=== PATIENT | female | born 1965 | race Caucasian/White ===

== ENCOUNTER → 2016-09-03 | Outpatient (CLI) | payer OTHER ==
[~2016-09-03] MED LIST: ALBU18002 INH; ASPI81TA28 PO; ATV5 PO; CALCTAB7 PO; CETI10TA84 PO; DILT-115 PO; EPP3/2 IM; FURO-85 PO; HYDR-389 PO; IPRASOL34 INH; NYSS/ PO; NYSTCRE11 EXT; PANT1TAB3 PO; PLMIN90 INH; POTA10CA28 PO; PRED-301 PO; RANI300T PO; SNG10 PO; SPRIN INH; TRMCR515 TOP; ZOLM1TAB3 PO
[2016-09-03 13:59] LABS: BLOOD UREA NITROGEN 10 mg/dl (7-18); BUN/CREATININE RATIO 15.2 (10-20); CREATININE 0.67 mg/dl (0.60-1.20)
== END | disposition home or self-care (01) ==
LOC: C.LAB 11:46
PROVIDERS: ATTEND Internal Medicine Pulmonary Disease
DX: R06.02 Shortness of breath (principal); R05 Cough; G47.30 Sleep apnea, unspecified

== ENCOUNTER → 2016-09-17 | Outpatient (CLI) | payer OTHER ==
[~2016-09-17] MED LIST changes: -PANT1TAB3 PO; +PANT1TAB48 PO
[2016-09-17 17:29] LABS: BLOOD UREA NITROGEN 13 mg/dl (7-18); BUN/CREATININE RATIO 17.7 (10-20); CALCIUM 8.6 mg/dl (8.5-10.1); CARBON DIOXIDE 30 mmol/L (21-32); CHLORIDE 104 mmol/L (98-107); CREATININE 0.74 mg/dl (0.60-1.20); GLUCOSE 98 mg/dl (70-99); POTASSIUM 3.5 mmol/L (3.5-5.1); SODIUM 143 mmol/L (136-145)
[2016-09-17 17:31] LABS: TOTAL IRON BINDING CAPACITY 357 mcg/dl (250-450)
== END | disposition home or self-care (01) ==
LOC: C.LABBC 12:15
PROVIDERS: ATTEND Internal Medicine Pulmonary Disease
DX: R35.8 Other polyuria (principal); R53.83 Other fatigue

== ENCOUNTER → 2016-10-23 | Outpatient (CLI) | payer OTHER ==
--- NOTE | 2016-10-23 09:59 | DIAGNOSTIC IMAGING REPORT ---
CHEST 2 VIEWS ROUTINE CLINICAL HISTORY: J45.901 Asthmatic bronchitis with [id number] COMPARISON STUDY: 08/19/2016 FINDINGS: The bones soft tissues and hemidiaphragms are normal. The cardiomediastinal silhouette is normal. The lungs are clear. The pulmonary vasculature is normal. IMPRESSION: Negative chest. Electronically signed by: Fernando Allison M.D. 10/23/2016 9:58 AM Dictated Date/Time: 10/23/2016 9:58 AM
[2016-10-23 13:14] LABS: BASO % 0.1 %; BASO ABS # 0.01 K/uL (0-0.2); COMPLETE YES; EOS % 0.2 %; HEMATOCRIT 43.2 % (37-47); IG% 0.5 %; LYMPH % 11.4 %; LYMPH ABS # 2.18 K/uL (1.2-3.4); MEAN CELL VOLUME 91.7 fL (80-100); MEAN CORPUSCULAR HEMOGLOBIN 32.1 pg (25-34); MEAN PLATELET VOLUME 10.3 fL (7.4-10.4); MONO % 3.7 %; NEUT % 84.1 %; PLATELET COUNT 281 K/uL (130-400); RED BLOOD COUNT 4.71 M/uL (4.2-5.4); WHITE BLOOD COUNT 19.06 K/uL (4.8-10.8)
[2016-10-23 14:31] LABS: ALT/SGPT 26 U/L (12-78); AST/SGOT 7 U/L (15-37); BLOOD UREA NITROGEN 14 mg/dl (7-18); BUN/CREATININE RATIO 15.1 (10-20); CALCIUM 8.9 mg/dl (8.5-10.1); CARBON DIOXIDE 29 mmol/L (21-32); CHLORIDE 101 mmol/L (98-107); CREATININE 0.93 mg/dl (0.60-1.20); GLUCOSE 146 mg/dl (70-99); POTASSIUM 3.7 mmol/L (3.5-5.1); SODIUM 139 mmol/L (136-145)
[2016-10-23 14:34] LABS: ALKALINE PHOSPHATASE 73 U/L (45-117)
== END | disposition home or self-care (01) ==
LOC: C.RADBC 09:43
PROVIDERS: ATTEND Internal Medicine Pulmonary Disease
DX: J45.901 Unspecified asthma with (acute) exacerbation (principal)

== ENCOUNTER → 2016-12-05 | Outpatient (CLI) | payer OTHER | END | disposition home or self-care (01) | LOC: C.PAPS 08:50 | PROVIDERS: ATTEND Obstetrics & Gynecology | DX: N83.299 Other ovarian cyst, unspecified side (principal); Z01.419 Encounter for gynecological examination (general) (routine) without abnormal findings ==

== ENCOUNTER → 2017-03-11 | Outpatient (CLI) | payer OTHER ==
[~2017-03-11] MED LIST changes: -PRED-301 PO
--- NOTE | 2017-03-11 09:04 | DIAGNOSTIC IMAGING REPORT ---
GI SERIES W/AIR ROUTINE CLINICAL HISTORY: K21.9 GERD without [id number] Abdominal pain TECHNIQUE: A standard air contrast upper GI series was performed following administration of barium and effervescent crystals. Multiple spot fluoroscopic images were obtained and provided for review. COMPARISON STUDY: CT 10/04/2015 FLUOROSCOPY TIME: 2.2 minutes. FINDINGS: The patient swallowed barium without difficulty. No aspiration was definitively visualized. The esophagus distended normally with barium and effervescent crystals. No strictures, mucosal ulcerations, or intraluminal mass lesions were identified involving the esophagus. There was no appreciable gastroesophageal reflux. Barium was seen to flow freely through the gastroesophageal junction. Evaluation of the stomach demonstrates no gastric mucosal irregularity or filling defect. The duodenal bulb and sweep appear unremarkable with the exception of a small diverticulum involving the second portion. IMPRESSION: Small duodenal diverticulum with otherwise unremarkable upper GI series. Electronically signed by: Yefri Van 03/11/2017 9:03 AM Dictated Date/Time: 03/11/2017 9:01 AM
== END | disposition home or self-care (01) ==
LOC: C.RAD 08:23
PROVIDERS: ATTEND Physician Assistant
DX: K21.9 Gastro-esophageal reflux disease without esophagitis (principal); R10.11 Right upper quadrant pain; N91.5 Oligomenorrhea, unspecified; K57.10 Diverticulosis of small intestine without perforation or abscess without bleeding

== ENCOUNTER → 2017-03-26 | Outpatient (CLI) | payer OTHER ==
[2017-03-26 11:18] LABS: BASO % 0.1 %; BASO ABS # 0.01 K/uL (0-0.2); COMPLETE YES; EOS % 1.7 %; HEMATOCRIT 39.7 % (37-47); IG% 0.2 %; LYMPH % 27.8 %; LYMPH ABS # 2.79 K/uL (1.2-3.4); MEAN CELL VOLUME 88.2 fL (80-100); MEAN CORPUSCULAR HEMOGLOBIN 29.3 pg (25-34); MEAN CORPUSCULAR HGB CONC 33.2 g/dl (32-36); MEAN PLATELET VOLUME 10.2 fL (7.4-10.4); MONO % 6.7 %; NEUT % 63.5 %; PLATELET COUNT 341 K/uL (130-400); WHITE BLOOD COUNT 10.03 K/uL (4.8-10.8)
[2017-03-26 11:42] LABS: BLOOD UREA NITROGEN 12 mg/dl (7-18); BUN/CREATININE RATIO 15.8 (10-20); CALCIUM 8.9 mg/dl (8.5-10.1); CARBON DIOXIDE 26 mmol/L (21-32); CHLORIDE 108 mmol/L (98-107); CREATININE 0.76 mg/dl (0.60-1.20); GLUCOSE 108 mg/dl (70-99); POTASSIUM 3.7 mmol/L (3.5-5.1); SODIUM 141 mmol/L (136-145)
[2017-03-26 11:53] LABS: ALKALINE PHOSPHATASE 69 U/L (45-117); ALT/SGPT 28 U/L (12-78); AST/SGOT 14 U/L (15-37); RHEUMATOID FACTOR < 10.0 U/mL (0-15)
[2017-04-02 06:48] LABS: ANTI-CENTROMERE AB <1.0 NEG AI (<1.0 NEG); ANTI-SS-A <1.0 NEG AI (<1.0 NEG); ANTI-SS-B <1.0 NEG AI (<1.0 NEG); DNA ds CRITHIDIA NEGATIVE (NEGATIVE); MICROSOMAL AB 1 IU/ML (<9); Sm Antibody <1.0 NEG AI (<1.0 NEG)
== END | disposition home or self-care (01) ==
LOC: C.LABBC 08:46
PROVIDERS: ATTEND Physician Assistant
DX: R50.9 Fever, unspecified (principal)

== ENCOUNTER → 2017-04-10 | Outpatient (CLI) | payer OTHER ==
[2017-04-10 19:04] LABS: LYME DISEASE AB IGG NEG (NEG); LYME DISEASE AB IGM NEG (NEG)
[2017-04-13 19:29] LABS: PARVOVIRUS IgG INDEX 0.3 (<0.9); PARVOVIRUS IgM INDEX 0.2 (<0.9)
== END | disposition home or self-care (01) ==
LOC: C.LAB1850 16:49
PROVIDERS: ATTEND Internal Medicine Pulmonary Disease
DX: R53.83 Other fatigue (principal)

== ENCOUNTER → 2017-06-12 | Outpatient (CLI) | payer OTHER ==
--- NOTE | 2017-06-13 14:11 | MAMMOGRAPHY REPORT ---
BILATERAL DIGITAL SCREENING MAMMOGRAM TOMOSYNTHESIS WITH CAD: 06/12/2017 CLINICAL HISTORY: Routine screening. Patient has no complaints. TECHNIQUE: Breast tomosynthesis in addition to standard 2D mammography was performed. Current study was also evaluated with a Computer Aided Detection (CAD) system. COMPARISON: Comparison is made to exams dated: 05/30/2016 mammogram, 01/05/2015 mammogram, 01/04/2014 herminia mogram, 11/18/2012 mammogram, 11/18/2011 mammogram - [facility], and 06/06/2016 mammog vikram. BREAST COMPOSITION: There are scattered areas of fibroglandular density in both breasts. FINDINGS: There is a new round 5 mm mass within the left upper inner quadrant posteriorly, for which spot compression tomosynthesis views and possible breast ultrasound are recommended for further eval uation. Additionally, there is an oval circumscribed 6 mm mass within the left lateral breast middle depth, possibly projecting superiorly on the MLO view, for which spot compression tomosynthesis view s and possible breast ultrasound are also recommended. There are grouped calcifications in the right lower inner quadrant, for which spot magnification views are recommended. The remainder of both breasts demonstrate no suspicious masses, calcifications, or areas of webmethods architect ural distortion. Other scattered bilateral benign-appearing calcifications are not significantly apwel nged. IMPRESSION: ACR BI-RADS CATEGORY 0: INCOMPLETE EVALUATION: NEED ADDITIONAL IMAGING EVALUATION Left breast masses and right breast calcifications, for which additional imaging evaluation is recomm ended. The patient will be called to schedule an appointment. Approximately 10% of breast cancers are not detected with mammography. A negative mammographic report should not delay biopsy if a clinically suggestive mass is present. Damari Shepherd M.D. ah/:06/12/2017 16:36:41 Journal Box Inspector: Anat SOSA(R)(M), [facility] letter sent: Addl Imaging 0 BI-RADS Code: ACR BI-RADS Category 0: Incomplete Evaluation: Need Additional Imaging Evaluation
== END | disposition home or self-care (01) ==
LOC: C.MAMM 07:41
PROVIDERS: ATTEND Obstetrics & Gynecology
DX: Z12.31 Encounter for screening mammogram for malignant neoplasm of breast (principal); R92.1 Mammographic calcification found on diagnostic imaging of breast; N63.20 Unspecified lump in the left breast, unspecified quadrant

== ENCOUNTER → 2017-06-25 | Outpatient (CLI) | payer OTHER ==
--- NOTE | 2017-06-25 14:26 | MAMMOGRAPHY REPORT ---
BILATERAL DIGITAL DIAGNOSTIC MAMMOGRAM TOMOSYNTHESIS WITH CAD AND TARGETED LEFT ULTRASOUND: 7 CLINICAL HISTORY: 52-year-old woman called back from screening mammography for right breast microcalc ifications, and 2 nodular asymmetries versus masses in the medial and lateral left breast. TECHNIQUE: Spot magnification right CC, ML, spot compression 2-D and tomosynthesis left CC and MLO, and full-field tomosynthesis left CC and MLO views were obtained after placement of skin markers. Cu rrent study was also evaluated with a Computer Aided Detection (CAD) system. COMPARISON: Comparison is made to exams dated: 06/12/2017 mammogram - [facility], 06/06/2016 mammogram, 05/30/2016 mammogram, 01/05/2015 mammogram, 01/04/2014 mammogram, and 11/18/2012 mammo gram - [facility]. BREAST COMPOSITION: There are scattered areas of fibroglandular density in both breasts. FINDINGS: Spot magnification views of the right breast demonstrate 2 adjacent clusters of coarse hete rogeneous calcifications extending over 12 mm in a linear distribution in the lower inner posterior r ight breast. There is no tram tracking to suggest vascular origin. This calcifications have been sl owly increasing comparing to prior mammograms dating back to 2009 and are indeterminate. Although th ey could represent degenerating fibroadenomas, definitive characterization with a stereotactic guided biopsy is recommended. Spot compression tomosynthesis views of the left breast demonstrate a partially circumscribed 3.9 mm mass in the upper inner posterior left breast, and a partially circumscribed 5.8 mm mass in the later al posterior left breast. Further evaluation with ultrasound was performed bilaterally. Targeted ultrasound performed in the upper inner quadrant of the left breast demonstrates an intrader mal anechoic lesion with hypoechoic punctum extending to the skin surface in the 10:00 breast, 18 cm from the nipple. It measures 3.6 x 4.1 x 3.5 mm and is compatible with an epidermal inclusion cyst. A circular mole marker was placed over this lesion. Then ultrasound was performed in the lateral le ft breast which demonstrates an anechoic benign simple cyst in the 3:00 axis, 8 cm from the nipple, t here is a parallel lobulated anechoic benign stable cyst measuring 5.3 x 6.3 x 2.8 mm. This may esperanza elate with the lateral nodular asymmetry and a BB marker was placed overlying the cyst in the 3:00 le ft breast. Full-field right CC and MLO tomosynthesis images were obtained after placement of the skin markers. The circular marker marker encircles the epidermal inclusion cyst and correlates with the medial asym metry, confirming benignity. The BB marker aligns with the lateral nodular asymmetry, confirming a b enign simple cyst and mammographicsonographic correlation. These findings are benign and no further workup is needed in the left breast at this time. IMPRESSION: ACR BI-RADS CATEGORY 4: SUSPICIOUS, TARGETED ULTRASOUND ACR BI-RADS CATEGORY 4: SUSPICIO US 1. Right breast stereotactic guided biopsy is recommended for coarse heterogeneous calcifications in a linear distribution in the lower inner posterior right breast. 2. The nodular asymmetries in the left breast are benign, correlating with an epidermal inclusion cy st in the upper inner quadrant of the breast, and a benign simple cyst in the 3:00 axis of the left b reast. No further workup is needed in the left breast at this time. These results and recommendations were discussed with the patient at the time of the exam. She tenta tively scheduled the right breast stereotactic biopsy prior to leaving our department. Approximately 10% of breast cancers are not detected with mammography. A negative mammographic report should not delay biopsy if a clinically suggestive mass is present. Barbi Alfred M.D. ay/:06/25/2017 12:35:40 Metal Cutter: Catarina LUNA)(Awilda), [facility] letter sent: Abnormal 4/5 BI-RADS Code: ACR BI-RADS Category 4: Suspicious Ultrasound BI-RADS: ACR BI-RADS Category 4: Suspici ous
== END | disposition home or self-care (01) ==
LOC: C.MAMM 10:40
PROVIDERS: ATTEND Obstetrics & Gynecology
DX: N63.20 Unspecified lump in the left breast, unspecified quadrant (principal); R92.1 Mammographic calcification found on diagnostic imaging of breast; N64.89 Other specified disorders of breast

== ENCOUNTER → 2017-07-01 | Outpatient (CLI) | payer OTHER ==
--- NOTE | 2017-07-01 13:19 | Discharge Instructions ---
Discharge Instructions Procedure Procedure Date: Jul 01, 2017. Reason for visit: Right Calcs. Discharge Discharge Date: Jul 01, 2017. Discharge Diagnosis: post right breast stereotactic guided biopsy Medications Restart Stopped Medication(s): May restart Aspirin tomorrow Instructions Activity Recommendations: Additional Limitations (see below) Return to School/Work: no limitations Recommended Home Diet: No Limitations Provider Instructions: ACTIVITY RECOMMENDATIONS: * No lifting, pushing, pulling or exercising the affected side for three days. RETURN TO SCHOOL/WORK: * You may return to work/school after the procedure, but do not perform any strenuous activities for 24 to 48 hours. MEDICATIONS: * Tylenol (two 325 mg) every four to six hours if needed for mild pain (if not allergic to Tylenol). DIET: * Resume previous diet. SPECIAL CARE INSTRUCTIONS: * Keep biopsy site dry for 24 hours. May shower after 24 hours, but do not soak (bathe) incision. * May remove Tegaderm (plastic patch) tomorrow AFTER showering. * Leave the steri-strips on for one week. Allow the steri-strips to fall off by themselves. If not off after one week, you may remove them. You may place a Bandaid crosswise over the strips, if desired. * Apply ice 10 minutes on and 10 minutes off as needed. * Wear a bra at bedtime to sleep more comfortably for 2-3 days. * Your referring physician should have the results after approximately 5 to 7 business days. * Call for unusual bleeding, fever, drainage, etc or if you have any questions call [phone] during normal business hours or after hours call Dr Alfred, . FOLLOW UP VISIT: Follow-up with Referring Physician as scheduled. Allergies Coded Allergies: Influenza Vaccine Live (Verified Allergy, Intermediate, ANAPHYLAXIS, ) ON ADM ORDERS 12/28/10 BY ALLERGY Eggs or Egg-derived Products (Verified Allergy, Mild, hive, 10/04/15) Monika Owens Recommendations: Call your doctor if: * Temperature above 101 degrees * Pain not relieved by pain medicine ordered * There is increased drainage or redness from any incision * You have any unanswered questions or concerns. Your Doctors Instructions noted above were prepared by provider Barbi Alfred. Patient Signature Section: Patient Instructions Signature Page Demetrice Duran Patient (or Guardian) Signature/Date: I have read and understand the instructions given to me by my caregivers. Caregiver/RN/Doctor Signature/Date: The above-named patient and/or guardian has received patient instructions on this date. + Original Patient Signature Page (only) stays with chart. Please make copy for patient.
--- NOTE | 2017-07-02 07:37 | MAMMOGRAPHY REPORT ---
STEREOTACTIC GUIDED BIOPSY RIGHT BREAST: 07/01/2017 CLINICAL HISTORY: Indeterminate cluster of coarse heterogeneous microcalcifications in the lower inne r posterior right breast. Patient presents for stereotactic guided biopsy. COMPARISON: Comparison is made to exams dated: 06/25/2017 ultrasound, 06/25/2017 mammogram, 06/12/20 17 mammogram - [facility], 06/06/2016 mammogram, 05/30/2016 mammogram, and 01/05/2015 m ammogram - [facility]. PATIENT CONSENT: After explaining the risks, benefits and alternatives of the procedure to the patien t, informed consent was obtained both verbally and in writing. Specific risks include: Bleeding, inf ection, puncture of adjacent structure, pain, nontarget biopsy, sampling error, metal allergy and med ication reaction. PROCEDURE DESCRIPTION: A time-out was performed and the right breast was confirmed as the site of bio psy. The patient was placed prone on the stereotactic biopsy table and the breast was placed in media llateral compression. A press assistant image was obtained that demonstrated the clustered microcalcifications in question. They are amenable to sterotactic biopsy. Then +15 and -15 stereo pair images were ob tained. The calcifications were targeted utilizing the coordinates obtained by the computer. The ski n was prepped with Betadine. 1% Lidocaine with and without epinipherine was administered as local ane sthesia. A small skin incision was made. Through the incision, the needle was inserted to the depth determined by the computer. 7 samples were obtained using a [employer] 9-gauge vacuum-assisted biops y device. The specimen radiograph demonstrated several passenger relations representative microcalcifications, therefore, a metallic marker was placed at the biopsy site. There was no immediate complication. Hemostasis was achieved after several minutes of manual compression. The samples were sent to pathology in two shemar ropriately labeled containers, "with calcifications" and "without calcifications". All of the samples were obtained from the same single biopsy site. Postprocedure CC and ML views of the right breast were obtained. A new dumbbell-shaped metallic bio psy marker is seen in the lower inner quadrant and no significant postbiopsy hematoma is identified. Based on the CC projection, there is medial migration of the biopsy marker clip by 2.3 cm, likely du e to accordion effect. However a few residual microcalcifications are still identified at the biopsy site for possible localization purposes in the future. IMPRESSION: STEREOTACTIC GUIDED BIOPSY Status post right breast stereotactic guided biopsy of clustered coarse heterogeneous microcalcificat ions in the lower inner quadrant of the right breast posteriorly, with a dumbbell shaped biopsy marke r placed at the site. The patient will receive notification of the biopsy results from her referring physician. Barbi Alfred M.D. ay/:07/01/2017 13:39:00 Payroll Manager: Arielle LUNA)(Awilda), [facility]
--- NOTE | 2017-07-02 07:40 | MAMMOGRAPHY REPORT ---
UNILATERAL RIGHT DIGITAL DIAGNOSTIC MAMMOGRAM: 07/01/2017 CLINICAL HISTORY: Status post right breast stereotactic biopsy of grouped coarse heterogeneous microc alcifications in the lower inner posterior breast. Please refer to the report from right breast stereotactic guided biopsy performed at the same time fo r further detail. IMPRESSION: POST PROCEDURE IMAGING FOR MARKER PLACEMENT Please refer to the report from right breast stereotactic guided biopsy performed at the same time fo r further detail. Approximately 10% of breast cancers are not detected with mammography. A negative mammographic report should not delay biopsy if a clinically suggestive mass is present. Barbi Alfred M.D. ay/:07/01/2017 13:20:57 Nail Specialist: Arielle oHrn RT(R)(M), [facility] BI-RADS Code: Post Procedure Imaging For Marker Placement
== END | disposition home or self-care (01) ==
LOC: C.MAMM 12:37
PROVIDERS: ATTEND Obstetrics & Gynecology
DX: R92.0 Mammographic microcalcification found on diagnostic imaging of breast (principal); D24.1 Benign neoplasm of right breast

== ENCOUNTER → 2017-09-12 | Outpatient (CLI) | payer OTHER ==
[~2017-09-12] MED LIST changes: +PANT1TAB3 PO; -PANT1TAB48 PO
--- NOTE | 2017-09-12 11:59 | DIAGNOSTIC IMAGING REPORT ---
ULTRASOUND RIGHT UPPER EXTREMITY NONVASCULAR CLINICAL HISTORY: Mass. COMPARISON STUDY: No priors. FINDINGS: Real-time, grayscale, and color flow sonography of the soft tissues of the right upper extremity is performed at the indicated site of interest. No mass lesion or fluid collection is identified by ultrasound. Normal soft tissues and musculature identified at this site. IMPRESSION: Unremarkable sonographic assessment of the right upper extremity at the indicated site of interest. No mass lesion is seen. Electronically signed by: Richard Dyer M.D. 09/12/2017 11:58 AM Dictated Date/Time: 09/12/2017 11:56 AM
== END | disposition home or self-care (01) ==
LOC: C.ULTR 11:36
PROVIDERS: ATTEND Physician Assistant
DX: R22.31 Localized swelling, mass and lump, right upper limb (principal)

== ENCOUNTER → 2017-12-31 | Outpatient (CLI) | payer OTHER ==
--- NOTE | 2017-12-31 15:46 | MAMMOGRAPHY REPORT ---
UNILATERAL RIGHT DIGITAL DIAGNOSTIC MAMMOGRAM TOMOSYNTHESIS WITH CAD: 12/31/2017 CLINICAL HISTORY: Status post stereotactic biopsy of right breast calcifications June 2017 which y ielded benign pathology. The patient presents for follow-up after the biopsy. She reports no palpab le lumps or other complaints. TECHNIQUE: Breast tomosynthesis in addition to standard 2D mammography was performed. Current study was also evaluated with a Computer Aided Detection (CAD) system. Right CC and MLO 2D and tomosynthes is images were obtained. COMPARISON: Comparison is made to exams dated: 07/01/2017 mammogram, 07/01/2017 stereotactic biopsy, 06/25/2017 ultrasound, 06/12/2017 mammogram, 05/30/2016 mammogram - [facility], and 06/06/2016 mammogram. BREAST COMPOSITION: There are scattered areas of fibroglandular density in the right breast. FINDINGS: A biopsy clip is seen within the right lower inner quadrant from prior benign stereotactic biopsy. A few residual calcifications are seen slightly lateral and superior to the biopsy clip. Th ere are no suspicious masses, calcifications, or areas of architectural distortion noted within the r ight breast. An asymmetry in the right inferior breast on the MLO view appears similar to multiple p rior exams including the 2009 exam. IMPRESSION: ACR BI-RADS CATEGORY 2: BENIGN There is no mammographic evidence of malignancy in the right breast. Return to annual mammogram scree sharita schedule is recommended, due June 2018. The patient has been verbally notified of the result s. Approximately 10% of breast cancers are not detected with mammography. A negative mammographic report should not delay biopsy if a clinically suggestive mass is present. Damari Shepherd M.D. ah/:12/31/2017 08:18:19 Grievance Coordinator: Mili LUNA)(Awilda), [facility] letter sent: Normal 1/2 BI-RADS Code: ACR BI-RADS Category 2: Benign
== END | disposition home or self-care (01) ==
LOC: C.MAMM 08:00
PROVIDERS: ATTEND Obstetrics & Gynecology
DX: R92.2 Inconclusive mammogram (principal)

== ENCOUNTER → 2018-01-15 | Outpatient (CLI) | payer OTHER ==
--- NOTE | 2018-01-15 18:35 | DIAGNOSTIC IMAGING REPORT ---
CHEST 2 VIEWS ROUTINE HISTORY: Shortness of breath. COMPARISON: Chest 10/23/2016. FINDINGS: The lungs are clear. Cardiac silhouette is normal in size. No pleural effusions. No pneumothorax. IMPRESSION: No acute process. Electronically signed by: Casey Manuel M.D. 01/15/2018 6:33 PM Dictated Date/Time: 01/15/2018 6:31 PM
== END | disposition home or self-care (01) ==
LOC: C.RAD1850 16:29
PROVIDERS: ATTEND Physician Assistant
DX: R06.02 Shortness of breath (principal)

== ENCOUNTER → 2018-04-17 | Outpatient (CLI) | payer OTHER ==
--- NOTE | 2018-04-17 11:34 | DIAGNOSTIC IMAGING REPORT ---
L PELVIS/UNILATERAL HIP 2-3VIEWS CLINICAL HISTORY: HIP PAIN pain COMPARISON: None. DISCUSSION: The bones and joint spaces appear intact. There is no evidence of fracture, dislocation or bony disease. There is no evidence for soft tissue swelling. IMPRESSION: Negative study. The above report was generated using voice recognition software. It may contain grammatical, syntax or spelling errors. Electronically signed by: Fernando Allison M.D. 04/17/2018 11:33 AM Dictated Date/Time: 04/17/2018 11:32 AM
== END | disposition home or self-care (01) ==
LOC: C.RAD1850 11:23
PROVIDERS: ATTEND Physician Assistant
DX: M25.552 Pain in left hip (principal)

== ENCOUNTER 2019-06-19 21:02 | Inpatient (IN) ==
[2019-06-19 21:51] LABS: Basophils # (auto) 0.01 K/uL (0-0.2); Eosinophils # (auto) 0.06 K/uL (0-0.5); Eosinophils % (auto) 0.3 %; Hematocrit (blood only) 42.6 % (37-47); Hemoglobin 14.3 g/dL (12.0-16.0); Immature Granulocytes # (auto) 0.12 K/uL (0.00-0.02); Immature Granulocytes % (auto) 0.6 %; Lymphocytes # (auto) 3.64 K/uL (1.2-3.4); Lymphocytes % (auto) 17.9 %; Mean Corpuscular Hemoglobin 28.9 pg (25-34); Mean Corpuscular Hgb Conc 33.6 g/dL (32-36); Mean Corpuscular Volume 86.2 fL (80-100); Mean Platelet Volume 10.2 fL (7.4-10.4); Monocytes # (auto) 0.96 K/uL (0.11-0.59); Monocytes % (auto) 4.7 %; Neutrophils # (auto) 15.49 K/uL (1.4-6.5); Neutrophils % (auto) 76.5 %; Platelet Count 333 K/uL (130-400); RDW Coefficient of Variation 13.7 % (11.5-14.5); RDW Standard Deviation 42.6 fL (36.4-46.3); Red Blood Count 4.94 M/uL (4.2-5.4); White Blood Count 20.28 K/uL (4.8-10.8)
[2019-06-19] MEDS ORDERED: fentaNYL citrate 100 MCG/2 ML VIAL IV STA (21:55)
[2019-06-19] MEDS ORDERED: ALBUT/IPRATROP 3MG/0.5MG NEB 3 ML VIAL NEB STA (21:55)
[2019-06-19] MEDS ORDERED: SODIUM CHLORIDE 0.9% 1000ML 1,000 ML IV ONE (21:55)
[2019-06-19 21:56] LABS: Partial Thromboplastin Ratio 0.9; Partial Thromboplastin Time 25.1 Seconds (21.0-31.0); Prothrombin Time 9.8 Seconds (9.0-12.0)
--- NOTE | 2019-06-19 21:59 | XRay Report ---
XR chest 1V portable CLINICAL HISTORY: SOB dyspnea COMPARISON STUDY: 01/13/2015 FINDINGS: Poor inspiratory volumes. Crowding of the basilar lung markings. Findings suggesting a comp onent of mild congestive failure. IMPRESSION: Mild congestive heart failure. The above report was generated using voice recognition software. It may contain grammatical, syntax or spelling errors. Electronically signed by: Fernando Allison M.D. 06/19/2019 9:56 PM
[2019-06-19 22:02] LABS: Alanine Aminotransferase 24 U/L (12-78); Albumin Level 3.6 gm/dl (3.4-5.0); Aspartate Aminotransferase 9 U/L (15-37); BUN Creatinine Ratio 17.9 (10-20); Blood Urea Nitrogen 16 mg/dl (7-18); Calcium 8.8 mg/dl (8.5-10.1); Carbon Dioxide 29 mmol/L (21-32); Chloride 104 mmol/L (98-107); Est GFR (African American) 82.9; Est GFR (Non-African American) 71.5; Glucose 106 mg/dl (70-99); Potassium 3.1 mmol/L (3.5-5.1); Sodium 139 mmol/L (136-145)
--- NOTE | 2019-06-19 22:02 | Emergency Department Note ---
ED Provider Note Name: RAMON GONSALES Age: 54 Arrives Via: Walk-In Informant: Patient, CC: SHOB HPI: [id number] arrives for evaluation of shortness of breath. Patient with 1 week of shortness of breath and cough. Notes on Augmentin and prednisone by PCP for the last 5 days. Worsening cough, shortbess of breath, chest tightness, weakness, fatigue. This afternoon was traveling and around 5:30 pm developed right lower posterior chest pain, worsening shortness of breath. Notes she can't catch nidia th. Exertion makes worse. Rest makes marginally better. No tyl/motring nor other pain medications. Denies trauma. History of father with PE. Pt with no PE/DVT history but admits left leg in a brace for the last few months due to meniscus injury. She does not use blood thinners. ROS: See above HPI for pertinent positives & negatives. A total of 10 systems reviewed and were otherwise negative. Past Medical History:Asthma, GERD, HTN, Diverticulitis, Migraines, DOUGLAS, Gestational Diabetes Past Surgical History:Endometrial ablation, EGD, Tubal Ligation Family History:Father with DE Social History:Lives with , non-smoker, kuwaiti speaker Home Medications:See Below Allergies:See Below Vitals:BP 142/87, P111, R 26, T 38.0, O2 87% (RA on my evaluation) Physical Exam: GENERAL: Patient is ill appearing and in moderate distress. EYES: No scleral icterus, unremarkable pupils. ENT: Mucous membranes dry, no nasal congestion. NECK: No masses appreciated, nomeningismus, trachea is midline. RESPIRATORY: Dyspneic. Mild diffuse wheezing, tachypnea. CARDIOVASCULAR: Tachy.No murmurs, rubs, gallops appreciated. GASTROINTESTINAL: Abdomen soft, non-tender, no peritonitis.Bowel sounds pos itive.No masses appreciated. BACK: No midline tenderness, no CVA tenderness EXTREMITIES: Left leg in knee brace. Normal motion all extremities, no cyanosis, no edema. NEUROLOGIC: Alert and oriented, no acute motor or sensory deficits, no focal weakness, cranial nerves grossly intact. SKIN: No rash, no jaundice, no diaphoresis. ED Course: Prior Medical Record, Triage/Nursing Notes, Medications, Allergies reviewed by Me Vital Signs: reviewed and remarkable for Hypoxia, Tachycardia, Fever Labs:Reviewed and remarkable for elevated WBC Interventions: Saline Lock, Duoneb, NSS bolus 2 L IV, Tylenol PO, Levaquin 750mg IV, Vanco 2.2g IV, Fentanyl 50mcg IV Imaging:Radiologist interpretation reviewed by me: CXR with congestive findings. CT PE without PE though bilateral pneumonia vs CHF Consults:Dr Kenji Garcia Hospitalist for further evaluation and treatment Reassessments/Times: Multiple times throughout ED stay and improvement in HR, hypoxia Blood pressure:Normal.No Referral necessary Disposition:Hospitalization Prescriptions:None. Differentials:PE, Dissection, ACS, PNA, COPD, Sepsis amongst other pathologies. Medical Decision Makin yr old female with history of asthma who has been on steroids and abx for the last week for shob issues. She arrives febrile, tachy, hypoxic in significant distress. With vital signs, recent travel, right chest pain, and left leg in brace felt rule out PE indicated. Sepsis work-up begun and overall 30ml/kg IV Fluids based on IDBW. She was taken to CT which revealed bilateral pna vs chf. By exam she is not in chf and appears clinically dehydrated thus fluid resus continued. She was gradually feeling improved though still on hypoxic side on RA. Given broad spectrum abx. Lactic acid OK and no hypotension. Multiple repeat evaluations and patient improving. She was discussed with hospitalist who will bring her in for further management. Impression: Sepsis Bilateral Pneumonia Failure of outpatient treatment Critical Care Time: I have personally spent greater than 40 minutes of critical care time in the direct management of this patient. Sepsis due to bilateral pneumonia with hypoxia and leukocytosis. This was a life/limb threatening event. This includes time spent evaluating patient, direct bedside care, chart review, placing orders, interpretation of diagnostic studies, discussion with consultants, patient, and family members, as well as other required patient management activities. This 40 minutes is in excess of all separately billable procedures. 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 Land Surveyor Required: No Beliefs That Will Affect Care: None Current Living Situation: Spouse Feels Safe at Home: Yes Safety Concerns: Feels Safe At This Time Smoking Status: Former smoker Hx Alcohol Use: Yes Alcohol type: other Hx Substance Use: No Results & Data Vital Signs Vital Signs - 24 hr 06/19/19 21:04 06/19/19 21:18 06/19/19 21:42 Temperature 38.0 C H Temperature Source Oral Sepsis Recent Fever Within 48 Hours No Sepsis Action Taken by Nursing No Action Required Pulse Rate 111 H Pulse Rate [Right Finger] Pulse Rate from SpO2 Sensor Pulse Rhythm Regular Pulse Strength Normal Respiratory Rate 26 H Respiratory Effort / Characteristics Non-Labored Non-Labored Spontaneous Short of Breath Respiratory Depth Normal Shallow Respiratory Pattern Regular Regular Blood Pressure 142/87 H Blood Pressure Mean 105 Blood Pressure Position Sitting Pulse Oximetry 96 93 Oxygen Delivery Method Room Air Room Air 06/19/19 22:01 06/19/19 22:27 06/19/19 22:44 Temperature 39.2 C H Temperature Source Oral Sepsis Recent Fever Within 48 Hours Sepsis Action Taken by Nursing Pulse Rate 103 H Pulse Rate [Right Finger] 110 H Pulse Rate from SpO2 Sensor 104 H Pulse Rhythm Pulse Strength Respiratory Rate 27 H 28 H Respiratory Effort / Characteristics Spontaneous Respiratory Depth Respiratory Pattern Blood Pressure 171/114 H Blood Pressure Mean 133 Blood Pressure Position Pulse Oximetry 93 90 Oxygen Delivery Method Room Air 06/19/19 23:00 Temperature Temperature Source Sepsis Recent Fever Within 48 Hours Sepsis Action Taken by Nursing Pulse Rate 115 H Pulse Rate [Right Finger] Pulse Rate from SpO2 Sensor 115 H Pulse Rhythm Pulse Strength Respiratory Rate 25 H Respiratory Effort / Characteristics Respiratory Depth Respiratory Pattern Blood Pressure 174/90 H Blood Pressure Mean 118 Blood Pressure Position Pulse Oximetry 92 Oxygen Delivery Method Laboratory Data Result diagrams: 06/19/19 21:34 06/19/19 21:34 Lab Results 06/19/19 06/19/19 06/19/19 Range/Units 21:34 21:34 21:34 WBC 20.28 H (4.8-10.8) K/uL RBC 4.94 (4.2-5.4) M/uL Hgb 14.3 (12.0-16.0) g/dL Hct 42.6 (37-47) % MCV 86.2 (80-100) fL MCH 28.9 (25-34) pg MCHC 33.6 (32-36) g/dL RDW Std Deviation 42.6 (36.4-46.3) fL RDW Coeff of [place] 13.7 (11.5-14.5) % Plt Count 333 (130-400) K/uL MPV 10.2 (7.4-10.4) fL Immature Gran % (Auto) 0.6 % Neut % (Auto) 76.5 % Lymph % (Auto) 17.9 % [place] % (Auto) 4.7 % Eos % (Auto) 0.3 % Baso % (Auto) 0.0 % Immature Gran # (Auto) 0.12 H (0.00-0.02) K/uL Neut # (Auto) 15.49 H (1.4-6.5) K/uL Lymph # (Auto) 3.64 H (1.2-3.4) K/uL [place] # (Auto) 0.96 H (0.11-0.59) K/uL Eos # (Auto) 0.06 (0-0.5) K/uL Baso # (Auto) 0.01 (0-0.2) K/uL PT 9.8 (9.0-12.0) Seconds INR 1.0 (0.9-1.1) APTT 25.1 (21.0-31.0) Seconds PTT Ratio 0.9 Sodium 139 (136-145) mmol/L Potassium 3.1 L (3.5-5.1) mmol/L Chloride 104 (98-107) mmol/L Carbon Dioxide 29 (21-32) mmol/L Anion Gap 6.0 (3-11) BUN 16 (7-18) mg/dl Creatinine 0.91 (0.6-1.2) mg/dl Est Cr Clr Drug Dosing Not Reportable Est GFR ( Amer) 82.9 Est GFR (Non-Af Amer) 71.5 BUN/Creatinine Ratio 17.9 (10-20) Glucose 106 H (70-99) mg/dl Lactate (0.4-2.0) mmol/L Calcium 8.8 (8.5-10.1) mg/dl Total Bilirubin 0.4 (0.2-1) mg/dl AST 9 L (15-37) U/L ALT 24 (12-78) U/L Alkaline Phosphatase 89 (45-117) U/L Troponin I < 0.015 (0-0.045) ng/ml Total Protein 7.4 (6.4-8.2) gm/dl Albumin 3.6 (3.4-5.0) gm/dl Globulin 3.8 (2.5-4.0) gm/dl Albumin/Globulin Ratio 0.9 (0.9-2) Influenza Type A Ag (Neg) Influenza Type A (PCR) (Neg) Influenza Type B Ag (Neg) Influenza Type B (PCR) (Neg) 06/19/19 06/19/19 06/19/19 Range/Units 22:00 22:00 22:39 WBC (4.8-10.8) K/uL RBC (4.2-5.4) M/uL Hgb (12.0-16.0) g/dL Hct (37-47) % MCV (80-100) fL MCH (25-34) pg MCHC (32-36) g/dL RDW Std Deviation (36.4-46.3) fL RDW Coeff of Cody (11.5-14.5) % Plt Count (130-400) K/uL MPV (7.4-10.4) fL Immature Gran % (Auto) % Neut % (Auto) % Lymph % (Auto) % [place] % (Auto) % Eos % (Auto) % Baso % (Auto) % Immature Gran # (Auto) (0.00-0.02) K/uL Neut # (Auto) (1.4-6.5) K/uL Lymph # (Auto) (1.2-3.4) K/uL [place] # (Auto) (0.11-0.59) K/uL Eos # (Auto) (0-0.5) K/uL Baso # (Auto) (0-0.2) K/uL PT (9.0-12.0) Seconds INR (0.9-1.1) APTT (21.0-31.0) Seconds PTT Ratio Sodium (136-145) mmol/L Potassium (3.5-5.1) mmol/L Chloride (98-107) mmol/L Carbon Dioxide (21-32) mmol/L Anion Gap (3-11) BUN (7-18) mg/dl Creatinine (0.6-1.2) mg/dl Est Cr Clr Drug Dosing Est GFR ( Amer) Est GFR (Non-Af Amer) BUN/Creatinine Ratio (10-20) Glucose (70-99) mg/dl Lactate 1.7 (0.4-2.0) mmol/L Calcium (8.5-10.1) mg/dl Total Bilirubin (0.2-1) mg/dl AST (15-37) U/L ALT (12-78) U/L Alkaline Phosphatase (45-117) U/L Troponin I (0-0.045) ng/ml Total Protein (6.4-8.2) gm/dl Albumin (3.4-5.0) gm/dl Globulin (2.5-4.0) gm/dl Albumin/Globulin Ratio (0.9-2) Influenza Type A Ag Neg for Influ A (Neg) Influenza Type A (PCR) Neg for Influ A (Neg) Influenza Type B Ag Neg for Influ B (Neg) Influenza Type B (PCR) Neg for Influ B (Neg) Administered Medications Sodium Chloride (Nss 1000ml) 1,000 mls @ 75 mls/hr IV .[id number] SHAKEEL Stop: 07/20/19 01:05 Last Admin: 06/20/19 01:25 Dose: 75 mls/hr Documented by: [id number] Methylprednisolone 40 mg/ (Syringe) 0.64 mls @ 1.5 mls/min IV TID SHAKEEL Stop: 07/20/19 01:05 Last Admin: 06/20/19 02:39 Dose: 1.5 mls/min Documented by: [id number] Tramadol HCl (Ultram) 50 mg PO Q6H PRN PRN Reason: pain Stop: 07/20/19 01:05 Last Admin: 06/20/19 01:30 Dose: 50 mg Documented by: [id number] Discontinued Medications Acetaminophen (Tylenol) 1,000 mg PO NOW STA Stop: 06/19/19 22:46 Last Admin: 06/19/19 22:54 Dose: 1,000 mg Documented by: [id number] Albuterol (Duoneb) 3 ml NEB NOW STA Stop: 06/19/19 21:56 Last Admin: 06/19/19 22:26 Dose: 3 ml Documented by: [id number] Fentanyl Citrate (Fentanyl Citrate) 50 mcg IV NOW STA Stop: 06/19/19 21:56 Last Admin: 06/19/19 22:25 Dose: 50 mcg Documented by: [id number] Sodium Chloride (Nss 1000ml) 1,000 mls @ 999 mls/hr IV .[id number] ONE Stop: 06/19/19 22:55 Last Infusion: 06/20/19 00:33 Dose: 0 mls/hr Documented by: [id number] Admin: 06/19/19 22:25 Dose: 999 mls/hr Documented by: [id number] Vancomycin HCl 2,250 mg/ (Sodium Chloride) 545 mls @ 200 mls/hr IV NOW ONE Stop: 06/20/19 01:06 Last Admin: 06/20/19 00:39 Dose: 200 mls/hr Documented by: [id number] Levofloxacin/Dextrose (Levaquin/D5w) 750 mg in 150 mls @ 100 mls/hr IV NOW STA Stop: 06/19/19 23:52 Last Infusion: 06/20/19 00:32 Dose: 0 mls/hr Documented by: [id number] Admin: 06/19/19 22:56 Dose: 100 mls/hr Documented by: [id number] Ioversol (Optiray 320 125ml) 91 ml IV ONCE PRN PRN Reason: Interaction Checking Stop: 06/23/19 22:18 Last Admin: 06/19/19 22:19 Dose: 91 ml Documented by: [id number] Discharge Plan Visit Data *Final* Discharge Date/Time: 06/20/19 00:50 Chief Complaint: Shortness of Breath/Dyspnea Stated Complaint: SHORTNESS OF BREATH, CHEST PAIN ED Provider: Laith Sanders Discharge Problem: Sepsis, Bilateral pneumonia, Failure of outpatient treatment Patient Disposition: Admitted As Inpatient Discharge Instructions Interventions: ED Discharge Assessment Last Done: 06/20/19 00:50 Discharge Problem: Sepsis Qualifiers: Sepsis type: sepsis due to unspecified organism Sepsis acute organ dysfunction status: unspecified Qualified Code(s): A41.9 - Sepsis, unspecified organism Bilateral pneumonia Qualifiers: Pneumonia type: due to unspecified organism Lung location: lower lobe of lung Qualified Code(s): J18.1 - Lobar pneumonia, unspecified organism
[2019-06-19 22:07] LABS: Albumin Globulin Ratio 0.9 (0.9-2); Alkaline Phosphatase 89 U/L (45-117); Bilirubin,Total 0.4 mg/dl (0.2-1); Globulin 3.8 gm/dl (2.5-4.0); Total Protein 7.4 gm/dl (6.4-8.2); Troponin I < 0.015 ng/ml (0-0.045)
[2019-06-19] MEDS ORDERED: OPTIRAY 320 125ml IV PRN (22:19)
[2019-06-19] MEDS ORDERED: VANCOMYCIN CONSULT ACTIVE PRN (22:23)
[2019-06-19] MEDS ORDERED: LEVOFLOXACIN/D5W 750 MG/150 ML BAG IV STA (22:23)
--- NOTE | 2019-06-19 22:24 | CT Scan Report ---
CT angio chest PE protocol CT DOSE: 730.28 mGy.cm HISTORY: Chest pain PE, hypoxia, right lower lobe pain, shob TECHNIQUE: Multiaxial CT images of the chest were performed following the intravenous administration of contrast to evaluate the pulmonary arteries. Maximal intensity projection images were also obtaine d. A dose lowering technique was utilized adhering to the principles of ALARA. COMPARISON STUDY: 07/05/2014 FINDINGS: There is a normal caliber thoracic aorta with no evidence for dissection. There is no evide nce for pulmonary embolus. No pleural effusions. No pneumothorax. The liver and spleen are unremarkab le. No mediastinal or hilar lymphadenopathy. The central airways are patent. The lungs demonstrate bi basilar parenchymal infiltrates. Pulmonary vasculature is prominent. The appearance of the lung bases above the pulmonary vasculature suggesting component of congestive failure.. IMPRESSION: 1. No evidence for pulmonary embolus. 2. Mild congestive heart failure The above report was generated using voice recognition software. It may contain grammatical, syntax or spelling errors. Electronically signed by: Fernando Allison M.D. 06/19/2019 10:23 PM
[2019-06-19] MEDS ORDERED: ACETAMINOPHEN 500 MG TAB PO STA (22:45)
[2019-06-19] MEDS: VANCOMYCIN HCL 2,250 MG in SODIUM CHLORIDE 0.9% 500 ML IV ONE (23:42)
[2019-06-20] MEDS: VANCOMYCIN HCL 2,250 MG in SODIUM CHLORIDE 0.9% 500 ML IV ONE (00:39)
[2019-06-20] MEDS ORDERED: VANCOMYCIN CONSULT ACTIVE PRN (01:06)
[2019-06-20] MEDS ORDERED: ONDANSETRON INJ 2 MG/ML 2 ML VIAL IV PRN (01:06)
[2019-06-20] MEDS ORDERED: XOPENEX/ATROVENT 1.25mg/0.5MG NEB COMBO NEB SCH (01:06)
[2019-06-20] MEDS ORDERED: SODIUM CHLORIDE 0.9% 1000ML 1,000 ML IV SCH (01:06)
[2019-06-20] MEDS ORDERED: LEVALBUTEROL 1.25MG/0.5ML NEB INH PRN (01:06)
[2019-06-20] MEDS ORDERED: XOPENEX/ATROVENT 1.25mg/0.5MG NEB COMBO NEB PRN (01:06)
[2019-06-20] MEDS ORDERED: EPINEPHRINE ADULT AUTO-INJECT 0.3 MG SYR IM PRN (01:06)
[2019-06-20] MEDS ORDERED: hydrOXYzine HCl 10 MG TAB PO PRN (01:06)
[2019-06-20] MEDS ORDERED: VANCOMYCIN HCL 1,000 MG in SODIUM CHLORIDE 0.9% 250 ML IV SCH (01:06)
[2019-06-20] MEDS ORDERED: NITROGLYCERIN SL 0.4 MG/TAB TAB SL PRN (01:06)
[2019-06-20] MEDS ORDERED: LORazepam 0.5 MG TAB PO PRN (01:06)
[2019-06-20] MEDS ORDERED: ALBUTEROL HFA 8 GM INHALER INH PRN (01:06)
[2019-06-20] MEDS ORDERED: IPRATROPIUM BROMIDE NEB SOLN 0.02% 2.5 ML VIAL INH PRN (01:06)
--- NOTE | 2019-06-20 01:17 | History and Physical Report ---
DATE OF ADMISSION: 06/19/2019 CHIEF COMPLAINT: Shortness of breath. HISTORY OF PRESENT ILLNESS: This is a 54-year-old female with past medical history significant for asthma, moderate persistent allergic rhinitis, obstructive sleep apnea, on continuous positive airway pressure, gastroesophageal reflux disease, diverticulosis of colon, morbid obesity, generalized osteoarthritis, migraines, diabetes during who presents with shortness of breath and cough. The patient is on prednisone and Augmentin for 5 days for cough and shortness of breath, but today the shortness of breath got worse so she came to the hospital. In the Emergency Room, she was spiking temperatures, tachycardic, white count was 20,000 and CTA of the chest was done, there was no pulmonary embolism but showed possible bibasilar infiltrates also possible mild congestion. The patient is on Lasix as needed fr lower extremity edema.. Currently, she is feeling better. Emergency Room has given I.V. vancomycin and I.V. Levaquin. Denies any headache. No dizziness. No blurred vision. No earache. Has some runny nose. The patient states her son has strep throat, but she denies any sore throat. No difficulty swallowing. Appetite is okay, not sleeping well since she was started on prednisone. She has some right lower rib pain, is more on taking deep breaths. She has dry cough, but no phlegm. No nausea. No vomiting. No abdominal pain. Normal bowel and bladder movements. No hematuria or burning micturition. No black stools or hematochezia. No swelling in the legs. No rash. ALLERGIES: EGG DERIVED PRODUCTS AND FLU VACCINE. PAST MEDICAL HISTORY: As mentioned above. PAST SURGICAL HISTORY: Upper gastrointestinal endoscopy, biopsy of the uterus lining, colonoscopy, esophagogastroduodenoscopy with endoscopic ultrasound, laparoscopic cholecystectomy, ligation of oviducts, Pap screen laparoscopy. MEDICATIONS: The patient is on albuterol 2 puffs inhalation q. 4 hours p.r.n., Augmentin 875 one tablet b.i.d., aspirin 81 mg p.o. daily, Pulmicort Flexhaler 1 puff daily, calcium plus calcium carbonate with vitamin D 2 tablets daily, Zyrtec 10 mg p.o. at bedtime, diltiazem CD 240 mg p.o. daily, epinephrine p.r.n., Lasix 40 mg p.o. daily p.r.n., Lasix 20 mg p.o. a.m. p.r.n., hydroxyzine 10 mg p.o. q.i.d. p.r.n., DuoNebs q. 4 hours p.r.n., Ativan 0.5 mg p.o. t.i.d. p.r.n., Singulair 10 mg p.o. q.p.m., nystatin suspension 1 mL p.o. q.i.d. p.r.n., triamcinolone application b.i.d. p.r.n., Protonix 40 mg p.o. a.m., potassium chloride 10 mEq p.o. daily p.r.n. with Lasix, prednisone as directed, Zantac 300 mg p.o. at bedtime, Spiriva inhaler 1 puff daily, tramadol 50 mg p.o. q. 6 hours p.r.n. and zolmitriptan 5 mg as needed for migraines. FAMILY HISTORY: Significant for daughter has asthma. Son has asthma. Sister has a clotting disorder. Mother has lung cancer, hypertension and osteopenia. Father has heart disorder and hypertension. SOCIAL HISTORY: . No smoking. Alcohol, 3-4 beers a week. No drug use. REVIEW OF SYMPTOMS: As per HPI. Rest of review of systems negative. PHYSICAL EXAMINATION: GENERAL: The patient is obese, not in acute distress. VITAL SIGNS: Temperature 39.2, pulse 110, respiratory rate in 20s, blood pressure 132/81and oxygen 98% on room air. HEENT: No pallor. No icterus. Pupils are equal, round and reactive to light. NECK: No JVD. No neck masses. No carotid bruits. CARDIOVASCULAR: S1, S2 heard. Tachycardia. No murmurs. RESPIRATORY SYSTEM: Normal AP diameter. No accessory muscle use. No wheezing. Bibasilar crackles heard. ABDOMEN: Soft. Bowel sounds present. Nontender. No distention. CENTRAL NERVOUS SYSTEM: Cranial nerves II through XII grossly nonfocal. EXTREMITIES: No edema. No erythema. Left knee has a brace. LABORATORY DATA: WBC 20, hemoglobin 14.3, hematocrit 42.6 and platelets 333. PT 9.8, INR 1 and APTT of 25.1. Sodium 139, potassium 3.1, chloride 104, bicarbonate 29, BUN 16, creatinine 0.9, serum glucose 106, lactate 1.7, calcium 8.8, total bilirubin 0.4, AST 9, ALT 24 and alkaline phosphatase 89. Troponin I less than 0.015. Influenza A and B negative. Chest x-ray, mild congestive heart failure, poor inspiratory effort. CTA of the chest, no pulmonary embolism, mild congestive heart failure kind of picture, but also bibasilar parenchymal infiltrates. Electrocardiogram, sinus tachycardia at a rate of 104. No significant change from previous electrocardiogram. ASSESSMENT AND PLAN: This is a 54-year-old female presents with sob meets criteria for sepsis with tachycardia, fever, white count and possible bibasilar pneumonia, was getting treatment with Augmentin and p.o. prednisone on outpatient for the last five days, Emergency Room has started on I.V. vancomycin and I.V. Levaquin, which we will continue. Follow the cultures. Gentle fluids and normal saline at 75 mL per hour. Monitor on tele floor. 2. History of asthma, possible asthma exacerbation secondary to above. We will place on DuoNebs around the clock and p.r.n., I.V. Solu-Medrol 40 t.i.d. and antibiotics as above. 3. Obstructive sleep apnea, on continuous positive airway pressure at bedtime. 4. Mild congestion on chest x-ray and CTA of the chest with no history of congestive heart failure, on Lasix p.r.n. for lower extremity edema, getting gentle fluids, we will monitor for any volume overload. Follow echocardiogram. Troponin is negative. 5. History of diabetes during , currently getting steroids. We will place the patient on diabetic diet and follow HbA1c levels in a.m. 6. Gastroesophageal reflux disease. Continue proton pump inhibitor. 7. Allergic rhinitis, on Zyrtec and Singulair. 8. Deep venous thrombosis prophylaxis. Heparin subcutaneously. 9. Disposition: Admit to tele floor. Expect to discharge home and follow up with family doctor. Level 1 full code. MTDD
[2019-06-20] MEDS ORDERED: LEVOFLOXACIN CONSULT ACTIVE PRN (01:23)
[2019-06-20] MEDS: TRAMADOL HCL 50 MG TABLET PO PRN (01:30)
[2019-06-20 01:46] LABS: Influenza A virus by PCR Neg for Influ A (Neg); Influenza B virus by PCR Neg for Influ B (Neg)
[2019-06-20] MEDS: methylPREDNISolone 40 MG in SYRINGE 0 ML IV SCH ×4 (02:39→19:53)
[2019-06-20 03:23] LABS: Appearance Urine Clear (Clear); Bilirubin Urine Negative (Negative); Blood Urine Negative (Negative); Color Urine Yellow; Glucose Urine UA Negative (Negative); Ketones Urine Negative (Negative); Leukocyte Esterase Urine Negative (Negative); Nitrite Urine Negative (Negative); Protein Urine Negative (Negative); Urobilinogen Urine Negative (Negative); pH Urine 5.5 (4.5-7.5)
[2019-06-20] MEDS ORDERED: POTASSIUM CHLORIDE 20 MEQ TABCR PO STA (04:09)
[2019-06-20] MEDS ORDERED: MoRPHine SULFATE 4 MG/ML 1 ML CARP\\VIAL IV STA (04:22)
[2019-06-20 05:47] LABS: Basophils # (auto) 0.01 K/uL (0-0.2); Basophils % (auto) 0.1 %; Eosinophils # (auto) 0.02 K/uL (0-0.5); Eosinophils % (auto) 0.2 %; Hematocrit (blood only) 39.9 % (37-47); Hemoglobin 13.1 g/dL (12.0-16.0); Immature Granulocytes # (auto) 0.07 K/uL (0.00-0.02); Immature Granulocytes % (auto) 0.6 %; Lymphocytes # (auto) 1.24 K/uL (1.2-3.4); Lymphocytes % (auto) 10.1 %; Mean Corpuscular Hemoglobin 28.2 pg (25-34); Mean Corpuscular Hgb Conc 32.8 g/dL (32-36); Mean Platelet Volume 10.3 fL (7.4-10.4); Monocytes # (auto) 0.59 K/uL (0.11-0.59); Monocytes % (auto) 4.8 %; Neutrophils # (auto) 10.36 K/uL (1.4-6.5); Neutrophils % (auto) 84.2 %; Platelet Count 259 K/uL (130-400); RDW Coefficient of Variation 13.9 % (11.5-14.5); Red Blood Count 4.64 M/uL (4.2-5.4); White Blood Count 12.29 K/uL (4.8-10.8)
[2019-06-20] MEDS: HEPARIN SOD 5,000 UNIT/0.5 ML VIAL SQ SCH ×3 (06:02→22:03)
[2019-06-20 06:06] LABS: Calcium 7.8 mg/dl (8.5-10.1); Creatinine Clr Calc Pharmacy 119.9 ml/min; Est GFR (African American) 114.4; Est GFR (Non-African American) 98.7; Magnesium 1.8 mg/dl (1.8-2.4); Potassium 3.3 mmol/L (3.5-5.1)
[2019-06-20] MEDS: IPRATROPIUM BROMIDE NEB SOLN 0.02% 2.5 ML VIAL INH SCH ×3 (07:23→19:35)
[2019-06-20] MEDS: LEVALBUTEROL 1.25MG/0.5ML NEB INH SCH ×3 (07:23→19:34)
[2019-06-20] MEDS: BUDESONIDE 90 MCG INH INH SCH (08:41)
[2019-06-20] MEDS: PANTOprazole 40 MG TAB PO SCH (08:43)
[2019-06-20] MEDS: dilTIAZem HCL 240 MG CAPCR PO SCH (08:43)
[2019-06-20] MEDS: ASPIRIN 81 MG ECTAB PO SCH (08:43)
[2019-06-20] MEDS ORDERED: methylPREDNISolone 40 MG in SYRINGE 0 ML IV SCH (09:00)
[2019-06-20] MEDS ORDERED: PERFLUTREN LIPID MICROSPHERE (DEFINITY) IV ONE (09:34)
[2019-06-20] MEDS ORDERED: VANCOMYCIN HCL 1,500 MG in SODIUM CHLORIDE 0.9% 500 ML IV SCH (10:00)
--- NOTE | 2019-06-20 12:58 | Hospitalist Progress Note ---
Date of Service June 20, 2019 Assessment & Plan (1) Sepsis: Presented with fever, tachycardia, tachypnea with increased white cell count Did not have any hypotension Sepsis is likely secondary to bibasilar infiltration with outpatient failure of treatment Has been started with intravenous Levaquin and vancomycin Will get MRSA screen if negative will discontinue Vanco Clinically little better (2) Bilateral pneumonia: Has bibasilar infiltrate/atelectasis on CT scan of the chest Has been on intravenous antibiotic as above Present on Admission?: Yes (3) Asthma exacerbation: History of asthma with sleep apnea Received a course of antibiotic with Augmentin and prednisone as an outpatient Has been getting methylprednisone intravenously Continue nebulized bronchodilators (4) Hypertension: Blood pressure remains on the higher side Continue current medications (5) DOUGLAS (obstructive sleep apnea): Will continue using her CPAP and/or BiPAP (6) GERD (gastroesophageal reflux disease): Continue PPI DVT prophylaxis Subcu heparin CODE STATUS Full Subjective 06/20 The patient was seen and examined in telemetry unit She was admitted with outpatient treatment failure for asthma exacerbation Noted to have bibasilar infiltrate on CAT scan Has been feeling a little better since admission Still complains to have some pain with deep inspiration the right lower chest Review of Systems Review of Systems: All systems reviewed and are unremarkable except as noted below Respiratory: + cough, + dyspnea on exertion and + problem reported (Minimal pain with deep inspiration right lower posterior chest) Cardiovascular: no chest pain Physical Exam Physical Exam: Lying in bed without any significant discomfort Constitutional: well developed, well nourished, + ill appearing and + morbidly obese; no acute distress Eyes: PERRL, conjunctivae normal, anicteric sclerae ENMT: external ear and nose normal, oropharynx normal Neck: trachea midline, no thyromegaly Respiratory: normal respiratory effort; no respiratory distress Auscultation: lungs clear to auscultation bilaterally, + diminished lung sounds and + crackles (Minimal crackles at the bases) Cardiovascular: Rate/Rhythm: regular rate and regular rhythm Heart Sounds: no murmur Gastrointestinal (Abdomen): Inspection/Auscultation: abdomen normal to inspection and normal bowel sounds Percussion/Palpation: abdomen soft Musculoskeletal: No acute arthritis involving any joints Neurologic: moves all extremities; no focal motor deficits Lymphatic: no cervical or axillary lymphadenopathy Results & Data Vital Signs (Past 12 Hours) Vital Signs Temp Pulse Pulse Resp BP BP Pulse Ox 06/20/19 12:00 159/93 H 06/20/19 11:54 36.7 C 77 19 169/99 H 91 06/20/19 07:58 36.7 C 85 18 134/81 90 06/20/19 07:23 83 20 93 06/20/19 04:15 37.3 C 100 H 19 113/68 94 06/20/19 01:40 116 H 06/20/19 01:12 37.6 C H 120 H 20 131/73 91 Laboratory Results Short CBC 06/19/19 06/20/19 Range/Units 21:34 05:15 WBC 20.28 H 12.29 H (4.8-10.8) K/uL Hgb 14.3 13.1 (12.0-16.0) g/dL Hct 42.6 39.9 (37-47) % Plt Count 333 259 (130-400) K/uL BMP 06/19/19 06/20/19 21:34 05:15 Sodium 139 139 Potassium 3.1 L 3.3 L Chloride 104 107 Carbon Dioxide 29 25 BUN 16 13 Creatinine 0.91 0.69 Glucose 106 H 154 H Calcium 8.8 7.8 L Cardiac Enzymes 06/19/19 Range/Units 21:34 Troponin I < 0.015 (0-0.045) ng/ml Liver Function 06/19/19 Range/Units 21:34 Total Bilirubin 0.4 (0.2-1) mg/dl AST 9 L (15-37) U/L ALT 24 (12-78) U/L Alkaline Phosphatase 89 (45-117) U/L Albumin 3.6 (3.4-5.0) gm/dl Urine 06/20/19 Range/Units 02:30 Urine Color Yellow Urine Appearance Clear (Clear) Urine pH 5.5 (4.5-7.5) Ur Specific [place] 1.010 (1.000-1.030) Urine Protein Negative (Negative) Urine Glucose (UA) Negative (Negative) Medications Administered Current Inpatient Medications Acetaminophen (Tylenol) 650 mg PO Q4H PRN PRN Reason: Pain or Fever Stop: 07/20/19 01:05 Albuterol (Ventolin Hfa) 2 puffs INH Q4 PRN PRN Reason: Wheezing Aspirin (Ecotrin Ectab) 81 mg PO DAILY [facility] Stop: 07/20/19 08:59 Last Admin: 06/20/19 08:43 Dose: 81 mg Documented by: Budesonide (Pulmicort Flexhaler) 1 puffs INH DAILY [facility] Stop: 07/20/19 08:59 Last Admin: 06/20/19 08:41 Dose: 1 puffs Documented by: Cetirizine HCl (Zyrtec) 10 mg PO HS [facility] Stop: 07/20/19 20:59 Diltiazem HCl (Cardizem Cd) 240 mg PO DAILY [facility] Stop: 07/20/19 08:59 Last Admin: 06/20/19 08:43 Dose: 240 mg Documented by: Epinephrine HCl (Epipen) 0.3 mg IM UD PRN PRN Reason: Allergic Reaction Heparin Sodium (Porcine) (Heparin Sodium (Porcine)) 5,000 units SQ Q8 [facility] Stop: 07/20/19 05:59 Last Admin: 06/20/19 06:02 Dose: 5,000 units Documented by: Hydroxyzine HCl (Vistaril) 10 mg PO QID PRN PRN Reason: Itching Levofloxacin/Dextrose (Levaquin/D5w) 750 mg in 150 mls @ 100 mls/hr IV Q24H [facility] Stop: 06/25/19 23:29 Methylprednisolone 40 mg/ (Syringe) 0.64 mls @ 1.5 mls/min IV TID [facility] Stop: 07/20/19 01:05 Last Admin: 06/20/19 08:41 Dose: 1.5 mls/min Documented by: Vancomycin HCl 1,500 mg/ (Sodium Chloride) 530 mls @ 200 mls/hr IV Q10H [facility] Stop: 06/27/19 09:59 Ipratropium [place] (Atrovent 0.02% 0.5mg/2.5ml) 0.5 mg INH Q6R [facility] Stop: 07/20/19 06:59 Last Admin: 06/20/19 07:23 Dose: 0.5 mg Documented by: Ipratropium [place] (Atrovent 0.02% 0.5mg/2.5ml) 0.5 mg INH Q2H PRN PRN Reason: Shortness Of Breath Or Wheezing Stop: 07/20/19 01:05 Levalbuterol HCl (Xopenex 1.25mg/0.5ml Neb) 1.25 mg INH Q6R [facility] Stop: 07/20/19 06:59 Last Admin: 06/20/19 07:23 Dose: 1.25 mg Documented by: Levalbuterol HCl (Xopenex 1.25mg/0.5ml Neb) 1.25 mg INH Q2H PRN PRN Reason: Shortness Of Breath Or Wheezing Stop: 07/20/19 01:05 Lorazepam (Ativan) 0.5 mg PO TID PRN PRN Reason: Anxiety Stop: 07/20/19 01:05 Miscellaneous (Order Awaiting Action) 1 ea N/A QS [facility] Stop: 07/20/19 07:59 Last Admin: 06/20/19 08:33 Dose: Not Given Documented by: Miscellaneous Information (Consult) 1 ea N/A UD PRN PRN Reason: Consult Stop: 07/20/19 01:22 Miscellaneous Information (Consult) 1 ea N/A UD PRN PRN Reason: Consult Stop: 07/20/19 01:05 Montelukast Sodium (Singulair) 10 mg PO QPM [facility] Stop: 07/20/19 20:59 Nitroglycerin (Nitrostat) 0.4 mg SL UD PRN PRN Reason: Chest Pain Stop: 07/20/19 01:05 Ondansetron HCl (Zofran) 4 mg IV Q6H PRN PRN Reason: Nausea Stop: 07/20/19 01:05 Pantoprazole Sodium (Protonix) 40 mg PO QAM [facility] Stop: 07/20/19 08:59 Last Admin: 06/20/19 08:43 Dose: 40 mg Documented by: Ranitidine HCl (Zantac) 300 mg PO HS [facility] Stop: 07/20/19 20:59 Tiotropium [place] (Spiriva) 1 puffs INH QPM [facility] Stop: 07/20/19 20:59 Tramadol HCl (Ultram) 50 mg PO Q6H PRN PRN Reason: pain Stop: 07/20/19 01:05 Last Admin: 06/20/19 01:30 Dose: 50 mg Documented by: (1) Sepsis Sepsis acute organ dysfunction status: unspecified Sepsis type: sepsis due to unspecified organism Qualified Code(s): A41.9 - Sepsis, unspecified organism (2) Bilateral pneumonia Lung location: lower lobe of lung Pneumonia type: due to unspecified organism Qualified Code(s): J18.1 - Lobar pneumonia, unspecified organism
[2019-06-20] MEDS: ACETAMINOPHEN 325 MG TAB PO PRN (13:29)
[2019-06-20] MEDS: MONTELUKAST SODIUM 10 MG TABLET PO SCH (19:54)
[2019-06-20] MEDS: CETIRIZINE HCL 10 MG TABLET PO SCH (19:54)
[2019-06-20] MEDS: TIOTROPIUM BROMIDE 5 PUFF/90 MCG INH INH SCH (19:55)
[2019-06-20] MEDS: LEVOFLOXACIN/D5W 750 MG/150 ML BAG IV SCH (21:57)
[2019-06-21] MEDS: LEVALBUTEROL 1.25MG/0.5ML NEB INH SCH ×4 (01:13→19:51)
[2019-06-21] MEDS: IPRATROPIUM BROMIDE NEB SOLN 0.02% 2.5 ML VIAL INH SCH ×4 (01:13→19:51)
[2019-06-21] MEDS: HEPARIN SOD 5,000 UNIT/0.5 ML VIAL SQ SCH ×3 (05:31→21:38)
[2019-06-21 07:39] LABS: Creatinine Clr Calc Pharmacy 138.8 ml/min; Est GFR (African American) 120.4; Est GFR (Non-African American) 103.9
[2019-06-21 07:57] LABS: Estimated Average Glucose 126 mg/dl
[2019-06-21] MEDS: methylPREDNISolone 40 MG in SYRINGE 0 ML IV SCH ×3 (08:37→21:36)
[2019-06-21] MEDS: PANTOprazole 40 MG TAB PO SCH (08:38)
[2019-06-21] MEDS: dilTIAZem HCL 240 MG CAPCR PO SCH (08:38)
[2019-06-21] MEDS: ASPIRIN 81 MG ECTAB PO SCH (08:38)
[2019-06-21] MEDS: BUDESONIDE 90 MCG INH INH SCH (08:39)
[2019-06-21] MEDS: ACETAMINOPHEN 325 MG TAB PO PRN (09:39)
[2019-06-21] MEDS ORDERED: SUMAtriptan succinate 25 MG TAB PO PRN (11:08)
[2019-06-21] MEDS: TRAMADOL HCL 50 MG TABLET PO PRN ×2 (11:55→21:36)
--- NOTE | 2019-06-21 12:14 | Hospitalist Progress Note ---
Date of Service June 21, 2019 Assessment & Plan (1) Sepsis: Presented with fever, tachycardia, tachypnea with increased white cell count Did not have any hypotension Sepsis is likely secondary to bibasilar infiltration with outpatient failure of treatment Has been started with intravenous Levaquin and vancomycin Will get MRSA screen if negative will discontinue Vanco MRSA screen is negative and will discontinue IV vancomycin Clinically a lot better today She will be transferred to medical floor Echo of the heart Unremarkable PFTs minimally high at 70% without any wall motion abnormality and grade 1 diastolic dysfunction (2) Bilateral pneumonia: Has bibasilar infiltrate/atelectasis on CT scan of the chest Has been on intravenous antibiotic as above We will continue oral antibiotic for 10 days in total Complaints to have some pleuritic chest pain Will get chest x-ray in the morning to rule out any effusion (3) Asthma exacerbation: History of asthma with sleep apnea Received a course of antibiotic with Augmentin and prednisone as an outpatient Has been getting methylprednisone intravenously Continue nebulized bronchodilators Solu-Medrol will be changed to prednisone from tomorrow (4) Hypertension: Blood pressure remains on the higher side Continue current medications (5) DOUGLAS (obstructive sleep apnea): Will continue using her CPAP and/or BiPAP (6) GERD (gastroesophageal reflux disease): Continue PPI DVT prophylaxis Subcu heparin CODE STATUS Full Likely discharge tomorrow Subjective 06/20 The patient was seen and examined in telemetry unit She was admitted with outpatient treatment failure for asthma exacerbation Noted to have bibasilar infiltrate on CAT scan Has been feeling a little better since admission Still complains to have some pain with deep inspiration the right lower chest 06/21 The patient was seen and examined in the telemetry unit She has been complaining of some pain with deep breathing involving the lower posterior chest wall No cough and/or hemoptysis Her shortness of breath is much better Review of Systems Review of Systems: All systems reviewed and are unremarkable except as noted below Respiratory: + cough, + dyspnea on exertion and + problem reported (Minimal pain with deep inspiration right lower posterior chest) Physical Exam Physical Exam: Sitting on a chair without any discomfort Constitutional: well developed, well nourished and + morbidly obese; no acute distress and not ill appearing Eyes: PERRL, conjunctivae normal, anicteric sclerae ENMT: external ear and nose normal, oropharynx normal Neck: trachea midline, no thyromegaly Respiratory: normal respiratory effort; no respiratory distress Auscultation: lungs clear to auscultation bilaterally, + diminished lung sounds and + crackles (Minimal crackles at the bases) Pleuritic chest pain with deep inspiration Cardiovascular: Rate/Rhythm: regular rate and regular rhythm Heart Sounds: no murmur Gastrointestinal (Abdomen): Inspection/Auscultation: abdomen normal to inspection and normal bowel sounds Percussion/Palpation: abdomen soft Musculoskeletal: No acute arthritis in any joint Neurologic: moves all extremities; no focal motor deficits Lymphatic: no cervical or axillary lymphadenopathy Results & Data Vital Signs (Past 12 Hours) Vital Signs Temp Pulse Pulse Resp BP BP Pulse Ox 06/21/19 12:05 126/72 06/21/19 11:16 36.7 C 77 18 157/85 H 91 06/21/19 10:30 93 06/21/19 09:29 66 06/21/19 07:40 36.8 C 81 18 142/82 H 95 06/21/19 07:08 78 16 96 06/21/19 02:46 36.5 C 76 18 153/68 H 95 06/21/19 01:15 68 16 93 Laboratory Results [facility] 06/21/19 06:51 Creatinine 0.59 L Medications Administered Current Inpatient Medications Acetaminophen (Tylenol) 650 mg PO Q4H PRN PRN Reason: Pain or Fever Stop: 07/20/19 01:05 Last Admin: 06/21/19 09:39 Dose: 650 mg Documented by: Albuterol (Ventolin Hfa) 2 puffs INH Q4 PRN PRN Reason: Wheezing Aspirin (Ecotrin Ectab) 81 mg PO DAILY [facility] Stop: 07/20/19 08:59 Last Admin: 06/21/19 08:38 Dose: 81 mg Documented by: Budesonide (Pulmicort Flexhaler) 1 puffs INH DAILY [facility] Stop: 07/20/19 08:59 Last Admin: 06/21/19 08:39 Dose: 1 puffs Documented by: Cetirizine HCl (Zyrtec) 10 mg PO HS [facility] Stop: 07/20/19 20:59 Last Admin: 06/20/19 19:54 Dose: 10 mg Documented by: Diltiazem HCl (Cardizem Cd) 240 mg PO DAILY [facility] Stop: 07/20/19 08:59 Last Admin: 06/21/19 08:38 Dose: 240 mg Documented by: Epinephrine HCl (Epipen) 0.3 mg IM UD PRN PRN Reason: Allergic Reaction Heparin Sodium (Porcine) (Heparin Sodium (Porcine)) 5,000 units SQ Q8 [facility] Stop: 07/20/19 05:59 Last Admin: 06/21/19 05:31 Dose: 5,000 units Documented by: Hydroxyzine HCl (Vistaril) 10 mg PO QID PRN PRN Reason: Itching Levofloxacin/Dextrose (Levaquin/D5w) 750 mg in 150 mls @ 100 mls/hr IV Q24H [facility] Stop: 06/25/19 23:29 Last Infusion: 06/20/19 23:59 Dose: Infused Documented by: Methylprednisolone 40 mg/ (Syringe) 0.64 mls @ 1.5 mls/min IV TID [facility] Stop: 07/20/19 01:05 Last Admin: 06/21/19 08:37 Dose: 1.5 mls/min Documented by: Ipratropium [place] (Atrovent 0.02% 0.5mg/2.5ml) 0.5 mg INH Q6R [facility] Stop: 07/20/19 06:59 Last Admin: 06/21/19 07:08 Dose: 0.5 mg Documented by: Ipratropium [place] (Atrovent 0.02% 0.5mg/2.5ml) 0.5 mg INH Q2H PRN PRN Reason: Shortness Of Breath Or Wheezing Stop: 07/20/19 01:05 Levalbuterol HCl (Xopenex 1.25mg/0.5ml Neb) 1.25 mg INH Q6R [facility] Stop: 07/20/19 06:59 Last Admin: 06/21/19 07:08 Dose: 1.25 mg Documented by: Levalbuterol HCl (Xopenex 1.25mg/0.5ml Neb) 1.25 mg INH Q2H PRN PRN Reason: Shortness Of Breath Or Wheezing Stop: 07/20/19 01:05 Lorazepam (Ativan) 0.5 mg PO TID PRN PRN Reason: Anxiety Stop: 07/20/19 01:05 Miscellaneous Information (Consult) 1 ea N/A UD PRN PRN Reason: Consult Stop: 07/20/19 01:22 Montelukast Sodium (Singulair) 10 mg PO QPM [facility] Stop: 07/20/19 20:59 Last Admin: 06/20/19 19:54 Dose: 10 mg Documented by: Nitroglycerin (Nitrostat) 0.4 mg SL UD PRN PRN Reason: Chest Pain Stop: 07/20/19 01:05 Ondansetron HCl (Zofran) 4 mg IV Q6H PRN PRN Reason: Nausea Stop: 07/20/19 01:05 Pantoprazole Sodium (Protonix) 40 mg PO QAM [facility] Stop: 07/20/19 08:59 Last Admin: 06/21/19 08:38 Dose: 40 mg Documented by: Ranitidine HCl (Zantac) 300 mg PO HS [facility] Stop: 07/20/19 20:59 Last Admin: 06/20/19 19:54 Dose: 300 mg Documented by: Sumatriptan Succinate (Imitrex) 25 mg PO UD PRN PRN Reason: Migraine Headache Stop: 07/21/19 11:07 Tiotropium [place] (Spiriva) 1 puffs INH QPM [facility] Stop: 07/20/19 20:59 Last Admin: 06/20/19 19:55 Dose: 1 puffs Documented by: Tramadol HCl (Ultram) 50 mg PO Q6H PRN PRN Reason: pain Stop: 07/20/19 01:05 Last Admin: 06/21/19 11:55 Dose: 50 mg Documented by: (1) Sepsis Sepsis acute organ dysfunction status: unspecified Sepsis type: sepsis due to unspecified organism Qualified Code(s): A41.9 - Sepsis, unspecified organism (2) Bilateral pneumonia Lung location: lower lobe of lung Pneumonia type: due to unspecified organism Qualified Code(s): J18.1 - Lobar pneumonia, unspecified organism
[2019-06-21] MEDS: MONTELUKAST SODIUM 10 MG TABLET PO SCH (21:36)
[2019-06-21] MEDS: CETIRIZINE HCL 10 MG TABLET PO SCH (21:36)
[2019-06-21] MEDS: TIOTROPIUM BROMIDE 5 PUFF/90 MCG INH INH SCH (21:36)
[2019-06-21] MEDS: LEVOFLOXACIN/D5W 750 MG/150 ML BAG IV SCH (21:37)
[2019-06-22] MEDS: LEVALBUTEROL 1.25MG/0.5ML NEB INH SCH ×3 (01:06→13:18)
[2019-06-22] MEDS: IPRATROPIUM BROMIDE NEB SOLN 0.02% 2.5 ML VIAL INH SCH ×3 (01:06→13:18)
[2019-06-22] MEDS: HEPARIN SOD 5,000 UNIT/0.5 ML VIAL SQ SCH ×2 (05:40→14:27)
[2019-06-22] MEDS: ACETAMINOPHEN 325 MG TAB PO PRN ×2 (06:31→14:41)
[2019-06-22 07:32] LABS: Est GFR (African American) 113.8; Est GFR (Non-African American) 98.2
[2019-06-22] MEDS: dilTIAZem HCL 240 MG CAPCR PO SCH (08:11)
[2019-06-22] MEDS: PANTOprazole 40 MG TAB PO SCH (08:12)
[2019-06-22] MEDS: ASPIRIN 81 MG ECTAB PO SCH (08:12)
[2019-06-22] MEDS: BUDESONIDE 90 MCG INH INH SCH (08:19)
[2019-06-22] MEDS: methylPREDNISolone 40 MG in SYRINGE 0 ML IV SCH ×2 (08:31→14:28)
--- NOTE | 2019-06-22 11:29 | Hospitalist Progress Note ---
Date of Service June 22, 2019 Assessment & Plan (1) Sepsis: Presented with fever, tachycardia, tachypnea with increased white cell count Did not have any hypotension Sepsis is likely secondary to bibasilar infiltration with outpatient failure of treatment Has been started with intravenous Levaquin and vancomycin Will get MRSA screen if negative will discontinue Vanco MRSA screen is negative and will discontinue IV vancomycin Clinically a lot better today She will be transferred to medical floor Echo of the heart Unremarkable PFTs minimally high at 70% without any wall motion abnormality and grade 1 diastolic dysfunction (2) Bilateral pneumonia: Has bibasilar infiltrate/atelectasis on CT scan of the chest Has been on intravenous antibiotic as above We will continue oral antibiotic for 10 days in total Complaints to have some pleuritic chest pain Will get chest x-ray in the morning to rule out any effusion (3) Asthma exacerbation: History of asthma with sleep apnea Received a course of antibiotic with Augmentin and prednisone as an outpatient Has been getting methylprednisone intravenously Continue nebulized bronchodilators Solu-Medrol will be changed to prednisone from tomorrow (4) Hypertension: Blood pressure remains on the higher side Continue current medications (5) DOUGLAS (obstructive sleep apnea): Will continue using her CPAP and/or BiPAP (6) GERD (gastroesophageal reflux disease): Continue PPI DVT prophylaxis Subcu heparin CODE STATUS Full Likely discharge tomorrow Review of Systems Review of Systems: All systems reviewed and are unremarkable except as noted below Respiratory: + cough, + dyspnea on exertion and + problem reported (Minimal pain with deep inspiration right lower posterior chest) Physical Exam Constitutional: well developed, well nourished and + morbidly obese; no acute distress and not ill appearing Eyes: PERRL, conjunctivae normal, anicteric sclerae ENMT: external ear and nose normal, oropharynx normal Neck: trachea midline, no thyromegaly Respiratory: normal respiratory effort; no respiratory distress Auscultation: lungs clear to auscultation bilaterally, + diminished lung sounds and + crackles (Minimal crackles at the bases) Cardiovascular: Rate/Rhythm: regular rate and regular rhythm Heart Sounds: no murmur Gastrointestinal (Abdomen): Inspection/Auscultation: abdomen normal to inspection and normal bowel sounds Percussion/Palpation: abdomen soft Neurologic: moves all extremities; no focal motor deficits Lymphatic: no cervical or axillary lymphadenopathy Results & Data Vital Signs (Past 12 Hours) Vital Signs Temp Pulse Resp BP BP Pulse Ox 06/22/19 07:17 70 20 94 06/22/19 07:16 36.9 C 69 18 134/80 91 06/22/19 06:27 36.9 C 75 18 150/84 H 92 06/22/19 01:07 73 18 93 (1) Sepsis Sepsis acute organ dysfunction status: unspecified Sepsis type: sepsis due to unspecified organism Qualified Code(s): A41.9 - Sepsis, unspecified organism (2) Bilateral pneumonia Lung location: lower lobe of lung Pneumonia type: due to unspecified organism Qualified Code(s): J18.1 - Lobar pneumonia, unspecified organism
--- NOTE | 2019-06-22 12:41 | XRay Report ---
XR chest 2V PA/lateral CLINICAL HISTORY: r/o pl. effusion COMPARISON STUDY: 06/19/2019 FINDINGS: Improved inspiratory volumes compared to the prior study. Mild stable cardiac megaly. Bibas ilar atelectasis. Mid upper lungs are clear. IMPRESSION: Bibasilar atelectasis. Lungs otherwise appear clear. The above report was generated using voice recognition software. It may contain grammatical, syntax or spelling errors. Electronically signed by: Fernando Allison M.D. 06/22/2019 12:40 PM
[2019-06-22 13:45] LABS: BUN Creatinine Ratio 18.3 (10-20); Calcium 8.8 mg/dl (8.5-10.1); Creatinine Clr Calc Pharmacy 82.7 ml/min; Est GFR (African American) 74.9; Est GFR (Non-African American) 64.6
--- NOTE | 2019-06-22 17:08 | Pulmonary Consultation ---
Date of Consultation June 22, 2019 Assessment & Plan (1) Asthma exacerbation: At this time the patient appears to be in stable condition and she is saturating well on room air. I recommend that she ambulate around the hallway and then have her pulse oximetry checked to make certain there is no desaturation. Recommend a steroid taper over the next 5 days with prednisone. I do not think that she is acutely infected and I do not see the role for levofloxacin at this current time. I think that she is safe to be discharged today. I discussed the case with her hospitalist as well who is in agreement. I think she would benefit from saline rinses and Flonase for her postnasal drip and allergies. She needs to avoid having her animals in her bedroom. She needs to change her mattress covers lacking her floors often especially in light of the fact that she has cats and dogs. She describes known allergies to cats and dogs and ideally should avoid having pets in the home. She is morbidly obese I feel that this is likely playing a significant role in her overall symptomology and she would benefit from weight loss. We did discuss this. I am not certain that she has asthma given her prior PFTs which actually suggest mild restrictive physiology and lack of bronchodilator response. She also seems to have presented with asthma late in her life. I do think there may be some benefit of her having follow-up with the ENT as an outpatient to evaluate for the possibility of vocal cord dysfunction. If she does indeed have asthma, it does not appear to be an eosinophilic phenotype given her lack of elevated IgE or peripheral eosinophilia in the past. A methacholine challenge or exhaled nitric oxide test may be beneficial in the future as an outpatient. Follow-up in the pulmonary clinic in 1 to 2 weeks with Dutch Morales or Dr. Saenz. Asthma severity: moderate Asthma persistence: persistent Qualified Code(s): J45.41 - Moderate persistent asthma with (acute) exacerbation (2) Fever: Fever type: unspecified Qualified Code(s): R50.9 - Fever, unspecified (3) Non-productive cough: (4) Acute on chronic diastolic heart failure: History of Present Illness Reason for Consultation: Shortness of breath Requesting Physician: Dr. Lindquist Attending Physician: Samantha Lindquist MD History of Present Illness This is a very pleasant 54-year-old white female with a past medical history of asthma, migraines, obstructive sleep apnea and morbid obesity who presented to the hospital on 06/19/2019 with fevers and chills. She notes that since Friday she has been having a mild cough that was initially mildly productive, but now has improved. She had an episode of fever this past Friday. She had a documented temperature of 102.6 on 06/19/2019.She She notes that 1 of her children recently had strep throat and subsequent to that she became ill. She was on Augmentin for a period of time and prednisone prior to the hospitalization. She denies any current fevers. She did have an episode of chills and flushing earlier today. She does endorse some mild postnasal drip with this most recent illness. She does also have seasonal allergies. She does not use any nasal rinses or sprays. She does have allergies to cats and dogs. Notably she does have 2 cats and 1 dog at home. She says the animals do occasionally going to her bedroom, but they do not sleep there. 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 She has been seen by Dr. Saenz, Dutch Morales PA-C, Dr. Giles and Dr. Wills previously. She had pulmonary function test years ago that demonstrated actually mild restrictive physiology with no significant bronchodilator response. She notes that there is mention of Xolair at one- point, but it does not appear that her IgE levels were sufficiently high enough for her to be on Xolair. She does not appear to ever have had a significant eosinophilia peripherally. She notes that her diagnosis of asthma was given to her in her 30s. She did not have any significant trouble with asthma or respiratory issues as a child. She has never been intubated in the past or required rescue BiPAP or CPAP therapy. She had a chest x-ray done on admission which demonstrated low lung volumes and possible increased interstitial markings. The chest x-ray was very poor quality given her body habitus. She had a CTA done on admission as well which did not demonstrate any evidence of pulmonary embolism and there was mention of mild congestive heart failure. She also had some bibasilar atelectasis. Chest x-ray today shows improved respiratory volumes and some mild bibasilar atelectasis noted again. I personally reviewed all these images. Echo from 06/20/2019 demonstrated mild concentric left ventricular hypertrophy and grade 1 diastolic dysfunction. An EF of greater than 70% was noted. She did have a leukocytosis of 20,000 on admission. The following day this improved to 12,000. She is currently on 40 mg 3 times daily of IV Solu-Medrol. She is also on 750 mg of levofloxacin. Allergies Allergy/AdvReac Type Severity Reaction Status Date / Time Influenza Virus Vaccines Allergy Intermediate ANAPHYLAXIS Verified 06/19/19 23:41 Egg Derived Allergy Mild hive Verified 06/19/19 23:41 Home Medications Home Medications Medication Instructions Recorded Confirmed Type albuterol sulfate 2 puff INHALATION Q6H PRN 06/19/19 06/19/19 History aspirin 81 mg PO DAILY 06/19/19 06/19/19 History cetirizine 10 mg PO HS 06/19/19 06/19/19 History diltiazem HCl 240 mg PO DAILY 06/19/19 06/19/19 History famotidine [Pepcid] 40 mg PO HS 06/19/19 06/19/19 History furosemide 20 mg PO DAILY PRN 06/19/19 06/19/19 History ipratropium-albuterol 3 ml INHALATION Q8H PRN 06/19/19 06/19/19 History montelukast 10 mg PO QPM 06/19/19 06/19/19 History pantoprazole 40 mg PO DAILY 06/19/19 06/19/19 History budesonide [Pulmicort Flexhaler] 1 puffs INHALATION DAILY #1 ea 06/22/19 Rx prednisone 10 mg PO UD #30 tab 06/22/19 Rx Patient History Medical History Hypertension (Chronic) Diverticulitis (Chronic) Vomiting (Acute) Asthma exacerbation Asthma, moderate persistent (Chronic) GERD (gastroesophageal reflux disease) (Chronic) Migraine (Chronic) DOUGLAS (obstructive sleep apnea) (Chronic) Gestational diabetes (Chronic) Surgical History S/P endometrial ablation (Chronic) History of esophagogastroduodenoscopy (EGD) (Chronic) S/P tubal ligation (Chronic) H/O laparoscopy (Chronic) Social History Preferred Language: Greek Communication Ability: Effective Taxation Consultant Required: No Beliefs That Will Affect Care: None Current Living Situation: Spouse Feels Safe at Home: Yes Safety Concerns: Feels Safe At This Time Smoking Status: Former smoker Hx Alcohol Use: Yes Alcohol type: other Hx Substance Use: No Review of Systems Review of Systems: All systems reviewed & are unremarkable except as noted in HPI & below Physical Exam Constitutional: Appears morbidly obese. She does have some redness to her face. She appears comfortable. She is sitting up in her bed. She is able to speak full sentences and does not appear tachypneic. Eyes: PERRL, conjunctivae normal, anicteric sclerae ENMT: external ear and nose normal, oropharynx normal Neck: normal visual inspection Respiratory: normal respiratory effort, lungs clear to auscultation Cardiovascular: RRR, no murmur, no edema Gastrointestinal (Abdomen): normal bowel sounds, soft, nontender, no hepatosplenomegaly Musculoskeletal: no cyanosis or clubbing, extremities motor strength 5/5 Skin: no rashes, warm and dry Neurologic: PERRL, EOMI, accommodation nl, no face palsy, no dysarthria Psychiatric: A+Ox3, euthymic affect Lymphatic: no cervical or axillary lymphadenopathy Results & Data Vital Signs (Past 12 Hours) Vital Signs Temp Pulse Resp BP BP Pulse Ox 06/22/19 15:39 99.1 F 79 17 147/67 H 94 06/22/19 13:19 18 94 06/22/19 12:13 98.4 F 70 20 134/80 150/84 H 94 06/22/19 07:17 70 20 94 06/22/19 07:16 98.4 F 69 18 134/80 91 06/22/19 06:27 98.4 F 75 18 150/84 H 92 Patient's pertinent labs and imaging were personally reviewed. PG Care Time/CCT Total # of Minutes Spent Total Time Spent with Patient: Total time spent is greater than 50% in coordination of care (as documented) at patient's floor/unit and/or counseling patient:
[2019-06-22] MEDS ORDERED: levoFLOXacin 750 MG TAB PO SCH (21:00)
--- NOTE | 2019-06-23 09:11 | Discharge Summary ---
Date of Service June 23, 2019 Admission HPI Per Admitting Provider DICTATED BY: Christo Phillip MD DATE OF ADMISSION: 06/19/2019 CHIEF COMPLAINT: Shortness of breath. HISTORY OF PRESENT ILLNESS: This is a 54-year-old female with past medical history significant for asthma, moderate persistent allergic rhinitis, obstructive sleep apnea, on continuous positive airway pressure, gastroesophageal reflux disease, diverticulosis of colon, morbid obesity, generalized osteoarthritis, migraines, diabetes during who presents with shortness of breath and cough. The patient is on prednisone and Augmentin for 5 days for cough and shortness of breath, but today the shortness of breath got worse so she came to the hospital. In the Emergency Room, she was spiking temperatures, tachycardic, white count was 20,000 and CTA of the chest was done, there was no pulmonary embolism but showed possible bibasilar infiltrates also possible mild congestion. The patient is on Lasix as needed fr lower extremity edema.. Currently, she is feeling better. Emergency Room has given I.V. vancomycin and I.V. Levaquin. Denies any headache. No dizziness. No blurred vision. No earache. Has some runny nose. The patient states her son has strep throat, but she denies any sore throat. No difficulty swallowing. Appetite is okay, not sleeping well since she was started on prednisone. She has some right lower rib pain, is more on taking deep breaths. She has dry cough, but no phlegm. No nausea. No vomiting. No abdominal pain. Normal bowel and bladder movements. No hematuria or burning micturition. No black stools or hematochezia. No swelling in the legs. No rash. Admission Exam Per Admitting Provider GENERAL: The patient is obese, not in acute distress. VITAL SIGNS: Temperature 39.2, pulse 110, respiratory rate in 20s, blood pressure 132/81and oxygen 98% on room air. HEENT: No pallor. No icterus. Pupils are equal, round and reactive to light. NECK: No JVD. No neck masses. No carotid bruits. CARDIOVASCULAR: S1, S2 heard. Tachycardia. No murmurs. RESPIRATORY SYSTEM: Normal AP diameter. No accessory muscle use. No wheezing. Bibasilar crackles heard. ABDOMEN: Soft. Bowel sounds present. Nontender. No distention. CENTRAL NERVOUS SYSTEM: Cranial nerves II through XII grossly nonfocal. EXTREMITIES: No edema. No erythema. Left knee has a brace. Principal Diagnosis sepsis secondary to bibasilar pneumonia, asthma exacerbation Discharge Exam Constitutional well developed, well nourished and + morbidly obese; no acute distress and not ill appearing Eyes PERRL, conjunctivae normal, anicteric sclerae ENMT external ear and nose normal, oropharynx normal Neck trachea midline, no thyromegaly Respiratory normal respiratory effort; no respiratory distress Auscultation: lungs clear to auscultation bilaterally, + diminished lung sounds and + crackles (Minimal crackles at the bases) Cardiovascular Rate/Rhythm: regular rate and regular rhythm Heart Sounds: no murmur Gastrointestinal (Abdomen) Inspection/Auscultation: abdomen normal to inspection and normal bowel sounds Percussion/Palpation: abdomen soft Neurologic moves all extremities; no focal motor deficits Lymphatic no cervical or axillary lymphadenopathy Discharge Data Allergies Allergy/AdvReac Type Severity Reaction Status Date / Time Influenza Virus Vaccines Allergy Intermediate ANAPHYLAXIS Verified 06/19/19 23:41 Egg Derived Allergy Mild hive Verified 06/19/19 23:41 Consultations 06/19/19 22:45 ED Decision to Admit Stat 06/22/19 16:05 Consult Pulmonology Routine Ordered Studies 06/19/19 21:55 CT angio chest PE protocol Stat Hospital Course (1) Sepsis: Presented with fever, tachycardia, tachypnea with increased white cell count Did not have any hypotension Sepsis is likely secondary to bibasilar infiltration with outpatient failure of treatment Has been started with intravenous Levaquin and vancomycin Will get MRSA screen if negative will discontinue Vanco MRSA screen is negative and will discontinue IV vancomycin Clinically a lot better today She will be transferred to medical floor Echo of the heart Unremarkable PFTs minimally high at 70% without any wall motion abnormality and grade 1 diastolic dysfunction (2) Bilateral pneumonia: Has bibasilar infiltrate/atelectasis on CT scan of the chest Has been on intravenous antibiotic as above We will continue oral antibiotic for 10 days in total Complaints to have some pleuritic chest pain Will get chest x-ray in the morning to rule out any effusion (3) Asthma exacerbation: History of asthma with sleep apnea Received a course of antibiotic with Augmentin and prednisone as an outpatient Has been getting methylprednisone intravenously Continue nebulized bronchodilators Solu-Medrol will be changed to prednisone from tomorrow (4) Hypertension: Blood pressure remains on the higher side Continue current medications (5) DOUGLAS (obstructive sleep apnea): Will continue using her CPAP and/or BiPAP (6) GERD (gastroesophageal reflux disease): Continue PPI DVT prophylaxis Subcu heparin CODE STATUS Full Likely discharge tomorrow Total Time Total Time Spent Total Time Spent (In Minutes): 35 minutes Total Time Includes: Examination of the Patient, Discharge Planning, Medication Reconciliation and Communication With Other Providers Discharge Plan Discharge Items Patient Disposition: Home - Self-Care Reason For Visit: SOB Discharge Diagnosis: sepsis secondary to bibasilar pneumonia, asthma exacerbation Condition on Discharge: Good Activity: Resume your previous activity Non-emergency contact: Primary Care Provider Call non-emergency contact if: you have any medication questions and your symptoms worsen Follow-up/Referrals: Shani Rider PA-C [Primary Care Provider] - 06/25/19 12:45 pm (Follow up appointment with Dr. Araujo) Diet: Carb Consistent or DM2 and Heart Healthy Addtl Attending Provider Instructions: Continue Levofloxacin (antibiotic) for 7 more days Continue tapering dose of prednisone Pending Studies at Discharge: No Stand-Alone Forms: My [facility] Medications and DC Order Prescriptions: New prednisone 10 mg tablet 10 mg PO UD Qty: 30 RF: 0 Pulmicort Flexhaler 90 mcg/actuation Aerosol Powdr Breath Activated 1 puffs inhalation DAILY Qty: 1 RF: 0 Continued diltiazem HCl 240 mg capsule,extended release 24hr 240 mg PO DAILY RF: 0 aspirin 81 mg Tablet,Delayed Release (Dr/Ec) 81 mg PO DAILY RF: 0 montelukast 10 mg tablet 10 mg PO QPM RF: 0 albuterol sulfate 90 mcg/actuation Hfa Aerosol Inhaler 2 puff INHALATION Q6H PRN (Reason: Shortness Of Breath Or Wheezing) RF: 0 cetirizine 10 mg Tablet 10 mg PO HS RF: 0 pantoprazole 40 mg tablet,delayed release (DR/EC) 40 mg PO DAILY RF: 0 ipratropium-albuterol 0.5 mg-3 mg(2.5 mg base)/3 mL Solution For Nebulization 3 ml INHALATION Q8H PRN (Reason: Shortness Of Breath Or Wheezing) RF: 0 famotidine [Pepcid] 40 mg Tablet 40 mg PO HS RF: 0 furosemide 20 mg tablet 20 mg PO DAILY PRN (Reason: swelling while on prednisone) RF: 0 Discontinued amoxicillin-pot clavulanate [Augmentin] 875-125 mg tablet 1 tab PO Q12H Qty: 20 RF: 0 prednisone 10 mg tablet 40 mg PO DAILY RF: 0 Discharge Orders: Discharge Order (Routine); Ordered 06/22/19 Ordered By: Samantha Mcmahon/Other Patient Handouts: Prediabetes, Diabetes Meal Planning Admission Data Admit Date/Time: 06/19/19 23:18 Attending Provider: Samantha Lindquist Admit Provider: Christo Phillip Primary Care Provider: Shani Rider Other Providers: Christo Phillip ; Shaan Momin Other Interventions: Discharge Summary Assessment (RN) Last Done: 06/22/19 17:15 DC Date/Time DO NOT enter until pt leaves facility: 06/22/19 18:05
== END 2019-06-22 18:05 | disposition home or self-care (01) | DRG 871 ==
LOC: ED 21:02 → 2S 23:18 → 4W 06-21 14:18

== ENCOUNTER 2020-09-16 13:40 | Inpatient (IN) ==
[2020-09-16] MEDS ORDERED: KETOROLAC 30 MG/ML VIAL IV ONE (13:55)
[2020-09-16] MEDS ORDERED: DEXAMETHASONE SOD INJ 10 MG/ML VIAL IV ONE (13:55)
[2020-09-16] MEDS ORDERED: MAGNESIUM SULFATE / D5W 1 GM/100 ML BAG IV STA ×2 (13:56→14:37)
[2020-09-16] MEDS ORDERED: ALBUTEROL HFA 8 GM INHALER INH ONE (14:00)
--- NOTE | 2020-09-16 14:00 | Emergency Department Note ---
History of Present Illness General Chief complaint: Illness Stated complaint: DIAGNOSED WITH COVID ON 09/06 Time Seen by Provider: 09/16/20 13:46 Source: patient, RN notes reviewed and old records reviewed Mode of arrival: ambulatory Limitations: no limitations History of Present Illness Provider complaint: Shortness of breath, + covid Onset (ago): day(s) 10 Location: chest Radiation: non-radiation Severity: mild Pain Consistency: + intermittent Maximum Pain Intensity: 4 Current Pain Intensity: 4 Quality: + aching Relieved By: + immobilization and + rest Exacerbated By: + movement Associated symptoms: + cough, + fever/chills, + headaches, + loss of appetite and + shortness of breath Treatments prior to arrival: other (Acetaminophen, Azithromycin, Medrol dosepack, albuterol nebulizer) This is a 55-year-old female who presents emergency department complaining of shortness of breath. Patient reports she was tested positive for Covid approximately 10 days ago. Since that time she has become increasingly short of breath. She was placed on a Medrol Dosepak as well as azithromycin by her tree girdler. She reports she is on her last day of a Medrol Dosepak. Home Medications Medication Instructions Recorded Confirmed Type albuterol sulfate 2 puff INHALATION Q6H PRN 06/19/19 09/16/20 History aspirin 81 mg PO HS 06/19/19 09/16/20 History cetirizine 10 mg PO HS PRN 06/19/19 09/16/20 History furosemide 20 mg PO DAILY PRN 06/19/19 09/16/20 History lorazepam 0.5 mg PO HS PRN 08/13/19 09/16/20 History potassium chloride 10 meq PO QAM PRN 08/13/19 09/16/20 History hydroxyzine HCl 25 mg tablet 25 mg PO Q8H PRN #90 tab 11/26/19 09/16/20 Rx diltiazem HCl 240 mg capsule,24 240 mg PO QAM #90 cap 06/08/20 09/16/20 Rx hr,extended release pantoprazole 40 mg tablet,delayed 40 mg PO QAM #30 tab 07/07/20 09/16/20 Rx release levalbuterol HCl 1.25 mg/3 mL 1.25 mg INHALATION Q4H #90 ml 08/24/20 09/16/20 Rx solution for nebulization azithromycin 250 mg tablet See Rx Instructions PO .COMPLEX #6 09/11/20 09/16/20 Rx tab methylprednisolone 4 mg tablets in See Rx Instructions .ROUTE 09/11/20 09/16/20 Rx a dose pack .COMPLEX #21 ea acetaminophen [Tylenol Extra 500 mg PO Q6H PRN 09/16/20 09/16/20 History Strength] montelukast 10 mg PO HS 09/16/20 09/16/20 History [id number]-herb 124 1 ea PO UD 09/16/20 09/16/20 History [Airborne (ascorbic acid)] olopatadine [Pataday] 1 drops OPB DAILY PRN 09/16/20 09/16/20 History Allergies Allergy/AdvReac Type Severity Reaction Status Date / Time Influenza Virus Vaccines Allergy Intermediate anaphylaxis Verified 02/14/20 09:21 Egg Derived Allergy Mild hives Verified 02/14/20 09:21 Past Med/Surg History Medical History (Updated 09/16/20 @ 19:22 by Santy Francois MD) Asthma inhaler/nebulizer prn Degenerative disc disease Diverticulitis several years ago DJD (degenerative joint disease), lumbar GERD (gastroesophageal reflux disease) controlled History of gastric ulcer Hypertension Hypertension Migraine Migraine Morbid obesity with BMI of 40.0-44.9, adult DOUGLAS (obstructive sleep apnea) CPAP Osteoarthritis Right sided abdominal pain Surgical History H/O laparoscopy History of arthroscopy of left knee History of cardiac cath 2009 @ [facility], no stents History of dilatation and curettage x2 History of esophagogastroduodenoscopy (EGD) History of left breast biopsy benign History of tonsillectomy History of tooth extraction History of wisdom tooth extraction Hx of cholecystectomy Hx of colonoscopy S/P endometrial ablation S/P tubal ligation Status post biopsy of thyroid gland x2 on benign thyroid nodule Family History Daughter No problems noted. Brother Family history of diabetes mellitus Sister Family history of diabetes mellitus Family history of reaction to anesthesia heart rate dropped during procedure Uncle FHx: colon cancer Mother FHx: lung cancer Grandmother (Paternal) FHx: colon cancer Social History Smoking Status: Never smoker Second Hand Exposure: Yes (parents smoked); Hx Alcohol Use: Yes Alcohol type: beer Hx Substance Use: No Preferred Language: Citizen Of [place] Communication Ability: Effective Passenger Attendant Required: No Beliefs That Will Affect Care: None Current Living Situation: Spouse and Family Current Living Situation Comment: Lives with and 2 kids Feels Safe at Home: Yes Assistive Devices: Contacts, CPAP, Glasses and Nebulizer Review of Systems A total of 10 systems reviewed and were otherwise negative Physical Exam Vital Signs Vital Signs - 24 hr 09/16/20 13:44 09/16/20 14:35 09/16/20 14:41 Temperature 37.4 C Temperature Source Temporal Artery Scan Pulse Rate 100 H 175 H 168 H Pulse Rate from SpO2 Sensor 147 H Respiratory Rate 20 21 26 H Respiratory Effort / Characteristics Non-Labored Respiratory Depth Normal Blood Pressure 158/86 H 151/110 H Blood Pressure Mean 110 125 Pulse Oximetry 91 89 L Oxygen Delivery Method Room Air Oxygen Flow Rate Sepsis Recent Fever Within 48 Hours No Sepsis New/Unexplained Change in Mental Status No Sepsis Action Taken by Nursing No Action Required 09/16/20 14:56 09/16/20 15:39 09/16/20 15:50 Temperature Temperature Source Pulse Rate 110 H Pulse Rate from SpO2 Sensor 96 H 100 H Respiratory Rate 27 H 16 16 Respiratory Effort / Characteristics Respiratory Depth Blood Pressure 180/119 H 149/92 H 115/76 Blood Pressure Mean 139 107 89 Pulse Oximetry 93 94 94 Oxygen Delivery Method Nasal Cannula Nasal Cannula Nasal Cannula Oxygen Flow Rate 2 2 2 Sepsis Recent Fever Within 48 Hours Sepsis New/Unexplained Change in Mental Status Sepsis Action Taken by Nursing 09/16/20 16:25 09/16/20 16:50 09/16/20 17:20 Temperature Temperature Source Pulse Rate 91 H 92 H 89 Pulse Rate from SpO2 Sensor Respiratory Rate 16 18 16 Respiratory Effort / Characteristics Respiratory Depth Blood Pressure 124/76 122/76 115/78 Blood Pressure Mean 92 91 90 Pulse Oximetry 95 96 Oxygen Delivery Method Nasal Cannula Nasal Cannula Oxygen Flow Rate 2 2 Sepsis Recent Fever Within 48 Hours Sepsis New/Unexplained Change in Mental Status Sepsis Action Taken by Nursing 09/16/20 17:41 09/16/20 17:50 09/16/20 18:10 Temperature Temperature Source Pulse Rate 98 H 87 83 Pulse Rate from SpO2 Sensor 87 83 Respiratory Rate 15 21 20 Respiratory Effort / Characteristics Respiratory Depth Blood Pressure 125/76 140/76 142/80 H Blood Pressure Mean 92 97 100 Pulse Oximetry 94 95 Oxygen Delivery Method Nasal Cannula Nasal Cannula Nasal Cannula Oxygen Flow Rate 2 2 2 Sepsis Recent Fever Within 48 Hours Sepsis New/Unexplained Change in Mental Status Sepsis Action Taken by Nursing VITAL SIGNS - Vital signs and nursing notes were reviewed. GENERAL - 55-year-old female appearing stated age who is in no acute distress. Communicates well with provider and answers questions appropriately. SKIN - Without rashes. HEAD - NC/AT. EYES - PERRL with EOMI bilaterally. Sclera anicteric. Palpebral conjunctiva pink and moist with no injection noted. EARS - No deformities of external structures noted on gross examination bilaterally. No pain elicited with palpation of the tragus bilaterally. External auditory canals without discharge or otorrhea. Tympanic membranes pearly [place] without retraction or bulging. No fluid or purulent material visualized behind the TM. Handle of malleus, umbo, cone of light, pars tensa/flaccid all easily visualized. NOSE - Midline and without cyanosis. No epistaxis or purulent drainage noted. Septum midline without deviation or septal hematoma noted. MOUTH/OROPHARYNX - Without perioral cyanosis. Buccal mucosa pink and moist and without leukoplakia. Tongue midline with equal elevation of palate bilaterally. No tonsillar hypertrophy, erythema, or exudates noted. dentition noted. NECK - Neck with FROM. Supple to palpation. lymphadenopathy noted. No nuchal rigidity. LUNGS - Chest wall symmetric without accessory muscle use, intercostals retractions, or central cyanosis. Normal vesicular breath sounds CTA B/L. No wheezes, rales, or rhonchi appreciated. CARDIAC - RRR with S1/S2. No murmur, rubs, or gallops appreciated. ABDOMEN - Abdominal contour without pulsations or visible masses. BS normoactive all four quadrants. No tenderness, palpable masses, hepatosplenomegaly, or ascites noted. EXTREMITIES - No clubbing or peripheral cyanosis. No pretibial edema present. +3/5 radial, posterior tibial, and dorsalis pedis pulses palpated throughout. +5/5 strength noted in UE/LE bilaterally. NEUROLOGIC - Cranial nerves II through XII grossly intact. Sensory intact to light touch throughout. Patellar reflexes +2/4. PSYCH - A&Ox3 and cooperates fully with examiner. Pt is very pleasant and interacts well with examiner. Course Administered Medications Discontinued Medications Albuterol (Albuterol Hfa 8 Gm Inhaler) 2 puffs INH NOW ONE Stop: 09/16/20 14:01 Last Admin: 09/16/20 14:39 Dose: 2 puffs Documented by: [id number] Dexamethasone (Dexamethasone Sod Inj 10 Mg/Ml Vial) 6 mg IV NOW ONE Stop: 09/16/20 13:56 Last Admin: 09/16/20 14:38 Dose: 6 mg Documented by: [id number] Diltiazem HCl (Diltiazem Hcl 5 Mg/Ml 5 Ml Vial) 30 mg IV NOW STA Stop: 09/16/20 14:50 Last Admin: 09/16/20 15:31 Dose: 30 mg Documented by: [id number] Cosigned by: [id number] Magnesium Sulfate/Dextrose (Magnesium Sulfate / D5w) 1 gm in 100 mls @ 100 mls/hr IV NOW STA Stop: 09/16/20 14:55 Last Infusion: 09/16/20 15:38 Dose: 0 mls/hr Documented by: [id number] Admin: 09/16/20 14:38 Dose: 100 mls/hr Documented by: [id number] Magnesium Sulfate/Dextrose (Magnesium Sulfate / D5w) 1 gm in 100 mls @ 200 mls/hr IV Q30M SHAKEEL Stop: 09/16/20 15:36 Last Infusion: 09/16/20 17:46 Dose: 0 mls/hr Documented by: [id number] Admin: 09/16/20 15:57 Dose: 200 mls/hr Documented by: [id number] Infusion: 09/16/20 15:38 Dose: 0 mls/hr Documented by: [id number] Admin: 09/16/20 14:54 Dose: 200 mls/hr Documented by: [id number] Magnesium Sulfate/Dextrose (Magnesium Sulfate / D5w) 1 gm in 100 mls @ 100 mls/hr IV NOW STA Stop: 09/16/20 15:36 Last Infusion: 09/16/20 15:57 Dose: 0 mls/hr Documented by: [id number] Admin: 09/16/20 14:54 Dose: 100 mls/hr Documented by: [id number] Ketorolac Tromethamine (Ketorolac 30 Mg/Ml Vial) 30 mg IV NOW ONE Stop: 09/16/20 13:56 Last Admin: 01/16/21 14:38 Dose: 30 mg Documented by: [id number] Critical Care Time I have personally spent greater than 30 minutes of critical care time in the direct management of this patient. This includes bedside care, interpretation of diagnostic studies, and testing, discussion with consultants, patient, and family members, and other required patient management activities. This 30 minutes is in excess of all separately billable procedures. Medical Decision Making Differential Diagnosis Reactive airway disease, pneumonia, pneumothorax, COPD, CHF, infections, cardiac ischemia, pulmonary embolism, musculoskeletal, gastrointestinal, as well as other pathologies. Medical Records Attestation: I reviewed the patient's medical records. Home Medications Current Medication List: was personally reviewed by me Laboratory Data Attestation: I reviewed the patient's lab results. Result diagrams: 09/16/20 14:36 09/16/20 14:36 Lab Results 09/16/20 09/16/20 09/16/20 Range/Units 14:25 14:25 14:36 WBC 7.74 (4.8-10.8) K/uL RBC 5.16 (4.2-5.4) M/uL Hgb 14.8 (12.0-16.0) g/dL Hct 44.7 (37-47) % MCV 86.6 (80-100) fL MCH 28.7 (25-34) pg MCHC 33.1 (32-36) g/dL RDW Std Deviation 45.2 (36.4-46.3) fL RDW Coeff of Cody 14.2 (11.5-14.5) % Plt Count 167 (130-400) K/uL MPV 9.9 (7.4-10.4) fL Immature Gran % (Auto) 0.3 % Neut % (Auto) 83.2 % Lymph % (Auto) 12.1 % Clinch % (Auto) 4.3 % Eos % (Auto) 0.0 % Baso % (Auto) 0.1 % Neut # (Auto) 6.44 (1.4-6.5) K/uL Lymph # (Auto) 0.94 L (1.2-3.4) K/uL Clinch # (Auto) 0.33 (0.11-0.59) K/uL Eos # (Auto) 0.00 (0-0.5) K/uL Baso # (Auto) 0.01 (0-0.2) K/uL Immature Gran # (Auto) 0.02 (0.00-0.02) K/uL ESR (0-21) mm/hr PT (9.0-12.0) Seconds INR (0.9-1.1) APTT (21.0-31.0) Seconds PTT Ratio D-Dimer (0-500) ug/L FEU Sodium (136-145) mmol/L Potassium (3.5-5.1) mmol/L Chloride (98-107) mmol/L Carbon Dioxide (21-32) mmol/L Anion Gap (3-11) BUN (7-18) mg/dl Creatinine (0.6-1.2) mg/dl Est Cr Clr Drug Dosing ml/min Est GFR ( Amer) Est GFR (Non-Af Amer) BUN/Creatinine Ratio (10-20) Glucose (70-99) mg/dl Lactate 1.6 (0.4-2.0) mmol/L Calcium (8.5-10.1) mg/dl Magnesium (1.8-2.4) mg/dl Ferritin (8-388) ng/ml Total Bilirubin (0.2-1) mg/dl AST (15-37) U/L ALT (12-78) U/L Alkaline Phosphatase (45-117) U/L Lactate Dehydrogenase (84-246) U/L Troponin I (0-0.045) ng/ml C-Reactive Protein (0-0.29) mg/dl NT-Pro-B Natriuret Pep (0-900) pg/ml Total Protein (6.4-8.2) gm/dl Albumin (3.4-5.0) gm/dl Globulin (2.5-4.0) gm/dl Albumin/Globulin Ratio (0.9-2) Procalcitonin (0-0.5) ng/ml TSH (0.300-4.500) uIu/ml Free T4 (0.8-1.6) ng/dl Urine Color Urine Appearance (Clear) Urine pH (4.5-7.5) Ur Specific [place] (1.000-1.030) Urine Protein (Negative) Urine Glucose (UA) (Negative) Urine Ketones (Negative) Urine Blood (Negative) Urine Nitrite (Negative) Urine Bilirubin (Negative) Urine Urobilinogen (Negative) Ur Leukocyte Esterase (Negative) COVID-19 Eval Order SARS-CoV-2, RNA, NAAT (NEGATIVE) Blood Type O Positive Antibody Screen NEGATIVE 09/16/20 09/16/20 09/16/20 Range/Units 14:36 14:36 14:36 WBC (4.8-10.8) K/uL RBC (4.2-5.4) M/uL Hgb (12.0-16.0) g/dL Hct (37-47) % MCV (80-100) fL MCH (25-34) pg MCHC (32-36) g/dL RDW Std Deviation (36.4-46.3) fL RDW Coeff of Cody (11.5-14.5) % Plt Count (130-400) K/uL MPV (7.4-10.4) fL Immature Gran % (Auto) % Neut % (Auto) % Lymph % (Auto) % Clinch % (Auto) % Eos % (Auto) % Baso % (Auto) % Neut # (Auto) (1.4-6.5) K/uL Lymph # (Auto) (1.2-3.4) K/uL Clinch # (Auto) (0.11-0.59) K/uL Eos # (Auto) (0-0.5) K/uL Baso # (Auto) (0-0.2) K/uL Immature Gran # (Auto) (0.00-0.02) K/uL ESR 50 H (0-21) mm/hr PT 10.4 (9.0-12.0) Seconds INR 1.0 (0.9-1.1) APTT 31.7 H (21.0-31.0) Seconds PTT Ratio 1.1 D-Dimer 420 (0-500) ug/L FEU Sodium 134 L (136-145) mmol/L Potassium 3.6 (3.5-5.1) mmol/L Chloride 101 (98-107) mmol/L Carbon Dioxide 30 (21-32) mmol/L Anion Gap 3.0 (3-11) BUN 12 (7-18) mg/dl Creatinine 0.68 (0.6-1.2) mg/dl Est Cr Clr Drug Dosing 121.3 ml/min Est GFR ( Amer) 114.1 Est GFR (Non-Af Amer) 98.5 BUN/Creatinine Ratio 18.0 (10-20) Glucose 115 H (70-99) mg/dl Lactate (0.4-2.0) mmol/L Calcium 8.3 L (8.5-10.1) mg/dl Magnesium 2.1 (1.8-2.4) mg/dl Ferritin 239.1 (8-388) ng/ml Total Bilirubin 0.5 (0.2-1) mg/dl AST 33 (15-37) U/L ALT 43 (12-78) U/L Alkaline Phosphatase 77 (45-117) U/L Lactate Dehydrogenase (84-246) U/L Troponin I (0-0.045) ng/ml C-Reactive Protein 12.10 H (0-0.29) mg/dl NT-Pro-B Natriuret Pep (0-900) pg/ml Total Protein 7.1 (6.4-8.2) gm/dl Albumin 3.2 L (3.4-5.0) gm/dl Globulin 3.9 (2.5-4.0) gm/dl Albumin/Globulin Ratio 0.8 L (0.9-2) Procalcitonin (0-0.5) ng/ml TSH (0.300-4.500) uIu/ml Free T4 (0.8-1.6) ng/dl Urine Color Urine Appearance (Clear) Urine pH (4.5-7.5) Ur Specific [place] (1.000-1.030) Urine Protein (Negative) Urine Glucose (UA) (Negative) Urine Ketones (Negative) Urine Blood (Negative) Urine Nitrite (Negative) Urine Bilirubin (Negative) Urine Urobilinogen (Negative) Ur Leukocyte Esterase (Negative) COVID-19 Eval Order SARS-CoV-2, RNA, NAAT (NEGATIVE) Blood Type Antibody Screen 09/16/20 09/16/20 09/16/20 Range/Units 14:36 14:36 14:36 WBC (4.8-10.8) K/uL RBC (4.2-5.4) M/uL Hgb (12.0-16.0) g/dL Hct (37-47) % MCV (80-100) fL MCH (25-34) pg MCHC (32-36) g/dL RDW Std Deviation (36.4-46.3) fL RDW Coeff of Cody (11.5-14.5) % Plt Count (130-400) K/uL MPV (7.4-10.4) fL Immature Gran % (Auto) % Neut % (Auto) % Lymph % (Auto) % Clinch % (Auto) % Eos % (Auto) % Baso % (Auto) % Neut # (Auto) (1.4-6.5) K/uL Lymph # (Auto) (1.2-3.4) K/uL Clinch # (Auto) (0.11-0.59) K/uL Eos # (Auto) (0-0.5) K/uL Baso # (Auto) (0-0.2) K/uL Immature Gran # (Auto) (0.00-0.02) K/uL ESR (0-21) mm/hr PT (9.0-12.0) Seconds INR (0.9-1.1) APTT (21.0-31.0) Seconds PTT Ratio D-Dimer (0-500) ug/L FEU Sodium (136-145) mmol/L Potassium (3.5-5.1) mmol/L Chloride (98-107) mmol/L Carbon Dioxide (21-32) mmol/L Anion Gap (3-11) BUN (7-18) mg/dl Creatinine (0.6-1.2) mg/dl Est Cr Clr Drug Dosing ml/min Est GFR ( Amer) Est GFR (Non-Af Amer) BUN/Creatinine Ratio (10-20) Glucose (70-99) mg/dl Lactate (0.4-2.0) mmol/L Calcium (8.5-10.1) mg/dl Magnesium (1.8-2.4) mg/dl Ferritin (8-388) ng/ml Total Bilirubin (0.2-1) mg/dl AST (15-37) U/L ALT (12-78) U/L Alkaline Phosphatase (45-117) U/L Lactate Dehydrogenase 295 H (84-246) U/L Troponin I (0-0.045) ng/ml C-Reactive Protein (0-0.29) mg/dl NT-Pro-B Natriuret Pep 48 (0-900) pg/ml Total Protein (6.4-8.2) gm/dl Albumin (3.4-5.0) gm/dl Globulin (2.5-4.0) gm/dl Albumin/Globulin Ratio (0.9-2) Procalcitonin < 0.05 (0-0.5) ng/ml TSH (0.300-4.500) uIu/ml Free T4 (0.8-1.6) ng/dl Urine Color Urine Appearance (Clear) Urine pH (4.5-7.5) Ur Specific [place] (1.000-1.030) Urine Protein (Negative) Urine Glucose (UA) (Negative) Urine Ketones (Negative) Urine Blood (Negative) Urine Nitrite (Negative) Urine Bilirubin (Negative) Urine Urobilinogen (Negative) Ur Leukocyte Esterase (Negative) COVID-19 Eval Order SARS-CoV-2, RNA, NAAT (NEGATIVE) Blood Type Antibody Screen 09/16/20 09/16/20 09/16/20 Range/Units 14:36 14:40 14:40 WBC (4.8-10.8) K/uL RBC (4.2-5.4) M/uL Hgb (12.0-16.0) g/dL Hct (37-47) % MCV (80-100) fL MCH (25-34) pg MCHC (32-36) g/dL RDW Std Deviation (36.4-46.3) fL RDW Coeff of Cody (11.5-14.5) % Plt Count (130-400) K/uL MPV (7.4-10.4) fL Immature Gran % (Auto) % Neut % (Auto) % Lymph % (Auto) % Clinch % (Auto) % Eos % (Auto) % Baso % (Auto) % Neut # (Auto) (1.4-6.5) K/uL Lymph # (Auto) (1.2-3.4) K/uL Clinch # (Auto) (0.11-0.59) K/uL Eos # (Auto) (0-0.5) K/uL Baso # (Auto) (0-0.2) K/uL Immature Gran # (Auto) (0.00-0.02) K/uL ESR (0-21) mm/hr PT (9.0-12.0) Seconds INR (0.9-1.1) APTT (21.0-31.0) Seconds PTT Ratio D-Dimer (0-500) ug/L FEU Sodium (136-145) mmol/L Potassium (3.5-5.1) mmol/L Chloride (98-107) mmol/L Carbon Dioxide (21-32) mmol/L Anion Gap (3-11) BUN (7-18) mg/dl Creatinine (0.6-1.2) mg/dl Est Cr Clr Drug Dosing ml/min Est GFR ( Amer) Est GFR (Non-Af Amer) BUN/Creatinine Ratio (10-20) Glucose (70-99) mg/dl Lactate (0.4-2.0) mmol/L Calcium (8.5-10.1) mg/dl Magnesium (1.8-2.4) mg/dl Ferritin (8-388) ng/ml Total Bilirubin (0.2-1) mg/dl AST (15-37) U/L ALT (12-78) U/L Alkaline Phosphatase (45-117) U/L Lactate Dehydrogenase (84-246) U/L Troponin I < 0.015 (0-0.045) ng/ml C-Reactive Protein (0-0.29) mg/dl NT-Pro-B Natriuret Pep (0-900) pg/ml Total Protein (6.4-8.2) gm/dl Albumin (3.4-5.0) gm/dl Globulin (2.5-4.0) gm/dl Albumin/Globulin Ratio (0.9-2) Procalcitonin (0-0.5) ng/ml TSH 0.282 L (0.300-4.500) uIu/ml Free T4 1.15 (0.8-1.6) ng/dl Urine Color Urine Appearance (Clear) Urine pH (4.5-7.5) Ur Specific [place] (1.000-1.030) Urine Protein (Negative) Urine Glucose (UA) (Negative) Urine Ketones (Negative) Urine Blood (Negative) Urine Nitrite (Negative) Urine Bilirubin (Negative) Urine Urobilinogen (Negative) Ur Leukocyte Esterase (Negative) COVID-19 Eval Order Covid19 [facility] SARS-CoV-2, RNA, NAAT NEGATIVE (NEGATIVE) Blood Type Antibody Screen 09/16/20 Range/Units 14:45 WBC (4.8-10.8) K/uL RBC (4.2-5.4) M/uL Hgb (12.0-16.0) g/dL Hct (37-47) % MCV (80-100) fL MCH (25-34) pg MCHC (32-36) g/dL RDW Std Deviation (36.4-46.3) fL RDW Coeff of Cody (11.5-14.5) % Plt Count (130-400) K/uL MPV (7.4-10.4) fL Immature Gran % (Auto) % Neut % (Auto) % Lymph % (Auto) % Clinch % (Auto) % Eos % (Auto) % Baso % (Auto) % Neut # (Auto) (1.4-6.5) K/uL Lymph # (Auto) (1.2-3.4) K/uL Clinch # (Auto) (0.11-0.59) K/uL Eos # (Auto) (0-0.5) K/uL Baso # (Auto) (0-0.2) K/uL Immature Gran # (Auto) (0.00-0.02) K/uL ESR (0-21) mm/hr PT (9.0-12.0) Seconds INR (0.9-1.1) APTT (21.0-31.0) Seconds PTT Ratio D-Dimer (0-500) ug/L FEU Sodium (136-145) mmol/L Potassium (3.5-5.1) mmol/L Chloride (98-107) mmol/L Carbon Dioxide (21-32) mmol/L Anion Gap (3-11) BUN (7-18) mg/dl Creatinine (0.6-1.2) mg/dl Est Cr Clr Drug Dosing ml/min Est GFR ( Amer) Est GFR (Non-Af Amer) BUN/Creatinine Ratio (10-20) Glucose (70-99) mg/dl Lactate (0.4-2.0) mmol/L Calcium (8.5-10.1) mg/dl Magnesium (1.8-2.4) mg/dl Ferritin (8-388) ng/ml Total Bilirubin (0.2-1) mg/dl AST (15-37) U/L ALT (12-78) U/L Alkaline Phosphatase (45-117) U/L Lactate Dehydrogenase (84-246) U/L Troponin I (0-0.045) ng/ml C-Reactive Protein (0-0.29) mg/dl NT-Pro-B Natriuret Pep (0-900) pg/ml Total Protein (6.4-8.2) gm/dl Albumin (3.4-5.0) gm/dl Globulin (2.5-4.0) gm/dl Albumin/Globulin Ratio (0.9-2) Procalcitonin (0-0.5) ng/ml TSH (0.300-4.500) uIu/ml Free T4 (0.8-1.6) ng/dl Urine Color Yellow Urine Appearance Clear (Clear) Urine pH 7.0 (4.5-7.5) Ur Specific [place] 1.013 (1.000-1.030) Urine Protein Negative (Negative) Urine Glucose (UA) Negative (Negative) Urine Ketones Trace H (Negative) Urine Blood Negative (Negative) Urine Nitrite Negative (Negative) Urine Bilirubin Negative (Negative) Urine Urobilinogen Negative (Negative) Ur Leukocyte Esterase Negative (Negative) COVID-19 Eval Order SARS-CoV-2, RNA, NAAT (NEGATIVE) Blood Type Antibody Screen Imaging Data Radiologist's Impression: Johnson, [place] [phone] XRay Report Patient: RAMON GONSALES Admit Date: 09/16/20 MR#: [id number] Address1: [address] [place] [address] Acct ID:[id number] Address2: Date: 1965 [facility] Zip: [place] [address] Age: 55 Location: ED Sex: F Room/Bed: Att Phy: Diagnosis: DIAGNOSED WITH COVID ON 09/06 Shweta Phy: Shani Rider PA-C Service Date: 09/16/20 Fam Phy: Interpreting Phy: Gibson Garcia MD Admit Phy: Ordering Phy: Santy Francois MD cc: ~ XR chest 1V portable CLINICAL HISTORY: SEPSIS COMPARISON STUDY: Chest radiograph August 18, 2019. FINDINGS: Lung volumes are normal. There is no pneumothorax or pleural effusion. Mild to moderate multifocal bilateral airspace opacities are present. Cardiomed iastinal silhouette is stable. There is no evidence for pulmonary edema. IMPRESSION: Mild to moderate multifocal bilateral airspace opacities suggestive of an infectious process. Radiographic follow-up to ensure resolution is recommended. ACT 112: Negative or not required by law. Electronically signed by: Gibson Garcia M.D. 09/16/2020 2:17 PM Dictated: 09/16/20 141 Transcribed: 09/16/20 141 ECG Data Attestation: I personally reviewed and interpreted this ECG as follows: Indication: + SOB/dyspnea Rate (beats per minute): 168 Rhythm: + atrial fibrillation ECG [place]: + Left axis deviation ECG ST segments: no ST depression and no ST elevation Comparison ECG Date: from (08/18/2019) Change: the following changes noted (Ventricular rate has increased by 93, a fib has replaced NSR) Additional Comments: Repeat EKG at 1528 shows a normal sinus rhythm normal EKG no ST elevation or depression QTC is 425 ventricular rate is 100 atrial fibrillation has been replaced by normal sinus rhythm. MDM Narrative Patient was seen and evaluated as above in room B8. Review was performed of nursing notes and vital signs. I did review pertinent previous visits and patient history. After obtaining a thorough history and physical examination the above work up was performed. This is a 55-year-old female who presents emergency department complaining of s hortness of breath. The patient apparently had a positive Covid test 10 days ago. Upon arrival to the emergency department the patient is in a A. fib with RVR. She was given 4 g of magnesium and started on a Cardizem bolus. She was also started on Decadron. Her chest x-ray is consistent with Covid pneumonia. She has a negative D-dimer. She does not have an elevation in her white blood cell count. Because of the new onset A. fib I did discuss the case with the hospitalist service who did agree to meet the patient. Patient is in agreement with the treatment plan. An order was placed for continuous cardiac monitoring. The monitor shows a rate of 83 with Normal SInus rhythm. The patient was evaluated during a period of high volume and high acuity while the hospital was at overcapacity during the global COVID-19 pandemic, and that diagnosis was suspected/considered upon their initial presentation. Their evaluation, treatment and testing was consistent with current guidelines for patients who present with complaints or symptoms that may be related to COVID- 19. Impression & Plan Atrial fibrillation with RVR, Pneumonia due to Discharge Plan Visit Data Chief Complaint: Illness Stated Complaint: DIAGNOSED WITH COVID ON 09/06 ED Provider: Santy Francois Discharge Problem: Atrial fibrillation with RVR, Pneumonia due to Forms Stand Alone Forms: [facility] Prescriptions Prescriptions: No Action hydroxyzine HCl 25 mg tablet 25 mg PO Q8H PRN (Reason: itching) Qty: 90 RF: 0 diltiazem HCl 240 mg capsule,extended release 24 hr 240 mg PO QAM Qty: 90 RF: 1 pantoprazole 40 mg tablet,delayed release (DR/EC) 40 mg PO QAM Qty: 30 RF: 5 levalbuterol HCl [Xopenex] 1.25 mg/3 mL solution for nebulization 1.25 mg inhalation Q4H Qty: 90 RF: 2 azithromycin 250 mg tablet See Rx Instructions PO .COMPLEX Qty: 6 RF: 0 methylprednisolone [Medrol (Ozzy)] 4 mg tablets,dose pack See Rx Instructions .ROUTE .COMPLEX Qty: 21 RF: 0 Airborne (ascorbic acid) 1,000-350 mg Powder Effervescent In Packet 1 ea PO UD RF: 0 acetaminophen [Tylenol Extra Strength] 500 mg Tablet 500 mg PO Q6H PRN (Reason: Pain) RF: 0 montelukast 10 mg tablet 10 mg PO HS RF: 0 olopatadine [Pataday] 0.2 % drops 1 drops OPB DAILY PRN (Reason: itching) RF: 0 aspirin 81 mg Tablet,Delayed Release (Dr/Ec) 81 mg PO HS RF: 0 albuterol sulfate 90 mcg/actuation Hfa Aerosol Inhaler 2 puff INHALATION Q6H PRN (Reason: Shortness Of Breath Or Wheezing) RF: 0 cetirizine 10 mg Tablet 10 mg PO HS PRN (Reason: Allergy Symptoms) RF: 0 furosemide 20 mg tablet 20 mg PO DAILY PRN (Reason: swelling while on prednisone) RF: 0 potassium chloride 10 mEq tablet extended release 10 meq PO QAM PRN (Reason: when taking lasix) RF: 0 lorazepam 0.5 mg Tablet 0.5 mg PO HS PRN (Reason: TAKES WHEN ON PREDNISONE) RF: 0
--- NOTE | 2020-09-16 14:18 | XRay Report ---
XR chest 1V portable CLINICAL HISTORY: SEPSIS COMPARISON STUDY: Chest radiograph August 18, 2019. FINDINGS: Lung volumes are normal. There is no pneumothorax or pleural effusion. Mild to moderate mul tifocal bilateral airspace opacities are present. Cardiomediastinal silhouette is stable. There is no evidence for pulmonary edema. IMPRESSION: Mild to moderate multifocal bilateral airspace opacities suggestive of an infectious pro cess. Radiographic follow-up to ensure resolution is recommended. ACT 112: Negative or not required by law. Electronically signed by: Gibson Garcia M.D. 09/16/2020 2:17 PM
[2020-09-16] MEDS ORDERED: STAT IV Infusion **Titration per Protocol STA (14:46)
[2020-09-16] MEDS ORDERED: dilTIAZem HCl 5 MG/ML 5 ML VIAL IV STA (14:49)
[2020-09-16 14:50] LABS: Hematocrit (blood only) 44.7 % (37-47); Hemoglobin 14.8 g/dL (12.0-16.0); Mean Corpuscular Hemoglobin 28.7 pg (25-34); Mean Corpuscular Hgb Conc 33.1 g/dL (32-36); Mean Corpuscular Volume 86.6 fL (80-100); Mean Platelet Volume 9.9 fL (7.4-10.4); Platelet Count 167 K/uL (130-400); RDW Coefficient of Variation 14.2 % (11.5-14.5); RDW Standard Deviation 45.2 fL (36.4-46.3); Red Blood Count 5.16 M/uL (4.2-5.4); White Blood Count 7.74 K/uL (4.8-10.8)
[2020-09-16] MEDS: MAGNESIUM SULFATE / D5W 1 GM/100 ML BAG IV SCH ×2 (14:54→15:57)
[2020-09-16] MEDS ORDERED: dilTIAZem HCL 125 MG in DEXTROSE 5% 100 ML IV SCH (15:00)
[2020-09-16 15:01] LABS: D Dimer 420 ug/L FEU (0-500); Partial Thromboplastin Ratio 1.1; Partial Thromboplastin Time 31.7 Seconds (21.0-31.0); Prothrombin Time 10.4 Seconds (9.0-12.0)
[2020-09-16 15:02] LABS: Appearance Urine Clear (Clear); Bilirubin Urine Negative (Negative); Blood Urine Negative (Negative); Color Urine Yellow; Glucose Urine UA Negative (Negative); Ketones Urine Trace (Negative); Leukocyte Esterase Urine Negative (Negative); Nitrite Urine Negative (Negative); Protein Urine Negative (Negative); Specific Gravity Urine 1.013 (1.000-1.030); Urobilinogen Urine Negative (Negative)
[2020-09-16 15:09] LABS: Albumin Level 3.2 gm/dl (3.4-5.0); Calcium 8.3 mg/dl (8.5-10.1); Creatinine Clr Calc Pharmacy 121.3 ml/min; Est GFR (African American) 114.1; Est GFR (Non-African American) 98.5; Magnesium 2.1 mg/dl (1.8-2.4); Potassium 3.6 mmol/L (3.5-5.1)
[2020-09-16 15:12] LABS: Albumin Globulin Ratio 0.8 (0.9-2); Bilirubin,Total 0.5 mg/dl (0.2-1); C Reactive Protein 12.1 mg/dl (0-0.29); Ferritin 239.1 ng/ml (8-388); Globulin 3.9 gm/dl (2.5-4.0); Total Protein 7.1 gm/dl (6.4-8.2)
[2020-09-16 15:16] LABS: Basophils # (auto) 0.01 K/uL (0-0.2); Basophils % (auto) 0.1 %; Immature Granulocytes # (auto) 0.02 K/uL (0.00-0.02); Immature Granulocytes % (auto) 0.3 %; Lymphocytes # (auto) 0.94 K/uL (1.2-3.4); Lymphocytes % (auto) 12.1 %; Monocytes # (auto) 0.33 K/uL (0.11-0.59); Monocytes % (auto) 4.3 %; Neutrophils # (auto) 6.44 K/uL (1.4-6.5); Neutrophils % (auto) 83.2 %
--- NOTE | 2020-09-16 16:17 | History & Physical Report ---
Date of Service September 16, 2020 Assessment & Plan (1) Acute and chronic respiratory failure with hypoxia: Acute hypoxic respiratory failure Diagnosis of COVID-19 roughly 10 days ago New diagnosis of atrial fibrillation with RVR Bilateral lung opacities -B19 induced or possibly bacterial History of moderate persistent asthma History of hypertension Hyperlipidemia Obstructive sleep apnea Obesity Admit under telemetry. Patient was recently diagnosed with COVID-19 roughly 10 days ago. Will start patient on Decadron. No indication for remdesivir at this point. Blood cultures were obtained in the ED. Procalcitonin is not concerning. White count is within normal limit. X-ray with bilateral opacities. No indication for antibiotics at this time. Likely viral induced. Patient is afebrile here, however he reports that she has been febrile at home. Continue to monitor. UA is bening. Obtain CRP, ferritin and proBNP level. (2) Asthma exacerbation: Continue with Decadron. DuoNebs 4 times daily, Proventil as needed. Re spiratory during protocol. (3) COVID-19: Continue isolation. (4) Atrial fibrillation with RVR: Patient presented with new onset A. fib with RVR. EKG revealed atrial flutter. Enzymes pending. Will obtain TSH level. Continue to trend cardiac enzymes. In the ED patient did convert to normal sinus rhythm. Continue with AUTOMOBILE SEAT COVER INSTALLER Cardizem. Outpatient low-dose beta-[place]. Will obtain transthoracic echo. (5) GERD (gastroesophageal reflux disease): Continue AUTOMOBILE SEAT COVER INSTALLER Protonix. (6) Hypertension: Continue AUTOMOBILE SEAT COVER INSTALLER Cardizem. (7) DOUGLAS (obstructive sleep apnea): Continue CPAP at night. History of Present Illness Patient is 55-year-old female with past medical history of moderate persistent asthma with 2 L of nasal cannula oxygen with intermittent use, chronic allergic rhinitis, osteoarthritis, obstructive sleep apnea on CPAP, GERD and morbid obesity presented to the ED with worsening shortness of breath. Patient reports she initially got diagnosed with COVID-19 roughly 10 days ago. Patient lives with her and 2 kids. Reports initially her daughter was diagnosed with COVID-19 and she believes that she caught it from her. Ports for the last 2 days she has not been feeling good. Flu she was prescribed Z-Ozzy and prednisone therapy from her physician which she completed today. Per, for the last 2 days she has been having progressive worsening shortness of breath, palpitations, decreased appetite, diarrhea and generalized weakness. Patient denies any headache but does report dizziness. Denies any chest pain but does have intermittent cough. Generalized abdominal pain. Any dysuria. Denies any any focal weakness. Rest of te review system is negative. Patient reports she was given oxygen roughly 4 to 5 years ago but have not used it ever except in the last few days she has been using oxygen at home. Not sure if she was truly hypoxic at home. Patient is also supposed to be on CPAP but does not use it. Primary Care Provider: Shani Rider PA-C Allergies Allergy/AdvReac Type Severity Reaction Status Date / Time Influenza Virus Vaccines Allergy Intermediate anaphylaxis Verified 02/14/20 09:21 Egg Derived Allergy Mild hives Verified 02/14/20 09:21 Home Medications Medication Instructions Recorded Confirmed Type albuterol sulfate 2 puff INHALATION Q6H PRN 06/19/19 09/16/20 History aspirin 81 mg PO HS 06/19/19 09/16/20 History cetirizine 10 mg PO HS PRN 06/19/19 09/16/20 History furosemide 20 mg PO DAILY PRN 06/19/19 09/16/20 History lorazepam 0.5 mg PO HS PRN 08/13/19 09/16/20 History potassium chloride 10 meq PO QAM PRN 08/13/19 09/16/20 History hydroxyzine HCl 25 mg tablet 25 mg PO Q8H PRN #90 tab 11/26/19 09/16/20 Rx diltiazem HCl 240 mg capsule,24 240 mg PO QAM #90 cap 06/08/20 09/16/20 Rx hr,extended release pantoprazole 40 mg tablet,delayed 40 mg PO QAM #30 tab 07/07/20 09/16/20 Rx release levalbuterol HCl 1.25 mg/3 mL 1.25 mg INHALATION Q4H #90 ml 08/24/20 09/16/20 Rx solution for nebulization azithromycin 250 mg tablet See Rx Instructions PO .COMPLEX #6 09/11/20 09/16/20 Rx tab methylprednisolone 4 mg tablets in See Rx Instructions .ROUTE 09/11/20 09/16/20 Rx a dose pack .COMPLEX #21 ea acetaminophen [Tylenol Extra 500 mg PO Q6H PRN 09/16/20 09/16/20 History Strength] montelukast 10 mg PO HS 09/16/20 09/16/20 History [id number] 124 1 ea PO UD 09/16/20 09/16/20 History [Airborne (ascorbic acid)] olopatadine [Pataday] 1 drops OPB DAILY PRN 09/16/20 09/16/20 History Past Med/Surg History Medical History (Updated 09/16/20 @ 16:14 by Sabra Nesbitt MD) Asthma inhaler/nebulizer prn Degenerative disc disease Diverticulitis several years ago DJD (degenerative joint disease), lumbar GERD (gastroesophageal reflux disease) controlled History of gastric ulcer Hypertension Hypertension Migraine Migraine Morbid obesity with BMI of 40.0-44.9, adult DOUGLAS (obstructive sleep apnea) CPAP Osteoarthritis Right sided abdominal pain Surgical History H/O laparoscopy History of arthroscopy of left knee History of cardiac cath 2009 @ [facility], no stents History of dilatation and curettage x2 History of esophagogastroduodenoscopy (EGD) History of left breast biopsy benign History of tonsillectomy History of tooth extraction History of wisdom tooth extraction Hx of cholecystectomy Hx of colonoscopy S/P endometrial ablation S/P tubal ligation Status post biopsy of thyroid gland x2 on benign thyroid nodule Family History Daughter No problems noted. Brother Family history of diabetes mellitus Sister Family history of diabetes mellitus Family history of reaction to anesthesia heart rate dropped during procedure Uncle FHx: colon cancer Mother FHx: lung cancer Grandmother (Paternal) FHx: colon cancer Social History Smoking Status: Never smoker Second Hand Exposure: Yes (parents smoked); Hx Alcohol Use: Yes Alcohol type: beer Hx Substance Use: No Preferred Language: [place] Communication Ability: Effective [place] Required: No Beliefs That Will Affect Care: None Current Living Situation: Spouse and Family Current Living Situation Comment: Lives with and 2 kids Feels Safe at Home: Yes Assistive Devices: Contacts, CPAP, Glasses and Nebulizer Review of Systems Review of Systems: All systems reviewed & are unremarkable except as noted in HPI & below Physical Exam Physical Exam: General: A&Ox3 HENT: NCAT, MMM, EOMI Eyes: PERRLA Neck: Supple, normal range of motion CVS: normal rate and rhythm Resp: b/l decreased breath sounds Abdomen: Soft, nondistended and nontender Extremities: Absence of any edema Neuro: No gross focal deficits identified Skin: warm and dry, no rashes/lesions/errythema MSK: normal ROM, no joint swelling/erythema Results & Data Results & Data ([facility]) Vital Signs (Past 12 Hours) Vital Signs Temp Pulse Resp BP Pulse Ox 09/16/20 15:39 16 149/92 H 94 09/16/20 14:56 110 H 27 H 180/119 H 93 09/16/20 14:41 168 H 26 H 151/110 H 89 L 09/16/20 14:35 175 H 21 09/16/20 13:44 37.4 C 100 H 20 158/86 H 91 Code Status & VTE Plan VTE Prophylaxis Plan VTE Prophylaxis will be ordered: Yes
[2020-09-16 16:39] LABS: Thyroid Stimulating Hormone 0.282 uIu/ml (0.300-4.500); Troponin I < 0.015 ng/ml (0-0.045)
[2020-09-16 17:02] LABS: T4 Free Thyroxine 1.15 ng/dl (0.8-1.6)
[2020-09-16] MEDS ORDERED: ALBUTEROL 0.083% NEBU SOLN 3 ML VIAL NEB PRN (20:27)
[2020-09-16] MEDS: ALBUT/IPRATROP 3MG/0.5MG NEB 3 ML VIAL NEB SCH (21:05)
[2020-09-16] MEDS: METOPROLOL TARTRATE 25 MG TAB PO SCH (21:47)
[2020-09-16] MEDS: MONTELUKAST SODIUM 10 MG TABLET PO SCH (21:47)
[2020-09-16] MEDS: ENOXAPARIN INJ 40 MG/0.4 ML SYR SQ SCH (21:48)
[2020-09-16] MEDS: ASPIRIN 81 MG ECTAB PO SCH (21:48)
--- NOTE | 2020-09-16 22:47 | Electrocardiogram Report ---
Test Reason : Blood Pressure : / mmHG Vent. Rate : 168 BPM Atrial Rate : 178 BPM P-R Int : 000 ms QRS Dur : 100 ms QT Int : 212 ms P-R-T Axes : 233 -43 038 degrees QTc Int : 354 ms Atrial fibrillation with rapid ventricular response Left axis deviation Cannot rule out Anterior infarct , age undetermined Abnormal ECG When compared with ECG of 18-AUG-2019 14:28, Atrial fibrillation has replaced Sinus rhythm Vent. rate has increased BY 93 BPM Nonspecific T wave abnormality now evident in Anterolateral leads Confirmed by Jose Delgado ([id number]) on 09/16/2020 10:47:10 PM Referred By: REFERRED SELF Confirmed By:Jose Delgado
[2020-09-17] MEDS: ACETAMINOPHEN 325 MG TAB PO PRN ×2 (02:36→16:44)
[2020-09-17 05:20] LABS: Hematocrit (blood only) 41.8 % (37-47); Hemoglobin 13.9 g/dL (12.0-16.0); Mean Corpuscular Hemoglobin 28.3 pg (25-34); Mean Corpuscular Hgb Conc 33.3 g/dL (32-36); Mean Corpuscular Volume 85.1 fL (80-100); Mean Platelet Volume 10.1 fL (7.4-10.4); Platelet Count 194 K/uL (130-400); RDW Coefficient of Variation 13.9 % (11.5-14.5); RDW Standard Deviation 43.6 fL (36.4-46.3); Red Blood Count 4.91 M/uL (4.2-5.4); White Blood Count 8.79 K/uL (4.8-10.8)
[2020-09-17 05:46] LABS: Blood Urea Nitrogen 16 mg/dl (7-18); Calcium 8.4 mg/dl (8.5-10.1); Carbon Dioxide 25 mmol/L (21-32); Chloride 100 mmol/L (98-107); Creatinine Clr Calc Pharmacy 158.9 ml/min; Est GFR (African American) 125.5; Est GFR (Non-African American) 108.3; Glucose 130 mg/dl (70-99); Potassium 3.9 mmol/L (3.5-5.1); Sodium 132 mmol/L (136-145)
[2020-09-17 05:50] LABS: Chol HDL Ratio 3; Cholesterol 155 mg/dl (0-200); HDL Cholesterol 55 mg/dl; LDL Cholesterol Calculated 76 mg/dl; Triglycerides 119 mg/dl (0-150); Troponin I < 0.015 ng/ml (0-0.045); VLDL Cholesterol 24 mg/dl
[2020-09-17] MEDS: ALBUT/IPRATROP 3MG/0.5MG NEB 3 ML VIAL NEB SCH ×4 (07:42→19:38)
[2020-09-17] MEDS: METOPROLOL TARTRATE 25 MG TAB PO SCH ×2 (08:19→20:42)
[2020-09-17] MEDS: DEXAMETHASONE SOD PHOSPHATE 6 MG in SYRINGE 0 ML IV SCH (08:21)
[2020-09-17] MEDS: PANTOprazole 40 MG TAB PO SCH (08:21)
[2020-09-17] MEDS: dilTIAZem HCL 240 MG CAPCR PO SCH (08:21)
[2020-09-17] MEDS ORDERED: DEXAMETHASONE SOD INJ 10 MG/ML VIAL IV SCH (09:00)
--- NOTE | 2020-09-17 09:06 | Electrocardiogram Report ---
Test Reason : Blood Pressure : / mmHG Vent. Rate : 100 BPM Atrial Rate : 100 BPM P-R Int : 188 ms QRS Dur : 084 ms QT Int : 330 ms P-R-T Axes : 018 -17 030 degrees QTc Int : 425 ms Poor data quality, interpretation may be adversely affected Normal sinus rhythm Minimal voltage criteria for LVH, may be normal variant Cannot rule out Anterior infarct (cited on or before 16-SEP-2020) Abnormal ECG When compared with ECG of 16-SEP-2020 14:34, Sinus rhythm has replaced Atrial fibrillation Vent. rate has decreased BY 68 BPM Confirmed by Jose Delgado ([id number]) on 09/17/2020 9:06:20 AM Referred By: REFERRED SELF Confirmed By:Jose Delgado
--- NOTE | 2020-09-17 12:20 | Hospitalist Progress Note ---
Date of Service September 17, 2020 Assessment & Plan (1) Acute and chronic respiratory failure with hypoxia: Acute hypoxic respiratory failure Diagnosis of COVID-19 roughly 10 days ago New diagnosis of atrial fibrillation with RVR Bilateral lung opacities -B19 induced or possibly bacterial History of moderate persistent asthma History of hypertension Hyperlipidemia Obstructive sleep apnea Obesity Patient was recently diagnosed with COVID-19 roughly 10 days ago. C/W Decadron thrapy. No indication for remdesivir at this point. Blood cultures were obtained on admission, pending. Procalcitonin is not concerning. White count is within normal limit. Patient is afebrilel. No indication for antibiotics at this time. Currently remains on 2 L of nasal cannula. We will attempt to wean it off. Kidney with DuoNebs 4 times daily and albuterol as needed. X-ray with bilateral opacities. Likely viral induced. UA is bening. ESR of 50, ferritin of 288 and pro-bnp of 48. (2) Asthma exacerbation: Continue with Decadron. DuoNebs 4 times daily, Proventil as needed. Respiratory driven protocol. (3) COVID-19: Continue isolation. (4) Atrial fibrillation with RVR: Patient presented with new onset A. fib with RVR. EKG revealed atrial flutter. Cardiac enzymes are not concerning. TSH of 0.28 and free T4 is normal. The patient remains in normal sinus rhythm. Transthoracic echo is pending. In the ED patient did convert to normal sinus rhythm. Continue with BURNER TECHNICIAN Cardizem. Continue with Lopressor 12.5 mg twice daily. [id number] score 2. Start aspirin 81 mg daily. (5) GERD (gastroesophageal reflux disease): Continue BURNER TECHNICIAN Protonix. (6) Hypertension: Continue BURNER TECHNICIAN Cardizem. (7) DOUGLAS (obstructive sleep apnea): Continue CPAP at night. Admission and Anticipated Discharge Date Admission Date: September 16, 2020 Subjective Reports she is not feeling so great today. Was diaphoretic earlier. Denies any chest pain or any shortness of breath. Does have intermittent palpitations. Reports she felt fever but T-max of 37. Does have intermittent coughing. Denies any chest pain at the moment. Did have lower abdominal pain overnight. One episode of diarrhea. Denies any dysuria. Review of Systems Review of Systems: All systems reviewed & are unremarkable except as noted in HPI & below Physical Exam Physical Exam: General: A&Ox3 HENT: NCAT, MMM, EOMI Eyes: PERRLA Neck: Supple, normal range of motion CVS: normal rate and rhythm Resp: b/l decreased breath sounds Abdomen: Soft, nondistended and nontender Extremities: Absence of any edema Neuro: No gross focal deficits identified Skin: warm and dry, no rashes/lesions/errythema MSK: normal ROM, no joint swelling/erythema Results & Data Results & Data ([facility]) Vital Signs (Past 12 Hours) Vital Signs Temp Pulse Pulse Resp BP Pulse Ox 09/17/20 11:45 37 C 94 H 18 124/87 98 09/17/20 11:29 93 H 20 93 09/17/20 08:39 36.8 C 74 17 170/107 H 90 09/17/20 07:43 81 22 95 09/17/20 07:27 75 09/17/20 03:52 36.7 C 85 19 136/79 93
[2020-09-17] MEDS ORDERED: ASPIRIN 81 MG CHEW PO SCH (12:30)
[2020-09-17] MEDS ORDERED: REMDESIVIR 200 MG in SODIUM CHLORIDE 0.9% 210 ML IV ONE (17:30)
[2020-09-17 19:11] LABS: Influenza A virus by PCR Negative (Neg); Influenza B virus by PCR Negative (Neg); RSV by PCR Negative (Neg)
[2020-09-17 19:29] LABS: SARS CoV2 RNA(COVID-19) InHosp POSITIVE (Negative)
[2020-09-17] MEDS ORDERED: SODIUM CHLORIDE 0.9% 10ML FLUSH IV SCH (20:00)
[2020-09-17] MEDS: ENOXAPARIN INJ 40 MG/0.4 ML SYR SQ SCH (20:41)
[2020-09-17] MEDS: ASPIRIN 81 MG ECTAB PO SCH (20:42)
[2020-09-17] MEDS: MONTELUKAST SODIUM 10 MG TABLET PO SCH (20:42)
[2020-09-18] MEDS: ACETAMINOPHEN 325 MG TAB PO PRN ×3 (01:14→18:03)
[2020-09-18] MEDS: ALBUT/IPRATROP 3MG/0.5MG NEB 3 ML VIAL NEB SCH ×4 (07:22→19:13)
[2020-09-18] MEDS: PANTOprazole 40 MG TAB PO SCH (08:24)
[2020-09-18] MEDS: dilTIAZem HCL 240 MG CAPCR PO SCH (08:24)
[2020-09-18] MEDS: METOPROLOL TARTRATE 25 MG TAB PO SCH ×2 (08:24→22:53)
[2020-09-18] MEDS: DEXAMETHASONE SOD PHOSPHATE 6 MG in SYRINGE 0 ML IV SCH (08:25)
--- NOTE | 2020-09-18 12:16 | Hospitalist Progress Note ---
Date of Service September 18, 2020 Assessment & Plan (1) Acute and chronic respiratory failure with hypoxia: Acute hypoxic respiratory failure Diagnosis of COVID-19 roughly 10 days ago New diagnosis of atrial fibrillation with RVR Bilateral lung opacities -B19 induced or possibly bacterial History of moderate persistent asthma History of hypertension Hyperlipidemia Obstructive sleep apnea Obesity Patient was recently diagnosed with COVID-19 roughly 10 days ago. C/W Decadron thrapy. Her initial Covid test was negative on admission. Given new fever and feeling weak, Covid test was repeated on 09/17 that came back positive. Patient started on remdesivir 10/06. Procalcitonin is not concerning. White count is within normal limit. Patient is afebrilel. No indication for antibiotics at this time. Currently remains on 2 L of nasal cannula. Attempt was made to wean her off but patient becomes hypoxic in the 80s. Give IV Lasix 20 mg now inflammatory retention diuresis. Monitor ins and outs along with daily weights. Kidney with DuoNebs 4 times daily and albuterol as needed. X-ray with bilateral opacities. Likely viral induced. UA is bening. ESR of 50, ferritin of 288 on admission. Will repeat ESR tomorrow. (2) Asthma exacerbation: Continue with Decadron. DuoNebs 4 times daily, Proventil as needed. Respiratory driven protocol. (3) COVID-19: Continue isolation. (4) Atrial fibrillation with RVR: Patient presented with new onset A. fib with RVR. EKG revealed atrial flutter. Cardiac enzymes are not concerning. TSH of 0.28 and free T4 is normal. The patient remains in normal sinus rhythm. Transthoracic echo is pending. In the ED patient did convert to normal sinus rhythm. Continue with DISABILITY LIAISON OFFICER Cardizem. Continue with Lopressor 12.5 mg twice daily. [id number] score 2. Start aspirin 81 mg daily. (5) GERD (gastroesophageal reflux disease): Continue DISABILITY LIAISON OFFICER Protonix. (6) Hypertension: Continue DISABILITY LIAISON OFFICER Cardizem. (7) DOUGLAS (obstructive sleep apnea): Continue CPAP at night. Admission and Anticipated Discharge Date Admission Date: September 16, 2020 Subjective Reports overnight she becomes diaphoretic, fatigue and body aches. Denies any chest pain or any significant cough. Does report shortness of breath when she is out of the bed to the toilet. Denies any fever. Denies any abdominal pain, diarrhea or dysuria. Denies any further episodes of nausea or vomiting. Her appetite is improving. Physical Exam Physical Exam: General: A&Ox3 HENT: NCAT, MMM, EOMI Eyes: PERRLA Neck: Supple, normal range of motion CVS: normal rate and rhythm Resp: b/l decreased breath sounds Abdomen: Soft, nondistended and nontender Extremities: Absence of any edema Neuro: No gross focal deficits identified Skin: warm and dry, no rashes/lesions/errythema MSK: normal ROM, no joint swelling/erythema Results & Data Results & Data ([facility]) Vital Signs (Past 12 Hours) Vital Signs Temp Pulse Pulse Resp BP Pulse Ox 09/18/20 11:32 36.9 C 78 22 135/80 94 09/18/20 11:01 76 20 90 09/18/20 07:54 37.0 C 77 20 126/71 94 09/18/20 07:22 81 90 09/18/20 07:00 82 09/18/20 03:37 37 C 80 14 129/71 91
[2020-09-18] MEDS ORDERED: FUROSEMIDE 20 MG in SYRINGE 0 ML IV ONE (12:30)
--- NOTE | 2020-09-18 15:30 | Pulmonary Consultation ---
Date of Consultation September 18, 2020 Assessment & Plan (1) COVID-19: Chest x-ray 121 personally reviewed, poor inspiratory effort, bilateral costophrenic and cardiophrenic angles are clean, patchy opacities appreciated bilaterally, increased cardiac silhouette. --Acute on chronic hypoxic respiratory failure Patient is on chronic oxygen at home but she does not use it on a regular basis Etiology is likely COVID-19 pneumonia Patient was diagnosed originally on 09/06/2020 COVID-19 PCR + 09/16/2020, positive lymphopenia CRP 12, ESR 50, LDH 295, procalcitonin < 0.05, D-dimer 420, NT BNP negative Patient already got prednisone followed by a Solu-Medrol Dosepak after being diagnosed with COVID-19. She also had azithromycin as an outpatient. She is more than 10 days out since being diagnosed with COVID-19. I doubt remdesivir playing any beneficial role here. Continue with dexamethasone for 5 more days. Given patient already got azithromycin as an outpatient I do not think she needs antibiotic if she already completed the full course --History of asthma Persistent Only on Asmanex and Spiriva along with montelukast Patient needs to be on LABA on top of above. Recommend on discharge Breo plus Spiriva. --DOUGLAS As per the compliance report from the old system she has AutoPap with mean CPAP of 10 I advised the patient to use CPAP at night. I will start with CPAP of 8 and if she is able to tolerate it will increase to 10 Plan: At the time of examination patient was saturating 94% on 3 L nasal cannula. I went down to 2 L after entering the room. She was still saturating 93%. I went down to 1 L. Continue with dexamethasone for 5 more days. And then taper steroids off in the following 5 days I do not think remdesivir is playing a beneficial role. Would recommend discontinuing it. Incentive spirometry along with flutter valve. I will add guaifenesin. Awake proning would be beneficial I change Arnuity to Breo. Continue with Incruse on top of that. Patient did have A. fib while she was in the ED. Her [id number] will be greater than 1. I think she will qualify for anticoagulation. Will defer the anticoagulation to primary. Please note the above document was generated using voice recognition software. It may contain grammatical, syntax or spelling errors.Any formal questions or concerns about the content, text or information contained within the body of this dictation should be directly addressed to the provider for clarification. (2) Pneumonia due to 2019-nCoV: (3) Acute and chronic respiratory failure with hypoxia: (4) DOUGLAS (obstructive sleep apnea): History of Present Illness Attending Physician: Sabra Nesbitt MD History of Present Illness 55-year-old female following up with pulmonary as an outpatient for her underlying asthma, DOUGLAS not that compliant with CPAP was admitted to the hospital because of hypoxic respiratory failure secondary to COVID-19 pneumonia Past medical history: Hypertension, dyslipidemia, obesity Patient has oxygen at home as well which he uses on an as-needed basis. Pulmonary were consulted for the same. Patient states that she was diagnosed with COVID-19 on 09/06/2020. She had symptoms couple of days prior. She was tested for COVID-19 on 08/24/2020 which was negative. As an outpatient she was treated with prednisone, followed by Medrol Dosepak and azithromycin. She did have diarrhea which has been improving after coming to the hospital. At the time of examination patient coughed maybe 3 times during the whole interrogation. She says that she is feeling better compared to before. Denies any chest pain, no headache, no nausea, no vomiting. Loose bowel movements have improved. No dysuria. No hemoptysis. Denies any headache, no blurry vision. Patient is on Asmanex and Spiriva for her asthma. She has had multiple doses of prednisone in the last year. Allergies Allergy/AdvReac Type Severity Reaction Status Date / Time Influenza Virus Vaccines Allergy Intermediate anaphylaxis Verified 02/14/20 09:21 Egg Derived Allergy Mild hives Verified 02/14/20 09:21 Home Medications Medication Instructions Recorded Confirmed Type albuterol sulfate 2 puff INHALATION Q6H PRN 06/19/19 09/16/20 History aspirin 81 mg PO HS 06/19/19 09/16/20 History cetirizine 10 mg PO HS PRN 06/19/19 09/16/20 History furosemide 20 mg PO DAILY PRN 06/19/19 09/16/20 History lorazepam 0.5 mg PO HS PRN 08/13/19 09/16/20 History potassium chloride 10 meq PO QAM PRN 08/13/19 09/16/20 History hydroxyzine HCl 25 mg tablet 25 mg PO Q8H PRN #90 tab 11/26/19 09/16/20 Rx diltiazem HCl 240 mg capsule,24 240 mg PO QAM #90 cap 06/08/20 09/16/20 Rx hr,extended release pantoprazole 40 mg tablet,delayed 40 mg PO QAM #30 tab 07/07/20 09/16/20 Rx release levalbuterol HCl 1.25 mg/3 mL 1.25 mg INHALATION Q4H #90 ml 08/24/20 09/16/20 Rx solution for nebulization azithromycin 250 mg tablet See Rx Instructions PO .COMPLEX #6 09/11/20 09/16/20 Rx tab methylprednisolone 4 mg tablets in See Rx Instructions .ROUTE 09/11/20 09/16/20 Rx a dose pack .COMPLEX #21 ea acetaminophen [Tylenol Extra 500 mg PO Q6H PRN 09/16/20 09/16/20 History Strength] montelukast 10 mg PO HS 09/16/20 09/16/20 History [id number]-herb 124 1 ea PO UD 09/16/20 09/16/20 History [Airborne (ascorbic acid)] olopatadine [Pataday] 1 drops OPB DAILY PRN 09/16/20 09/16/20 History Patient History Medical History (Updated 09/16/20 @ 19:22 by Santy Francois MD) Asthma inhaler/nebulizer prn Degenerative disc disease Diverticulitis several years ago DJD (degenerative joint disease), lumbar GERD (gastroesophageal reflux disease) controlled History of gastric ulcer Hypertension Hypertension Migraine Migraine Morbid obesity with BMI of 40.0-44.9, adult DOUGLAS (obstructive sleep apnea) CPAP Osteoarthritis Right sided abdominal pain Surgical History H/O laparoscopy History of arthroscopy of left knee History of cardiac cath 2009 @ [facility], no stents History of dilatation and curettage x2 History of esophagogastroduodenoscopy (EGD) History of left breast biopsy benign History of tonsillectomy History of tooth extraction History of wisdom tooth extraction Hx of cholecystectomy Hx of colonoscopy S/P endometrial ablation S/P tubal ligation Status post biopsy of thyroid gland x2 on benign thyroid nodule Family History Daughter No problems noted. 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 Review of Systems Review of Systems: All systems reviewed & are unremarkable except as noted in HPI & below Physical Exam Physical Exam: Constitutional: No acute distress HEENT: EOMI, PERRLA Respiratory system: Decreased air entry bilaterally, no wheeze, no rhonchi, positive crackles bilateral lower lobes CVS: S1-S2 positive Abdomen: Soft, nontender, nondistended, positive bowel sounds x4, obese Extremities: +2 pulses bilaterally radialis/ dorsalis pedis, no cyanosis, no edema Neuro: Awake alert oriented x3 Psych: Normal mood and affect G/U: No Haq Skin: no rashes, warm and dry Lymphatic: no cervical or axillary lymphadenopathy Results & Data Results & Data ([facility]) Vital Signs (Past 12 Hours) Vital Signs Temp Pulse Pulse Resp BP Pulse Ox 09/18/20 11:32 36.9 C 78 22 135/80 94 09/18/20 11:01 76 20 90 09/18/20 07:54 37.0 C 77 20 126/71 94 09/18/20 07:22 81 90 09/18/20 07:00 82 09/18/20 03:37 37 C 80 14 129/71 91 09/17/20 04:18 09/17/20 04:18 PG Care Time/CCT Total # of Minutes Spent Total Time Spent with Patient: Total time spent is greater than 50% in coordinat ion of care (as documented) at patient's floor/unit and/or counseling patient: Coding Level of Care Code 20285 Inpt Consult Level 4 Diagnoses COVID-19 U07.1 Pneumonia due to 2019-nCoV U07.1; J12.82 Acute and chronic respiratory failure with hypoxia J96.21 DOUGLAS (obstructive sleep apnea) G47.33
[2020-09-18] MEDS: UMECLIDINIUM BROMIDE 62.5MCG/BLISTER 7 PUFFS/INHALER INH SCH (16:58)
[2020-09-18] MEDS ORDERED: REMDESIVIR 100 MG in SODIUM CHLORIDE 0.9% 230 ML IV SCH (20:00)
[2020-09-18] MEDS ORDERED: FLUTICASONE FUROATE 100MCG 14 PUFFS/INHALER INH SCH (21:00)
[2020-09-18] MEDS: FLUTICASONE/VILANTEROL 200/25MCG 14 PUFFS/INHALER INH SCH (22:52)
[2020-09-18] MEDS: ASPIRIN 81 MG ECTAB PO SCH (22:53)
[2020-09-18] MEDS: MONTELUKAST SODIUM 10 MG TABLET PO SCH (22:54)
[2020-09-18] MEDS: guaiFENesin 600 MG TABCR PO SCH (22:54)
[2020-09-18] MEDS: ENOXAPARIN INJ 40 MG/0.4 ML SYR SQ SCH (22:54)
[2020-09-19 06:50] LABS: Basophils # (auto) 0.01 K/uL (0-0.2); Basophils % (auto) 0.2 %; Hematocrit (blood only) 40.1 % (37-47); Hemoglobin 13.6 g/dL (12.0-16.0); Immature Granulocytes # (auto) 0.01 K/uL (0.00-0.02); Immature Granulocytes % (auto) 0.2 %; Lymphocytes # (auto) 1.39 K/uL (1.2-3.4); Lymphocytes % (auto) 24.5 %; Mean Corpuscular Hemoglobin 28.7 pg (25-34); Mean Corpuscular Hgb Conc 33.9 g/dL (32-36); Mean Corpuscular Volume 84.6 fL (80-100); Mean Platelet Volume 9.8 fL (7.4-10.4); Monocytes # (auto) 0.49 K/uL (0.11-0.59); Monocytes % (auto) 8.6 %; Neutrophils # (auto) 3.78 K/uL (1.4-6.5); Neutrophils % (auto) 66.5 %; Platelet Count 248 K/uL (130-400); RDW Coefficient of Variation 13.9 % (11.5-14.5); RDW Standard Deviation 43.3 fL (36.4-46.3); Red Blood Count 4.74 M/uL (4.2-5.4); White Blood Count 5.68 K/uL (4.8-10.8)
[2020-09-19 07:18] LABS: BUN Creatinine Ratio 35.9 (10-20); C Reactive Protein 5.86 mg/dl (0-0.29); Calcium 8.9 mg/dl (8.5-10.1); Creatinine Clr Calc Pharmacy 122.6 ml/min; Magnesium 2.4 mg/dl (1.8-2.4); Potassium 3.9 mmol/L (3.5-5.1)
[2020-09-19 07:19] LABS: Phosphorus 3.9 mg/dl (2.5-4.9)
[2020-09-19] MEDS: ALBUT/IPRATROP 3MG/0.5MG NEB 3 ML VIAL NEB SCH ×4 (07:39→19:25)
[2020-09-19] MEDS: guaiFENesin 600 MG TABCR PO SCH ×2 (07:45→20:30)
[2020-09-19] MEDS: METOPROLOL TARTRATE 25 MG TAB PO SCH ×2 (07:46→20:29)
--- NOTE | 2020-09-19 08:02 | Pulmonology Progress Note ---
Date of Service September 19, 2020 Assessment & Plan (1) COVID-19: Chest x-ray 121 personally reviewed, poor inspiratory effort, bilateral costophrenic and cardiophrenic angles are clean, patchy opacities appreciated bilaterally, increased cardiac silhouette. --Acute on chronic hypoxic respiratory failure Patient is on chronic oxygen at home but she does not use it on a regular basis Etiology is likely COVID-19 pneumonia Patient was diagnosed originally on 09/06/2020 COVID-19 PCR + 09/16/2020, positive lymphopenia CRP 12, ESR 50, LDH 295, procalcitonin < 0.05, D-dimer 420, NT BNP negative Patient already got prednisone followed by a Solu-Medrol Dosepak after being diagnosed with COVID-19. She also had azithromycin as an outpatient. She is more than 10 days out since being diagnosed with COVID-19. I doubt remdesivir playing any beneficial role here. Continue with dexamethasone for 5 more days. Given patient already got azithromycin as an outpatient I do not think she needs antibiotic if she already completed the full course --History of asthma Persistent Only on Asmanex and Spiriva along with montelukast Patient needs to be on LABA on top of above. Recommend on discharge Breo plus Spiriva. --DOUGLAS As per the compliance report from the old system she has AutoPap with mean CPAP of 10 I advised the patient to use CPAP at night. I will start with CPAP of 8 and if she is able to tolerate it will increase to 10 Plan: Clinically patient is doing better. I saturation is 92% on 1 L. Advised the patient to walk around the room to see if she desaturates. She will has 2 L of oxygen at home to begin with. I personally explained how to do incentive spirometry to her. She was not using a flutter valve advised her to use it at least twice a day especially when she is getting the guaifenesin. No further recommendations from pulmonary perspective. Will sign off. Please recall if needed. Please note the above document was generated using voice recognition software. It may contain grammatical, syntax or spelling errors.Any formal questions or concerns about the content, text or information contained within the body of this dictation should be directly addressed to the provider for clarification. (2) Pneumonia due to 2019-nCoV: (3) Acute and chronic respiratory failure with hypoxia: (4) DOUGLAS (obstructive sleep apnea): Admission and Anticipated Discharge Date Admission Date: September 16, 2020 Subjective Patient seen and examined at bedside. No acute distress, no adverse events overnight. Patient tried to put CPAP on but she was not comfortable with the mask and did not use it. Coughing has decreased in amount. She is still bringing up phlegm. No hemoptysis. Was saturating 94% on 2 L nasal cannula at the time of examination. Has been using spirometry. Review of Systems Review of Systems: All systems reviewed & are unremarkable except as noted in Subjective Physical Exam Physical Exam: Constitutional: No acute distress HEENT: EOMI, PERRLA Respiratory system: Decreased air entry bilaterally, no wheeze, no rhonchi, positive crackles bilateral lower lobes CVS: S1-S2 positive Abdomen: Soft, nontender, nondistended, positive bowel sounds x4, obese Extremities: +2 pulses bilaterally radialis/ dorsalis pedis, no cyanosis, no edema Neuro: Awake alert oriented x3 Psych: Normal mood and affect G/U: No Haq Skin: no rashes, warm and dry Lymphatic: no cervical or axillary lymphadenopathy Results & Data Results & Data ([facility]) Vital Signs (Past 12 Hours) Vital Signs Temp Pulse Pulse Resp BP BP Pulse Ox 09/19/20 07:56 36.5 C 66 18 123/82 95 09/19/20 07:42 63 18 96 09/19/20 04:55 36.6 C 67 18 134/86 93 09/19/20 00:10 36.5 C 71 18 107/69 92 09/18/20 22:20 64 18 91 09/19/20 06:03 09/19/20 06:03 PG Care Time/CCT Total # of Minutes Spent Total Time Spent with Patient: Total time spent is greater than 50% in coordination of care (as documented) at patient's floor/unit and/or counseling patient: Coding Level of Care Code 99507 Subseq Hosp Care Lvl 3 Diagnoses COVID-19 U07.1 Pneumonia due to 2019-nCoV U07.1; J12.82 Acute and chronic respiratory failure with hypoxia J96.21 DOUGLAS (obstructive sleep apnea) G47.33
[2020-09-19] MEDS: PANTOprazole 40 MG TAB PO SCH (08:14)
[2020-09-19] MEDS: dilTIAZem HCL 240 MG CAPCR PO SCH (08:14)
[2020-09-19] MEDS: DEXAMETHASONE SOD PHOSPHATE 6 MG in SYRINGE 0 ML IV SCH (08:15)
[2020-09-19] MEDS: UMECLIDINIUM BROMIDE 62.5MCG/BLISTER 7 PUFFS/INHALER INH SCH (08:15)
--- NOTE | 2020-09-19 11:25 | Hospitalist Progress Note ---
Date of Service September 19, 2020 Assessment & Plan (1) Acute and chronic respiratory failure with hypoxia: Acute hypoxic respiratory failure Diagnosis of COVID-19 roughly 10 days ago New diagnosis of atrial fibrillation with RVR Bilateral lung opacities -B19 induced or possibly bacterial History of moderate persistent asthma History of hypertension Hyperlipidemia Obstructive sleep apnea Obesity Patient was recently diagnosed with COVID-19 roughly 10 days ago. C/W Decadron thrapy. Her initial Covid test was negative on admission. Given new fever and feeling weak, Covid test was repeated on 09/17 that came back positive. Procalcitonin is not concerning. White count is within normal limit. Patient is afebrilel. No indication for antibiotics at this time. Currently remains on 2 L of nasal cannula. Attempt was made to wean her off but patient becomes hypoxic in the 80s. She does have a oxygen concentrator at home but does not use it usually. Will obtain NOC ox tonight and patient will need ambulatory pulse ox prior to discharge. We will again give IV Lasix 20 mg today. monitor ins and outs along with daily weights. Appreciate pulmonary medicine input. Continue with NURSING SECRETARY bronchodilators including sprivia and incruse. Continue with CPAP at nighttime. c/W with DuoNebs 4 times daily and albuterol as needed. X-ray with bilateral opacities. Likely viral induced. UA is bening. ESR of 50, ferritin of 288 on admission. CRP down to 5 toda. (2) Asthma exacerbation: Continue with Decadron. DuoNebs 4 times daily, Proventil as needed. Respiratory driven protocol. (3) COVID-19: Continue isolation. (4) Atrial fibrillation with RVR: Patient presented with new onset A. fib with RVR. EKG revealed atrial flutter. Cardiac enzymes are not concerning. TSH of 0.28 and free T4 is normal. Patient remains in normal sinus rhythm. Transthoracic echo is pending. Did call the imaging lab to get the echo done today. In the ED patient did convert to normal sinus rhythm. Continue with NURSING SECRETARY Cardizem. Continue with Lopressor 12.5 mg twice daily. [id number] score 2. Patient on aspirin 81 mg daily also discussed regarding anticoagulation with Eliquis. She is agreeable. (5) GERD (gastroesophageal reflux disease): Continue NURSING SECRETARY Protonix. (6) Hypertension: Continue NURSING SECRETARY Cardizem. (7) DOUGLAS (obstructive sleep apnea): Continue CPAP at night. Admission and Anticipated Discharge Date Admission Date: September 16, 2020 Subjective Patient is doing okay this morning. Reports she feels better. Reports the Lasix helped her yesterday. Currently remains on 2 L of nasal cannula. Reports shortness of breath is improved. Appetite has been good. Hemodynamically patient is doing fine. Rest of the review of system is negative. Review of Systems Review of Systems: All systems reviewed & are unremarkable except as noted in HPI & below Physical Exam Physical Exam: General: A&Ox3 HENT: NCAT, MMM, EOMI Eyes: PERRLA Neck: Supple, normal range of motion CVS: normal rate and rhythm Resp: b/l decreased breath sounds Abdomen: Soft, nondistended and nontender Extremities: Absence of any edema Neuro: No gross focal deficits identified Skin: warm and dry, no rashes/lesions/errythema MSK: normal ROM, no joint swelling/erythema Results & Data Results & Data ([facility]) Vital Signs (Past 12 Hours) Vital Signs Temp Pulse Resp BP BP Pulse Ox 09/19/20 07:56 36.5 C 66 18 123/82 95 09/19/20 07:42 63 18 96 09/19/20 04:55 36.6 C 67 18 134/86 93 09/19/20 00:10 36.5 C 71 18 107/69 92
[2020-09-19] MEDS ORDERED: FUROSEMIDE 20 MG in SYRINGE 0 ML IV ONE (12:00)
[2020-09-19] MEDS: APIXABAN 2.5 MG TAB PO SCH ×2 (12:15→23:03)
[2020-09-19] MEDS ORDERED: PERFLUTREN LIPID MICROSPHERE (DEFINITY) IV ONE (15:10)
[2020-09-19] MEDS: FLUTICASONE/VILANTEROL 200/25MCG 14 PUFFS/INHALER INH SCH (20:28)
[2020-09-19] MEDS: MONTELUKAST SODIUM 10 MG TABLET PO SCH (20:29)
[2020-09-19] MEDS: ASPIRIN 81 MG ECTAB PO SCH (20:29)
[2020-09-20 07:21] LABS: Albumin Level 2.9 gm/dl (3.4-5.0); BUN Creatinine Ratio 30.9 (10-20); Calcium 8.9 mg/dl (8.5-10.1); Est GFR (Non-African American) 97.5; Potassium 3.7 mmol/L (3.5-5.1)
[2020-09-20 07:24] LABS: Albumin Globulin Ratio 0.8 (0.9-2); Bilirubin,Total 0.5 mg/dl (0.2-1); Globulin 3.8 gm/dl (2.5-4.0); Total Protein 6.7 gm/dl (6.4-8.2)
[2020-09-20] MEDS: ALBUT/IPRATROP 3MG/0.5MG NEB 3 ML VIAL NEB SCH ×2 (07:28→11:18)
[2020-09-20] MEDS: DEXAMETHASONE SOD PHOSPHATE 6 MG in SYRINGE 0 ML IV SCH (07:51)
[2020-09-20] MEDS: UMECLIDINIUM BROMIDE 62.5MCG/BLISTER 7 PUFFS/INHALER INH SCH (07:52)
[2020-09-20] MEDS: APIXABAN 2.5 MG TAB PO SCH (07:52)
[2020-09-20] MEDS: guaiFENesin 600 MG TABCR PO SCH (07:53)
[2020-09-20] MEDS: dilTIAZem HCL 240 MG CAPCR PO SCH (07:53)
[2020-09-20] MEDS: METOPROLOL TARTRATE 25 MG TAB PO SCH (07:53)
[2020-09-20] MEDS: PANTOprazole 40 MG TAB PO SCH (08:36)
--- NOTE | 2020-09-20 13:05 | Discharge Summary ---
Date of Service September 20, 2020 Admission HPI Per Admitting Provider 1) Acute and chronic respiratory failure with hypoxia: Acute hypoxic respiratory failure Diagnosis of COVID-19 roughly 10 days ago New diagnosis of atrial fibrillation with RVR Bilateral lung opacities -B19 induced or possibly bacterial History of moderate persistent asthma History of hypertension Hyperlipidemia Obstructive sleep apnea Obesity Admit under telemetry. Patient was recently diagnosed with COVID-19 roughly 10 days ago. Will start patient on Decadron. No indication for remdesivir at this point. Blood cultures were obtained in the ED. Procalcitonin is not concerning. White count is within normal limit. X-ray with bilateral opacities. No indication for antibiotics at this time. Likely viral induced. Patient is afebrile here, however he reports that she has been febrile at home. Continue to monitor. UA is bening. Obtain CRP, ferritin and proBNP level. (2) Asthma exacerbation: Continue with Decadron. DuoNebs 4 times daily, Proventil as needed. Respiratory during protocol. (3) COVID-19: Continue isolation. (4) Atrial fibrillation with RVR: Patient presented with new onset A. fib with RVR. EKG revealed atrial flutter. Enzymes pending. Will obtain TSH level. Continue to trend cardiac enzymes. In the ED patient did convert to normal sinus rhythm. Continue with SEAT P[employer] INSPECTOR Cardizem. Outpatient low-dose beta-[place]. Will obtain transthoracic echo. (5) GERD (gastroesophageal reflux disease): Continue SEAT P[employer] INSPECTOR Protonix. (6) Hypertension: Continue SE[employer] INSPECTOR Cardizem. (7) DOUGLAS (obstructive sleep apnea): Continue CPAP at night. Principal Diagnosis Asthma exacerbation COVID 19 pneumonia Discharge Exam Constitutional WD/WN, vitals as above Eyes PERRL, conjunctivae normal, anicteric sclerae ENMT external ear and nose normal, oropharynx normal Neck trachea midline, no thyromegaly Respiratory normal respiratory effort, lungs clear to auscultation Cardiovascular RRR, no murmur, no edema Gastrointestinal (Abdomen) normal bowel sounds, soft, nontender, no hepatosplenomegaly Musculoskeletal no cyanosis or clubbing, extremities motor strength 5/5 Skin no rashes, warm and dry Neurologic PERRL, EOMI, accommodation nl, no face palsy, no dysarthria Psychiatric A+Ox3, euthymic affect Discharge Data Allergies Allergy/AdvReac Type Severity Reaction Status Date / Time Influenza Virus Vaccines Allergy Intermediate anaphylaxis Verified 02/14/20 09:21 Egg Derived Allergy Mild hives Verified 02/14/20 09:21 Consultations 09/16/20 15:28 ED Decision to Admit Stat 09/18/20 12:58 Consult Pulmonology Routine Hospital Course (1) Acute and chronic respiratory failure with hypoxia: Acute hypoxic respiratory failure New diagnosis of atrial fibrillation with RVR Possible pneumonia due to coronavirus disease 2019 History of moderate persistent asthma History of hypertension Hyperlipidemia Obstructive sleep apnea Obesity Pneumonia due to COVID 19 virus Patient was recently diagnosed with COVID-19 roughly 10 days ago. . Given new fever and feeling weak, Covid test was repeated on 09/17 that came back positive. treated with Decadron hypoxia has resolved, in room air nocturnal pulse oximetry shows no significant desaturation Appreciate pulmonary medicine input. Continue with SEAT P[employer] INSPECTOR bronchodilators including sprivia and incruse. Continue with CPAP at nighttime. X-ray with bilateral opacities. Likely viral induced. (2) Asthma exacerbation: Continue with Decadron. DuoNebs 4 times daily, Proventil as needed. Respiratory driven protocol. (3) COVID-19: Continue isolation. (4) Atrial fibrillation with RVR: Patient presented with new onset A. fib with RVR. EKG revealed atrial flutter. Cardiac enzymes are not concerning. TSH of 0.28 and free T4 is normal. Patient remains in normal sinus rhythm. Transthoracic echo : normal LV function , no valvular heart disease Continue with Lopressor 12.5 mg twice daily. [id number] score 2. Patient on aspirin 81 mg daily also discussed regarding anticoagulation with Eliquis. She is agreeable. discharged home with PO Lopressor and Eliquis establish follow up with Cardiology as out patient (5) GERD (gastroesophageal reflux disease): Continue SE[employer] INSPECTOR Protonix. (6) Hypertension: Continue SE[employer] P[employer] INSPECTOR Cardizem. (7) DOUGLAS (obstructive sleep apnea): Continue CPAP at night. Disposition : discharged home Total Time Total Time Spent Total Time Spent (In Minutes): 35 mins Total Time Includes: Examination of the Patient, Discharge Planning and Medication Reconciliation Discharge Plan Discharge Items Patient Disposition: Home - Self-Care Reason For Visit: HYPOXIA,ASTHMA Discharge Diagnosis: Asthma exacerbation COVID 19 pneumonia Activity: Resume your previous activity Non-emergency contact: Primary Care Provider Call non-emergency contact if: your symptoms worsen Follow-up/Referrals: Shani Rider PA-C [Primary Care Provider] - 09/25/20 4:20 pm (Date & Time 09/25/2020 4:20 PM Provider Shani Rider PA-C Department Family [facility] PLEASE NOTE THAT THIS IS A TELEPHONE APPOINTMENT. THE PROVIDER WILL CALL YOU AT THE APPOINTMENT TIME. IF YOU HAVE ANY QUESTIONS, PLEASE CALL ) Diet: Heart Healthy Addtl Attending Provider Instructions: Use 2 L of NC overnight. Start taking Eliquis 5 mg twice daily. Please follow up with [facility] at [facility] for irregular Heart beat /Atrial Fibrilaltion Pending Studies at Discharge: No Stand-Alone Forms: My [facility], Work/School Release (Inpt), Smoking Cessation Medications and DC Order Prescriptions: New metoprolol tartrate 25 mg Tablet 12.5 mg PO BID Qty: 60 RF: 0 Breo Ellipta 200-25 mcg/dose Blister With Device 1 ea inhalation QPM Qty: 1 RF: 0 Eliquis 5 mg tablet 5 mg PO BID Qty: 60 RF: 3 Continued hydroxyzine HCl 25 mg tablet 25 mg PO Q8H PRN (Reason: itching) Qty: 90 RF: 0 diltiazem HCl 240 mg capsule,extended release 24 hr 240 mg PO QAM Qty: 90 RF: 1 pantoprazole 40 mg tablet,delayed release (DR/EC) 40 mg PO QAM Qty: 30 RF: 5 levalbuterol HCl [Xopenex] 1.25 mg/3 mL solution for nebulization 1.25 mg inhalation Q4H Qty: 90 RF: 2 Incruse Ellipta 62.5 mcg/actuation blister with device 1 inh inhalation DAILY Qty: 30 RF: 2 miscellaneous medical supply Kit 1 ea miscellaneous DAILY Qty: 1 RF: 0 CPAP Supplies Misc 1 ea .Route DAILY Qty: 1 RF: 0 Airborne (ascorbic acid) 1,000-350 mg Powder Effervescent In Packet 1 ea PO UD RF: 0 acetaminophen [Tylenol Extra Strength] 500 mg Tablet 500 mg PO Q6H PRN (Reason: Pain) RF: 0 montelukast 10 mg tablet 10 mg PO HS RF: 0 olopatadine [Pataday] 0.2 % drops 1 drops OPB DAILY PRN (Reason: itching) RF: 0 aspirin 81 mg Tablet,Delayed Release (Dr/Ec) 81 mg PO HS RF: 0 albuterol sulfate 90 mcg/actuation Hfa Aerosol Inhaler 2 puff INHALATION Q6H PRN (Reason: Shortness Of Breath Or Wheezing) RF: 0 cetirizine 10 mg Tablet 10 mg PO HS PRN (Reason: Allergy Symptoms) RF: 0 lorazepam 0.5 mg Tablet 0.5 mg PO HS PRN (Reason: TAKES WHEN ON PREDNISONE) RF: 0 Discontinued azithromycin 250 mg tablet See Rx Instructions PO .COMPLEX Qty: 6 RF: 0 methylprednisolone [Medrol (Ozzy)] 4 mg tablets,dose pack See Rx Instructions .ROUTE .COMPLEX Qty: 21 RF: 0 furosemide 20 mg tablet 20 mg PO DAILY PRN (Reason: swelling while on prednisone) RF: 0 potassium chloride 10 mEq tablet extended release 10 meq PO QAM PRN (Reason: when taking lasix) RF: 0 Discharge Orders: Discharge Order (Routine); Ordered 09/20/20 Ordered By: Ondina Mcmahon/Other Patient Handouts: AFL/Afib, Discharge Instructions for Atrial ... Admission Data Admit Date/Time: 09/16/20 15:38 Attending Provider: Ondina Del Rio Admit Provider: Sabra Nesbitt Primary Care Provider: Shani Rider Other Providers: Sabra Nesbitt ; Janice Hawkins Other Interventions: Discharge Summary Assessment (RN) Last Done: 09/20/20 13:13
== END 2020-09-20 14:13 | disposition home or self-care (01) | DRG 177 ==
LOC: ED 13:40 → SUATTDRO 15:38 → 2S 15:38

== ENCOUNTER 2020-09-22 14:38 | Observation (INO) ==
--- NOTE | 2020-09-22 15:17 | Emergency Department Note ---
History of Present Illness General Chief complaint: Illness Stated complaint: COVID Complications Time Seen by Provider: 09/22/20 14:54 Source: patient History of Present Illness Provider complaint: Hematuria and rectal bleeding Onset (ago): hour(s) Location: abdomen and genitals Severity: moderate Pain Consistency: + intermittent Maximum Pain Intensity: 3 Quality: + other (Blood in the urine and stool) Relieved By: + none Associated symptoms: + cough and + shortness of breath; no chest pain, no fever/chills, no headaches and no nausea/vomiting This is a 55-year-old female with a history of atrial fibrillation on Eliquis and COVID-19 presenting with hematuria and rectal bleeding. The patient states that she noticed this morning there was a tinge of blood in her urine. Later in the day she urinated twice more and noticed more blood in her urine. She then had a bowel movement which had a clot and some blood in it as well. She denies abdominal pain other than having a little bit of cramping prior to having the bowel movement. She does state that her stools appear dark and may be black. She does have some shortness of breath which she has had for over a week due to her COVID-19 diagnosis. She denies any chest pain, fever, loss of taste or smell. She still has a cough which worsens her shortness of breath. She denies any headaches. Home Medications Medication Instructions Recorded Confirmed Type albuterol sulfate 2 puff INHALATION Q6H PRN 06/19/19 09/22/20 History cetirizine 10 mg PO DAILY PRN 06/19/19 09/22/20 History lorazepam 0.5 mg PO HS PRN 08/13/19 09/22/20 History hydroxyzine HCl 25 mg tablet 25 mg PO Q8H PRN #90 tab 11/26/19 09/22/20 Rx diltiazem HCl 240 mg capsule,24 240 mg PO QAM #90 cap 06/08/20 09/22/20 Rx hr,extended release pantoprazole 40 mg tablet,delayed 40 mg PO QAM #30 tab 07/07/20 09/22/20 Rx release acetaminophen [Tylenol Extra 500 mg PO Q6H PRN 09/16/20 09/22/20 History Strength] montelukast 10 mg PO HS 09/16/20 09/22/20 History olopatadine [Pataday] 1 drops OPB DAILY PRN 09/16/20 09/22/20 History fluticasone furoate-vilanterol 1 ea INHALATION QPM #1 ea 09/19/20 09/22/20 Rx [Breo Ellipta] metoprolol tartrate 12.5 mg PO BID #60 tab 09/19/20 09/22/20 Rx apixaban [Eliquis] 5 mg PO BID #60 tab 09/20/20 09/22/20 Rx umeclidinium 62.5 mcg/actuation 1 inh INHALATION DAILY #30 ea 09/21/20 09/22/20 Rx blister powder for inhalation levalbuterol HCl [Xopenex] 1.25 mg INHALATION Q4H PRN 09/22/20 09/22/20 History Allergies Allergy/AdvReac Type Severity Reaction Status Date / Time Influenza Virus Vaccines Allergy Intermediate anaphylaxis Verified 09/22/20 16:26 Egg Derived Allergy Mild hives Verified 09/22/20 16:26 Past Med/Surg History Medical History (Updated 09/22/20 @ 17:22 by Demar Jean MD) Asthma inhaler/nebulizer prn Degenerative disc disease Diverticulitis several years ago DJD (degenerative joint disease), lumbar GERD (gastroesophageal reflux disease) controlled History of gastric ulcer Hypertension Hypertension Migraine Migraine Morbid obesity with BMI of 40.0-44.9, adult DOUGLAS (obstructive sleep apnea) CPAP Osteoarthritis Right sided abdominal pain Surgical History H/O laparoscopy History of arthroscopy of left knee History of cardiac cath 2009 @ [facility], no stents History of dilatation and curettage x2 History of esophagogastroduodenoscopy (EGD) History of left breast biopsy benign History of tonsillectomy History of tooth extraction History of wisdom tooth extraction Hx of cholecystectomy Hx of colonoscopy S/P endometrial ablation S/P tubal ligation Status post biopsy of thyroid gland x2 on benign thyroid nodule Family History Daughter No problems noted. Brother Family history of diabetes mellitus Sister Family history of diabetes mellitus Family history of reaction to anesthesia heart rate dropped during procedure Uncle FHx: colon cancer Mother FHx: lung cancer Grandmother (Paternal) FHx: colon cancer Social History Smoking Status: Never smoker Second Hand Exposure: Yes (parents smoked); Hx Alcohol Use: Yes Alcohol type: beer, wine and hard liquor Hx Substance Use: No Preferred Language: Surinamese Communication Ability: Effective Sole Cementer Required: No Beliefs That Will Affect Care: None Current Living Situation: Spouse and Family Current Living Situation Comment: Lives with and 2 kids Feels Safe at Home: Yes Assistive Devices: Contacts and Glasses Review of Systems See HPI for pertinent positives & negatives. and A total of 10 systems reviewed and were otherwise negative Physical Exam Vital Signs Vital Signs - 24 hr 09/22/20 14:43 09/22/20 15:13 09/22/20 15:26 Temperature 36.0 C L Temperature Source Skin Pulse Rate 85 79 Pulse Rate from SpO2 Sensor 79 Respiratory Rate 20 23 Blood Pressure 129/70 Blood Pressure Mean 89 Pulse Oximetry 95 92 93 Oxygen Delivery Method Room Air Room Air Sepsis Recent Fever Within 48 Hours No Sepsis New/Unexplained Change in Mental Status N/A Sepsis Action Taken by Nursing No Action Required 09/22/20 15:30 09/22/20 16:00 09/22/20 16:30 Temperature Temperature Source Pulse Rate 87 75 77 Pulse Rate from SpO2 Sensor 85 75 78 Respiratory Rate 25 H 20 Blood Pressure Blood Pressure Mean Pulse Oximetry 94 93 91 Oxygen Delivery Method Sepsis Recent Fever Within 48 Hours Sepsis New/Unexplained Change in Mental Status Sepsis Action Taken by Nursing 09/22/20 16:35 Temperature Temperature Source Pulse Rate 84 Pulse Rate from SpO2 Sensor 84 Respiratory Rate 22 Blood Pressure 136/76 Blood Pressure Mean 96 Pulse Oximetry 93 Oxygen Delivery Method Sepsis Recent Fever Within 48 Hours Sepsis New/Unexplained Change in Mental Status Sepsis Action Taken by Nursing Constitutional: Vital signs reviewed. Eyes: Pupils are equal round reactive to light. Conjunctiva are noninjected. ENT: Pharynx is clear without erythema or exudate. Mucous membranes are moist. Neck supple without meningeal signs. Respiratory: Clear to auscultation bilaterally. Breath sounds are equal bilaterally. No wheezing. Cardiovascular: Regular rate and rhythm. No rubs or gallops. GI: Soft, nondistended and nontender. Bowel sounds are present. Rectal: Guaiac positive light brown stool. No gross blood. Musculoskeletal: No peripheral edema. No lower extremity tenderness. Integumentary: No cyanosis. or jaundice. Neurological: The patient is awake and alert. No focal deficits. Psychiatric: Normal affect. Not anxious appearing. Medical Decision Making Differential Diagnosis GI bleed, hematuria, kidney stone, anemia, pneumonia Medical Records Attestation: I reviewed the patient's medical records. I did perform a limited focused review of portions of the patient's old chart on the electronic medical record. The patient was admitted for COVID-19 with hypoxia and new onset atrial fibrillation with RVR. She did have a [id number] score 2 and was placed on Eliquis. She did have an unremarkable echocardiogram. Home Medications Current Medication List: was personally reviewed by me Laboratory Data Attestation: I reviewed the patient's lab results. Result diagrams: 09/22/20 15:36 09/22/20 15:36 Lab Results 09/22/20 09/22/20 09/22/20 Range/Units 15:36 15:36 15:36 WBC 16.22 H (4.8-10.8) K/uL RBC 4.97 (4.2-5.4) M/uL Hgb 14.2 (12.0-16.0) g/dL Hct 42.3 (37-47) % MCV 85.1 (80-100) fL MCH 28.6 (25-34) pg MCHC 33.6 (32-36) g/dL RDW Std Deviation 42.5 (36.4-46.3) fL RDW Coeff of Cody 13.7 (11.5-14.5) % Plt Count 369 (130-400) K/uL MPV 9.8 (7.4-10.4) fL Immature Gran % (Auto) 1.2 % Neut % (Auto) 71.3 % Lymph % (Auto) 19.5 % Phelps % (Auto) 6.7 % Eos % (Auto) 1.2 % Baso % (Auto) 0.1 % Neut # (Auto) 11.56 H (1.4-6.5) K/uL Lymph # (Auto) 3.17 (1.2-3.4) K/uL Phelps # (Auto) 1.09 H (0.11-0.59) K/uL Eos # (Auto) 0.19 (0-0.5) K/uL Baso # (Auto) 0.01 (0-0.2) K/uL Immature Gran # (Auto) 0.20 H (0.00-0.02) K/uL PT 10.5 (9.0-12.0) Seconds INR 1.0 (0.9-1.1) APTT 26.2 (21.0-31.0) Seconds PTT Ratio 0.9 Sodium 140 (136-145) mmol/L Potassium 3.1 L (3.5-5.1) mmol/L Chloride 107 (98-107) mmol/L Carbon Dioxide 26 (21-32) mmol/L Anion Gap 7.0 (3-11) BUN 18 (7-18) mg/dl Creatinine 0.93 (0.6-1.2) mg/dl Est Cr Clr Drug Dosing Not Reportable Est GFR ( Amer) 80.2 Est GFR (Non-Af Amer) 69.2 BUN/Creatinine Ratio 19.0 (10-20) Glucose 117 H (70-99) mg/dl Calcium 8.3 L (8.5-10.1) mg/dl Total Bilirubin 0.7 (0.2-1) mg/dl AST 15 (15-37) U/L ALT 52 (12-78) U/L Alkaline Phosphatase 67 (45-117) U/L Troponin I < 0.015 (0-0.045) ng/ml Total Protein 6.2 L (6.4-8.2) gm/dl Albumin 2.8 L (3.4-5.0) gm/dl Globulin 3.4 (2.5-4.0) gm/dl Albumin/Globulin Ratio 0.8 L (0.9-2) Imaging Data Radiologist's Impression: XR chest 1V portable HISTORY: 55 years-old Female covid eval for pna acute shortness of breath with pneumonia COMPARISON: Chest radiograph 09/16/2020 TECHNIQUE: Portable AP view of the chest FINDINGS: Cardiac silhouette is enlarged, unchanged. Moderately progressed patchy bilateral airspace opacities. No pneumothorax, large pleural effusion or overt pulmonary edema. Degenerative changes of the shoulders and spine. IMPRESSION: Progressively worsened bilateral alveolar opacities compatible with multifocal pneumonia. ACT 112: Negative or not required by law. The above report was generated using voice recognition software. It may contain grammatical, syntax or spelling errors. Electronically signed by: Yefri Van M.D. 09/22/2020 4:30 PM Dictated: 09/22/201628 Transcribed: 09/22/201628 ECG Data Attestation: I personally reviewed and interpreted this ECG as follows: Indication: + SOB/dyspnea Rate (beats per minute): 78 Rhythm: + normal sinus ECG ST segments: no ST elevation ECG Findings: + LVH; no PVCs MDM Narrative I did evaluate the patient as noted above. The patient is on Eliquis and presenting with rectal bleeding as well as gross hematuria. She does complain of some shortness of breath but states it is only with exertion. She was r ecently just admitted for COVID-19 pneumonia. IV access was established. I did place an order for continuous cardiac monitoring. The monitor showed normal sinus rhythm at a rate of 80 bpm. I did order and personally review the patient's 12-lead EKG as described above. There is no evidence of pericarditis. No acute ischemia. She is not in atrial fibrillation. I did order and personally reviewed the images of the patient's chest x-ray as described above. She does have progressively worsened bilateral alveolar opacities compatible with multifocal pneumonia. Her O2 saturation remains about 91 to 93% on room air at rest. I did order and review the patient's blood work as noted in the e [facility] medical record. Her white count is 16,000 but she has recently just been on steroids. Her hemoglobin is stable at 14.2. Electrolytes demonstrate a mild hypokalemia at 3.1. Troponin is negative. I did discuss the test results with the patient. I did recommend hospitalization for repeat H&H's and supportive care as needed. I did discuss the case with the hospitalist and shelter case manager. Impression & Plan Rectal bleeding, Anticoagulated, Gross hematuria, Multifocal pneumonia, COVID- 19 virus infection, Hypokalemia, COVID-19 Discharge Plan Visit Data Chief Complaint: Illness Stated Complaint: COVID Complications ED Provider: Demar Jean Discharge Problem: Rectal bleeding, Anticoagulated, Gross hematuria, Multifocal pneumonia, COVID- 19 virus infection, Hypokalemia, COVID-19 Patient Disposition: Being Evaluated by Hospitalist Forms Stand Alone Forms: My [facility] Prescriptions Prescriptions: No Action hydroxyzine HCl 25 mg tablet 25 mg PO Q8H PRN (Reason: itching) Qty: 90 RF: 0 diltiazem HCl 240 mg capsule,extended release 24 hr 240 mg PO QAM Qty: 90 RF: 1 pantoprazole 40 mg tablet,delayed release (DR/EC) 40 mg PO QAM Qty: 30 RF: 5 Incruse Ellipta 62.5 mcg/actuation blister with device 1 inh inhalation DAILY Qty: 30 RF: 2 acetaminophen [Tylenol Extra Strength] 500 mg Tablet 500 mg PO Q6H PRN (Reason: Pain) RF: 0 montelukast 10 mg tablet 10 mg PO HS RF: 0 olopatadine [Pataday] 0.2 % drops 1 drops OPB DAILY PRN (Reason: itching) RF: 0 metoprolol tartrate 25 mg Tablet 12.5 mg PO BID Qty: 60 RF: 0 Breo Ellipta 200-25 mcg/dose Blister With Device 1 ea inhalation QPM Qty: 1 RF: 0 Eliquis 5 mg tablet 5 mg PO BID Qty: 60 RF: 3 levalbuterol HCl [Xopenex] 1.25 mg/3 mL solution for nebulization 1.25 mg inhalation Q4H PRN (Reason: Shortness Of Breath Or Wheezing) RF: 0 albuterol sulfate 90 mcg/actuation Hfa Aerosol Inhaler 2 puff INHALATION Q6H PRN (Reason: Shortness Of Breath Or Wheezing) RF: 0 cetirizine 10 mg Tablet 10 mg PO DAILY PRN (Reason: Allergy Symptoms) RF: 0 lorazepam 0.5 mg Tablet 0.5 mg PO HS PRN (Reason: Sleep) RF: 0 Referrals Referrals: Shani Rider PA-C [Primary Care Provider] -
[2020-09-22 16:08] LABS: Basophils # (auto) 0.01 K/uL (0-0.2); Basophils % (auto) 0.1 %; Eosinophils # (auto) 0.19 K/uL (0-0.5); Eosinophils % (auto) 1.2 %; Hematocrit (blood only) 42.3 % (37-47); Hemoglobin 14.2 g/dL (12.0-16.0); Immature Granulocytes % (auto) 1.2 %; Lymphocytes # (auto) 3.17 K/uL (1.2-3.4); Lymphocytes % (auto) 19.5 %; Mean Corpuscular Hemoglobin 28.6 pg (25-34); Mean Corpuscular Hgb Conc 33.6 g/dL (32-36); Mean Corpuscular Volume 85.1 fL (80-100); Mean Platelet Volume 9.8 fL (7.4-10.4); Monocytes # (auto) 1.09 K/uL (0.11-0.59); Monocytes % (auto) 6.7 %; Neutrophils # (auto) 11.56 K/uL (1.4-6.5); Neutrophils % (auto) 71.3 %; Platelet Count 369 K/uL (130-400); RDW Coefficient of Variation 13.7 % (11.5-14.5); RDW Standard Deviation 42.5 fL (36.4-46.3); Red Blood Count 4.97 M/uL (4.2-5.4); White Blood Count 16.22 K/uL (4.8-10.8)
[2020-09-22 16:21] LABS: Partial Thromboplastin Ratio 0.9; Partial Thromboplastin Time 26.2 Seconds (21.0-31.0); Prothrombin Time 10.5 Seconds (9.0-12.0)
[2020-09-22 16:26] LABS: Alanine Aminotransferase 52 U/L (12-78); Albumin Level 2.8 gm/dl (3.4-5.0); Aspartate Aminotransferase 15 U/L (15-37); Blood Urea Nitrogen 18 mg/dl (7-18); Calcium 8.3 mg/dl (8.5-10.1); Carbon Dioxide 26 mmol/L (21-32); Chloride 107 mmol/L (98-107); Est GFR (African American) 80.2; Est GFR (Non-African American) 69.2; Glucose 117 mg/dl (70-99); Potassium 3.1 mmol/L (3.5-5.1); Sodium 140 mmol/L (136-145)
[2020-09-22 16:30] LABS: Albumin Globulin Ratio 0.8 (0.9-2); Alkaline Phosphatase 67 U/L (45-117); Bilirubin,Total 0.7 mg/dl (0.2-1); Globulin 3.4 gm/dl (2.5-4.0); Total Protein 6.2 gm/dl (6.4-8.2); Troponin I < 0.015 ng/ml (0-0.045)
--- NOTE | 2020-09-22 16:31 | XRay Report ---
XR chest 1V portable HISTORY: 55 years-old Female covid eval for pna acute shortness of breath with pneumonia COMPARISON: Chest radiograph 09/16/2020 TECHNIQUE: Portable AP view of the chest FINDINGS: Cardiac silhouette is enlarged, unchanged. Moderately progressed patchy bilateral airspace opacities. No pneumothorax, large pleural effusion or overt pulmonary edema. Degenerative changes of the should ers and spine. IMPRESSION: Progressively worsened bilateral alveolar opacities compatible with multifocal pneumonia. ACT 112: Negative or not required by law. The above report was generated using voice recognition software. It may contain grammatical, syntax o r spelling errors. Electronically signed by: Yefri Van M.D. 09/22/2020 4:30 PM
--- NOTE | 2020-09-22 17:53 | History & Physical Report ---
Date of Service September 22, 2020 Assessment & Plan (1) Rectal bleeding: (2) Anticoagulated: (3) Paroxysmal A-fib: (4) Gross hematuria: Hematuria Bloody bowel movement. Hematuria and bloody bowel movements likely related to Eliquis that was restarted during recent admission for Covid pneumonia and A. fib with RVR. We will hold Eliquis for now in view of bleeding. [id number] stool occult reported negative. However, bowel movements are visualized when I evaluated patient was dark red. Likely lower GI bleed Hemoglobin is stable at 14.2. Hemodynamically stable Monitor hemoglobin for now Patient on p.o. pantoprazole at home. We will do IV PPI twice daily for now and monitor Get urinalysis For patient's paroxysmal A. fib, [id number] is 2. Will need to reassess resuming anticoagulation once stable. (5) Asthma, moderate persistent: Stable Albuterol as needed (6) Hypertension: Controlled (7) DOUGLAS (obstructive sleep apnea): Continue bedtime oxygen 2 L/min and CPAP HS Recent hospitalization for COVID. CXR reports worsened opacity compared to on admission day of last hospitalization. Patient is clinically improving based on history. (8) Hypokalemia: Replete potassium and monitor DVT ppx - SCD for now. Holding eliquis for now History of Present Illness 55-year-old woman with history of moderate persistent asthma weight intermittent use oxygen, chronic allergic rhinitis, osteoarthritis, DOUGLAS on CPAP, GERD, morbid obesity, recent management for Covid pneumonia and A. fib discharged 2 days ago on Eliquis and metoprolol who presents today complaining of hematuria and bloody bowel movements started this morning. Patient reports that she noticed bloody bowel movement earlier today. Also had dark bloody bowel movements with occasional clots. Associated with crampy lower abdominal pain which had resolved. Reported some mild dizziness on standing. Denied palpitations, dyspnea, dyspnea on exertion. Reports fatigue which is actually improved when compared to recent admission Still has cough from recent pneumonia but states that cough is improving and dry Denies any chest pain Denies fevers, chills, nausea vomiting Reports family history of PE and CVA in sister Denied smoking, illicit drug or alcohol use Primary Care Provider: Shani Rider PA-C Allergies Allergy/AdvReac Type Severity Reaction Status Date / Time Influenza Virus Vaccines Allergy Intermediate anaphylaxis Verified 09/22/20 16:26 Egg Derived Allergy Mild hives Verified 09/22/20 16:26 Home Medications Medication Instructions Recorded Confirmed Type albuterol sulfate 2 puff INHALATION Q6H PRN 06/19/19 09/22/20 History cetirizine 10 mg PO DAILY PRN 06/19/19 09/22/20 History lorazepam 0.5 mg PO HS PRN 08/13/19 09/22/20 History hydroxyzine HCl 25 mg tablet 25 mg PO Q8H PRN #90 tab 11/26/19 09/22/20 Rx diltiazem HCl 240 mg capsule,24 240 mg PO QAM #90 cap 06/08/20 09/22/20 Rx hr,extended release pantoprazole 40 mg tablet,delayed 40 mg PO QAM #30 tab 07/07/20 09/22/20 Rx release acetaminophen [Tylenol Extra 500 mg PO Q6H PRN 09/16/20 09/22/20 History Strength] montelukast 10 mg PO HS 09/16/20 09/22/20 History olopatadine [Pataday] 1 drops OPB DAILY PRN 09/16/20 09/22/20 History fluticasone furoate-vilanterol 1 ea INHALATION QPM #1 ea 09/19/20 09/22/20 Rx [Breo Ellipta] metoprolol tartrate 12.5 mg PO BID #60 tab 09/19/20 09/22/20 Rx apixaban [Eliquis] 5 mg PO BID #60 tab 09/20/20 09/22/20 Rx umeclidinium 62.5 mcg/actuation 1 inh INHALATION DAILY #30 ea 09/21/20 09/22/20 Rx blister powder for inhalation levalbuterol HCl [Xopenex] 1.25 mg INHALATION Q4H PRN 09/22/20 09/22/20 History Past Med/Surg History Medical History (Updated 09/22/20 @ 19:16 by Anusha Barrow MD) Asthma inhaler/nebulizer prn Degenerative disc disease Diverticulitis several years ago DJD (degenerative joint disease), lumbar GERD (gastroesophageal reflux disease) controlled History of gastric ulcer Hypertension Hypertension Migraine Migraine Morbid obesity with BMI of 40.0-44.9, adult DOUGLAS (obstructive sleep apnea) CPAP Osteoarthritis Right sided abdominal pain Surgical History H/O laparoscopy History of arthroscopy of left knee History of cardiac cath 2009 @ [facility], no stents History of dilatation and curettage x2 History of esophagogastroduodenoscopy (EGD) History of left breast biopsy benign History of tonsillectomy History of tooth extraction History of wisdom tooth extraction Hx of cholecystectomy Hx of colonoscopy S/P endometrial ablation S/P tubal ligation Status post biopsy of thyroid gland x2 on benign thyroid nodule Family History Daughter No problems noted. 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 Beliefs That Will Affect Care: None Current Living Situation: Spouse and Family Current Living Situation Comment: Lives with and 2 kids Feels Safe at Home: Yes Assistive Devices: Contacts and Glasses Review of Systems Constitutional: + fatigue; no fever and no chills Eyes: no problem reported Ear, Nose, Mouth, Throat: no epistaxis and no problem reported Respiratory: + cough; no dyspnea and no dyspnea on exertion Cardiovascular: no chest pain, no chest pain at rest, no dyspnea and no dyspnea on exertion Gastrointestinal: + blood in stools; no nausea and no vomiting crampy abd pain (resolved) Genitourinary: + hematuria; no dysuria, no urinary frequency and no urinary urgency Neurologic: no problem reported Psychiatric: no problem reported Physical Exam Constitutional: + well hydrated and + obese; no acute distress Eyes: PERRL, conjunctivae normal, anicteric sclerae ENMT: external ear and nose normal, oropharynx normal Respiratory: normal respiratory effort, lungs clear to auscultation Cardiovascular: Rate/Rhythm: regular rate and regular rhythm S1-S2 Gastrointestinal (Abdomen): normal bowel sounds, soft, nontender, no hepatosplenomegaly Musculoskeletal: no cyanosis or clubbing, extremities motor strength 5/5 No pedal edema Neurologic: PERRL, EOMI, accommodation nl, no face palsy, no dysarthria Psychiatric: A+Ox3, euthymic affect Genitourinary: no CVA tenderness Results & Data Results & Data ([facility]) Vital Signs (Past 12 Hours) Vital Signs Temp Pulse Resp BP Pulse Ox 09/22/20 16:35 84 22 136/76 93 09/22/20 16:30 77 91 09/22/20 16:00 75 20 93 09/22/20 15:30 87 25 H 94 09/22/20 15:26 79 23 93 09/22/20 15:13 92 09/22/20 14:43 36.0 C L 85 20 129/70 95 Laboratory Results Laboratory Results - last 24 hr 09/22/20 09/22/20 09/22/20 15:36 15:36 15:36 WBC 16.22 H RBC 4.97 Hgb 14.2 Hct 42.3 MCV 85.1 MCH 28.6 MCHC 33.6 RDW Std Deviation 42.5 RDW Coeff of Cody 13.7 Plt Count 369 MPV 9.8 Immature Gran % (Auto) 1.2 Neut % (Auto) 71.3 Lymph % (Auto) 19.5 Tate % (Auto) 6.7 Eos % (Auto) 1.2 Baso % (Auto) 0.1 Neut # (Auto) 11.56 H Lymph # (Auto) 3.17 Tate # (Auto) 1.09 H Eos # (Auto) 0.19 Baso # (Auto) 0.01 Immature Gran # (Auto) 0.20 H PT 10.5 INR 1.0 APTT 26.2 PTT Ratio 0.9 Sodium 140 Potassium 3.1 L Chloride 107 Carbon Dioxide 26 Anion Gap 7.0 BUN 18 Creatinine 0.93 Est Cr Clr Drug Dosing Not Reportable Est GFR ( Amer) 80.2 Est GFR (Non-Af Amer) 69.2 BUN/Creatinine Ratio 19.0 Glucose 117 H Calcium 8.3 L Total Bilirubin 0.7 AST 15 ALT 52 Alkaline Phosphatase 67 Troponin I < 0.015 Total Protein 6.2 L Albumin 2.8 L Globulin 3.4 Albumin/Globulin Ratio 0.8 L POC Stool Occult Blood Blood Type Antibody Screen 09/22/20 09/22/20 15:55 17:34 WBC RBC Hgb Hct MCV MCH MCHC RDW Std Deviation RDW Coeff of Cody Plt Count MPV Immature Gran % (Auto) Neut % (Auto) Lymph % (Auto) Tate % (Auto) Eos % (Auto) Baso % (Auto) Neut # (Auto) Lymph # (Auto) Tate # (Auto) Eos # (Auto) Baso # (Auto) Immature Gran # (Auto) PT INR APTT PTT Ratio Sodium Potassium Chloride Carbon Dioxide Anion Gap BUN Creatinine Est Cr Clr Drug Dosing Est GFR ( Amer) Est GFR (Non-Af Amer) BUN/Creatinine Ratio Glucose Calcium Total Bilirubin AST ALT Alkaline Phosphatase Troponin I Total Protein Albumin Globulin Albumin/Globulin Ratio POC Stool Occult Blood Negative Blood Type O Positive Antibody Screen NEGATIVE Diagnostic Findings XR chest 1V portable HISTORY: 55 years-old Female covid eval for pna acute shortness of breath with pneumonia COMPARISON: Chest radiograph 09/16/2020 TECHNIQUE: Portable AP view of the chest FINDINGS: Cardiac silhouette is enlarged, unchanged. Moderately progressed patchy bilateral airspace opacities. No pneumothorax, large pleural effusion or overt pulmonary edema. Degenerative changes of the shoulders and spine. IMPRESSION: Progressively worsened bilateral alveolar opacities compatible with multifocal pneumonia. Code Status & VTE Plan VTE Prophylaxis Plan VTE Prophylaxis will be ordered: Yes
[2020-09-22] MEDS ORDERED: LORazepam 0.5 MG TAB PO PRN (19:05)
[2020-09-22] MEDS ORDERED: ALUMINUM/MAGNESIUM SUSP 30 ML UDC PO PRN (19:05)
[2020-09-22] MEDS ORDERED: ACETAMINOPHEN 325 MG TAB PO PRN (19:05)
[2020-09-22] MEDS ORDERED: ONDANSETRON INJ 2 MG/ML 2 ML VIAL IV PRN (19:05)
[2020-09-22] MEDS ORDERED: MAGNESIUM HYDROXIDE SUSP 30 ML UDC PO PRN (19:05)
[2020-09-22] MEDS ORDERED: POLYETHYLENE (MIRALAX) 17 GM PACK PO PRN (19:05)
[2020-09-22] MEDS ORDERED: ALBUTEROL HFA 8 GM INHALER INH PRN (19:05)
[2020-09-22] MEDS: POTASSIUM CHLORIDE / WTR 10 MEQ/100 ML PLCT IV SCH ×2 (19:30→21:29)
[2020-09-22] MEDS: SODIUM CHLORIDE 0.9% 1000ML 1,000 ML IV SCH (20:14)
[2020-09-22] MEDS ORDERED: FLUTICASONE/VILANTEROL 200/25MCG 14 PUFFS/INHALER INH SCH (21:00)
[2020-09-22] MEDS ORDERED: MONTELUKAST SODIUM 10 MG TABLET PO SCH (21:00)
[2020-09-22] MEDS: METOPROLOL TARTRATE 25 MG TAB PO SCH (21:34)
[2020-09-22] MEDS: PANTOprazole 40 MG in SYRINGE 0 ML IV SCH (21:38)
[2020-09-22 22:12] LABS: Hematocrit (blood only) 40.7 % (37-47); Hemoglobin 13.7 g/dL (12.0-16.0)
[2020-09-23 00:57] LABS: Appearance Urine Clear (Clear); Bacteria Urine Automated 4+ (Negative); Bilirubin Urine Negative (Negative); Blood Urine 2+ (Negative); Color Urine Yellow; Epithelial Cell Urine Auto 20-30 /lpf (0-5); Glucose Urine UA Negative (Negative); Ketones Urine Negative (Negative); Leukocyte Esterase Urine 2+ (Negative); Nitrite Urine Positive (Negative); Protein Urine Negative (Negative); Specific Gravity Urine 1.015 (1.000-1.030); Urobilinogen Urine Negative (Negative); WBC Urine Automated >30 /hpf (0-5); pH Urine 5.5 (4.5-7.5)
[2020-09-23 05:54] LABS: Hematocrit (blood only) 38.4 % (37-47); Hemoglobin 12.7 g/dL (12.0-16.0); Mean Corpuscular Hemoglobin 28.3 pg (25-34); Mean Corpuscular Hgb Conc 33.1 g/dL (32-36); Mean Corpuscular Volume 85.5 fL (80-100); Mean Platelet Volume 9.8 fL (7.4-10.4); Platelet Count 292 K/uL (130-400); RDW Coefficient of Variation 13.7 % (11.5-14.5); RDW Standard Deviation 42.7 fL (36.4-46.3); Red Blood Count 4.49 M/uL (4.2-5.4); White Blood Count 12.19 K/uL (4.8-10.8)
[2020-09-23 06:52] LABS: Albumin Globulin Ratio 0.9 (0.9-2); Albumin Level 2.5 gm/dl (3.4-5.0); BUN Creatinine Ratio 20.4 (10-20); Bilirubin,Total 0.9 mg/dl (0.2-1); Calcium 7.6 mg/dl (8.5-10.1); Creatinine Clr Calc Pharmacy 131.7 ml/min; Est GFR (African American) 117.7; Est GFR (Non-African American) 101.5; Globulin 2.9 gm/dl (2.5-4.0); Potassium 3.4 mmol/L (3.5-5.1); Total Protein 5.4 gm/dl (6.4-8.2)
--- NOTE | 2020-09-23 07:42 | Electrocardiogram Report ---
Test Reason : Blood Pressure : / mmHG Vent. Rate : 078 BPM Atrial Rate : 078 BPM P-R Int : 176 ms QRS Dur : 088 ms QT Int : 376 ms P-R-T Axes : 024 -20 026 degrees QTc Int : 428 ms Normal sinus rhythm Moderate voltage criteria for LVH, may be normal variant Borderline ECG When compared with ECG of 16-SEP-2020 15:28, No significant change was found Confirmed by Jose Delgado ([id number]) on 09/23/2020 7:41:51 AM Referred By: REFERRED SELF Confirmed By:Jose Delgado
[2020-09-23] MEDS ORDERED: POTASSIUM CHLORIDE CRTAB 20 MEQ TABCR PO STA (07:52)
[2020-09-23] MEDS ORDERED: UMECLIDINIUM BROMIDE 62.5MCG/BLISTER 7 PUFFS/INHALER INH SCH (09:00)
[2020-09-23] MEDS ORDERED: dilTIAZem HCL 240 MG CAPCR PO SCH (09:00)
[2020-09-23] MEDS: SODIUM CHLORIDE 0.9% 1000ML 1,000 ML IV SCH (09:21)
[2020-09-23] MEDS: METOPROLOL TARTRATE 25 MG TAB PO SCH (09:23)
[2020-09-23] MEDS: PANTOprazole 40 MG in SYRINGE 0 ML IV SCH (09:23)
--- NOTE | 2020-09-23 09:34 | Cardiology Consultation ---
Date of Consultation September 23, 2020 Assessment & Plan (1) Paroxysmal A-fib: 55-year-old female with 1 documented episode of atrial fibrillation in the setting of respiratory insufficiency, hypoxia, COVID-19 pneumonia, captured on EKG 09/16/2020. She remains in sinus rhythm, and respiratory koch she is much improved. He [id number] score is 2 for risk factors of female and hypertension. Given recent hypercoagulable state in the setting of COVID-19, plus paroxysmal atrial fibrillation Eliquis has been initiated, however in general most recent guidelines recommend , systemic anticoagulation with a [id number] risk score of 3 or higher if one of the risk factors is females sex. At this time I feel it is most appropriate for the patient to remain off of anticoagulation. I am going to increase her metoprolol tartrate to 25 mg twice daily, and continue her chronic dose of diltiazem 240 mg daily. Echocardiogram performed earlier this month revealed grossly normal function, after she has been free of Covid symptoms for greater than 2 weeks, would consider updating an echocardi ogram with the complete protocol which can be performed as an outpatient. With regards to her hypokalemia, she received IV replacement yesterday, a dose of oral potassium chloride this morning and I have ordered another dose of oral potassium chloride, and I have placed an order for a repeat basic metabolic panel to be performed at 1300 today. Her recent episode of atrial fibrillation was perhaps self-limited in the setting of viral pneumonia. She however does have risk factors, and ongoing observation is going to be necessary. With regards to initiating aspirin. Most recent treatment guidelines suggest that the prophylactic benefit of aspirin in the setting of stroke prophylaxis with paroxysmal atrial fibrillation is negligible. Given the patient's bleeding complaints, it is most prudent for her to remain off of aspirin at present. Future considerations include rhythm control strategy with sotalol if atrial fibrillation recurs. Given her baseline history of asthmatic lung disease, she is not a very good candidate for amiodarone, and this should be reserved for severe circumstances and for short-term use in this patient's case. Given her COVID-19 status, I would speculate that if her hemoglobin is stable and gross bleeding has subsided off of anticoagulation, that observation will be recommended without acute endoscopy. I told the patient that I would review her case with the hospitalist after her repeat potassium level is available with regards to her disposition as to whether or not she needs to remain in the hospital or can be discharged today. (2) Gross hematuria: (3) Rectal bleeding: (4) Hypokalemia: (5) COVID-19 virus infection: History of Present Illness Attending Physician: Ondina Del Rio MD History of Present Illness Demetrice Duran is a 55 year old female assessed in cardiology consultation per the request of Romana Burns PA-C of the [facility] service for cardiac management of paroxysmal atrial fibrillation with concerns of hematuria and rectal bleeding while on Eliquis. The patient is in the COVID-19 isolation unit given her recent diagnosis of COVID-19 related pneumonia. I performed an interview via telephone with her, and communicated with nursing by phone. No in person physical exam was perfor med. Records from this hospital stay as well as her previous hospital stay earlier this month were reviewed. The patient has not followed with cardiology in the past. Her past medical history is notable for obesity with BMI of 43 kg/m, obstructive sleep apnea for which she is on CPAP, and hypertension. She has been on treatment with diltiazem 240 mg daily for years for the treatment of hypertension. Recent history dates back to 09/16/2020 when she presented to the emergency department and was diagnosed with acute on chronic respiratory failure with hypoxia related to COVID-19. In the emergency room she was noted to have new onset atrial fibrillation with rapid ventricular response which terminated spontaneously. Her prior to hospital dose of diltiazem was maintained, and metoprolol tartrate 12.5 mg twice daily was added in addition, and she was placed on Eliquis for stroke prophylaxis. An echocardiogram revealed grossly normal biventricular chamber size and systolic function on 09/20/2020. She was discharged home on 09/20/2020 and has been improving from a respiratory standpoint, however yesterday she noted blood in her urine she described urine that looked like tea and then looked dark red. She also noted black and blood- tinged stool in the morning. On presentation yesterday sinus rhythm in the 70s was noted on EKG and telemetry, with normal corrected QT interval of 42 ms digital EKG performed yesterday at 1525. Serial hemoglobin levels have been within normal limits. Urinalysis revealed 2+ blood. A [id number] stool occult blood test was negative. Patient reports no additional subjective bleeding signs or symptoms. Eliquis has been on hold, and she is receiving Protonix.. Allergies Allergy/AdvReac Type Severity Reaction Status Date / Time Influenza Virus Vaccines Allergy Intermediate anaphylaxis Verified 09/22/20 16:26 Egg Derived Allergy Mild hives Verified 09/22/20 16:26 Home Medications Medication Instructions Recorded Confirmed Type albuterol sulfate 2 puff INHALATION Q6H PRN 06/19/19 09/22/20 History cetirizine 10 mg PO DAILY PRN 06/19/19 09/22/20 History lorazepam 0.5 mg PO HS PRN 08/13/19 09/22/20 History hydroxyzine HCl 25 mg tablet 25 mg PO Q8H PRN #90 tab 11/26/19 09/22/20 Rx diltiazem HCl 240 mg capsule,24 240 mg PO QAM #90 cap 06/08/20 09/22/20 Rx hr,extended release pantoprazole 40 mg tablet,delayed 40 mg PO QAM #30 tab 07/07/20 09/22/20 Rx release acetaminophen [Tylenol Extra 500 mg PO Q6H PRN 09/16/20 09/22/20 History Strength] montelukast 10 mg PO HS 09/16/20 09/22/20 History olopatadine [Pataday] 1 drops OPB DAILY PRN 09/16/20 09/22/20 History fluticasone furoate-vilanterol 1 ea INHALATION QPM #1 ea 09/19/20 09/22/20 Rx [Breo Ellipta] metoprolol tartrate 12.5 mg PO BID #60 tab 09/19/20 09/22/20 Rx apixaban [Eliquis] 5 mg PO BID #60 tab 09/20/20 09/22/20 Rx umeclidinium 62.5 mcg/actuation 1 inh INHALATION DAILY #30 ea 09/21/20 09/22/20 Rx blister powder for inhalation levalbuterol HCl [Xopenex] 1.25 mg INHALATION Q4H PRN 09/22/20 09/22/20 History Patient History Medical History Asthma inhaler/nebulizer prn Degenerative disc disease Diverticulitis several years ago DJD (degenerative joint disease), lumbar GERD (gastroesophageal reflux disease) controlled History of gastric ulcer Hypertension Hypertension Migraine Migraine Morbid obesity with BMI of 40.0-44.9, adult DOUGLAS (obstructive sleep apnea) CPAP Osteoarthritis Right sided abdominal pain Surgical History H/O laparoscopy History of arthroscopy of left knee History of cardiac cath 2009 @ [facility], no stents History of dilatation and curettage x2 History of esophagogastroduodenoscopy (EGD) History of left breast biopsy benign History of tonsillectomy History of tooth extraction History of wisdom tooth extraction Hx of cholecystectomy Hx of colonoscopy S/P endometrial ablation S/P tubal ligation Status post biopsy of thyroid gland x2 on benign thyroid nodule Family History Daughter No problems noted. Brother Family history of diabetes mellitus Sister Family history of diabetes mellitus Family history of reaction to anesthesia heart rate dropped during procedure Uncle FHx: colon cancer Mother FHx: lung cancer Grandmother (Paternal) FHx: colon cancer Social History Smoking Status: Never smoker Second Hand Exposure: Yes (parents smoked); Hx Alcohol Use: Yes Alcohol type: beer, wine and hard liquor Hx Substance Use: No Preferred Language: Ugandan Communication Ability: Effective Bearing Maker Required: No Beliefs That Will Affect Care: None Current Living Situation: Spouse and Family Current Living Situation Comment: Lives with and 2 kids Other Information That Helps Us Care for You: No Feels Safe at Home: Yes Safety Concerns: Feels Safe At This Time Assistive Devices: Contacts and Glasses Review of Systems Review of Systems: All systems reviewed & are unremarkable except as noted in HPI & below Physical Exam Physical Exam: Temp Pulse Resp BP Pulse Ox 37.0 C 73 20 129/83 93 09/23/20 07:39 09/23/20 07:39 09/23/20 07:39 09/23/20 07:39 09/23/20 07:39 -No in person physical exam was performed Pulmonary: No conversational shortness of breath Neurologic: Patient oriented, conversant, cognitively intact Results & Data ([facility]) Vital Signs (Past 12 Hours) Vital Signs Temp Pulse Resp BP Pulse Ox 09/23/20 07:39 37.0 C 73 20 129/83 93 09/23/20 03:40 36.9 C 86 20 144/83 H 09/23/20 00:00 36.9 C 73 20 134/77 90 Laboratory Results Cardiac Enzymes 09/22/20 09/23/20 Range/Units 15:36 05:21 AST 15 12 L (15-37) U/L Troponin I < 0.015 (0-0.045) ng/ml Coagulation 09/22/20 Range/Units 15:36 PT 10.5 (9.0-12.0) Seconds APTT 26.2 (21.0-31.0) Seconds CBC 09/22/20 09/22/20 09/23/20 Range/Units 15:36 21:39 05:21 WBC 16.22 H 12.19 H (4.8-10.8) K/uL RBC 4.97 4.49 (4.2-5.4) M/uL Hgb 14.2 13.7 12.7 (12.0-16.0) g/dL Hct 42.3 40.7 38.4 (37-47) % Plt Count 369 292 (130-400) K/uL Neut # (Auto) 11.56 H (1.4-6.5) K/uL Lymph # (Auto) 3.17 (1.2-3.4) K/uL Marin # (Auto) 1.09 H (0.11-0.59) K/uL Eos # (Auto) 0.19 (0-0.5) K/uL Baso # (Auto) 0.01 (0-0.2) K/uL Comprehensive Metabolic Panel 09/22/20 09/23/20 Range/Units 15:36 05:21 Sodium 140 143 (136-145) mmol/L Potassium 3.1 L 3.4 L (3.5-5.1) mmol/L Chloride 107 111 H (98-107) mmol/L Carbon Dioxide 26 28 (21-32) mmol/L BUN 18 13 (7-18) mg/dl Creatinine 0.93 0.62 D (0.6-1.2) mg/dl Glucose 117 H 86 (70-99) mg/dl Calcium 8.3 L 7.6 L (8.5-10.1) mg/dl AST 15 12 L (15-37) U/L ALT 52 40 (12-78) U/L Alkaline Phosphatase 67 55 (45-117) U/L Total Protein 6.2 L 5.4 L (6.4-8.2) gm/dl Albumin 2.8 L 2.5 L (3.4-5.0) gm/dl Intake and Output 09/22/20 09/23/20 09/23/20 22:59 06:59 14:59 Intake Total 300 / 300 0 / 300 1100 / 1100 Output Total 300 / 300 Balance 300 / 0 -300 / 0 1100 / 1100 Intake: IV 100 / 100 1100 / 1100 K RIDER / WTR 10 meq In 100 ml 100 / 100 100 / 100 @ 100 mls/hr IV Q1H SHAKEEL Rx#: [id number] Nss 1000ML 1,000 ml @ 80 mls/hr 1000 / 1000 IV .[id number] SHAKEEL Rx#:[id number] Oral 200 / 200 0 / 200 Output: Urine 300 / 300 Other: # Unmeasured Voids 1 Weight 116.8 kg 118 kg Weight Measurement Method Built in [facility]
[2020-09-23] MEDS ORDERED: METOPROLOL TARTRATE 25 MG TAB PO ONE (09:45)
--- NOTE | 2020-09-23 11:06 | Gastrointestinal Consultation ---
Date of Consultation September 23, 2020 Assessment & Plan (1) Rectal bleeding: Seems like hemorrhoidal in the setting of AC, no drop in H/H. I spoke to the nurse who confirmed no bleeding and normal colored BM today. Per Cardiology no need for AC. Please feed the patient. No plan for Endoscopy at this time. She will need a colonoscopy as OP in 3-4 weeks. Recall GI if needed. History of Present Illness Attending Physician: Ondina Del Rio MD 55 years old female patient with COVID pneumonia, recently started on anticoagulation for paroxysmal AFIB, presented with hematuria and rectal bleeding, FOBT negative, H/H normal, stable with no drop, her AC was held and bleeding stopped. No other GI symptoms. Last colonoscopy many years ago showed diverticulosis. Allergies Allergy/AdvReac Type Severity Reaction Status Date / Time Influenza Virus Vaccines Allergy Intermediate anaphylaxis Verified 09/22/20 16:26 Egg Derived Allergy Mild hives Verified 09/22/20 16:26 Home Medications Medication Instructions Recorded Confirmed Type albuterol sulfate 2 puff INHALATION Q6H PRN 06/19/19 09/22/20 History cetirizine 10 mg PO DAILY PRN 06/19/19 09/22/20 History lorazepam 0.5 mg PO HS PRN 08/13/19 09/22/20 History hydroxyzine HCl 25 mg tablet 25 mg PO Q8H PRN #90 tab 11/26/19 09/22/20 Rx diltiazem HCl 240 mg capsule,24 240 mg PO QAM #90 cap 06/08/20 09/22/20 Rx hr,extended release pantoprazole 40 mg tablet,delayed 40 mg PO QAM #30 tab 07/07/20 09/22/20 Rx release acetaminophen [Tylenol Extra 500 mg PO Q6H PRN 09/16/20 09/22/20 History Strength] montelukast 10 mg PO HS 09/16/20 09/22/20 History olopatadine [Pataday] 1 drops OPB DAILY PRN 09/16/20 09/22/20 History fluticasone furoate-vilanterol 1 ea INHALATION QPM #1 ea 09/19/20 09/22/20 Rx [Breo Ellipta] metoprolol tartrate 12.5 mg PO BID #60 tab 09/19/20 09/22/20 Rx apixaban [Eliquis] 5 mg PO BID #60 tab 09/20/20 09/22/20 Rx umeclidinium 62.5 mcg/actuation 1 inh INHALATION DAILY #30 ea 09/21/20 09/22/20 Rx blister powder for inhalation levalbuterol HCl [Xopenex] 1.25 mg INHALATION Q4H PRN 09/22/20 09/22/20 History Patient History Medical History Asthma inhaler/nebulizer prn Degenerative disc disease Diverticulitis several years ago DJD (degenerative joint disease), lumbar GERD (gastroesophageal reflux disease) controlled History of gastric ulcer Hypertension Hypertension Migraine Migraine Morbid obesity with BMI of 40.0-44.9, adult DOUGLAS (obstructive sleep apnea) CPAP Osteoarthritis Right sided abdominal pain Surgical History H/O laparoscopy History of arthroscopy of left knee History of cardiac cath [address] [facility], no stents History of dilatation and curettage x2 History of esophagogastroduodenoscopy (EGD) History of left breast biopsy benign History of tonsillectomy History of tooth extraction History of wisdom tooth extraction Hx of cholecystectomy Hx of colonoscopy S/P endometrial ablation S/P tubal ligation Status post biopsy of thyroid gland x2 on benign thyroid nodule Family History Daughter No problems noted. Brother Family history of diabetes mellitus Sister Family history of diabetes mellitus Family history of reaction to anesthesia heart rate dropped during procedure Uncle FHx: colon cancer Mother FHx: lung cancer Grandmother (Paternal) FHx: colon cancer Social History Smoking Status: Never smoker Second Hand Exposure: Yes (parents smoked); Hx Alcohol Use: Yes Alcohol type: beer, wine and hard liquor Hx Substance Use: No Preferred Language: Albanian Communication Ability: Effective User Experience Designer Required: No Beliefs That Will Affect Care: None Current Living Situation: Spouse and Family Current Living Situation Comment: Lives with and 2 kids Other Information That Helps Us Care for You: No Feels Safe at Home: Yes Safety Concerns: Feels Safe At This Time Assistive Devices: Contacts and Glasses Review of Systems Review of Systems: Not done, chart reviewed for patient with COVID Physical Exam Physical Exam: Not done, chart reviewed Results & Data ([place]) Vital Signs (Past 12 Hours) Vital Signs Temp Pulse Resp BP Pulse Ox 09/23/20 07:39 37.0 C 73 20 129/83 93 09/23/20 03:40 36.9 C 86 20 144/83 H 09/23/20 00:00 36.9 C 73 20 134/77 90 Laboratory Results Laboratory Results - last 24 hr 09/22/20 09/22/20 09/22/20 00:00 15:36 15:36 WBC 16.22 H RBC 4.97 Hgb 14.2 Hct 42.3 MCV 85.1 MCH 28.6 MCHC 33.6 RDW Std Deviation 42.5 RDW Coeff of [place] 13.7 Plt Count 369 MPV 9.8 Immature Gran % (Auto) 1.2 Neut % (Auto) 71.3 Lymph % (Auto) 19.5 [place] % (Auto) 6.7 Eos % (Auto) 1.2 Baso % (Auto) 0.1 Neut # (Auto) 11.56 H Lymph # (Auto) 3.17 [place] # (Auto) 1.09 H Eos # (Auto) 0.19 Baso # (Auto) 0.01 Immature Gran # (Auto) 0.20 H PT INR APTT PTT Ratio Sodium 140 Potassium 3.1 L Chloride 107 Carbon Dioxide 26 Anion Gap 7.0 BUN 18 Creatinine 0.93 Est Cr Clr Drug Dosing Not Reportable Est GFR ( Amer) 80.2 Est GFR (Non-Af Amer) 69.2 BUN/Creatinine Ratio 19.0 Glucose 117 H Calcium 8.3 L Magnesium Total Bilirubin 0.7 AST 15 ALT 52 Alkaline Phosphatase 67 Troponin I < 0.015 Total Protein 6.2 L Albumin 2.8 L Globulin 3.4 Albumin/Globulin Ratio 0.8 L Urine Color Yellow Urine Appearance Clear Urine pH 5.5 Ur Specific [place] 1.015 Urine Protein Negative Urine Glucose (UA) Negative Urine Ketones Negative Urine Blood 2+ H Urine Nitrite Positive A Urine Bilirubin Negative Urine Urobilinogen Negative Ur Leukocyte Esterase 2+ H Urine WBC (Auto) >30 H Urine RBC (Auto) 10-30 H U Hyaline Cast (Auto) 1-5 U Epithel Cells (Auto) 20-30 H Urine Bacteria (Auto) 4+ H POC Stool Occult Blood Blood Type Antibody Screen 09/22/20 09/22/20 09/22/20 15:36 15:55 17:34 WBC RBC Hgb Hct MCV MCH MCHC RDW Std Deviation RDW Coeff of [place] Plt Count MPV Immature Gran % (Auto) Neut % (Auto) Lymph % (Auto) [place] % (Auto) Eos % (Auto) Baso % (Auto) Neut # (Auto) Lymph # (Auto) [place] # (Auto) Eos # (Auto) Baso # (Auto) Immature Gran # (Auto) PT 10.5 INR 1.0 APTT 26.2 PTT Ratio 0.9 Sodium Potassium Chloride Carbon Dioxide Anion Gap BUN Creatinine Est Cr Clr Drug Dosing Est GFR ( Amer) Est GFR (Non-Af Amer) BUN/Creatinine Ratio Glucose Calcium Magnesium Total Bilirubin AST ALT Alkaline Phosphatase Troponin I Total Protein Albumin Globulin Albumin/Globulin Ratio Urine Color Urine Appearance Urine pH Ur Specific [place] Urine Protein Urine Glucose (UA) Urine Ketones Urine Blood Urine Nitrite Urine Bilirubin Urine Urobilinogen Ur Leukocyte Esterase Urine WBC (Auto) Urine RBC (Auto) U Hyaline Cast (Auto) U Epithel Cells (Auto) Urine Bacteria (Auto) POC Stool Occult Blood Negative Blood Type O Positive Antibody Screen NEGATIVE 09/22/20 09/23/20 09/23/20 21:39 05:21 05:21 WBC 12.19 H RBC 4.49 Hgb 13.7 12.7 Hct 40.7 38.4 MCV 85.5 MCH 28.3 MCHC 33.1 RDW Std Deviation 42.7 RDW Coeff of [place] 13.7 Plt Count 292 MPV 9.8 Immature Gran % (Auto) Neut % (Auto) Lymph % (Auto) [place] % (Auto) Eos % (Auto) Baso % (Auto) Neut # (Auto) Lymph # (Auto) [place] # (Auto) Eos # (Auto) Baso # (Auto) Immature Gran # (Auto) PT INR APTT PTT Ratio Sodium 143 Potassium 3.4 L Chloride 111 H Carbon Dioxide 28 Anion Gap 4.0 BUN 13 Creatinine 0.62 D Est Cr Clr Drug Dosing 131.7 Est GFR ( Amer) 117.7 Est GFR (Non-Af Amer) 101.5 BUN/Creatinine Ratio 20.4 H Glucose 86 Calcium 7.6 L Magnesium 2.0 Total Bilirubin 0.9 AST 12 L ALT 40 Alkaline Phosphatase 55 Troponin I Total Protein 5.4 L Albumin 2.5 L Globulin 2.9 Albumin/Globulin Ratio 0.9 Urine Color Urine Appearance Urine pH Ur Specific [place] Urine Protein Urine Glucose (UA) Urine Ketones Urine Blood Urine Nitrite Urine Bilirubin Urine Urobilinogen Ur Leukocyte Esterase Urine WBC (Auto) Urine RBC (Auto) U Hyaline Cast (Auto) U Epithel Cells (Auto) Urine Bacteria (Auto) POC Stool Occult Blood Blood Type Antibody Screen
--- NOTE | 2020-09-23 12:19 | Electrocardiogram Report ---
Test Reason : Blood Pressure : / mmHG Vent. Rate : 074 BPM Atrial Rate : 074 BPM P-R Int : 186 ms QRS Dur : 088 ms QT Int : 386 ms P-R-T Axes : 042 -21 013 degrees QTc Int : 428 ms Normal sinus rhythm Minimal voltage criteria for LVH, may be normal variant Borderline ECG When compared with ECG of 22-SEP-2020 15:25, No significant change was found Confirmed by Luke Rojas ([id number]) on 09/23/2020 12:19:35 PM Referred By: REFERRED SELF Confirmed By:Luke Rojas
--- NOTE | 2020-09-23 13:50 | Discharge Summary ---
Date of Service September 23, 2020 Principal Diagnosis BLOOD IN STOOL/GI BLEED -RESOLVED -POSSIBLE HEMORRHOIDAL BLEED IN SETTING OF ANTICOAGULATION ( ELIQUIS ) HISTORY OF PAROXYSMAL AFIB -RESOLVED HYPERTENSION Discharge Exam Constitutional WD/WN, vitals as above Eyes PERRL, conjunctivae normal, anicteric sclerae ENMT external ear and nose normal, oropharynx normal Neck trachea midline, no thyromegaly Respiratory normal respiratory effort, lungs clear to auscultation Cardiovascular RRR, no murmur, no edema Gastrointestinal (Abdomen) normal bowel sounds, soft, nontender, no hepatosplenomegaly Musculoskeletal no cyanosis or clubbing, extremities motor strength 5/5 Skin no rashes, warm and dry Neurologic PERRL, EOMI, accommodation nl, no face palsy, no dysarthria Psychiatric A+Ox3, euthymic affect Discharge Data Allergies Allergy/AdvReac Type Severity Reaction Status Date / Time Influenza Virus Vaccines Allergy Intermediate anaphylaxis Verified 09/22/20 16:26 Egg Derived Allergy Mild hives Verified 09/22/20 16:26 Consultations 09/22/20 16:52 ED Decision to Admit Stat 09/22/20 19:05 Consult Cardiology Routine Consult Case Management - Discharge Planning Routine Consult Gastroenterology Routine Hospital Course (1) Rectal bleeding: Patient admitted with GI Bleed , bright red blood per rectum. Had no further episode since admission, H&H remained stable 13.7-12.7 Appreciate input from GI Possible hemorrhoidal bleed in the setting of anticoagulation/Eliquis Recommends outpatient colonoscopy in 6-8 weeks. History of paroxysmal A. fib. Remains normal sinus rhythm Appreciate input from cardiology 1 documented episode of atrial fibrillation in the setting of respiratory insufficiency, hypoxia, COVID-19 pneumonia, captured on EKG 09/16/2020. Given recent hypercoagulable state in the setting of COVID-19, plus paroxysmal atrial fibrillation Eliquis has been initiated, per cardiology : calculated [id number] core : 2 for risk factors of female and hypertension. According to current guideline systemic anticoagulation is recommended calculated [id number] > 3 Cardiology, recommends discontinuing of Eliquis per recent treatment guidelines in setting of paroxysmal A. fib the prophylactic benefit of aspirin for stroke prevention is negligible. Given the patient's presentation with bleeding complication , it is most prudent for her to remain off of aspirin at present. Metoprolol dose increased from 12.5 mg to 25 mg twice daily Continue with diltiazem to 40 mg daily Recent echo shows grossly normal LV function, normal cardiac valve, normal ejection fraction Outpatient follow-up with cardiology in few weeks Hypertension: On metoprolol dose adjustment as outlined above, and Cardizem History of asthma moderate, persistent. Stable, no cough no shortness of breath outpatient albuterol inhaler continued as needed Obstructive sleep apnea Continue bedtime oxygen 2 L/min and CPAP at bedtime Hematuria: resolved no further episode since discontinuing Eliquis H&H stable No further work-up needed Disposition: Patient is discharged home in stable condition. Total Time Total Time Spent Total Time Spent (In Minutes): 30 mins Total Time Includes: Discharge Planning, Medication Reconciliation and Communication With Other Providers Discharge Plan Discharge Items Patient Disposition: Home - Self-Care Reason For Visit: HEMATURIA, DARK TARRY STOOLS Discharge Diagnosis: BLOOD IN STOOL/GI BLEED -RESOLVED -POSSIBLE HEMORRHOIDAL BLEED IN SETTING OF ANTICOAGULATION ( ELIQUIS ) HISTORY OF PAROXYSMAL AFIB -RESOLVED HYPERTENSION Activity: Resume your previous activity Non-emergency contact: Primary Care Provider Call non-emergency contact if: you have any medication questions Follow-up/Referrals: Terell Mota DO [Fire Alarm Operator] - (CARDIOLOGY FOLLOW UP IN 2 WEEKS , OFFICE WILL CALL WITH APPOINTMENT ) Shani Rider PA-C [Primary Care Provider] - 09/25/20 4:20 pm Ritesh Mason MD [Hospitalist] - (GI FOLLOW UP FOR COLONOSCOPY IN 4-6 WEEKS, YOU WILL NEED TO HAVE REPEAT COVID -19 TEST DONE PRIOR TO PROCEDURE , GI OFFICE WILL SCHEDULE) Diet: Heart Healthy Addtl Attending Provider Instructions: Hospital Follow-up/Referrals: Shani Rider PA-C [Primary Care Provider] - 09/25/20 4:20 pm PLEASE NOTE THAT THIS IS A TELEPHONE APPOINTMENT. THE PROVIDER WILL CALL YOU AT THE APPOINTMENT TIME. IF YOU HAVE ANY QUESTIONS, PLEASE CALL ) DO NOT TAKE ELIQUIS STOP TAKING ASPIRIN AVOID MOTRIN ,ADVIL , ALEVE , IBUPROFEN , NAPROXEN -OVER THE COUNTER MEDICATIONS -[facility] ( PLEASE ASK PHARMACIST IF YOU ARE NOT SURE OF THE DRUG ) CAN TAKE TYLENOL NEEDED FOR PAIN AND FEVER MEDICATION CHANGE: METOPROLOL DOSE INCREASED TO 25 MG TWICE DAILY ( WAS 12.5 MG TWICE DAILY ) PLEASE FOLLOW UP AT [facility] ON FRIDAY , YOUR APPOINTMENT WAS SCHEDULED ALREADY CARDIOLOGY OFFICE WILL RESCHEDULE YOUR FOLLOW UP APPOINTMENT IN 2 WEEKS FOLLOW UP WITH GASTROENTEROLOGY FOR COLONOSCOPY ON 6-8 WEEKS , OFFICE WILL CALL WITH APPOINTMENT PLEASE CONTINUE TO USE 2 L OXYGEN AT NIGHT Addtl Architectural Draftsman Provider Instructions: Home Isolation COVID-19 Instructions The following information about Home Isolation is from the CDC Website: https://www.cdc.gov/coronavirus/2019-ncov/hcp/alumltvx-rwgjpdp-ndtqhl.html Stay home except to get medical care People who are mildly ill with COVID-19 are able to isolate at home during their illness. You should restrict activities outside your home, except for getting medical care. Do not go to work, school, or public areas. Avoid using public transportation, ride-sharing, or taxis. Separate yourself from other people and animals in your home People: As much as possible, you should stay in a specific room and away from other people in your home. Also, you should use a separate bathroom, if available. Animals: You should restrict contact with pets and other animals while you are sick with COVID-19, just like you would around other people. Although there have not been reports of pets or other animals becoming sick with COVID-19, it is still recommended that people sick with COVID-19 limit contact with animals until more information is known about the virus. When possible, have another member of your household care for your animals while you are sick. If you are sick with COVID-19, avoid contact with your pet, including petting, snuggling, being kissed or licked, and sharing food. If you must care for your pet or be around animals while you are sick, wash your hands before and after you interact with pets and wear a face mask. Call ahead before visiting your doctor If you have a medical appointment, call the healthcare provider and tell them that you have or may have COVID-19. This will help the healthcare providers office take steps to keep other people from getting infected or exposed. Wear a face mask You should wear a face mask when you are around other people (e.g., sharing a room or vehicle) or pets and before you enter a healthcare providers office. If you are not able to wear a face mask (for example, because it causes trouble breathing), then people who live with you should not stay in the same room with you, or they should wear a face mask if they enter your room. Cover your coughs and sneezes Cover your mouth and nose with a tissue when you cough or sneeze. Throw used tissues in a lined trash can. Immediately wash your hands with soap and water for at least 20 seconds or, if soap and water are not available, clean your hands with an alcohol-based hand screen printing machine operator that contains at least 60% alcohol. Clean your hands often Wash your hands often with soap and water for at least 20 seconds, especially after blowing your nose, coughing, or sneezing; going to the bathroom; and before eating or preparing food. If soap and water are not readily available, use an alcohol-based hand screen printing machine operator with at least 60% alcohol, covering all surfaces of your hands and rubbing them together until they feel dry. Soap and water are the best option if hands are visibly dirty. Avoid touching your eyes, nose, and mouth with unwashed hands. Avoid sharing personal household items You should not share dishes, drinking glasses, cups, eating utensils, towels, or bedding with other people or pets in your home. After using these items, they should be washed thoroughly with soap and water. Clean all high-touch surfaces everyday High touch surfaces include counters, tabletops, doorknobs, bathroom fixtures, toilets, phones, keyboards, tablets, and bedside tables. Also, clean any surfaces that may have blood, stool, or body fluids on them. Use a household cleaning spray or wipe, according to the label instructions. Labels contain instructions for safe and effective use of the cleaning product including precautions you should take when applying the product, such as wearing gloves and making sure you have good ventilation during use of the product. Monitor your symptoms Seek prompt medical attention if your illness is worsening (e.g., difficulty breathing).Beforeseeking care, call your healthcare provider and tell them that you have, or are being evaluated for, COVID-19. Put on a face mask before you enter the facility. These steps will help the healthcare providers office to keep other people in the office or waiting room from getting infected or exposed. Ask your healthcare provider to call the local or state health department. Persons who are placed under active monitoring or facilitated self- monitoring should follow instructions provided by their local health department or occupational health professionals, as appropriate. When working with your local health department check their available hours. If you have a medical emergency and need to call 911, notify the dispatch personnel that you have, or are being evaluated for COVID-19. If possible, put on a face mask before emergency medical services arrive. Discontinuing home isolation Patients with confirmed COVID-19 should remain under home isolation precautions until the risk of secondary transmission to others is thought to be low. per current CDC guideline can discontinue home isolation precautions after 10days of inset of symptoms or positive rest result ( COVID 19 positive on 09/17/20 ) also need to be fever free for 24 hours without using any fever reducing medicine ( Tyleno, Motrin etc ) Pending Studies at Discharge: No Stand-Alone Forms: Evver, Smoking Cessation Medications and DC Order Prescriptions: Continued hydroxyzine HCl 25 mg tablet 25 mg PO Q8H PRN (Reason: itching) Qty: 90 RF: 0 diltiazem HCl 240 mg capsule,extended release 24 hr 240 mg PO QAM Qty: 90 RF: 1 pantoprazole 40 mg tablet,delayed release (DR/EC) 40 mg PO QAM Qty: 30 RF: 5 Incruse Ellipta 62.5 mcg/actuation blister with device 1 inh inhalation DAILY Qty: 30 RF: 2 acetaminophen [Tylenol Extra Strength] 500 mg Tablet 500 mg PO Q6H PRN (Reason: Pain) RF: 0 montelukast 10 mg tablet 10 mg PO HS RF: 0 olopatadine [Pataday] 0.2 % drops 1 drops OPB DAILY PRN (Reason: itching) RF: 0 Breo Ellipta 200-25 mcg/dose Blister With Device 1 ea inhalation QPM Qty: 1 RF: 0 levalbuterol HCl [Xopenex] 1.25 mg/3 mL solution for nebulization 1.25 mg inhalation Q4H PRN (Reason: Shortness Of Breath Or Wheezing) RF: 0 albuterol sulfate 90 mcg/actuation Hfa Aerosol Inhaler 2 puff INHALATION Q6H PRN (Reason: Shortness Of Breath Or Wheezing) RF: 0 cetirizine 10 mg Tablet 10 mg PO DAILY PRN (Reason: Allergy Symptoms) RF: 0 lorazepam 0.5 mg Tablet 0.5 mg PO HS PRN (Reason: Sleep) RF: 0 Changed metoprolol tartrate 25 mg Tablet 25 mg PO BID Qty: 60 RF: 2 Discontinued Eliquis 5 mg tablet 5 mg PO BID Qty: 60 RF: 3 Discharge Orders: Discharge Order (Routine); Ordered 09/23/20 Ordered By: Ondina Del Rio Admission Data Admit Date/Time: 09/22/20 17:17 Attending Provider: Ondina Del Rio Admit Provider: Anusha Barrow I. Primary Care Provider: Shani Rider Other Providers: Anusha Barrow I. ; Terell Mota ; Ritesh Mason Other Interventions: Discharge Summary Assessment (RN) Last Done: 09/23/20 13:00
[2020-09-23] MEDS ORDERED: METOPROLOL TARTRATE 25 MG TAB PO SCH (21:00)
== END 2020-09-23 15:45 | disposition home or self-care (01) ==
LOC: ED 14:38 → 2E 14:38 → SUATTDRO 17:17 → 2E 18:47
DX: Z79.899 Other long term (current) drug therapy; E87.6 Hypokalemia; G47.33 Obstructive sleep apnea (adult) (pediatric); Z91.012 Allergy to eggs; Z99.89 Dependence on other enabling machines and devices; J45.40 Moderate persistent asthma, uncomplicated; I48.0 Paroxysmal atrial fibrillation; I10 Essential (primary) hypertension; Z88.7 Allergy status to serum and vaccine; E66.01 Morbid (severe) obesity due to excess calories; Z86.16 Personal history of COVID-19; K62.5 Hemorrhage of anus and rectum; Z99.81 Dependence on supplemental oxygen; Z68.41 Body mass index [BMI] 40.0-44.9, adult

== ENCOUNTER 2023-11-11 05:06 | Observation (INO) ==
[2023-11-11 06:03] LABS: Basophils # (auto) 0.04 K/uL (0.00-0.20); Basophils % (auto) 0.3 %; Eosinophils # (auto) 0.29 K/uL (0.00-0.50); Eosinophils % (auto) 2.3 %; Hematocrit (blood only) 40.2 % (37.0-47.0); Immature Granulocytes # (auto) 0.04 K/uL (0.01-0.20); Immature Granulocytes % (auto) 0.3 %; Lymphocytes % (auto) 23.1 %; Mean Corpuscular Hemoglobin 27.7 pg (25.0-34.0); Mean Corpuscular Hgb Conc 32.3 g/dL (32.0-36.0); Mean Corpuscular Volume 85.5 fL (80.0-100.0); Mean Platelet Volume 10.5 fL (9.4-12.4); Monocytes # (auto) 0.69 K/uL (0.11-0.59); Monocytes % (auto) 5.5 %; Neutrophils # (auto) 8.58 K/uL (1.40-6.50); Neutrophils % (auto) 68.5 %; Platelet Count 299 K/uL (130-400); RDW Coefficient of Variation 13.4 % (11.5-14.5); RDW Standard Deviation 41.9 fL (36.4-46.3); White Blood Count 12.54 K/ul (4.8-10.8)
[2023-11-11 06:05] LABS: Albumin Globulin Ratio 1.5 (0.9-2); Albumin Level 3.9 gm/dl (3.4-5.0); BUN Creatinine Ratio 19.5 (10-20); Bilirubin,Total 0.5 mg/dl (0.2-1.0); Calcium 8.8 mg/dl (8.6-10.3); Creatinine Clr Calc Pharmacy 97.1 ml/min; Est GFR (African American) 91.4 ml/min; Est GFR (Non-African American) 78.9 ml/min; Globulin 2.6 gm/dl (2.5-4.0); Potassium 3.7 mmol/L (3.5-5.1); Total Protein 6.5 gm/dl (6.0-8.3)
[2023-11-11] MEDS: OPTIRAY 320 100ml IV ONE (06:29)
[2023-11-11 06:48] LABS: Troponin I High Sensitivity 5.1 pg/ml (0-14)
--- NOTE | 2023-11-11 06:51 | Emergency Department Note ---
Impression & Plan Abdominal pain, right upper quadrant, Acute pancreatitis ED Provider Note Provider: Gil Reynoso MD DATE OF SERVICE: 11/11/2023 CHIEF COMPLAINT: Right upper abdominal pain and fullness HISTORY OF PRESENT ILLNESS: Patient is a 58-year-old female history of paroxysmal A-fib not on anticoagulation, restrictive lung disease, obesity, DJD, GERD, hypertension, and prior cholecystectomy presenting here reporting over the Last couple of weeks she has had a bit of fullness in the right upper quadrant. Positionally related and worsening of the fullness. Yesterday afternoon developed some pain in this area. No associated nausea vomiting or diarrhea. No chest pain or new shortness of breath. No leg swelling. No trauma. No rash. States it feels like her liver is "going to explode "and that there is pressure and fullness in this area. Pushing on it according to her does not significantly worsen any pain or discomfort. Again worsened with movements and bending. No trauma reported. Did not take anything at home for discomfort. Ate okay yesterday evening. PAST MEDICAL HISTORY: As noted above MEDICATIONS: Reviewed home medication list SOCIAL HISTORY: , lives at home PHYSICAL EXAM: GENERAL: alert and oriented in no acute distress on stretcher Head: normocephalic and atraumatic EYES: No injection, discharge or icterus. NECK: Trachea midline. ENT: Mucous membranes pink and moist. LUNGS: Airway patent. No retractions. Breath sounds clear HEART: Regular rate and rhythm. No chest wall tenderness ABDOMEN: Soft and non-tender, without guarding or rebound. No obvious mass in the right upper quadrant appreciated. SKIN: Acyanotic, warm, dry, without rashes EXTREMITIES: Without swelling, tenderness or deformity NEUROLOGICAL: No focal deficits. No aphasia. No facial droop or slurred speech. Ambulatory. EK bpm normal sinus rhythm. No PVC or PAC. No acute ST segment elevation or depression with a QTc of 414. CONTINUOUS CARDIAC MONITORING: was ordered and showed a heart rate of 60s to 70s bpm in normal sinus rhythm Patient's laboratory studies and imaging reviewed. Differential includes Appendicitis, infections, diverticulitis, UTI, obstruction, mesenteric ischemia, aortic pathology, inflammatory bowel disease, renal colic, PUD, pancreatitis, biliary pathology, hernia, volvulus, constipation, as well as other pathologies. IMPRESSION/MEDICAL DECISION MAKING: Patient vitals are reassuring. No trauma history or rash noted. No obvious hernia on clinical exam. Does not appear in obvious distress on exam. Fairly localized pressure and fullness and mild tenderness in the right upper quadrant region. Worsened with movement. Low suspicion at this time this represents PE; she is not hypoxic or tachycardic or experiencing clinical evidence of DVT at this time. EKG and troponin completed but seems less likely be cardiac related. Declined pain medicine here initially. Has not take anything at home. Prior cholecystectomy. Initial triage blood work shows no anemia but a mild nonspecific leukocytosis of 12.5. No significant electrolyte abnormality or signs of renal dysfunction. LFTs are normal and doubt hepatitis. No evidence of lipase elevation and doubt pancreatitis. Troponin EKG completed reassuring. Does not appear to be in A-fib at this time. Urinalysis negative for signs of infection or blood. CT of the abdomen pelvis. Urology does question mild pancreatitis with some slight inflammation of the pancreatic tail without duct dilation or collections. No bowel obstruction or bowel wall thickening noted or evidence of diverticulitis. Discussed with patient and at bedside findings. Lipase not elevated given the CT findings and symptoms likely developing pancreatitis. Discussed with her staying for further monitoring observation and pain control versus a trial of outpatient therapy. In shared decision-making, patient wished to be monitored for improvement of her symptoms. Hospitalist team contacted. DIAGNOSIS: Pancreatitis, right upper quadrant abdominal pain DISPOSITION: Hospitalist will evaluate Patient was agreeable with this plan. Past Med/Surg History Medical History (Updated 11/11/23 @ 10:05 by Ekta Redmond PA-C) ASCUS with positive high risk HPV cervical Pneumonia due to 2019-nCoV Hx of vaccine allergy Left knee DJD Paroxysmal A-fib Morbid obesity with BMI of 40.0-44.9, adult Degenerative disc disease Right sided abdominal pain History of gastric ulcer Hypertension Asthma inhaler/nebulizer prn Osteoarthritis DJD (degenerative joint disease), lumbar Gestational diabetes DOUGLAS (obstructive sleep apnea) CPAP Migraine GERD (gastroesophageal reflux disease) controlled Diverticulitis several years ago Surgical History History of left breast biopsy benign History of dilatation and curettage x2 History of arthroscopy of left knee History of wisdom tooth extraction History of tonsillectomy Status post biopsy of thyroid gland x2 on benign thyroid nodule History of cardiac cath 2009 @ [facility], no stents Hx of colonoscopy Hx of cholecystectomy H/O laparoscopy S/P tubal ligation History of esophagogastroduodenoscopy (EGD) S/P endometrial ablation Family History Brother Family history of diabetes mellitus Sister Family history of diabetes mellitus Family history of reaction to anesthesia Uncle FHx: colon cancer Prostate cancer Mother FHx: lung cancer Grandmother (Paternal) FHx: colon cancer Colorectal cancer Grandfather (Maternal) Colorectal cancer Denies family history of Ovarian cancer Breast cancer Social History Smoking Status: Never smoker Second Hand Exposure: Yes (parents smoked); Do You Dip or Chew Tobacco: No; Hx Alcohol Use: Yes Alcohol type: beer, wine and hard liquor Hx Substance Use: No Preferred Language: [place] Islander Communication Ability: Effective Visual Impairment: No Limitations Roller Repairer Required: No Beliefs That Will Affect Care: None Current Living Situation: Spouse and Family Current Living Situation Comment: Lives with and 2 kids Feels Safe at Home: Yes Assistive Devices: Contacts and Glasses Allergies Allergies Allergy/AdvReac Type Severity Reaction Status Date / Time Influenza Virus Vaccines Allergy Severe anaphylaxis Verified 11/03/23 15:23 Egg Derived Allergy Intermediate hives Verified 11/03/23 15:23 meloxicam Allergy Mild Hives Verified 11/03/23 15:23 Home Meds Home Medications Medication Instructions Recorded Confirmed cetirizine 10 mg tablet 10 mg PO DAILY PRN Allergy Symptoms 06/19/19 11/11/23 lorazepam 0.5 mg tablet 0.5 mg PO HS PRN Sleep 08/13/19 11/11/23 levalbuterol HCl 1.25 mg/3 mL 1.25 mg inhalation Q4H PRN 02/03/23 11/11/23 solution for nebulization Shortness Of Breath Or Wheezing potassium chloride 10 mEq 10 meq PO QPM 02/03/23 11/11/23 tablet,extended release losartan 25 mg tablet 25 mg PO HS 05/19/23 11/11/23 hydroxyzine HCl 10 mg tablet 10 mg PO QID PRN Itching 11/11/23 11/11/23 metoprolol succinate 25 mg 25 mg PO BID 11/11/23 11/11/23 tablet,extended release 24 hr sulindac 150 mg tablet 150 mg PO DAILY 11/11/23 11/11/23 Previous Rx's Medication Instructions Recorded diltiazem HCl 240 mg capsule,24 240 mg PO QAM #90 caps 05/08/21 hr,extended release pantoprazole 40 mg tablet,delayed 40 mg PO QAM #30 tabs 09/13/21 release montelukast 10 mg tablet 10 mg PO HS #90 tabs 12/12/22 fluticasone furoate 200 1 ea inhalation QAM #60 ea 08/04/23 mcg-vilanterol 25 mcg/dose inhalation powder (Breo Ellipta) tiotropium bromide 18 mcg capsule 1 cap inhalation QPM #60 08/04/23 with inhalation device (Spiriva inhalations with HandiHaler) Results & Data (ED) Vital Signs Vital Signs - 24 hr 11/11/23 05:06 11/11/23 05:11 11/11/23 05:22 Temperature 36.8 C Temperature Source Temporal Artery Scan Pulse Rate 80 75 Pulse Rate from SpO2 Sensor 75 Respiratory Rate 18 21 Respiratory Effort / Characteristics Non-Labored Non-Labored Spontaneous Respiratory Depth Normal Normal Respiratory Pattern Regular Blood Pressure 166/93 H Blood Pressure Mean 117 Pulse Oximetry 96 94 Oxygen Delivery Method Room Air Sepsis Recent Fever Within 48 Hours No Sepsis New/Unexplained Change in Mental Status No Sepsis Action Taken by Nursing No Action Required 11/11/23 05:24 11/11/23 05:30 11/11/23 05:40 Temperature Temperature Source Pulse Rate 75 71 76 Pulse Rate from SpO2 Sensor 72 77 Respiratory Rate 20 21 Respiratory Effort / Characteristics Respiratory Depth Respiratory Pattern Blood Pressure Blood Pressure Mean Pulse Oximetry 93 94 Oxygen Delivery Method Sepsis Recent Fever Within 48 Hours Sepsis New/Unexplained Change in Mental Status Sepsis Action Taken by Nursing 11/11/23 05:45 11/11/23 05:50 11/11/23 07:00 Temperature Temperature Source Pulse Rate 72 71 Pulse Rate from SpO2 Sensor 73 71 Respiratory Rate 16 18 Respiratory Effort / Characteristics Respiratory Depth Respiratory Pattern Blood Pressure 141/69 H Blood Pressure Mean 93 Pulse Oximetry 97 95 Oxygen Delivery Method Room Air Sepsis Recent Fever Within 48 Hours Sepsis New/Unexplained Change in Mental Status Sepsis Action Taken by Nursing 11/11/23 07:20 11/11/23 07:30 11/11/23 08:50 Temperature Temperature Source Pulse Rate 69 69 69 Pulse Rate from SpO2 Sensor 69 72 Respiratory Rate 19 16 16 Respiratory Effort / Characteristics Respiratory Depth Respiratory Pattern Blood Pressure Blood Pressure Mean Pulse Oximetry 96 91 Oxygen Delivery Method Sepsis Recent Fever Within 48 Hours Sepsis New/Unexplained Change in Mental Status Sepsis Action Taken by Nursing 11/11/23 08:51 11/11/23 09:00 Temperature Temperature Source Pulse Rate 73 70 Pulse Rate from SpO2 Sensor 73 70 Respiratory Rate 17 20 Respiratory Effort / Characteristics Respiratory Depth Respiratory Pattern Blood Pressure 158/92 H 142/91 H Blood Pressure Mean 114 108 Pulse Oximetry 93 94 Oxygen Delivery Method Sepsis Recent Fever Within 48 Hours Sepsis New/Unexplained Change in Mental Status Sepsis Action Taken by Nursing Laboratory Data 11/11/23 05:25 11/11/23 05:25 Lab Results 11/11/23 11/11/23 Range/Units 05:25 06:12 WBC 12.54 H (4.8-10.8) K/ul RBC 4.70 (4.20-5.40) M/uL Hgb 13.0 (12.0-16.0) g/dl Hct 40.2 (37.0-47.0) % MCV 85.5 (80.0-100.0) fL MCH 27.7 (25.0-34.0) pg MCHC 32.3 (32.0-36.0) g/dL RDW Std Deviation 41.9 (36.4-46.3) fL RDW Coeff of [place] 13.4 (11.5-14.5) % Plt Count 299 (130-400) K/uL MPV 10.5 (9.4-12.4) fL Immature Gran % (Auto) 0.3 % Neut % (Auto) 68.5 % Lymph % (Auto) 23.1 % [place] % (Auto) 5.5 % Eos % (Auto) 2.3 % Baso % (Auto) 0.3 % Neut # (Auto) 8.58 H (1.40-6.50) K/uL Lymph # (Auto) 2.90 (1.20-3.40) K/uL [place] # (Auto) 0.69 H (0.11-0.59) K/uL Eos # (Auto) 0.29 (0.00-0.50) K/uL Baso # (Auto) 0.04 (0.00-0.20) K/uL Immature Gran # (Auto) 0.04 (0.01-0.20) K/uL Sodium 139 (136-145) mmol/L Potassium 3.7 (3.5-5.1) mmol/L Chloride 106 (98-107) mmol/L Carbon Dioxide 26 (21-32) mmol/L Anion Gap 7 (3-11) BUN 16 (6-23) mg/dl Creatinine 0.82 (0.6-1.2) mg/dl Est Cr Clr Drug Dosing 97.1 ml/min Est GFR ( Amer) 91.4 ml/min Est GFR (Non-Af Amer) 78.9 ml/min BUN/Creatinine Ratio 19.5 (10-20) Glucose 130 H (70-99(Fasting)) mg/dl Calcium 8.8 (8.6-10.3) mg/dl Magnesium 1.7 (1.7-2.4) mg/dl Total Bilirubin 0.5 (0.2-1.0) mg/dl AST 15 (13-39) U/L ALT 22 (7-52) U/L Alkaline Phosphatase 88 (34-104) U/L Troponin I High Sens 5.1 (0-14) pg/ml Total Protein 6.5 (6.0-8.3) gm/dl Albumin 3.9 (3.4-5.0) gm/dl Globulin 2.6 (2.5-4.0) gm/dl Albumin/Globulin Ratio 1.5 (0.9-2) Lipase 29 (11-82) U/L Urine Color Yellow Urine Appearance Clear (Clear) Urine pH 7.0 (4.5-7.5) Ur Specific Dexter 1.012 (1.000-1.030) Urine Protein Negative (Negative) Urine Glucose (UA) Negative (Negative) Urine Ketones Negative (Negative) Urine Blood Negative (Negative) Urine Nitrite Negative (Negative) Urine Bilirubin Negative (Negative) Urine Urobilinogen Negative (Negative) Ur Leukocyte Esterase Negative (Negative) Administered Medications Hydromorphone HCl (Hydromorphone Inj 0.5 Mg/0.5 Ml Syr) 0.5 mg IV Q6H PRN PRN Reason: Severe Pain (Scale 7, 8, 9,10) Stop: 11/25/23 11:16 Last Admin: 11/11/23 12:16 Dose: 0.5 mg Documented By: CHRISTINA Lactated Ringer's (Lr) 1,000 mls @ 150 mls/hr IV .Q6H40M SHAKEEL Stop: 12/11/23 09:44 Last Admin: 11/11/23 10:46 Dose: 150 mls/hr Documented By: SCOTT Discontinued Medications Diltiazem HCl (Diltiazem Hcl 240 Mg Capcr) 240 mg PO ONCE STA Stop: 11/11/23 12:05 Last Admin: 11/11/23 12:27 Dose: 240 mg Documented By: CHRISTINA Fentanyl Citrate (Fentanyl Citrate Pf 100 Mcg/2 Ml Vial) 25 mcg IV NOW STA Stop: 11/11/23 08:04 Last Admin: 11/11/23 08:48 Dose: 25 mcg Documented By: SCOTT Sodium Chloride (Nss) 500 mls @ 999 mls/hr IV .Q31M ONE Stop: 11/11/23 08:33 Last Infusion: 11/11/23 09:34 Dose: Infused Documented By: Admin: 11/11/23 08:48 Dose: 999 mls/hr Documented By: SCOTT Ioversol (Optiray 320 100ml) 90 ml IV ONCE ONE Stop: 11/11/23 06:30 Last Admin: 11/11/23 06:29 Dose: 90 ml Documented By: PACO Metoprolol Tartrate (Metoprolol Tartrate 25 Mg Tab) 25 mg PO ONCE STA Stop: 11/11/23 12:05 Last Admin: 11/11/23 12:27 Dose: 25 mg Documented By: CHRISTINA Ondansetron HCl (Ondansetron Inj 2 Mg/Ml 2 Ml Vial) 4 mg IV NOW STA Stop: 11/11/23 10:39 Last Admin: 11/11/23 10:45 Dose: 4 mg Documented By: SCOTT Ondansetron HCl (Ondansetron Inj 2 Mg/Ml 2 Ml Vial) Confirm Administered Dose 4 mg .ROUTE .STK-MED ONE Stop: 11/11/23 10:41 Last Admin: 11/11/23 10:46 Dose: Not Given Documented By: SCOTT Imaging Data Radiologist's Impression: Abdomen/Pelvis CT 11/11/23 05:[address] WITH IV CONTRAST CT DOSE: 1394.82 mGy.cm HISTORY: Acute right upper quadrant abdominal pain RUQ pain TECHNIQUE: Multiaxial CT images of the abdomen and pelvis were performed following the IV administration of Optiray, A dose lowering technique was utilized adhering to the principles of ALARA. COMPARISON STUDY: 10/04/2015 FINDINGS: Minimal bibasilar atelectasis. No free air. The spleen is mildly enlarged, 13.6 cm. The liver measures up to 22 cm in length and demonstrates fatty infiltration. No hepatic mass or evidence of cirrhosis. Patency of the hepatic and portal veins. Unremarkable adrenal glands. There is mild interstitial peripancreatic inflammatory stranding involving the pancreatic tail. Cholecystectomy with likely postsurgical mild biliary ductal dilation. Unremarkable kidneys. No hydroureteronephrosis. Partially decompressed urinary bladder. Unremarkable uterus. Aorta and IVC are unremarkable. No lymphadenopathy. Small duodenal diverticulum. Colonic diverticulosis. Normal appendix. Small fat filled umbilical hernia. No acute fracture. IMPRESSION: 1. Findings suggestive of mild acute pancreatitis, notably involving the pancreatic tail. No pancreatic duct dilation or acute pancreatic fluid collections. 2. No bowel obstruction or bowel wall thickening. 3. Colonic diverticulosis. 4. Hepatosplenomegaly with hepatic steatosis. 5. Cholecystectomy. ACT 112: Negative or not required by law. The above report was generated using voice recognition software. It may contain grammatical, syntax or spelling errors. Electronically signed by: Rosales Van M.D. 11/11/2023 7:16 AM Discharge Plan Visit Data Chief Complaint: Abdominal Pain Stated Complaint: SEVERE PAIN IN UPR RIGHT ABDOMEN UNDER RIB CAGE ED Provider: Gil Reynoso Discharge Problem: Abdominal pain, right upper quadrant, Acute pancreatitis Patient Disposition: Being Evaluated by Hospitalist Discharge Problem: Acute pancreatitis Qualifiers: Pancreatitis type: unspecified pancreatitis type Acute pancreatitis complication: no infection or necrosis Qualified Code(s): K85.90 - Acute pancreatitis without necrosis or infection, unspecified
[2023-11-11 06:55] LABS: Appearance Urine Clear (Clear); Bilirubin Urine Negative (Negative); Blood Urine Negative (Negative); Color Urine Yellow; Glucose Urine UA Negative (Negative); Ketones Urine Negative (Negative); Leukocyte Esterase Urine Negative (Negative); Nitrite Urine Negative (Negative); Protein Urine Negative (Negative); Specific Gravity Urine 1.012 (1.000-1.030); Urobilinogen Urine Negative (Negative)
--- NOTE | 2023-11-11 07:19 | CT Scan Report ---
ABDOMEN AND PELVIS CT WITH IV CONTRAST CT DOSE: 1394.82 mGy.cm HISTORY: Acute right upper quadrant abdominal pain RUQ pain TECHNIQUE: Multiaxial CT images of the abdomen and pelvis were performed following the IV administrat ion of Optiray, A dose lowering technique was utilized adhering to the principles of ALARA. COMPARISON STUDY: 10/04/2015 FINDINGS: Minimal bibasilar atelectasis. No free air. The spleen is mildly enlarged, 13.6 cm. The cathy er measures up to 22 cm in length and demonstrates fatty infiltration. No hepatic mass or evidence of cirrhosis. Patency of the hepatic and portal veins. Unremarkable adrenal glands. There is mild inter stitial peripancreatic inflammatory stranding involving the pancreatic tail. Cholecystectomy with lik tish postsurgical mild biliary ductal dilation. Unremarkable kidneys. No hydroureteronephrosis. Partially decompressed urinary bladder. Unremarkable uterus. Aorta and IVC are unremarkable. No lymphadenopathy. Small duodenal diverticulum. Colonic diverticulosis. Normal appendix. Small fat filled umbilical zohra ia. No acute fracture. IMPRESSION: 1. Findings suggestive of mild acute pancreatitis, notably involving the pancreatic tail. No pancreat ic duct dilation or acute pancreatic fluid collections. 2. No bowel obstruction or bowel wall thickening. 3. Colonic diverticulosis. 4. Hepatosplenomegaly with hepatic steatosis. 5. Cholecystectomy. ACT 112: Negative or not required by law. The above report was generated using voice recognition software. It may contain grammatical, syntax o r spelling errors. Electronically signed by: Rosales Van M.D. 11/11/2023 7:16 AM
--- NOTE | 2023-11-11 08:23 | History & Physical Report ---
Date of Service November 11, 2023 Assessment & Plan (1) Acute pancreatitis: Plan: This is a 58 y/o female with moderate persistent asthma, DOUGLAS on CPAP, prediabetes, GERD, PAF, bicuspid aortic valve w/ ascending aortic enlargement, and other history as outlined who presents to the ED with worsening abdominal pain since yesterday. Work-up in the ED showed mild leukocytosis with WBCs of 12.54, normal LFTs and lipase but CT Abd/Pel consistent with mild acute pancre atitis involving the pancreatic tail. Pt underwent cholecystectomy previously and has normal LFTs so less like to be CBD stone. She does drink EtOH most days but not to excess and reports she has been cutting back. She was on Ozempic but stopped this over a month ago. She is taking Sulindac, which she started about six months ago, and has been associated with pancreatitis. Due to severity of pt's pain in conjunction with CT findings, pt was referred for observation and pain control. - Observe on med telemetry due to history of PAF with illness previously - NPO for now, as pain improves will advance diet - Pain control with IV narcotics - Anti-emetics - Labs in the AM: CBC, BMP, LFTs - Check triglycerides - Hold Sulindac for now - may consider GI consult for additional recommendations on potential etiology and treatment pending clinical course (2) Hypertension: Plan: Chronic, stable Continue losartan, metoprolol and diltiazem. (3) DOUGLAS (obstructive sleep apnea): Plan: Pt prefers to use own CPAP equipment while here - placed appropriate order (4) Asthma, moderate persistent: Plan: Chronic, stable - no symptoms of acute exacerbation at present Continue outpatient Breo/Spiriva (5) GERD (gastroesophageal reflux disease): Plan: Chronic, stable Continue pantoprazole (6) Paroxysmal A-fib: Plan: Episode of afib with RVR when she had COVID previously. She has been having increased palpitations recently for which she has seen cardiology - to have a Zio monitor, metoprolol tartrate changed to metoprolol succinate Continue metoprolol succinate Monitor on telemetry at least overnight (7) Morbid obesity with BMI of 40.0-44.9, adult: Plan: Was previously on Ozempic but stopped due to side effects Continue outpatient f/u with weight management clinic Plan Pt seen and reviewed with collaborating physician, Dr. Juarez. Plan of care discussed and as outlined above. Code Status: Full Code DVT Prophylaxis: Ade Redmond PA-C History of Present Illness Chief Complaint: Abdominal pain Primary Care Provider: Shani Rider PA-C This is a 58 y/o female with moderate persistent asthma, DOUGLAS on CPAP, prediabetes, GERD, PAF, bicuspid aortic valve w/ ascending aortic enlargement, and other history as outlined below who presents to the ED with abdominal pain since yesterday. Pt reports "twinges" of discomfort in the upper abdomen for the last few weeks. Yesterday, the discomfort become more constant and gradually increased in severity, especially last night. Unable to sleep due to the severity of the pain. She describes a constant discomfort like there is "singh ething hard in there" but has sharper component to the pain at times. The discomfort currently seems mostly in the RUQ > epigastric area. Rare radiation to the back. Pain seems worse with certain movements and deep breaths, better if she lies still. She had associated chills and sweats overnight but didn't check her temperature so unsure if a fever. She had some brief nausea but nothing constant. No vomiting. She has never had pain like this previously. No change in bowel pattern. Denies dark urine, hematuria, or dysuria. She was on Ozempic but stopped this 1-2 months ago due to significant side effects. She is on sulindac daily for left knee pain. She reports one drink almost daily (beer or mixed drink) although has been trying to cut back on alcohol intake. Allergies Allergy/AdvReac Type Severity Reaction Status Date / Time Influenza Virus Vaccines Allergy Severe anaphylaxis Verified 11/03/23 15:23 Egg Derived Allergy Intermediate hives Verified 11/03/23 15:23 meloxicam Allergy Mild Hives Verified 11/03/23 15:23 Home Medications Medication Instructions Recorded Confirmed Type cetirizine 10 mg tablet 10 mg PO DAILY PRN Allergy Symptoms 06/19/19 11/11/23 History lorazepam 0.5 mg tablet 0.5 mg PO HS PRN Sleep 08/13/19 11/11/23 History diltiazem HCl 240 mg capsule,24 240 mg PO QAM #90 caps 05/08/21 11/11/23 Rx hr,extended release pantoprazole 40 mg tablet,delayed 40 mg PO QAM #30 tabs 09/13/21 11/11/23 Rx release montelukast 10 mg tablet 10 mg PO HS #90 tabs 12/12/22 11/11/23 Rx levalbuterol HCl 1.25 mg/3 mL 1.25 mg inhalation Q4H PRN 02/03/23 11/11/23 History solution for nebulization Shortness Of Breath Or Wheezing potassium chloride 10 mEq 10 meq PO QPM 02/03/23 11/11/23 History tablet,extended release losartan 25 mg tablet 25 mg PO HS 05/19/23 11/11/23 History fluticasone furoate 200 1 ea inhalation QAM #60 ea 08/04/23 11/11/23 Rx mcg-vilanterol 25 mcg/dose inhalation powder (Breo Ellipta) tiotropium bromide 18 mcg capsule 1 cap inhalation QPM #60 08/04/23 11/11/23 Rx with inhalation device (Spiriva inhalations with HandiHaler) hydroxyzine HCl 10 mg tablet 10 mg PO QID PRN Itching 11/11/23 11/11/23 History metoprolol succinate 25 mg 25 mg PO BID 11/11/23 11/11/23 History tablet,extended release 24 hr sulindac 150 mg tablet 150 mg PO DAILY 11/11/23 11/11/23 History Past Med/Surg History Medical History (Updated 11/11/23 @ 10:05 by Ekta Redmond PA-C) ASCUS with positive high risk HPV cervical Pneumonia due to 2019-nCoV Hx of vaccine allergy Left knee DJD Paroxysmal A-fib Morbid obesity with BMI of 40.0-44.9, adult Degenerative disc disease Right sided abdominal pain History of gastric ulcer Hypertension Asthma inhaler/nebulizer prn Osteoarthritis DJD (degenerative joint disease), lumbar Gestational diabetes DOUGLAS (obstructive sleep apnea) CPAP Migraine GERD (gastroesophageal reflux disease) controlled Diverticulitis several years ago Surgical History History of left breast biopsy benign History of dilatation and curettage x2 History of arthroscopy of left knee History of wisdom tooth extraction History of tonsillectomy Status post biopsy of thyroid gland x2 on benign thyroid nodule History of cardiac cath 2009 @ [facility], no stents Hx of colonoscopy Hx of cholecystectomy H/O laparoscopy S/P tubal ligation History of esophagogastroduodenoscopy (EGD) S/P endometrial ablation Family History Brother Family history of diabetes mellitus Sister Family history of diabetes mellitus Family history of reaction to anesthesia Uncle FHx: colon cancer Prostate cancer Mother FHx: lung cancer Grandmother (Paternal) FHx: colon cancer Colorectal cancer Grandfather (Maternal) Colorectal cancer Denies family history of Ovarian cancer Breast cancer Social History Smoking Status: Never smoker Second Hand Exposure: Yes (parents smoked); Do You Dip or Chew Tobacco: No; Hx Alcohol Use: Yes Alcohol type: beer, wine and hard liquor Hx Substance Use: No Preferred Language: Kinyarwanda Communication Ability: Effective Visual Impairment: No Limitations Casework Specialist Required: No Beliefs That Will Affect Care: None Current Living Situation: Family Current Living Situation Comment: Lives with and 2 kids Feels Safe at Home: Yes Safety Concerns: Feels Safe At This Time Assistive Devices: CPAP and Glasses Review of Systems Review of Systems: All systems reviewed & are unremarkable except as noted in HPI & below Constitutional: + chills, + sweats and + fatigue Eyes: no diplopia and no worsening vision Ear, Nose, Mouth, Throat: no nasal congestion and no sore throat Respiratory: no cough, no dyspnea and no wheezing Cardiovascular: + palpitations; no chest pain and no yannick ma Gastrointestinal: as per Subjective / HPI; no diarrhea/loose stools, no blood in stools and no melena Genitourinary: no dysuria and no hematuria Musculoskeletal: + joint pain (chronic left knee) Integumentary: no rash and no yellowing of the skin Neurologic: no dizziness, no headache(s) and no confusion Physical Exam Physical Exam: General: awake, alert, NAD HEENT: no scleral icterus, moist oral mucosa Neck: trachea midline Heart: RRR Lungs: CTA bilaterally, no W/R/R - inspiratory effort limited by pain Abdomen: soft, obese, +BS, +tender in epigastric area but no guarding or rebound Extremities: no pedal edema, distal pulses intact Skin: warm, dry, no jaundice Neurologic: Ox3, moving all extremities, no focal deficits Results & Data Results & Data Vital Signs (Past 12 Hours) Vital Signs Temp Pulse Resp BP Pulse Ox O2 Del Method 11/11/23 07:00 71 18 141/69 H 95 11/11/23 05:50 72 16 97 11/11/23 05:45 Room Air 11/11/23 05:40 76 21 94 11/11/23 05:30 71 20 93 11/11/23 05:24 75 11/11/23 05:22 75 21 94 11/11/23 05:11 36.8 C 80 18 166/93 H 96 Room Air Laboratory Results Laboratory Results - last 24 hr 11/11/23 11/11/23 05:25 06:12 WBC 12.54 H RBC 4.70 Hgb 13.0 Hct 40.2 MCV 85.5 MCH 27.7 MCHC 32.3 RDW Std Deviation 41.9 RDW Coeff of [place] 13.4 Plt Count 299 MPV 10.5 Immature Gran % (Auto) 0.3 Neut % (Auto) 68.5 Lymph % (Auto) 23.1 [place] % (Auto) 5.5 Eos % (Auto) 2.3 Baso % (Auto) 0.3 Neut # (Auto) 8.58 H Lymph # (Auto) 2.90 [place] # (Auto) 0.69 H Eos # (Auto) 0.29 Baso # (Auto) 0.04 Immature Gran # (Auto) 0.04 Sodium 139 Potassium 3.7 Chloride 106 Carbon Dioxide 26 Anion Gap 7 BUN 16 Creatinine 0.82 Est Cr Clr Drug Dosing 97.1 Est GFR ( Amer) 91.4 Est GFR (Non-Af Amer) 78.9 BUN/Creatinine Ratio 19.5 Glucose 130 H Calcium 8.8 Total Bilirubin 0.5 AST 15 ALT 22 Alkaline Phosphatase 88 Troponin I High Sens 5.1 Total Protein 6.5 Albumin 3.9 Globulin 2.6 Albumin/Globulin Ratio 1.5 Lipase 29 Urine Color Yellow Urine Appearance Clear Urine pH 7.0 Ur Specific [place] 1.012 Urine Protein Negative Urine Glucose (UA) Negative Urine Ketones Negative Urine Blood Negative Urine Nitrite Negative Urine Bilirubin Negative Urine Urobilinogen Negative Ur Leukocyte Esterase Negative Diagnostic Findings Abdomen/Pelvis CT 11/11/23 05:[address] WITH IV CONTRAST CT DOSE: 1394.82 mGy.cm HISTORY: Acute right upper quadrant abdominal pain RUQ pain TECHNIQUE: Multiaxial CT images of the abdomen and pelvis were performed following the IV administration of Optiray, A dose lowering technique was utilized adhering to the principles of ALARA. COMPARISON STUDY: 10/04/2015 FINDINGS: Minimal bibasilar atelectasis. No free air. The spleen is mildly enlarged, 13.6 cm. The liver measures up to 22 cm in length and demonstrates fatty infiltration. No hepatic mass or evidence of cirrhosis. Patency of the hepatic and portal veins. Unremarkable adrenal glands. There is mild interstitial peripancreatic inflammatory stranding involving the pancreatic tail. Cholecystectomy with likely postsurgical mild biliary ductal dilation. Unremarkable kidneys. No hydroureteronephrosis. Partially decompressed urinary bladder. Unremarkable uterus. Aorta and IVC are unremarkable. No lymphadenopathy. Small duodenal diverticulum. Colonic diverticulosis. Normal appendix. Small fat filled umbilical hernia. No acute fracture. IMPRESSION: 1. Findings suggestive of mild acute pancreatitis, notably involving the pancreatic tail. No pancreatic duct dilation or acute pancreatic fluid collections. 2. No bowel obstruction or bowel wall thickening. 3. Colonic diverticulosis. 4. Hepatosplenomegaly with hepatic steatosis. 5. Cholecystectomy. ACT 112: Negative or not required by law. The above report was generated using voice recognition software. It may contain grammatical, syntax or spelling errors. Electronically signed by: Rosales Van M.D. 11/11/2023 7:16 AM Medications Administered Discontinued Medications Ioversol (Optiray 320 100ml) 90 ml IV ONCE ONE Stop: 11/11/23 06:30 Last Admin: 11/11/23 06:29 Dose: 90 ml Documented By: PACO Supervising Physician Co-Signing Physician Notes I have seen and examined the patient and have discussed the case with the provider above. I have reviewed the advanced practitioner's documentation, and I agree with, and take responsibility for that plan of care. 58 yo obese female presents with mild-mod right side pain. She reports a fullness of her liver in the past few weeks with a new sharper pain described as a "side stitch" which occurs moreso with position change. She did, however, report that her food last night bothered her but otherwise has been eating well. Pain is well-managed as she just had 1 dose of fentanyl this morning at 830 and several hours later is having no return of pain that is requiring additional pain medications. She is morbidly obese with a BMI of 47 but appears in no acute distress. She is able to independently move around the bed. Abdominal exam reveals right upper quadrant pain to palpation and epigastric pain to palpation. Abdomen is otherwise soft nontender nondistended. She is hemodynamically stable. Initial blood pressure was elevated but this was being checked with a wrist cuff that was too small. Appropriate sized cuff was placed on her upper arm and subsequent blood pressure was 148/86. She did report not taking her blood pressure medication this morning. Lipase was negative but CT revealed findings suggestive of mild acute pancrea titis most notably in the pancreatic tail. There was no evidence of bowel obstruction or bowel wall thickening and some hepatosplenomegaly with hepatic steatosis was noted. She is status post cholecystectomy. Agree with plans for conservative management of acute pancreatitis including IVF, bowel rest and pain management. She does admit to persistent (but not heavy) alcohol use which quantified is 1 beer and 1 bourbon nightly and recent ozempic use may also be an issue. Although Sulindac is considered a cause, and we are holding this, would hesitate to stop this first given it's success in controlling her chronic knee pain. She reports hives with Mobic and no success with celebrex historically. Of note, she does report a h/o post covid afib and was on apixaban for a time with subsequent bleeding issues. She was taken off this and is being worked up by cardiology with additional monitoring which is planned soon. She does report "heart rate of 177" over the weekend, however, and may be flipping into and out of afib. Continue monitoring on telemetry for the time being. DO Larry (1) Acute pancreatitis Acute pancreatitis complication: no infection or necrosis Pancreatitis type: unspecified pancreatitis type Qualified Code(s): K85.90 - Acute pancreatitis without necrosis or infection, unspecified (2) Hypertension Hypertension type: primary hypertension Qualified Code(s): I10 - Essential (primary) hypertension (4) Asthma, moderate persistent Asthma complication type: uncomplicated Qualified Code(s): J45.40 - Moderate persistent asthma, uncomplicated (5) GERD (gastroesophageal reflux disease) Esophagitis presence: without esophagitis Qualified Code(s): K21.9 - Gastro- esophageal reflux disease without esophagitis
[2023-11-11] MEDS: fentaNYL citrate PF 100 MCG/2 ML VIAL IV STA (08:48)
[2023-11-11] MEDS: SODIUM CHLORIDE 0.9% 500 ML IV ONE (08:48)
--- OUTSIDE RECORDS SUMMARY | 2023-11-11 09:33 | External Medical Summary | Summary of Care ---
Author Name Unknown Organization [facility] Address [address] [facility] [place] [address] Phone [phone] Care Team Providers Care L Tacker Name Role Phone Shani Rider PA-C Primary Care Provider [phone] Reason for Visit * Reason Onset Date Comments Test Results 11/03/2023 Encounter Details Date Type Department Care Team (Late st Contact Info) Description 11/03/2023 Telephone Cardiology, [facility] [address] [place] [address] Stacey Augustin CRNP [address] [place] [address] Test Results Allergies Active Allergy Reactions Criticality Noted Date Comments Eggs Or Egg-Derived Products Anaphylaxis High 08/12/2014 Able to eat eggs Flu Virus Vaccine Anaphylaxis High 10/24/2009 Hives, SOB, throat swelling Meloxicam 07/21/2023 documented as of this encounter (statuses as of 11/03/2023) Medications Medication Sig Dispensed Refills Start Date End Date Status ZYRTEC 10 MG PO TABSIndications:All ergic rhinitis,Other specified urticaria one tablet each evening 30 Tab 6 01/04/2011 Active CALCIUM 600/VITAMIN D 600-400 MG-UNIT PO TABS 2 TABLETS DAILY WITH FOOD 0 05/24/2013 Active ONETOUCH ULTRASOFT LANCETS MISCIndications:Abn ormal glucose,Gestational diabetes Use up to four times a day as directed 1 Box 11 05/26/2013 Active ZOLMitriptan (ZOMIG) 5 MG TabletIndications:M igraine with status migrainosus, not intractable, unspecified migraine type as directed 9 Tab 5 03/05/2016 Active Additional Information Patient not taking.Reported on 10/28/2023 Levalbuterol HCl 1.25 MG/3ML Inhalation Nebulization Solution Inhale 3 mL via nebulizer every 4 hours as needed for Wheezing or Shortness of Breath. 0 10/02/2016 Active EPINEPHrine, anaphylaxis, (EPI-PEN) 0.3 MG/0.3ML SOAJ injection For a severe reaction: Place orange end against the outer thigh, press firmly, hold in place for 10 seconds and go to the Emergency room. 2 Device 3 11/04/2016 Active montelukast (SINGULAIR) 10 MG TabletIndications:A sthma, moderate persistent Take 1 Tab by mouth every night at bedtime. 30 Tab 5 02/04/2019 Active Breo Ellipta 200-25 MCG/INH Inhalation Aerosol Powder Breath Activated INHALE ONCE DAILY IN THE EVENING 0 09/22/2020 Active Aspirin 81 MG Oral Tablet Delayed ReleaseIndications: takes in the evening Take 1 Tablet by mouth in the morning. 0 Active dilTIAZem HCl ER Coated Beads 240 MG Oral Capsule Extended Release 24 Hour (Cardizem CD) TAKE 1 CAPSULE BY MOUTH ONCE DAILY IN THE MORNING 90 Capsule 2 01/08/2023 Active Potassium Chloride Bernie ER 10 MEQ Oral Tablet Extended Release Take 1 Tablet by mouth in the morning. 90 Tablet 3 01/28/2023 Active Additional Information Patient taking differently:10 mEq Oral Daily(AM),Takes in the evening, Reported on 10/28/2023 Tiotropium [place] Monohydrate 18 MCG Inhalation Capsule (Spiriva) 1 Capsule. 0 02/03/2023 Active Carisoprodol 350 MG Oral Tablet (Soma)Indications:S pasm of muscle One pill by mouth 3 or 4 times a day as needed for muscle spasm 5 Tablet 0 04/15/2023 Active Additional Information Patient not taking.Reported on 10/28/2023 Pantoprazole Sodium 40 MG Oral Tablet Delayed Release (Protonix)Indicatio ns:Gastroesophageal reflux disease with esophagitis,Gastric ulcer TAKE 1 TABLET BY MOUTH ONCE DAILY IN THE MORNING 90 Tablet 3 05/13/2023 Active Diclofenac Sodium 75 MG Oral Tablet Delayed Release (Voltaren) Take 1 Tablet by mouth in the morning and 1 Tablet before bedtime. With food.. 60 Tablet 3 05/23/2023 Active Additional Information Patient not taking.Reported on 07/21/2023 methylPREDNISolone 4 MG Oral Tablet Therapy Pack (Medrol Dosepack) follow package directions 21 Tablet 0 05/27/2023 Active Additional Information Patient not taking.Reported on 10/28/2023 Sulindac 150 MG Oral Tablet Take 1 Tablet by mouth in the morning and 1 Tablet before bedtime. Takes once a day in am . 0 05/23/2023 Active Ozempic (1 MG/DOSE) 4 MG/3ML Subcutaneous Solution Pen-injector (Semaglutide (1 MG/DOSE)) Inject 1 mg under the skin once a week. 9 mL 0 07/21/2023 Active Losartan Potassium 25 MG Oral Tablet (Cozaar)Indications :HTN, goal below 140/90 TAKE ONE TABLET BY MOUTH EVERY MORNING. 90 Tablet 3 08/19/2023 Active Additional Information Patient taking differently:25 mg Oral Daily(AM),In the evening, Reported on 10/28/2023 hydrOXYzine HCl 10 MG Oral Tablet (Atarax) TAKE ONE TABLET BY MOUTH FOUR TIMES DAILY NEEDED 30 Tablet 5 09/19/2023 Active LORazepam 0.5 MG Oral Tablet (Ativan)Indications :Anxiety Take 1 Tablet by mouth 3 times a day as needed for Anxiety. 30 Tablet 0 10/21/2023 Active Metoprolol Succinate ER 25 MG Oral Tablet Extended Release 24 Hour (toPROL XL)Indications:HTN, goal below 140/90,Paroxysmal atrial fibrillation (HCC) Take 1 Tablet by mouth in the morning and 1 Tablet before bedtime. 30 Tablet 5 10/28/2023 Active documented as of this encounter (statuses as of 11/03/2023) Active Problems Problem Noted Date Diagnosed Date Prediabetes 12/09/2022 Overview: Per Prediabetes protocol MEDICATION USE AGREEMENT 08/22/2017 DOUGLAS on CPAP 09/02/2013 Overview: 6 cm water Asthma, moderate persistent 07/29/2011 Generalized osteoarthritis 10/15/2010 ADVERSE EFFECT OF INFLUENZA VACCINE 04/10/2010 Overview: hives, cough, SOB 20 min post injection Obesity, morbid (more than 1 00 lbs over ideal weight or BMI > 40) 02/13/2010 Overview: Per Obesity Protocol, #19 ICD-10 update of inactive term Diverticulitis of colon 11/14/2008 Diabetes mellitus of mother, complicating , childbirth, or the puerperium, unspecified as to episode of care(648.00) 12/08/2006 Deviated nasal septum 07/18/2005 GERD (gastroesophageal reflux disease) 3 Allergic rhinitis 01/05/2003 CHR ALLRG CONJUNCTIV NEC 01/05/2003 MIGRAINE, UNSPECIFIED, WITHO UT MENTION OF INTRACTABLE MIGRAINE documented as of this encounter (statuses as of 11/03/2023) Resolved Problems Problem Noted Date Diagnosed Date Resolved Date RUQ abdominal pain 01/14/2020 1 Inflammation of sacroiliac joint 06/25/2019 08/21/2022 Asthma, cough variant 09/09/20112016 Asthma (cough variant) - severe persistent 04/10/2010 09/09/2011 Urticaria 10/13/2006 08/22/2017 Asthma, cough variant 08/12/20052009 ADVANCE DIRECTIVE INFORMATION 02/24/2005 06/22/2008 Overview: No, Advance Directive brochure offered , patient declined. Asthma with severity to be determined 04/10/2010 Overview: ICD-10 update of inactive term documented as of this encounter (statuses as of 11/03/2023) Immunizations Name Administration Dates Next Due COVID-19 mRNA, LNP-s, No Pre serve, 2-Dose Series (Pfizer) 01/17/2021,12/27/2020 COVID-19, LNP-s, No Preserve , Phill-sucrose, Ages 12+ (Pfizer) 09/13/2021 Pneumococcal Polysaccharide PPV23 (Pneumovax) Seasonal Influenza, Split, IIV3, With Preserve, Inj 06/15/2009,07/02/2007 TDAP (age 11 and older)(Adacel) 11/09/2010 documented as of this encounter Social History Tobacco Use Types Packs/Day Years Used Date Smoking Tobacco: Never Smokeless Tobacco: Never Alcohol Use Standard Drinks/Week Comments Yes 0 (1 standard drink = 0.6 oz pur e alcohol) 3-4 beers per week PHQ-2 Answer Date Recorded PHQ Adult Total Score 0 08/21/2022 Hunger Vital Sign Answer Date Recorded Within the past 12 months, y ou worried that your food would run out before you got the money to buy more. Never true 09/20/19 21 Within the past 12 months, t he food you bought just didn't last and you didn't have money to get more. Never true 09/20/2020 Sex and Gender Information Value Date Recorded Sex Assigned at Not on file Gender Identity Not on file Sexual Orientation Not on file Job Start Date Occupation Industry Not on file Not on file Not on file documented as of this encounter Miscellaneous Notes * Telephone Encounter - Lamar Benitez CMA - 11/03/2023 4:05 PM EST My g sent. * Telephone Encounter - Lamar Benitez CMA - 11/03/2023 4:03 PM EST ----- Message from ROBER Krishna sent at 11/03/2023 10:03 AM EST ----- Please let the patient know that I reviewed her echocardiogram. LVEF is normal at 60%. No wall motion abnormalities. No significant valvular disease. Good! No changes needed at this time from these findings. documented in this encounter Plan of Treatment Upcoming Encounters Date Type Department Care Team (Late st Contact Info) Description 01/07/2024 9:40 AM EDT Office Visit Nutrition & Weight Management, [facility] [address] [place] [address] Sveta Zabala PA-C [address] [place] [address] 01/19/2024 10:30 AM EDT Office Visit Cardiology, [facility] [address] [place] [address] Stacey Augustin CRNP [address] [place] [address] Scheduled Procedures Name Priority Associated Diagnoses Date/Ti me COLONOSCOPY FLEXIBLE PROXIMA L DIAGNOSTIC Recall Special screening for malignant neoplasms, colon Health Maintenance Due Date Last Done Comments Hepatitis B (1 of 3 - 19+ 3-dose series) 02/21/1984 HPV/Co-Test 1995 Pneumococcal Vaccine: Pediatrics (0 to 5 Years) and At-Risk Patients (6 to 64 Years) (2 of 2 - PCV) 09/23/2009 09/23/2008 Cologuard 2010 Fecal Occult Blood Test 2010 Sigmoidoscopy 2010 Zoster Vaccines (1 of 2) 2015 DTaP,Tdap,and Td Vaccines (2 - Td or Tdap) 11/09/2020 11/09/2010 COVID-19 Vaccine ( - season) 2023 09/13/2021, 01/17/2021, 12/27/2020 Influenza Vaccine (FLU shot) (#1) 2023 06/15/2009, 07/02/2007 Mammogram 06/20/2023 06/20/2022, 04/0 03/2021, 11/04/2019, Additional history exists Depression Screening 08/21/2023 08/21/2022 Cervical Cancer Screening 10/24/2025 Pap Smear 10/24/2025 10/24/2022, 04/0 01/2017, 08/16/2014, Additional history exists Lipid Panel 11/23/2027 11/22/2022, 060 10/2015, 01/07/2008, Additional history exists Colonoscopy 05/03/2031 05/03/2021, 0 10/2020, 01/30/2009 Colorectal Cancer Screening 05/03/2031 GARDASIL-HPV IMMUNIZATION SERIES Aged Out No longer eligible based on patient's age to complete this topic MENINGOCOCCAL (MENACTRA/MENVEO) Aged Out No longer eligible based on patient's age to complete this topic documented as of this encounter Medical Devices Not on filedocumented as of this encounter Care Teams L Tacker Relationship Specialty Start Date End Date Tereso November ARDEN [address] [place] [address] PCP - General Physician Vp Site 09/22/20 documented as of this encounter
--- OUTSIDE RECORDS SUMMARY | 2023-11-11 09:33 | External Medical Summary | Summary of Care ---
Author Name Unknown Organization [facility] Address [address] [place] [address] Phone [phone] Care Team Providers Care Rn School Name Role Phone Shani Rider PA-C Primary Care Provider [phone] Encounter Details Date Type Department Care Team (Late st Contact Info) Description 11/04/2023 Orders Only Outcomes Research Department [address] [place] [address] Karen Lin CHRA [employer] Research Other*[id number] Allergies Active Allergy Reactions Criticality Noted Date Comments Eggs Or Egg-Derived Products Anaphylaxis High 08/12/2014 Able to eat eggs Flu Virus Vaccine Anaphylaxis High 10/24/2009 Hives, SOB, throat swelling Meloxicam 07/21/2023 documented as of this encounter (statuses as of 11/04/2023) Medications Medication Sig Dispensed Refills Start Date [...] in the evening, Reported on 10/28/2023 Tiotropium [place] Monohydrate 18 MCG Inhalation Capsule (Spiriva) 1 [...] as of this encounter (statuses as of 11/04/2023) Active Problems Problem Noted Date Diagnosed Date [...] as of this encounter (statuses as of 11/04/2023) Resolved Problems Problem Noted Date Diagnosed Date [...] as of this encounter (statuses as of 11/04/2023) Immunizations Name Administration Dates Next Due COVID-19 [...] on file documented as of this encounter Plan of Treatment Upcoming Encounters Date Type Department Care Team (Late st Contact Info) Description 01/07/2024 9:40 AM EDT Office Visit Nutrition & Weight Management, [facility] [address] [place] [address] Sveta Zabala PA-C [address] [facility] [place] [address] 01/19/2024 10:30 AM EDT Office Visit Cardiology, [facility] [address] [facility] [place] [address] Stacey Augustin CRNP [address] [facility] [place] [address] Scheduled Orders Name Type Priority Associated Diagnoses Orde r Schedule MYCODE INITIAL ADULT Lab Routine My[facility] Research Other*[id number] Expected: 11/04/2023 (Approximate), Expires: 11/23/2024 Scheduled Procedures Name Priority Associated Diagnoses Date/Ti [...] Td or Tdap) 11/09/2020 11/09/2010 COVID-19 Vaccine (4 - season) 2023 09/13/2021, 01/17/2021, 12/27/2020 Influenza Vaccine (FLU shot) (#1) 2023 06/15/2009, 07/02/2007 Mammogram 06/20/2023 06/20/2022, 04/0 03/2021, 11/04/2019, Additional history exists Depression Screening 08/21/2023 08/21/2022 Cervical Cancer Screening 10/24/2025 Pap Smear 10/24/2025 10/24/2022, 04/0 01/2017, 08/16/2014, Additional history exists Lipid Panel 11/23/2027 11/22/2022, 06/0 10/2015, 01/07/2008, Additional history exists Colonoscopy 05/03/2031 05/03/2021, 0 10/2020, 01/30/2009 Colorectal Cancer Screening 05/03/2031 GARDASIL-HPV IMMUNIZATION SERIES Aged Out No longer eligible based on patient's age to complete this topic MENINGOCOCCAL (MENACTRA/MENVEO) Aged Out No longer eligible based on patient's age to complete this topic documented as of this encounter Medical Devices Not on filedocumented as of this encounter Visit Diagnoses Diagnosis MyCode Research Other*[id number] documented in this encounter Care Teams Rn School Relationship Specialty Start Date End Date Shani Rider PA-C [address] [place] [address] PCP - General Physician Raw Hide Trimmer 09/22/20 documented as of this encounter
[2023-11-11 10:10] LABS: Magnesium 1.7 mg/dl (1.7-2.4)
[2023-11-11] MEDS: ONDANSETRON INJ 2 MG/ML 2 ML VIAL IV STA (10:45)
[2023-11-11] MEDS: LACTATED RINGER'S 1,000 ML IV SCH (10:46)
[2023-11-11] MEDS: ONDANSETRON INJ 2 MG/ML 2 ML VIAL ONE (10:46)
[2023-11-11] MEDS: HYDROmorphone INJ 0.5 MG/0.5 ML SYR IV PRN (12:16)
[2023-11-11] MEDS: METOPROLOL TARTRATE 25 MG TAB PO STA (12:27)
[2023-11-11] MEDS: dilTIAZem HCL 240 MG CAPCR PO STA (12:27)
[2023-11-11] MEDS ORDERED: LORazepam 0.5 MG TAB PO PRN (15:27)
[2023-11-11] MEDS: FLUTICASONE/VILANTEROL 200/25MCG 14 PUFFS/INHALER INH SCH (16:32)
[2023-11-11] MEDS: PANTOprazole 40 MG in SYRINGE 0 ML IV SCH (16:32)
[2023-11-11] MEDS: ENOXAPARIN INJ 40 MG/0.4 ML SYR SQ SCH (16:33)
[2023-11-11] MEDS: METOPROLOL SUCC 25MG EXT REL TAB PO SCH (20:55)
[2023-11-11] MEDS: POTASSIUM CHLORIDE 10 MEQ TABCR PO SCH (20:56)
[2023-11-11] MEDS: MONTELUKAST SODIUM 10 MG TABLET PO SCH (20:56)
[2023-11-11] MEDS: LOSARTAN POTASSIUM 25 MG TAB PO SCH (20:56)
[2023-11-11] MEDS: UMECLIDINIUM BROMIDE 62.5MCG/BLISTER 7 PUFFS/INHALER INH SCH (20:57)
--- NOTE | 2023-11-12 06:14 | Electrocardiogram Report ---
Test Reason : Blood Pressure : / mmHG Vent. Rate : 076 BPM Atrial Rate : 076 BPM P-R Int : 204 ms QRS Dur : 090 ms QT Int : 368 ms P-R-T Axes : 021 -10 028 degrees QTc Int : 414 ms Normal sinus rhythm Normal ECG When compared with ECG of 03-FEB-2023 21:35, No significant change was found Confirmed by Jose Delgado ([id number]) on 11/12/2023 6:14:17 AM Referred By: REFERRED SELF Confirmed By:Jose Delgado
[2023-11-12 06:49] LABS: Basophils # (auto) 0.01 K/uL (0.00-0.20); Basophils % (auto) 0.1 %; Eosinophils # (auto) 0.14 K/uL (0.00-0.50); Eosinophils % (auto) 1.4 %; Hematocrit (blood only) 35.5 % (37.0-47.0); Hemoglobin 11.9 g/dl (12.0-16.0); Immature Granulocytes # (auto) 0.04 K/uL (0.01-0.20); Immature Granulocytes % (auto) 0.4 %; Lymphocytes # (auto) 2.56 K/uL (1.20-3.40); Lymphocytes % (auto) 26.2 %; Mean Corpuscular Hemoglobin 28.2 pg (25.0-34.0); Mean Corpuscular Hgb Conc 33.5 g/dL (32.0-36.0); Mean Corpuscular Volume 84.1 fL (80.0-100.0); Mean Platelet Volume 10.2 fL (9.4-12.4); Monocytes # (auto) 0.58 K/uL (0.11-0.59); Monocytes % (auto) 5.9 %; Neutrophils # (auto) 6.43 K/uL (1.40-6.50); Platelet Count 253 K/uL (130-400); RDW Coefficient of Variation 13.4 % (11.5-14.5); RDW Standard Deviation 41.1 fL (36.4-46.3); Red Blood Count 4.22 M/uL (4.20-5.40); White Blood Count 9.76 K/ul (4.8-10.8)
[2023-11-12 07:09] LABS: Albumin Level 3.5 gm/dl (3.4-5.0); Bilirubin Direct 0.2 mg/dl (0-0.2); Bilirubin,Total 1.1 mg/dl (0.2-1.0); Total Protein 5.7 gm/dl (6.0-8.3)
[2023-11-12] MEDS: ACETAMINOPHEN 325 MG TAB PO PRN (08:22)
[2023-11-12] MEDS: dilTIAZem HCL 240 MG CAPCR PO SCH (08:23)
[2023-11-12] MEDS: ONDANSETRON INJ 2 MG/ML 2 ML VIAL IV PRN (09:42)
[2023-11-12] MEDS ORDERED: traMADol HCL 50 MG TABLET PO PRN (10:28)
--- NOTE | 2023-11-12 13:33 | Hospitalist Progress Note ---
Date of Service November 12, 2023 Assessment & Plan (1) Acute pancreatitis: Plan: This is a 58 y/o female with moderate persistent asthma, DOUGLAS on CPAP, prediabetes, GERD, PAF, bicuspid aortic valve w/ ascending aortic enlargement, and other history as outlined who presents to the ED with worsening abdominal pain for [address] abdomen/pelvis consistent with mild acute pancreatitis involving the pancreatic tail. History of cholecystectomy No excess alcohol use recently History of Ozempic; stopped 1 month ago Triglyceride of 67 Continue IV fluids Advance diet Pain control next Anti-emetics Will recommend holding off on sulindac at discharge given risks of pancreatitis (2) Hypertension: Plan: Chronic, stable Continue losartan, metoprolol and diltiazem. (3) DOUGLAS (obstructive sleep apnea): Plan: Pt prefers to use own CPAP equipment while here - placed appropriate order (4) Asthma, moderate persistent: Plan: Chronic, stable - no symptoms of acute exacerbation at present Continue outpatient Breo/Spiriva (5) GERD (gastroesophageal reflux disease): Plan: Chronic, stable Continue pantoprazole (6) Paroxysmal A-fib: Plan: Episode of afib with RVR when she had COVID previously. She has been having increased palpitations recently for which she has seen cardiology - to have a Zio monitor, metoprolol tartrate changed to metoprolol succinate Continue metoprolol succinate Monitor on telemetry (7) Morbid obesity with BMI of 40.0-44.9, adult: Plan: Was previously on Ozempic but stopped due to side effects Continue outpatient f/u with weight management clinic Plan DVT prophylaxis Lovenox Full code Time spent evaluating patient, direct bedside care, chart review, placing orders, interpretation of diagnostic studies, discussion with consultants, patient, and family members, as well as other required patient management activities is 50 minutes Please note the above document was generated using voice recognition software. It may contain grammatical, syntax or spelling errors. Any formal questions or concerns about the content, text or information contained within the body of this dictation should be directly addressed to the provider for clarification Admission and Anticipated Discharge Date Admission Date: November 11, 2023 Subjective Patient seen and examined at bedside. She reports that the pain has improved compared to yesterday He is nauseous after the breakfast. Review of Systems Review of Systems: All systems reviewed & are unremarkable except as noted in Subjective Physical Exam Physical Exam: General: awake, alert, NAD HEENT: no scleral icterus, moist oral mucosa Neck: trachea midline Heart: RRR Lungs: CTA bilaterally, no W/R/R - inspiratory effort limited by pain Abdomen: Soft, nontender. Extremities: no pedal edema, distal pulses intact Skin: warm, dry, no jaundice Neurologic: Ox3, moving all extremities, no focal deficits Results & Data Results & Data Vital Signs (Past 12 Hours) Vital Signs Temp Pulse Pulse Resp BP Pulse Ox O2 Del Method 11/12/23 11:14 36.9 C 88 16 148/77 H 97 Room Air 11/12/23 08:20 Room Air 11/12/23 07:42 37.0 C 71 16 121/70 91 Room Air 11/12/23 07:19 69 11/12/23 04:08 36.7 C 77 18 115/67 92 Room Air, CPAP (1) Acute pancreatitis Acute pancreatitis complication: no infection or necrosis Pancreatitis type: unspecified pancreatitis type Qualified Code(s): K85.90 - Acute pancreatitis without necrosis or infection, unspecified (2) Hypertension Hypertension type: primary hypertension Qualified Code(s): I10 - Essential (primary) hypertension (4) Asthma, moderate persistent Asthma complication type: uncomplicated Qualified Code(s): J45.40 - Moderate persistent asthma, uncomplicated (5) GERD (gastroesophageal reflux disease) Esophagitis presence: without esophagitis Qualified Code(s): K21.9 - Gastro- esophageal reflux disease without esophagitis
--- NOTE | 2023-11-12 15:07 | Discharge Summary ---
Date of Service November 12, 2023 Admission HPI Per Admitting Provider This is a 58 y/o female with moderate persistent asthma, DOUGLAS on CPAP, prediabetes, GERD, PAF, bicuspid aortic valve w/ ascending aortic enlargement, and other history as outlined below who presents to the ED with abdominal pain since yesterday. Pt reports "twinges" of discomfort in the upper abdomen for the last few weeks. Yesterday, the discomfort become more constant and gradually increased in severity, especially last night. Unable to sleep due to the severity of the pain. She describes a constant discomfort like there is "something hard in there" but has sharper component to the pain at times. The discomfort currently seems mostly in the RUQ > epigastric area. Rare radiation to the back. Pain seems worse with certain movements and deep breaths, better if she lies still. She had associated chills and sweats overnight but didn't check her temperature so unsure if a fever. She had some brief nausea but nothing constant. No vomiting. She has never had pain like this previously. No change in bowel pattern. Denies dark urine, hematuria, or dysuria. She was on Ozempic but stopped this 1-2 months ago due to significant side effects. She is on sulindac daily for left knee pain. She reports one drink almost daily (beer or mixed drink) although has been trying to cut back on alcohol intake. Admission Exam Per Admitting Provider General: awake, alert, NAD HEENT: no scleral icterus, moist oral mucosa Neck: trachea midline Heart: RRR Lungs: CTA bilaterally, no W/R/R - inspiratory effort limited by pain Abdomen: soft, obese, +BS, +tender in epigastric area but no guarding or rebound Extremities: no pedal edema, distal pulses intact Skin: warm, dry, no jaundice Neurologic: Ox3, moving all extremities, no focal deficit Principal Diagnosis Acute pancreatitis Discharge Exam Constitutional: WD/WN, vitals as above, NAD, sitting up in bed, pleasant, conversing easily Respiratory: normal respiratory effort, lungs clear to auscultation, no wheeze, rales, rhonchi. Normal insp/exp effort, no accessory muscle use Cardiovascular: RRR, no murmur, no edema Vessels: no JVD or carotid bruit Chest: normal inspection of chest Abdomen: Soft, nontender Musculoskeletal: no cyanosis or clubbing, extremities motor strength 5/5 Skin: no rashes, warm and dry normal turgor Neurologic: PERRL, EOMI, accommodation nl, no face palsy, no dysarthria CN's II- XI intact bilaterally and moves all extremities Psychiatric: A+Ox3, euthymic affect Discharge Data Allergies Allergy/AdvReac Type Severity Reaction Status Date / Time Influenza Virus Vaccines Allergy Severe anaphylaxis Verified 11/03/23 15:23 Egg Derived Allergy Intermediate hives Verified 11/03/23 15:23 meloxicam Allergy Mild Hives Verified 11/03/23 15:23 Consultations 11/11/23 08:21 ED Decision to Admit Stat Ordered Studies 11/11/23 05:45 CT abd pelvis IV con only Stat Hospital Course (1) Acute pancreatitis: (2) Hypertension: (3) DOUGLAS (obstructive sleep apnea): (4) Asthma, moderate persistent: (5) GERD (gastroesophageal reflux disease): (6) Paroxysmal A-fib: (7) Morbid obesity with BMI of 40.0-44.9, adult: Plan This is a 58 y/o female with moderate persistent asthma, DOUGLAS on CPAP, prediabetes, GERD, PAF, bicuspid aortic valve w/ ascending aortic enlargement, and other history as outlined who presents to the ED with worsening abdominal pain for [address] abdomen/pelvis consistent with mild acute pancreatitis involving the pancreatic tail. History of cholecystectomy No excess alcohol use recently History of Ozempic; stopped 1 month ago Triglyceride of 67 Lipase was within normal limits Patient was admitted to telemetry floor; was started on IV fluids, pain medication, antiemetics Patient's symptoms improved throughout the hospitalization. She was able to tolerate low-fat diet Sulindac was discontinued at discharge as it can contribute to pancreatitis Patient to follow-up with primary care doctor as outpatient Please note the above document was generated using voice recognition software. It may contain grammatical, syntax or spelling errors. Any formal questions or concerns about the content, text or information contained within the body of this dictation should be directly addressed to the provider for clarification Total Time Total Time Spent Total Time Spent (In Minutes): 35 Total Time Includes: Examination of the Patient, Discharge Planning, Medication Reconciliation, Communication With Other Providers and Other Discharge Plan Discharge Items Patient Disposition: Home - Self-Care Reason For Visit: ACUTE PANCREATITIS Discharge Diagnosis: Acute pancreatitis Activity: Resume your previous activity Non-emergency contact: Primary Care Provider Call non-emergency contact if: you have any medication questions and your symptoms worsen Follow-up/Referrals: Shani Rider PA-C [Primary Care Provider] - Diet: Low Fat Addtl Attending Provider Instructions: You were admitted to the hospital for abdominal pain. The CT abdomen and pelvis showed mild pancreatitis. Please abstain from alcohol use and stop taking sulindac. An appointment with your primary care doctor would be set up. Please discuss alternatives to treatment regarding the knee pain during the follow-up. Please follow a low-fat diet for the next 2 weeks. Fat will exacerbate the pain. Pending Studies at Discharge: No Stand-Alone Forms: My [facility] [employer] [facility], Smoking Cessation Medications and DC Order Prescriptions: Continued diltiazem HCl 240 mg capsule,extended release 24 hr 240 mg PO QAM Qty: 90 1RF pantoprazole 40 mg tablet,delayed release (DR/EC) 40 mg PO QAM Qty: 30 5RF montelukast 10 mg tablet 10 mg PO HS Qty: 90 3RF losartan 25 mg tablet 25 mg PO HS fluticasone furoate-vilanterol [Breo Ellipta] 200-25 mcg/dose blister with device 1 ea inhalation QAM Qty: 60 8RF Spiriva with HandiHaler 18 mcg capsule, w/inhalation device 1 cap INHALATION QPM Qty: 60 8RF Rx Instructions: puncture 1 cap using device; one dose = 2 inhalations cetirizine 10 mg Tablet 10 mg PO DAILY PRN (Reason: Allergy Symptoms) lorazepam 0.5 mg Tablet 0.5 mg PO HS PRN (Reason: Sleep) levalbuterol HCl [Xopenex] 1.25 mg/3 mL Solution For Nebulization 1.25 mg INHALATION Q4H PRN (Reason: Shortness Of Breath Or Wheezing) potassium chloride 10 mEq tablet extended release 10 meq PO QPM metoprolol succinate 25 mg tablet extended release 24 hr 25 mg PO BID hydroxyzine HCl 10 mg tablet 10 mg PO QID PRN (Reason: Itching) Discontinued sulindac 150 mg tablet 150 mg PO DAILY Discharge Orders: Discharge Order (Routine); Ordered 11/12/23 Ordered By: Nima Tinsley Admission Data Admit Date/Time: 11/11/23 09:18 Attending Provider: Nima Tinsley Admit Provider: Arabella Juarez Primary Care Provider: Shani Rider Other Providers: Arabella Juarez
== END 2023-11-12 17:24 | disposition home or self-care (01) ==
LOC: ED 05:06 → EDINP 05:06 → SUATTDRO 09:18 → 2N 14:59

== ENCOUNTER 2024-11-24 14:20 | Observation (INO) ==
--- NOTE | 2024-11-24 15:11 | Emergency Department Note ---
Impression & Plan SOB (shortness of breath), Asthma exacerbation, Failure of outpatient treatment, Leukocytosis ED Provider Note NAME: RAMON GONSALES AGE: 59 SEX: F : 1965 ARRIVES VIA: Walk-In INFORMANT: [Patient] ED PROVIDER(S): [Richard Choudhury MD] CHIEF COMPLAINT: Asthma HISTORY OF PRESENT ILLNESS: The patient is a 59-year-old female who is asthmatic. She has had several weeks of cough, fever, shortness of breath and wheezing. She was diagnosed with bronchitis and placed on prednisone and Zithromax. Despite the medication, she did not improve. She finished her prednisone yesterday. The patient states that she made another visit to a provider 2 days ago. She was told to start Levaquin, she has done this as instructed. Despite everything, she has not improved. 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 Patient has never had a DVT or PE however, she does have a genetic predisposition to clot. PMHx/PSHx/Social Hx: See Below PHYSICAL EXAM: GENERAL: Patient is in no acute distress. HEENT: No acute trauma, normocephalic atraumatic, mucous membranes moist, no nasal congestion. NECK: No stridor, no adenopathy, no meningismus, trachea is midline. LUNGS: A few scattered wheezes heard, breath sounds are diminished bilaterally. Dry cough noted. HEART: Without murmurs gallops or rubs, regular rate and rhythm. ABDOMEN: Soft, nontender, no peritonitis. EXTREMITIES: No cyanosis, full range of motion of all the joints without pain or difficulty. NEUROLOGIC: Oriented x 3, no acute motor or sensory deficits, no focal weakness. SKIN: No jaundice, no diaphoresis. DIFFERENTIAL DIAGNOSIS: Asthmatic exacerbation, viral illness, PE, pneumonia bronchitis, failed outpatient management, among others. EMERGENCY DEPARTMENT PROCEDURES: MEDICAL DECISION MAKING: There is a mild leukocytosis, this could be consistent with infection or her recent steroid use. There was a normal hemoglobin and platelet count. No coagulopathy. No renal failure or significant electrolyte abnormality. No concerning liver enzyme elevation. ECG shows a sinus rhythm, no obvious acute ST elevation. Cardiac enzyme testing x 1 is not consistent with acute cardiac injury. Respiratory bio fire is pending. Chest x-ray shows some chronic change, no focal pneumonia, no CHF. Chest CT does not show pneumonia or PE. On exam, the patient was not hypoxic or febrile. She did have diminished breath sounds on auscultation. The patient was given IV Solu-Medrol, a DuoNeb. The patient presents with persistent asthma and respiratory symptoms despite outpatient treatment. Hospitalization by her conductor orchestra was recommended. I did speak with the patient about her findings, I did speak with the supportive employment case manager. The on-call hospitalist was consulted. In short, the patient does appear to have an acute bronchitis with a flare of her underlying asthma/lung disease. Prior/Outside records/notes reviewed: Outpatient pulmonology notes describing her presentation, the need for an ER visit and admission. ECG per my interpretation: Indication was shortness of breath. The ECG shows a normal sinus rhythm with a rate of 76. LVH is present. There is an old lateral infarct seen. No acute ST elevation, no PVCs. The QTc was 432. Continuous Cardiac Monitoring per my interpretation: An order was placed for continuous cardiac monitoring. The monitor shows a rate of 75 with normal sinus rhythm. Imaging/x-ray results per my interpretation: Chest x-ray does not show any obvious pneumonia, no heart failure or pneumothorax. There are some perceived lower lung changes, likely from her larger body habitus. Chronic Medical/Social conditions affecting care: History of persistent asthma Care/Management discussed with: Case management, the on-call hospitalist. Level of care consideration(s): After review of the information above and other included data: --I believe the patient requires escalation of care to admission DISPOSITION: Admission Past Med/Surg History Problem List (Updated 11/24/24 @ 16:37 by Richard Choudhury MD) Leukocytosis (Acute) Failure of outpatient treatment (Acute) Asthma exacerbation (Acute) SOB (shortness of breath) (Acute) Morbid obesity with BMI of 40.0-44.9, adult Acute pancreatitis (Acute) Abdominal pain, right upper quadrant (Acute) Restrictive lung disease Obesity Allergic rhinitis with postnasal drip Chronic cough Edema Paroxysmal A-fib Hypokalemia (Acute) COVID-19 virus infection (Acute) Atrial fibrillation with RVR (Acute) Acute and chronic respiratory failure with hypoxia S/P left knee arthroscopy History of gastric ulcer S/P left knee arthroscopy Asthma inhaler/nebulizer prn DJD (degenerative joint disease), lumbar Sepsis H/O laparoscopy S/P tubal ligation History of esophagogastroduodenoscopy (EGD) S/P endometrial ablation DOUGLAS (obstructive sleep apnea) CPAP Migraine GERD (gastroesophageal reflux disease) controlled Asthma, moderate persistent Diverticulitis several years ago Hypertension CMC arthritis Medical History ASCUS with positive high risk HPV cervical Pneumonia due to 2019-nCoV Hx of vaccine allergy Left knee DJD Degenerative disc disease Right sided abdominal pain Hypertension Osteoarthritis Gestational diabetes Surgical History History of left breast biopsy benign History of dilatation and curettage x2 History of arthroscopy of left knee History of wisdom tooth extraction History of tonsillectomy Status post biopsy of thyroid gland x2 on benign thyroid nodule History of cardiac cath 2009 @ [facility], no stents Hx of colonoscopy Hx of cholecystectomy H/O laparoscopy S/P tubal ligation History of esophagogastroduodenoscopy (EGD) S/P endometrial ablation Family History Brother Family history of diabetes mellitus Sister Family history of diabetes mellitus Family history of reaction to anesthesia heart rate dropped during procedure Uncle FHx: colon cancer Prostate cancer Mother FHx: lung cancer Grandmother (Paternal) FHx: colon cancer Colorectal cancer Grandfather (Maternal) Colorectal cancer Denies family history of Ovarian cancer Breast cancer Social History Smoking Status: Never smoker Second Hand Exposure: Yes (parents smoked); Do You Dip or Chew Tobacco: No; Hx Alcohol Use: Yes Alcohol type: beer, wine and hard liquor Hx Substance Use: No Preferred Language: Peruvian Communication Ability: Effective Visual Impairment: No Limitations Airline Dispatcher Required: No Beliefs That Will Affect Care: None Current Living Situation: Family Current Living Situation Comment: Lives with and 2 kids Feels Safe at Home: Yes Assistive Devices: CPAP Allergies Allergies Allergy/AdvReac Type Severity Reaction Status Date / Time Influenza Virus Vaccines Allergy Severe anaphylaxis Verified 09/15/24 17:05 Egg Derived Allergy Intermediate hives Verified 09/15/24 17:05 meloxicam Allergy Mild Hives Verified 09/15/24 17:05 Home Meds Home Medications Medication Instructions Recorded Confirmed cetirizine 10 mg tablet 10 mg PO DAILY PRN Allergy Symptoms 06/19/19 04/20/24 lorazepam 0.5 mg tablet 0.5 mg PO HS PRN Sleep 08/13/19 04/20/24 levalbuterol HCl 1.25 mg/3 mL 1.25 mg inhalation Q4H PRN 02/03/23 04/20/24 solution for nebulization Shortness Of Breath Or Wheezing potassium chloride 10 mEq 10 meq PO QPM 02/03/23 04/20/24 tablet,extended release losartan 25 mg tablet 25 mg PO HS 05/19/23 04/20/24 hydroxyzine HCl 10 mg tablet 10 mg PO QID PRN Itching 11/11/23 04/20/24 metoprolol succinate 25 mg 25 mg PO BID 11/11/23 04/20/24 tablet,extended release 24 hr Previous Rx's Medication Instructions Recorded diltiazem HCl 240 mg capsule,24 240 mg PO QAM #90 caps 05/08/21 hr,extended release pantoprazole 40 mg tablet,delayed 40 mg PO QAM #30 tabs 09/13/21 release montelukast 10 mg tablet 10 mg PO HS #90 tabs 12/12/22 fluticasone furoate 200 1 ea inhalation QAM #60 ea 08/04/23 mcg-vilanterol 25 mcg/dose inhalation powder (Breo Ellipta) tiotropium bromide 18 mcg capsule 1 cap inhalation QPM #60 08/04/23 with inhalation device (Spiriva inhalations with HandiHaler) dexamethasone 6 mg tablet 6 mg PO DAILY 10 days #10 tabs 05/04/24 dextromethorphan-guaifenesin 10 10 ml PO Q6H PRN cough #237 mL 05/04/24 mg-100 mg/5 mL oral liquid nirmatrelvir 150 mg-ritonavir 100 See Rx Instructions PO .COMPLEX 05/04/24 mg tablets in a dose pack #20 ea (Paxlovid) albuterol sulfate 90 mcg/actuation 2 puff inhalation Q6H PRN 11/16/24 aerosol inhaler Shortness Of Breath Or Wheezing #8.5 grams Results & Data (ED) Vital Signs Vital Signs - 24 hr 11/24/24 14:25 11/24/24 14:32 11/24/24 15:43 Temperature 36.6 C Temperature Source Temporal Artery Scan Pulse Rate 75 Pulse Rate [Apical] 67 Respiratory Rate 18 Respiratory Effort / Characteristics Non-Labored Non-Labored Respiratory Depth Normal Normal Respiratory Pattern Regular Regular Blood Pressure 153/79 H Blood Pressure [Right Arm] 174/95 H Blood Pressure Mean 103 Blood Pressure Mean [Right Arm] 121 Pulse Oximetry 95 100 Oxygen Delivery Method Room Air Room Air Sepsis Recent Fever Within 48 Hours No Sepsis New/Unexplained Change in Mental Status N/A Sepsis Action Taken by Nursing No Action Required 11/24/24 16:20 11/24/24 16:20 11/24/24 16:25 Temperature Temperature Source Pulse Rate 69 Pulse Rate [Apical] Respiratory Rate Respiratory Effort / Characteristics Respiratory Depth Respiratory Pattern Blood Pressure Blood Pressure [Right Arm] Blood Pressure Mean Blood Pressure Mean [Right Arm] Pulse Oximetry Oxygen Delivery Method Room Air Room Air Sepsis Recent Fever Within 48 Hours Sepsis New/Unexplained Change in Mental Status Sepsis Action Taken by [facility] Medications Current Medication List: was personally reviewed by me Laboratory Data Attestation: I reviewed the patient's lab results. 11/24/24 14:55 11/24/24 14:55 Lab Results 11/24/24 Range/Units 14:55 WBC 13.89 H (4.8-10.8) K/ul RBC 4.98 (4.20-5.40) M/uL Hgb 14.2 (12.0-16.0) g/dl Hct 42.8 (37.0-47.0) % MCV 85.9 (80.0-100.0) fL MCH 28.5 (25.0-34.0) pg MCHC 33.2 (32.0-36.0) g/dL RDW Std Deviation 43.6 (36.4-46.3) fL RDW Coeff of [place] 14.3 (11.5-14.5) % Plt Count 291 (130-400) K/uL MPV 10.0 (9.4-12.4) fL Immature Gran % (Auto) 0.8 % Neut % (Auto) 61.4 % Lymph % (Auto) 28.3 % [place] % (Auto) 6.3 % Eos % (Auto) 2.9 % Baso % (Auto) 0.3 % Neut # (Auto) 8.53 H (1.40-6.50) K/uL Lymph # (Auto) 3.93 H (1.20-3.40) K/uL [place] # (Auto) 0.88 H (0.11-0.59) K/uL Eos # (Auto) 0.40 (0.00-0.50) K/uL Baso # (Auto) 0.04 (0.00-0.20) K/uL Immature Gran # (Auto) 0.11 (0.01-0.20) K/uL PT 10.1 (9.0-12.0) Seconds INR 0.9 (0.9-1.1) APTT 26 (21-31) Seconds PTT Ratio 1.0 Sodium 141 (136-145) mmol/L Potassium 3.8 (3.5-5.1) mmol/L Chloride 105 (98-107) mmol/L Carbon Dioxide 29 (21-32) mmol/L Anion Gap 7 (3-11) BUN 19 (6-23) mg/dl Creatinine 0.81 (0.6-1.2) mg/dl Est Cr Clr Drug Dosing 103.9 ml/min eGFR 83.57 BUN/Creatinine Ratio 23.5 H (10-20) Glucose 118 H (70-99(Fasting)) mg/dl Calcium 9.1 (8.6-10.3) mg/dl Magnesium 1.9 (1.7-2.4) mg/dl Total Bilirubin 1.1 H (0.2-1.0) mg/dl AST 13 (13-39) U/L ALT 20 (7-52) U/L Alkaline Phosphatase 82 (34-104) U/L Troponin I High Sens 4.0 (0-14) pg/ml Total Protein 6.8 (6.0-8.3) gm/dl Albumin 4.1 (3.4-5.0) gm/dl Globulin 2.7 (2.5-4.0) gm/dl Albumin/Globulin Ratio 1.5 (0.9-2) Administered Medications Magnesium Sulfate/Dextrose (Magnesium Sulfate / D5w) 1 gm in 100 mls @ 50 mls/hr IV Q2H SHAKEEL Stop: 11/24/24 20:14 Last Admin: 11/24/24 16:11 Dose: 50 mls/hr Documented By: JUNAID Discontinued Medications Albuterol (Albut/Ipratrop 3mg/0.5mg Neb 3 Ml Vial) 3 ml NEB NOW STA; Protocol Stop: 11/24/24 14:56 Last Admin: 11/24/24 15:34 Dose: 3 ml Documented [place]: [facility] [place]ol (Optiray 320 125ml) 119 ml IV ONCE ONE Stop: 11/24/24 16:07 Last Admin: 11/24/24 16:06 Dose: 119 ml Documented By: GAVINO Methylprednisolone (Methylprednisolone 125 Mg/2 Ml Vial) 60 mg IV NOW STA Stop: 11/24/24 14:56 Last Admin: 11/24/24 15:35 Dose: 60 mg Documented By: [facility] Data Radiologist's Impression: Chest X-Ray 11/24/24 14:33 XR chest 1V portable CLINICAL HISTORY: Chest pain, nonspecific COMPARISON STUDY: 10/04/2024 FINDINGS: Stable mild cardiomegaly without pulmonary vascular congestion. No effusion, consolidation, or pneumothorax. IMPRESSION: No acute findings. ACT 112: Negative or not required by law. Electronically signed by: Erasto Sarabia M.D. 11/24/2024 3:42 PM Chest CTA 11/24/24 15:05 CT pulmonary angiogram with IV contrast History: Chest pain. Shortness of breath. Wheezing COMPARISON: 02/04/2023 TECHNIQUE: CT angiography of the chest was performed without IV contrast followed by IV contrast, including 3D post processing CTA image reconstruction. Dose reduction techniques were achieved by using automatic exposure control and/or adjustment of mA and/or kV according to patient size and/or use of iterative reconstruction technique. FINDINGS: Diagnostic quality: Adequate There is no evidence for pulmonary embolism. The heart is not enlarged. There is no pericardial effusion. There are no abnormally enlarged hilar or mediastinal lymph nodes. The central tracheobronchial tree is clear. There is inward bowing of the posterior membrane of the trachea and the mainstem bronchi, which narrows the lumen in the AP diameter. The lungs are clear. There is no pleural effusion. Limited visualized upper abdomen. No destructive osseous changes are seen. IMPRESSION: No evidence for pulmonary embolism. Narrowed appearance of the tracheobronchial tree, as above, which may be seen with excessive dynamic airway collapse. In this patient with reported history of respiratory symptoms, which has been attributed to asthma, consider tracheobronchomalacia. Mosaic attenuation of the lung parenchyma, which may be seen with small airway or small vessel disease. Electronically signed by Juan Morales 11-24-2024 4:19 PM Discharge Plan Visit Data Chief Complaint: Asthma Stated Complaint: DOC REFERRAL, SENT ME IN FOR ASTHMA ED Provider: Richard Choudhury Discharge Problem: SOB (shortness of breath), Asthma exacerbation, Failure of outpatient treatment, Leukocytosis Patient Disposition: Admitted As Inpatient Condition: Fair Forms Stand Alone Forms: My [facility] Prescriptions Prescriptions: No Action diltiazem HCl 240 mg capsule,extended release 24 hr 240 mg PO QAM Qty: 90 1RF pantoprazole 40 mg tablet,delayed release (DR/EC) 40 mg PO QAM Qty: 30 5RF montelukast 10 mg tablet 10 mg PO HS Qty: 90 3RF dexamethasone 6 mg tablet 6 mg PO DAILY 10 Days Qty: 10 0RF Paxlovid 150-100 mg tablets,dose pack See Rx Instructions PO .COMPLEX Qty: 20 0RF Rx Instructions: take ONE 150 mg tablet of nirmatrelvir with ONE 100 mg tablet of ritonavir twice daily for 5 days PO dextromethorphan-guaifenesin 10-100 mg/5 mL liquid 10 ml PO Q6H PRN (Reason: cough) Qty: 237 0RF albuterol sulfate 90 mcg/actuation HFA aerosol inhaler 2 puff INHALATION Q6H PRN (Reason: Shortness Of Breath Or Wheezing) Qty: 8.5 4RF losartan 25 mg tablet 25 mg PO HS fluticasone furoate-vilanterol [Breo Ellipta] 200-25 mcg/dose blister with device 1 ea inhalation QAM Qty: 60 8RF Spiriva with HandiHaler 18 mcg capsule, w/inhalation device 1 cap INHALATION QPM Qty: 60 8RF Rx Instructions: puncture 1 cap using device; one dose = 2 inhalations cetirizine 10 mg Tablet 10 mg PO DAILY PRN (Reason: Allergy Symptoms) lorazepam 0.5 mg Tablet 0.5 mg PO HS PRN (Reason: Sleep) levalbuterol HCl 1.25 mg/3 mL Solution For Nebulization 1.25 mg INHALATION Q4H PRN (Reason: Shortness Of Breath Or Wheezing) potassium chloride 10 mEq tablet extended release 10 meq PO QPM metoprolol succinate 25 mg tablet extended release 24 hr 25 mg PO BID hydroxyzine HCl 10 mg tablet 10 mg PO QID PRN (Reason: Itching) Referrals Referrals: Shani Rider PA-C [Primary Care Provider] - Discharge Problem: Asthma exacerbation Qualifiers: Asthma severity: moderate Asthma persistence: persistent Qualified Code(s): J 45.41 - Moderate persistent asthma with (acute) exacerbation Leukocytosis Qualifiers: Leukocytosis type: unspecified Qualified Code(s): D72.829 - Elevated white blood cell count, unspecified
[2024-11-24 15:21] LABS: Basophils # (auto) 0.04 K/uL (0.00-0.20); Basophils % (auto) 0.3 %; Eosinophils % (auto) 2.9 %; Hematocrit (blood only) 42.8 % (37.0-47.0); Hemoglobin 14.2 g/dl (12.0-16.0); Immature Granulocytes # (auto) 0.11 K/uL (0.01-0.20); Immature Granulocytes % (auto) 0.8 %; Lymphocytes # (auto) 3.93 K/uL (1.20-3.40); Lymphocytes % (auto) 28.3 %; Mean Corpuscular Hemoglobin 28.5 pg (25.0-34.0); Mean Corpuscular Hgb Conc 33.2 g/dL (32.0-36.0); Mean Corpuscular Volume 85.9 fL (80.0-100.0); Monocytes # (auto) 0.88 K/uL (0.11-0.59); Monocytes % (auto) 6.3 %; Neutrophils # (auto) 8.53 K/uL (1.40-6.50); Neutrophils % (auto) 61.4 %; Platelet Count 291 K/uL (130-400); RDW Coefficient of Variation 14.3 % (11.5-14.5); RDW Standard Deviation 43.6 fL (36.4-46.3); Red Blood Count 4.98 M/uL (4.20-5.40); White Blood Count 13.89 K/ul (4.8-10.8)
[2024-11-24 15:28] LABS: Albumin Globulin Ratio 1.5 (0.9-2); Albumin Level 4.1 gm/dl (3.4-5.0); BUN Creatinine Ratio 23.5 (10-20); Bilirubin,Total 1.1 mg/dl (0.2-1.0); Calcium 9.1 mg/dl (8.6-10.3); Creatinine Clr Calc Pharmacy 103.9 ml/min; Globulin 2.7 gm/dl (2.5-4.0); Magnesium 1.9 mg/dl (1.7-2.4); Potassium 3.8 mmol/L (3.5-5.1); Total Protein 6.8 gm/dl (6.0-8.3)
[2024-11-24] MEDS: ALBUT/IPRATROP 3MG/0.5MG NEB 3 ML VIAL NEB STA (15:34)
[2024-11-24] MEDS: methylPREDNISolone 125 MG/2 ML VIAL IV STA (15:35)
--- NOTE | 2024-11-24 15:43 | XRay Report ---
XR chest 1V portable CLINICAL HISTORY: Chest pain, nonspecific COMPARISON STUDY: 10/04/2024 FINDINGS: Stable mild cardiomegaly without pulmonary vascular congestion. No effusion, consolidation, or pneumothorax. IMPRESSION: No acute findings. ACT 112: Negative or not required by law. Electronically signed by: Erasto Sarabia M.D. 11/24/2024 3:42 PM
[2024-11-24 15:47] LABS: INR 0.9 (0.9-1.1); Partial Thromboplastin Time 26 Seconds (21-31); Prothrombin Time 10.1 Seconds (9.0-12.0)
[2024-11-24] MEDS: OPTIRAY 320 125ml IV ONE (16:06)
[2024-11-24] MEDS: MAGNESIUM SULFATE / D5W 1 GM/100 ML BAG IV SCH (16:11)
--- NOTE | 2024-11-24 16:13 | History & Physical Report ---
Date of Service November 24, 2024 Assessment & Plan (1) Asthma exacerbation: (2) Failure of outpatient treatment: Plan Ms. Duran is a 59 year old female with moderate persistent asthma, DOUGLAS on CPAP, prediabetes, GERD, PAF, bicuspid aortic valve w/ ascending aortic enlargement, and other history admitted for concerns of acute asthma exacerbation. Patient with symptoms ongoing since 11/12 and continued dry cough, wheezing, and sob despite steroids. #Acute asthma exacerbation #Restrictive lung disease #Severe persistent asthma CT PE negative follows Dr Hawkins s/p methylprednisone, neb order 2g mag Continue q6 duonebs continue home inhalers start azithro 500mg x 3 days flutter valve and mucinex iso chronic bronchitis Consult Pulm for any further optimization #BLE Edema s/p IV lasix 1 suspect iso steroid retention, no signs of HF otherwise to be suspected #palpitations #Paroxysmal atrial fibrillation [id number] score of 2 (female, HTN)- No current AC , reported "bleeding from every orifice" Continue Metoprolol 50mg XL BID Continue Diltazem 240mg daily Monitor on Tele and review for questionable overlap #Hypertension Continue losartan 50mg #DOUGLAS CPAP #seasonal allergies resume home regimen admit med tele DVT lovenox Admission and Anticipated Discharge Date Admission Date: Time spent evaluating patient, direct bedside care, chart review, placing orders, interpretation of diagnostic studies, discussion with consultants, patient, and family members, as well as other required patient management activities is 75 minutes. History of Present Illness Chief Complaint: sob Primary Care Provider: Shani Rider PA-C Ms. Roman is a 58 y/o female with moderate persistent asthma, DOUGLAS on CPAP, prediabetes, GERD, PAF, bicuspid aortic valve w/ ascending aortic enlargement who presented to ED for refractory asthma exacerbation Patient reports managing wheezing, sob, and cough since just before 11/12. She has completed a prolonged steroid taper and still did not improve, prompting initiation of levaquin on 11/22 for concern of underlying pneumonia. Patient states she presented to see Dr. Hawkins in clinic, who suggested she report to the ED for evaluation. She states that her symptoms are worse at night and she often wakes in the middle of the night to use a neb treatment. She is utilizing her nebs 4-6 times a day. She denies any productive cough. She endorses chills, but denies any subjective or confirmed fevers. She denies tobacco use. She reports that she has been experiencing palpitations for the last week, but is unsure if the "fluttering" is related to her cough first or the cough related to the fluttering. She notes she has a zio patch she completed but failed to mail in. She denies chest pain, but does note some swelling in her legs, which is not abnormal and often present after she completes steroids course. She has utilizing water pill previously for this issue. In the ED, vitals were notable for BP of 140s-170s HR of 80s and O2 sat of low 90s on room air . Imaging revealed Narrowed appearance of the tracheobronchial tree, but no PE EKG QTC 432 ED interventions: methyl pred 60mg IV x1, duoneb Patient to be admitted to med/tele. for further evaluation and management of refractory asthma exacerbation. Allergies Allergy/AdvReac Type Severity Reaction Status Date / Time Egg Derived Allergy Severe Anaphylaxis Verified 11/24/24 17:06 Influenza Virus Vaccines Allergy Severe anaphylaxis Verified 11/24/24 17:06 meloxicam Allergy Severe HEAD TO Verified 11/24/24 17:06 TOE HIVES Home Medications Medication Instructions Recorded Confirmed Type cetirizine 10 mg tablet 10 mg PO DAILY PRN Allergy Symptoms 06/19/19 11/24/24 History lorazepam 0.5 mg tablet 0.5 mg PO HS PRN Sleep 08/13/19 11/24/24 History diltiazem HCl 240 mg capsule,24 240 mg PO QAM #90 caps 05/08/21 11/24/24 Rx hr,extended release pantoprazole 40 mg tablet,delayed 40 mg PO QAM #30 tabs 09/13/21 11/24/24 Rx release montelukast 10 mg tablet 10 mg PO HS #90 tabs 12/12/22 11/24/24 Rx levalbuterol HCl 1.25 mg/3 mL 1.25 mg inhalation Q4H PRN 02/03/23 11/24/24 History solution for nebulization Shortness Of Breath Or Wheezing potassium chloride 10 mEq 10 meq PO QPM 02/03/23 11/24/24 History tablet,extended release losartan 25 mg tablet 50 mg PO HS 05/19/23 11/24/24 History fluticasone furoate 200 1 ea inhalation QAM #60 ea 08/04/23 11/24/24 Rx mcg-vilanterol 25 mcg/dose inhalation powder (Breo Ellipta) tiotropium bromide 18 mcg capsule 1 cap inhalation QPM #60 08/04/23 11/24/24 Rx with inhalation device (Spiriva inhalations with HandiHaler) hydroxyzine HCl 10 mg tablet 10 mg PO QID PRN Itching 11/11/23 11/24/24 History metoprolol succinate 25 mg 50 mg PO BID 11/11/23 11/24/24 History tablet,extended release 24 hr albuterol sulfate 90 mcg/actuation 2 puff inhalation Q6H PRN 11/16/24 11/24/24 Rx aerosol inhaler Shortness Of Breath Or Wheezing #8.5 grams Past Med/Surg History Problem List (Updated 11/24/24 @ 16:37 by Richard Choudhury MD) Leukocytosis (Acute) Failure of outpatient treatment (Acute) Asthma exacerbation (Acute) SOB (shortness of breath) (Acute) Morbid obesity with BMI of 40.0-44.9, adult Acute pancreatitis (Acute) Abdominal pain, right upper quadrant (Acute) Restrictive lung disease Obesity Allergic rhinitis with postnasal drip Chronic cough Edema Paroxysmal A-fib Hypokalemia (Acute) COVID-19 virus infection (Acute) Atrial fibrillation with RVR (Acute) Acute and chronic respiratory failure with hypoxia S/P left knee arthroscopy History of gastric ulcer S/P left knee arthroscopy Asthma inhaler/nebulizer prn DJD (degenerative joint disease), lumbar Sepsis H/O laparoscopy S/P tubal ligation History of esophagogastroduodenoscopy (EGD) S/P endometrial ablation DOUGLAS (obstructive sleep apnea) CPAP Migraine GERD (gastroesophageal reflux disease) controlled Asthma, moderate persistent Diverticulitis several years ago Hypertension CMC arthritis Medical History ASCUS with positive high risk HPV cervical Pneumonia due to 2019-nCoV Hx of vaccine allergy Left knee DJD Degenerative disc disease Right sided abdominal pain Hypertension Osteoarthritis Gestational diabetes Surgical History History of left breast biopsy benign History of dilatation and curettage x2 History of arthroscopy of left knee History of wisdom tooth extraction History of tonsillectomy Status post biopsy of thyroid gland x2 on benign thyroid nodule History of cardiac cath 2010 @ [facility], no stents Hx of colonoscopy Hx of cholecystectomy H/O laparoscopy S/P tubal ligation History of esophagogastroduodenoscopy (EGD) S/P endometrial ablation Family History Brother Family history of diabetes mellitus Sister Family history of diabetes mellitus Family history of reaction to anesthesia heart rate dropped during procedure Uncle FHx: colon cancer Prostate cancer Mother FHx: lung cancer Grandmother (Paternal) FHx: colon cancer Colorectal cancer Grandfather (Maternal) Colorectal cancer Denies family history of Ovarian cancer Breast cancer Social History Smoking Status: Never smoker Second Hand Exposure: Yes (parents smoked); Do You Dip or Chew Tobacco: No; Hx Alcohol Use: Yes Alcohol type: beer, wine and hard liquor Hx Substance Use: No Preferred Language: [place] Communication Ability: Effective Visual Impairment: No Limitations Dubbing Machine Operator Required: No Beliefs That Will Affect Care: None Current Living Situation: Family Current Living Situation Comment: Lives with and 2 kids Feels Safe at Home: Yes Assistive Devices: CPAP Review of Systems Review of Systems: All systems reviewed & are unremarkable except as noted in Subjective Physical Exam Physical Exam: GENERAL APPEARANCE: AxOx4, generally well-appearing F, no acute distress. HEENT: NC, AT. MMM. EOMI, clear conjunctiva, oropharynx clear. NECK: Supple without lymphadenopathy. No stiffness or restricted ROM. HEART: Normal rate and regular rhythm, normal S1/S1, no m/r/g LUNGS: tight airway, diminished in all adam, no clear wheezing ABDOMEN: Soft, nontender, nondistended with good bowel sounds heard. BACK: No CVAT, no obvious deformity. EXTREMITIES: Without cyanosis, clubbing or edema. NEUROLOGICAL: Grossly nonfocal. Alert and oriented, moving all 4 extremities. CN not formally tested but appear grossly intact Skin: Warm and dry without any rash. Results & Data Results & Data Vital Signs (Past 12 Hours) Vital Signs Temp Pulse Pulse Resp BP BP Pulse Ox 11/24/24 15:43 67 174/95 H 100 11/24/24 14:32 11/24/24 14:25 36.6 C 75 18 153/79 H 95 O2 Del Method 11/24/24 15:43 11/24/24 14:32 Room Air 11/24/24 14:25 Room Air Laboratory Results Short CBC 11/24/24 Range/Units 14:55 WBC 13.89 H (4.8-10.8) K/ul Hgb 14.2 (12.0-16.0) g/dl Hct 42.8 (37.0-47.0) % Plt Count 291 (130-400) K/uL BMP 11/24/24 14:55 Sodium 141 Potassium 3.8 Chloride 105 Carbon Dioxide 29 BUN 19 Creatinine 0.81 Glucose 118 H Calcium 9.1 Liver Function 11/24/24 Range/Units 14:55 Total Bilirubin 1.1 H (0.2-1.0) mg/dl AST 13 (13-39) U/L ALT 20 (7-52) U/L Alkaline Phosphatase 82 (34-104) U/L Albumin 4.1 (3.4-5.0) gm/dl Medications Administered Home Medications Medication Instructions Recorded Confirmed Last Taken cetirizine 10 mg tablet 10 mg PO DAILY PRN Allergy Symptoms 06/19/19 11/24/24 02/03/23 lorazepam 0.5 mg tablet 0.5 mg PO HS PRN Sleep 08/13/19 11/24/24 09/09/20 diltiazem HCl 240 mg capsule,24 240 mg PO QAM #90 caps 05/08/21 11/24/24 4 hr,extended release pantoprazole 40 mg tablet,delayed 40 mg PO QAM #30 tabs 09/13/21 11/24/24 11/10/23 release montelukast 10 mg tablet 10 mg PO HS #90 tabs 12/12/22 11/24/24 11/10/23 levalbuterol HCl 1.25 mg/3 mL 1.25 mg inhalation Q4H PRN 02/03/23 11/24/24 Unknown solution for nebulization Shortness Of Breath Or Wheezing potassium chloride 10 mEq 10 meq PO QPM 02/03/23 11/24/24 11/10/23 tablet,extended release losartan 25 mg tablet 50 mg PO HS 05/19/23 11/24/24 11/10/23 fluticasone furoate 200 1 ea inhalation QAM #60 ea 08/04/23 11/24/24 11/10/23 mcg-vilanterol 25 mcg/dose inhalation powder (Breo Ellipta) tiotropium bromide 18 mcg capsule 1 cap inhalation QPM #60 08/04/23 11/24/24 11/10/23 with inhalation device (Spiriva inhalations with HandiHaler) hydroxyzine HCl 10 mg tablet 10 mg PO QID PRN Itching 11/11/23 11/24/24 11/07/23 metoprolol succinate 25 mg 50 mg PO BID 11/11/23 11/24/24 11/10/23 tablet,extended release 24 hr albuterol sulfate 90 mcg/actuation 2 puff inhalation Q6H PRN 11/16/24 11/24/24 Unknown aerosol inhaler Shortness Of Breath Or Wheezing #8.5 grams (1) Asthma exacerbation Asthma persistence: persistent Asthma severity: moderate Qualified Code(s): J45.41 - Moderate persistent asthma with (acute) exacerbation
--- NOTE | 2024-11-24 16:20 | CT Scan Report ---
CT pulmonary angiogram with IV contrast History: Chest pain. Shortness of breath. Wheezing COMPARISON: 02/04/2023 TECHNIQUE: CT angiography of the chest was performed without IV contrast followed by IV contrast, including 3D post processing CTA image reconstruction. Dose reduction techniques were achieved by using automatic exposure control and/or adjustment of mA and/or kV according to patient size and/or use of iterative reconstruction technique. FINDINGS: Diagnostic quality: Adequate There is no evidence for pulmonary embolism. The heart is not enlarged. There is no pericardial effusion. There are no abnormally enlarged hilar or mediastinal lymph nodes. The central tracheobronchial tree is clear. There is inward bowing of the posterior membrane of the trachea and the mainstem bronchi, which narrows the lumen in the AP diameter. The lungs are clear. There is no pleural effusion. Limited visualized upper abdomen. No destructive osseous changes are seen. IMPRESSION: No evidence for pulmonary embolism. Narrowed appearance of the tracheobronchial tree, as above, which may be seen with excessive dynamic airway collapse. In this patient with reported history of respiratory symptoms, which has been attributed to asthma, consider tracheobronchomalacia. Mosaic attenuation of the lung parenchyma, which may be seen with small airway or small vessel disease. Electronically signed by Juan Morales 11-24-2024 4:19 PM
[2024-11-24 17:19] LABS: Adenovirus PCR Not Detected (NotDetected); Bordetella parapertussis PCR Not Detected (NotDetected); Bordetella pertussis PCR Not Detected (NotDetected); Chlamydia pneumoniae PCR Not Detected (NotDetected); Coronavirus 229E PCR Not Detected (NotDetected); Coronavirus CoV-2 (COVID19)PCR Not Detected (NotDetected); Coronavirus HKU1 PCR Not Detected (NotDetected); Coronavirus NL63 PCR Not Detected (NotDetected); Coronavirus OC43PCR Not Detected (NotDetected); Human Metapneumovirus PCR Not Detected (NotDetected); Influenza A PCR Not Detected (NotDetected); Influenza B PCR Not Detected (NotDetected); Mycoplasma pneumoniae PCR Not Detected (NotDetected); Parainfluenza Virus 1 PCR Not Detected (NotDetected); Parainfluenza Virus 2 PCR Not Detected (NotDetected); Parainfluenza Virus 3 PCR Not Detected (NotDetected); Parainfluenza Virus 4 PCR Not Detected (NotDetected); Respiratory Syncytial VirusPCR Not Detected (NotDetected); Rhinovirus/Enterovirus PCR Not Detected (NotDetected)
[2024-11-24] MEDS: POTASSIUM CHLORIDE CRTAB 20 MEQ TABCR PO STA (19:43)
[2024-11-24] MEDS: FUROSEMIDE INJ 20 MG/2 ML VIAL IV ONE (19:43)
[2024-11-24] MEDS ORDERED: ALBUTEROL HFA 8 GM INHALER INH PRN (20:20)
[2024-11-24] MEDS ORDERED: LEVALBUTEROL 1.25 MG/3 ML NEB INH PRN (20:20)
[2024-11-24] MEDS ORDERED: HYDROcodone/HOMATROPINE SYRUP 5MG/1.5MG 5ML UDP PO PRN (20:21)
[2024-11-24] MEDS: ALBUT/IPRATROP 3MG/0.5MG NEB 3 ML VIAL NEB SCH (20:54)
[2024-11-24] MEDS: CETIRIZINE HCL 10 MG TABLET PO SCH (20:54)
[2024-11-24] MEDS: ACETAMINOPHEN 325 MG TAB PO PRN (21:25)
[2024-11-24] MEDS: UMECLIDINIUM BROMIDE 62.5MCG/BLISTER 7 PUFFS/INHALER INH SCH (21:27)
[2024-11-24] MEDS: FLUTICASONE/VILANTEROL 200/25MCG 14 PUFFS/INHALER INH SCH (21:27)
[2024-11-24] MEDS: AZITHROMYCIN 250 MG TAB PO SCH (21:28)
[2024-11-24] MEDS: guaiFENesin 600 MG TABCR PO SCH (21:29)
[2024-11-24] MEDS: MONTELUKAST SODIUM 10 MG TABLET PO SCH (21:29)
[2024-11-24] MEDS: ENOXAPARIN INJ 40 MG/0.4 ML SYR SQ SCH (21:30)
[2024-11-24] MEDS: METOPROLOL SUCC 50MG EXT REL TAB PO SCH (21:30)
[2024-11-24] MEDS: LOSARTAN POTASSIUM 25 MG TAB PO SCH (21:30)
[2024-11-24] MEDS: POTASSIUM CHLORIDE 10 MEQ TABCR PO SCH (21:33)
[2024-11-25] MEDS: LORazepam 0.5 MG TAB PO PRN (00:13)
--- OUTSIDE RECORDS SUMMARY | 2024-11-25 06:12 | External Medical Summary | Summary of Care ---
Author Name Unknown Organization [facility] Address [address] [facility] [place] [address] Phone [phone] Care Team Providers Care Bonding Supervisor Name Role Phone LadanShani yost Narciso HER Primary Care Provider [phone] Encounter Details Date Type Department Care Team (Late st Contact Info) Description 11/24/2024 Orders Only PATIENT PORTAL DO NOT DELETE THIS DEPT USED BY [place] [id number] Allergies Active Allergy Reactions Criticality Noted Date Comments Egg-Derived Products Anaphylaxis High 08/12/2014 Able to eat eggs Flu Virus Vaccine Anaphylaxis High 10/24/2009 Hives, SOB, throat swelling Meloxicam 07/21/2023 documented as of this encounter (statuses as of 11/24/2024) Medications ZYRTEC 10 MG PO TABSIndications: Allergic rhinitis,Other specified urticaria one tablet each evening 30 Tab 6 1 Active CALCIUM 600/VITAMIN D 600-400 MG-UNIT PO TABS Take by mouth. 3 Active ONETOUCH ULTRASOFT LANCETS MISCIndications: Abnormal glucose,Gestatio nal diabetes Use up to four times a day as directed 1 Box 11 3 Active ZOLMitriptan (ZOMIG) 5 MG TabletIndication s:Migraine with status migrainosus, not intractable, unspecified migraine type as directed 9 Tab 5 6 Active Levalbuterol HCl 1.25 MG/3ML Inhalation Nebulization Solution Inhale 3 mL via nebulizer every 4 hours as needed for Wheezing or Shortness of Breath. 7 Active EPINEPHrine, anaphylaxis, (EPI-PEN) 0.3 MG/0.3ML SOAJ injection For a severe reaction: Place orange end against the outer thigh, press firmly, hold in place for 10 seconds and go to the Emergency room. 2 Device 3 7 Active Breo Ellipta 200-25 MCG/INH Inhalation Aerosol Powder Breath Activated every morning. 1 Active Aspirin 81 MG Oral Tablet Delayed ReleaseIndicatio ns:takes in the evening Take 1 Tablet by mouth in the morning. Active Potassium Chloride Bernie ER 10 MEQ Oral Tablet Extended Release Take 1 Tablet by mouth in the morning. 90 Tablet 3 3 Active Additional Information Patient taking differently:10 mEq Oral Daily(AM),Takes in the evening, Reported on 11/22/2024 Tiotropium [place] Monohydrate 18 MCG Inhalation Capsule (Spiriva) 1 Capsule. 3 Active Montelukast Sodium 10 MG Oral Tablet (Singulair)Indic ations:Asthma, moderate persistent TAKE 1 TABLET BY MOUTH AT BEDTIME 90 Tablet 3 4 Active Losartan Potassium 50 MG Oral Tablet (Cozaar)Indicati ons:HTN, goal below 140/90 Take 1 Tablet by mouth at bedtime. 90 Tablet 3 4 Active Albuterol Sulfate HFA 108 (90 Base) MCG/ACT Inhalation Aerosol Solution Inhale 2 Puffs by mouth every 6 hours as needed. Active Famotidine 20 MG Oral Tablet (Pepcid) Take 1 Tablet by mouth in the morning and 1 Tablet before bedtime. Active dilTIAZem HCl ER Coated Beads 240 MG Oral Capsule Extended Release 24 Hour (Cardizem CD) TAKE ONE CAPSULE BY MOUTH EVERY MORNING. 90 Capsule 1 4 Active LORazepam 0.5 MG Oral Tablet (Ativan)Indicati ons:Anxiety TAKE ONE TABLET THREE TIMES DAILY NEEDED ANXIETY 30 Tablet 5 Active Metoprolol Succinate ER 50 MG Oral Tablet Extended Release 24 Hour (toPROL XL)Indications:H TN, goal below 140/90,Paroxysma l atrial fibrillation (HCC) Take 1 Tablet by mouth in the morning and 1 Tablet before bedtime. 180 Tablet 3 5 Active Pantoprazole Sodium 40 MG Oral Tablet Delayed Release (Protonix)Indica tions:Gastroesop hageal reflux disease with esophagitis,Emilie bia ulcer TAKE 1 TABLET BY MOUTH EVERY MORNING 90 Tablet 2 5 Active Carisoprodol 350 MG Oral Tablet (Soma)Indication s:Spasm of muscle Take 1 tablet by mouth at bedtime as needed for muscle spasm 5 Tablet 5 Active predniSONE 20 MG Oral Tablet (Deltasone) Take 3 tabs for 3 days, 2 tabs for 3 days, 1 tab for 3 days, 1/2 tab for 3 days 20 Tablet 5 Active hydrOXYzine HCl 10 MG Oral Tablet (Atarax) TAKE ONE TABLET BY MOUTH FOUR TIMES DAILY NEEDED 30 Tablet 5 Active levoFLOXacin 500 MG Oral Tablet (Levaquin) Take 1 Tablet by mouth in the morning for 10 days. until gone.. 10 Tablet 5 12/03/19 25 Active documented as of this encounter (statuses as of 11/24/2024) Active Problems Problem Noted Date Diagnosed Date Paroxysmal atrial fibrillation 10/07/2024 Prediabetes 12/09/2022 Overview: Per Prediabetes protocol MEDICATION USE AGREEMENT 08/22/2017 DOUGLAS on CPAP 09/02/2013 Overview (09/02/2013): 6 cm water Asthma, moderate persistent 07/29/2011 Generalized osteoarthritis 10/15/2010 ADVERSE EFFECT OF INFLUENZA VACCINE 04/10/2010 Overview (04/10/2010): hives, cough, SOB 20 min post injection Obesity, morbid (more than 1 00 lbs over ideal weight or BMI > 40) 02/13/2010 Overview (11/20/2015): Per Obesity Protocol, #19 ICD-10 update of inactive term Diverticulitis of colon 11/14/2008 Diabetes mellitus of mother, complicating , childbirth, or the puerperium, unspecified as to episode of care(648.00) 12/08/2006 Deviated nasal septum 07/18/2005 GERD (gastroesophageal reflux disease) 3 Allergic rhinitis 01/05/2003 CHR ALLRG CONJUNCTIV NEC 01/05/2003 MIGRAINE, UNSPECIFIED, WITHO UT MENTION OF INTRACTABLE MIGRAINE documented as of this encounter (statuses as of 11/24/2024) Resolved Problems Problem Noted Date Diagnosed Date Resolved Date RUQ abdominal pain 01/14/2020 1 Inflammation of sacroiliac joint 06/25/2019 08/21/2022 Asthma, cough variant 09/09/20112016 Asthma (cough variant) - severe persistent 04/10/2010 09/09/2011 Urticaria 10/13/2006 08/22/2017 Asthma, cough variant 08/12/20052009 ADVANCE DIRECTIVE INFORMATION 02/24/2005 06/22/2008 Overview (02/24/2005): No, Advance Directive brochure offered , patient declined. Asthma with severity to be determined 04/10/2010 Overview (12/11/2015): ICD-10 update of inactive term documented as of this encounter (statuses as of 11/24/2024) Immunizations Name Administration Dates Next Due COVID-19 mRNA, LNP-s, No Pre serve, 2-Dose Series (Pfizer) 01/17/2021,12/27/2020 COVID-19, LNP-s, No Preserve , Phill-sucrose, Ages 12+ (Pfizer) 09/13/2021 Pneumococcal Polysaccharide PPV23 (Pneumovax) Seasonal Influenza Vac., MDV, IM, 0.5 mL (Fluzon e) 06/15/2009,07/02/2007 TDAP, Age 7 and older, IM (Adacel) 11/09/2010 documented as of this encounter Social History Tobacco Use Types Packs/Day Years Used Date Smoking Tobacco: Never Smokeless Tobacco: Never Alcohol Use Standard Drinks/Week Comments Yes 0 (1 standard drink = 0.6 oz pur e alcohol) 3-4 beers per week PHQ-2 Answer Date Recorded PHQ Adult Total Score 0 10/07/2024 Hunger Vital Sign Answer Date Recorded Within the past 12 months, y ou worried that your food would run out before you got the money to buy more. Never true 09/20/19 21 Within the past 12 months, t he food you bought just didn't last and you didn't have money to get more. 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 Not on file Not on file documented as of this encounter Plan of Treatment Upcoming Encounters Date Type Department Care Team (Late st Contact Info) Description 11/26/2024 4:40 PM EDT Office Visit [facility] [place] [facility] [address] [place] [address] Christian Brown PA-C [address] [place] [address] 12/09/2024 2:00 PM EDT Office Visit Cardiology, [facility] [address] [place] [phone] Lala Millan CRNP [address] [place] [phone] 04/12/2025 5:20 PM EDT Office Visit [facility] [address] [facility] [place] [address] Shani Rider PA-C [address] [facility] [place] [address] 05/18/2025 4:00 PM EDT Office Visit Cardiology, [facility] [address] [place] [phone] Ezio Soto MD [address] [place] [address] Scheduled Procedures Name Priority Associated Diagnoses Date/Ti me COLONOSCOPY FLEXIBLE PROXIMA L DIAGNOSTIC Recall Special screening for malignant neoplasms, colon Health Maintenance Due Date Last Done Comments Hepatitis B Vaccine (1 of 3 - 19+ 3-dose series) 02/21/1984 HPV/Co-Test 1995 Pneumococcal Vaccine: 50+ Years (2 of 2 - PCV) 09/23/2009 09/23/2008 Cologuard 2010 Fecal Occult Blood Test 2010 Sigmoidoscopy 2010 Zoster Vaccines (1 of 2) 2015 DTap/Tdap Vaccines (2 - Td or Tdap) 11/09/2020 11/09/2010 Mammogram 06/20/2023 06/20/2022, 04/0 03/2021, 11/04/2019, Additional history exists COVID-19 Vaccine ( - season) 2024 09/13/2021, 01/17/2021, 12/27/2020 Influenza Vaccine (FLU shot) (#1) 2024 06/15/2009, 07/02/2007 Depression Screening 10/07/2025 10/07/2024 Cervical Cancer Screening 10/24/2025 Pap Smear 10/24/2025 10/24/2022, 04/0 01/2017, 08/16/2014, Additional history exists Lipid Panel 11/23/2027 11/22/2022, 06/0 10/2015, 01/07/2008, Additional history exists Colonoscopy 05/03/2031 05/03/2021, 0 10/2020, 01/30/2009 Colorectal Cancer Screening 05/03/2031 HPV (Gardasil) Vaccine Aged Out No lo nger eligible based on patient's age to complete this topic MENINGOCOCCAL (MENACTRA/MENVEO) Aged Out No longer eligible based on patient's age to complete this topic Meningitis B Vaccine (Bexsero/Trumemba) Aged Out No longer eligible based on patient's age to complete this topic documented as of this encounter Medical Devices Not on filedocumented as of this encounter Care Teams Bonding Supervisor Relationship Specialty Start Date End Date TeresoNovember ARDEN Stuart [address] [place] [id number] PCP - General Physician Car Pusher 09/22/20 documented as of this encounter
--- OUTSIDE RECORDS SUMMARY | 2024-11-25 06:12 | External Medical Summary | Summary of Care ---
Author Name Unknown Organization [facility] Address [address] [facility] [place] [address] Phone [phone] Care Team Providers Care Public Health Director Name Role Phone Shani Rider PA-C Primary Care Provider [phone] Reason for Visit * Reason Onset Date Comments Medication Refill 11/22/2024 Encounter Details Date Type Department Care Team (Late st Contact Info) Description 11/22/2024 Refill Family Practice [facility] [address] [facility] [place] [address] Shani Rider PA-C [address] [facility] [place] [address] Allergies Active Allergy Reactions Criticality Noted Date [...] in the evening, Reported on 11/22/2024 Tiotropium [place] Monohydrate 18 MCG Inhalation Capsule (Spiriva) 1 [...] mRNA, LNP-s, No Pre serve, 2-Dose Series (SkuRun) 01/17/2021,12/27/2020 COVID-19, LNP-s, No Preserve , Phill-sucrose, [...] 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 Not on file Not on file documented as of this encounter Miscellaneous Notes * Telephone Encounter - Elizabeth Awad RPh - 11/23/2024 6:43 PM EDTRefused Prescriptions: Disp Refills hydrOXYzine HCl 10 MG Oral Tablet (Atarax) 30 Tab*0 Sig: Take 1Tablet by mouth in the morning and 1 Tablet at noon and 1 Tablet in the evening and 1 Tablet beforebedtime.Refused By: ELIZABETH AWADeason for Refusal: Duplicate Request documented in this encounter Plan of Treatment Upcoming Encounters Date Type Department Care Team (Late st Contact Info) Description 11/26/2024 4:40 PM EDT Office Visit Family Practice [address] [place] [address] Christian Brown PA-C [address] [place] [address] 12/09/2024 2:00 PM EDT Office Visit Cardiology, [facility] [address] [place] [phone] Lala Millan CRNP [address] [place] [address] 04/12/2025 5:20 PM EDT Office Visit Family Practice [facility] [address] [facility] [place] [address] Shani Rider PA-C [address] [facility] [place] [address] 05/18/2025 4:00 PM EDT Office Visit Cardiology, [facility] [address] [place] [phone] Ezio Soto MD [address] [place] [address] Scheduled Procedures Name Priority Associated Diagnoses Date/Ti [...] 11/04/2019, Additional history exists COVID-19 Vaccine ( season) 2024 09/13/2021, 01/17/2021, 12/27/2020 Influenza Vaccine (FLU shot) (#1) 2024 06/15/2009, 07/02/2007 Depression Screening 10/07/2025 10/07/2024 Cervical Cancer Screening 10/24/2025 Pap Smear 10/24/2025 10/24/2022, 04/0 01/2017, 08/16/2014, Additional history exists Lipid Panel 11/23/2027 11/22/2022, 10/2015, 01/07/2008, Additional history exists Colonoscopy 05/03/2031 05/03/2021, 10/2020, 01/30/2009 Colorectal Cancer Screening 05/03/2031 HPV [...] filedocumented as of this encounter Care Teams Public Health Director Relationship Specialty Start Date End Date Tereso Shani ARDEN Stuart [address] [place] [address] PCP - General Physician [place] [place] Supervisor 09/22/20 documented as of this encounter
--- OUTSIDE RECORDS SUMMARY | 2024-11-25 06:13 | External Medical Summary | Summary of Care ---
Author Name Unknown Organization [facility] Address [address] [place] [facility] [place] [address] Phone [phone] Care Team Providers Care Manager Photography Name Role Phone Shani Rider PA-C Primary Care Provider [phone] Reason for Visit * Reason Comments Re-Check Encounter Details Date Type Department Care Team (Latest Contact Info) Description 10/07/2024 5:40 PM EST Office Visit Family Practice [facility] [address] [place] [address] Shani Rider PA-C [address] [facility] [place] [address] Well adult exam*; Encounter for screening mammogram for malignant neoplasm of breast; Screening for depression; Prediabetes; Screening for cardiovascular condition; Paroxysmal atrial fibrillation (HCC); Morbid obesity due to excess calories (HCC) Allergies Active Allergy Reactions Criticality Noted Date Comments Egg-Derived Products Anaphylaxis High 08/12/2014 Able to eat eggs Flu Virus Vaccine Anaphylaxis High 10/24/2009 Hives, SOB, throat swelling Meloxicam 07/21/2023 documented as of this encounter (statuses as of 10/08/2024) Medications ZYRTEC 10 MG PO TABSIndications: Allergic rhinitis,Other specified urticaria one tablet each evening 30 Tab 6 01/05/20 11 Active CALCIUM 600/VITAMIN D 600-400 MG-UNIT PO TABS Take by mouth. 05/24/20 13 Active ONETOUCH ULTRASOFT LANCETS MISCIndications: Abnormal glucose,Gestatio nal diabetes Use up to four times a day as directed 1 Box 11 05/26/20 13 Active ZOLMitriptan (ZOMIG) 5 MG TabletIndication s:Migraine with status migrainosus, not intractable, unspecified migraine type as directed 9 Tab 5 03/05/20 16 Active Levalbuterol HCl 1.25 MG/3ML Inhalation Nebulization Solution Inhale 3 mL via nebulizer every 4 hours as needed for Wheezing or Shortness of Breath. 10/02/19 17 Active EPINEPHrine, anaphylaxis, (EPI-PEN) 0.3 MG/0.3ML SOAJ injection For a severe reaction: Place orange end against the outer thigh, press firmly, hold in place for 10 seconds and go to the Emergency room. 2 Device 3 11/05/19 17 Active Breo Ellipta 200-25 MCG/INH Inhalation Aerosol Powder Breath Activated every morning. 09/22/19 21 Active Aspirin 81 MG Oral Tablet Delayed ReleaseIndicatio ns:takes in the evening Take 1 Tablet by mouth in the morning. Active Potassium Chloride Bernie ER 10 MEQ Oral Tablet Extended Release Take 1 Tablet by mouth in the morning. 90 Tablet 3 01/29/20 23 Active Additional Information Patient taking differently:10 mEq Oral Daily(AM),Takes in the evening, Reported on 10/07/2024 Tiotropium [place] Monohydrate 18 MCG Inhalation Capsule (Spiriva) 1 Capsule. 02/04/20 23 Active hydrOXYzine HCl 10 MG Oral Tablet (Atarax) TAKE ONE TABLET BY MOUTH FOUR TIMES DAILY NEEDED 30 Tablet 5 09/19/19 24 Active Montelukast Sodium 10 MG Oral Tablet (Singulair)Indic ations:Asthma, moderate persistent TAKE 1 TABLET BY MOUTH AT BEDTIME 90 Tablet 3 01/13/20 24 Active Losartan Potassium 50 MG Oral Tablet (Cozaar)Indicati ons:HTN, goal below 140/90 Take 1 Tablet by mouth at bedtime. 90 Tablet 3 01/19/20 24 Active Albuterol Sulfate HFA 108 (90 Base) [...] BY MOUTH EVERY MORNING. 90 Capsule 1 06/15/20 24 Active Pantoprazole Sodium 40 MG Oral Tablet Delayed Release (Protonix)Indica tions:Gastroesop hageal reflux disease with esophagitis,Emilie bia ulcer TAKE ONE TABLET BY MOUTH EVERY MORNING. 90 Tablet 06/16/20 24 Active Carisoprodol 350 MG Oral Tablet (Soma)Indication s:Spasm of muscle Take 1 tablet by mouth at bedtime as needed for muscle spasm 5 Tablet 08/17/20 24 Active LORazepam 0.5 MG Oral Tablet (Ativan)Indicati ons:Anxiety TAKE ONE TABLET THREE TIMES DAILY NEEDED ANXIETY 30 Tablet 09/20/19 25 Active Metoprolol Succinate ER 50 MG Oral Tablet Extended Release 24 Hour (toPROL XL)Indications:H TN, goal below 140/90,Paroxysma l atrial fibrillation (HCC) Take 1 Tablet by mouth in the morning and 1 Tablet before bedtime. 180 Tablet 3 10/05/19 25 Active buPROPion HCl ER (SR) 150 MG Oral Tablet Extended Release 12 Hour (Wellbutrin SR) Take 1 tab by mouth once a day for 1 week then take 1 tab twice a day (morning & late afternoon) 60 Tablet 3 03/10/20 24 025 Discontin ued(Medic ation List Clean Up) documented as of this encounter (statuses as of 10/08/2024) Active Problems Problem Noted Date Diagnosed Date [...] as of this encounter (statuses as of 10/08/2024) Resolved Problems Problem Noted Date Diagnosed Date [...] as of this encounter (statuses as of 10/08/2024) Immunizations Name Administration Dates Next Due COVID-19 mRNA, LNP-s, No Pre serve, 2-Dose Series (Click Quote Save) 01/17/2021,12/27/2020 COVID-19, LNP-s, No Preserve , Phill-sucrose, [...] 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 History of Present Illness Demetrice Duran is a 59 year old female that presents for Re-Check Patient is a 59 year old female who presents for a follow up. Recent bout of a fib that sent [facility]. Has follow up with cardiology. More asthma since getting a new dog. Arthritis is flare up, worse in thumbs Denies chest pain,palpitations, edema, headaches, dizzy Appetite good Sleep wears c-pap Urination/ bowel movements good. Physical Exam Vitals: 10/07/24 1830 Temp: 99.2 F (37.3 C) Pulse: 74 Resp: 16 SpO2: 100% BP: 130/86 BP Readings from Last 3 Encounters: 10/07/24 130/86 08/17/24 138/86 03/10/24 124/72 Wt Readings from Last 3 Encounters: 08/17/24 287 lb 0.6 oz (130.2 kg) 03/10/24 275 lb 6.4 oz (124.9 kg) 02/02/24 270 lb (122.5 kg) General: alert, healthy, no distress, well nourished, well developed, comfortable, and cooperative Head: Normocephalic, No masses, lesions, tenderness or abnormalities Eye Exam: PERRLA, extraocular movements intact, conjunctiva are pink and non- injected, sclera clear Ears: External ears normal, Canals clear, TM's Normal Nose: no mucosal erythema, no mucosal edema, no purulent discharge Oropharynx: no exudate, no erythema, lips, buccal mucosa, and tongue normal, and mucous membranes are moist Neck: supple, no adenopathy, no bruits, thyroid normal size, non-tender, without nodularity Heart: regular rate & rhythm, no murmur, and no gallops Lungs: chest symmetric with normal AP diameter, no chest deformities noted, normal respiratory rateand rhythm, no chest wall tenderness, diaphragmatic excursion normal, lungs clear to auscultation Extremities: less than 2 second capillary refill, no joint deformities, effusion, or inflammation, no edema, no skin discoloration, no clubbing, no cyanosis I have reviewed the following results: CMP and CBC Assessment and Plan Well adult exam (Primary) Encounter for screening mammogram for malignant neoplasm of breast - MAMMOGRAM SCREENING CHRIS BILATERAL; Future; Expected date: 01/04/2025 Screening for depression - DEPRESSION SCREENING PERFORMED Prediabetes - HEMOGLOBIN A1C; Future; Expected date: 10/07/2024 Screening for cardiovascular condition - LIPID PANEL WITH DIRECT LDL IF TG IS HIGH; Future; Expected date: 10/07/2024 Paroxysmal atrial fibrillation (HCC) Morbid obesity due to excess calories (HCC) Wrap-Up Time: I spent a total of 30-39 minutes (exact time 35 mins) on the date of service in preparation, delivery, and documentation of the care provided to Demetrice [place] excluding any time spent in the performance of separately billed services. documented in this encounter Nursing Notes * Caridad Wong NA - 10/07/2024 6:24 PM EST Demetrice Duran presents for recheck. Patient reports her back pain has improved and denies any further concerns at this time. Medications & HM reviewed. documented in this encounter Plan of Treatment Upcoming Encounters Date Type Department Care Team (Late st Contact Info) Description 04/04/2025 4:00 PM EDT Office Visit Cardiology, [facility] [address] [place] [address] Ezio Soto MD [address] [place] [address] 04/12/2025 5:20 PM EDT Office Visit Family Practice [facility] [address] [facility] [place] [address] Shani Rider PA-C [address] [facility] [place] [address] Scheduled Orders Name Type Priority Associated Diagnoses Orde r Schedule MAMMOGRAM SCREENING CHRIS BILATERAL Medical Imaging Routine Encounter for screening mammogram for malignant neoplasm of breast Expected: 01/04/2025 (Approximate), Expires: 11/04/2025 LIPID PANEL WITH DIRECT LDL IF TG IS HIGH Lab Routine Screening for cardiovascular condition Expected: 10/07/2024, Expires: 10/07/2025 HEMOGLOBIN A1C Lab Routine Prediabetes Expected: 10/07/2024 (Approximate), Expires: 10/07/2025 Scheduled Procedures Name Priority Associated Diagnoses Date/Ti [...] 01/07/2008, Additional history exists Colonoscopy 05/03/2031 05/03/2021, 090 10/2020, 01/30/2009 Colorectal Cancer Screening 05/03/2031 HPV (Gardasil) Vaccine Aged Out No lo nger eligible based on patient's age to complete this topic MENINGOCOCCAL (MENACTRA/MENVEO) Aged Out No longer eligible based on patient's age to complete this topic documented as of this encounter Medical Devices Not on filedocumented as of this encounter Visit Diagnoses Diagnosis Well adult exam- Primary Routine general medical examination at a health care facility Encounter for screening mammogram for malignant neoplasm of breast Other screening mammogram Screening for depression Prediabetes Other abnormal glucose Screening for cardiovascular condition Screening for other and unspecified cardiovascular conditions Paroxysmal atrial fibrillation (HCC) Atrial fibrillation Morbid obesity due to excess calories (HCC) documented in this encounter Care Teams Manager Photography Relationship Specialty Start Date End Date Tereso November ARDEN Stuart [address] [place] [address] PCP - General Physician Molding Line Operator 09/22/20 documented as of this encounter
--- OUTSIDE RECORDS SUMMARY | 2024-11-25 06:13 | External Medical Summary | Summary of Care ---
Author Name Unknown Organization [facility] Address [address] [facility] [address] Phone [phone] Care Team Providers Care Molten Iron Pourer Name Role Phone Shani Rider PA-C Primary Care Provider [phone] Reason for Visit * Reason Comments eRx-Medication Refill Encounter Details Date Type Department Care Team (Late st Contact Info) Description 11/21/2024 Refill Family Practice [facility] [address] [place] [address] Shani Rider PA-C [address] [facility] [place] [address] Allergies Active Allergy Reactions Criticality Noted Date Comments Egg-Derived Products Anaphylaxis High 08/12/2014 Able to eat eggs Flu Virus Vaccine Anaphylaxis High 10/24/2009 Hives, SOB, throat swelling Meloxicam 07/21/2023 documented as of this encounter (statuses as of 11/22/2024) Medications ZYRTEC 10 MG PO TABSIndications :Allergic rhinitis,Other specified urticaria one tablet each evening 30 Tab 6 01/05/20 11 Active CALCIUM 600/VITAMIN D 600-400 MG-UNIT PO TABS Take by mouth. 05/24/20 13 Active ONETOUCH ULTRASOFT LANCETS MISCIndications :Abnormal glucose,Gestati onal diabetes Use up to four times a day as directed 1 Box 11 05/26/20 13 Active ZOLMitriptan (ZOMIG) 5 MG TabletIndicatio ns:Migraine with status migrainosus, not intractable, unspecified migraine [...] Active Aspirin 81 MG Oral Tablet Delayed ReleaseIndicati ons:takes in the evening Take 1 Tablet by mouth in the morning. Active Potassium Chloride Bernie ER 10 MEQ Oral Tablet Extended Release Take 1 Tablet by mouth in the morning. 90 Tablet 3 01/29/20 23 Active Additional Information Patient taking differently:10 mEq Oral Daily(AM),Takes in the evening, Reported on 11/12/2024 Tiotropium [place] Monohydrate 18 MCG Inhalation Capsule (Spiriva) 1 Capsule. 02/04/20 23 Active Montelukast Sodium 10 MG Oral Tablet (Singulair)Shelly cations:Asthma, moderate persistent TAKE 1 TABLET BY MOUTH AT BEDTIME 90 Tablet 3 01/13/20 24 Active Losartan Potassium 50 MG Oral Tablet (Cozaar)Indicat ions:HTN, goal below 140/90 Take 1 Tablet by [...] MORNING. 90 Capsule 1 06/15/20 24 Active LORazepam 0.5 MG Oral Tablet (Ativan)Indicat ions:Anxiety TAKE ONE TABLET THREE TIMES DAILY NEEDED ANXIETY 30 Tablet 09/20/19 25 Active Metoprolol Succinate ER 50 MG Oral Tablet Extended Release 24 Hour (toPROL XL)Indications: HTN, goal below 140/90,Paroxysm al atrial fibrillation (HCC) Take 1 Tablet by mouth in the morning and 1 Tablet before bedtime. 180 Tablet 3 10/05/19 25 Active Pantoprazole Sodium 40 MG Oral Tablet Delayed Release (Protonix)Indic ations:Gastroes ophageal reflux disease with esophagitis,Gas tric ulcer TAKE 1 TABLET BY MOUTH EVERY MORNING 90 Tablet 2 10/11/19 25 Active Carisoprodol 350 MG Oral Tablet (Soma)Indicatio ns:Spasm of muscle Take 1 tablet by mouth at bedtime as needed for muscle spasm 5 Tablet 10/19/19 25 Active predniSONE 20 MG Oral Tablet (Deltasone) Take 3 tabs for 3 days, 2 tabs for 3 days, 1 tab for 3 days, 1/2 tab for 3 days 20 Tablet 11/13/19 25 Active hydrOXYzine HCl 10 MG Oral Tablet (Atarax) TAKE ONE TABLET BY MOUTH FOUR TIMES DAILY NEEDED 30 Tablet 11/23/19 25 Active Azithromycin 250 MG Oral Tablet (Zithromax) Take 2 tabs by mouth on the first day, then 1 tab daily on days two through five 6 Tablet 11/13/19 25 2024 Discontinued(E nd of Procedure) hydrOXYzine HCl 10 MG Oral Tablet (Atarax) TAKE ONE TABLET BY MOUTH FOUR TIMES DAILY NEEDED 30 Tablet 11/16/19 25 2024 Discontinued documented as of this encounter (statuses as of 11/22/2024) Active Problems Problem Noted Date Diagnosed Date [...] as of this encounter (statuses as of 11/22/2024) Resolved Problems Problem Noted Date Diagnosed Date [...] as of this encounter (statuses as of 11/22/2024) Immunizations Name Administration Dates Next Due COVID-19 [...] 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 on file Not on file documented as of this encounter Miscellaneous Notes * Telephone Encounter - Blanca Leone RPh - 11/22/2024 2:20 PM EDTSigned Prescriptions: Disp Refills hydrOXYzine HCl 10 MG Oral Tablet (Atarax) 30 Tab*0 Sig: TAKE ONE TABLET BY MOUTH FOUR TIMES DAILY NEEDEDAuthorizing Provider: SHANI RIDER AOrdering User: BLANCA LEONE Electronically signed by Blanca Leone [facility]ly [facility] at 11/22/2024 2:20 PM EDT documented in this encounter Plan of Treatment Upcoming Encounters Date Type Department Care Team (Late st Contact Info) Description 11/26/2024 4:40 PM EDT Office Visit Family Practice [address] [place] [address] Christian Brown PA-C [address] [place] [address] 12/09/2024 2:00 PM EDT Office Visit Cardiology, [facility] [address] [place] [phone] Lala Millan CRNP [address] [place] [address] 04/12/2025 5:20 PM EDT Office Visit Family Practice [facility] [address] [facility] [place] [address] Shani Rider PA-C [address] [facility] [place] [address] 05/18/2025 4:00 PM EDT Office Visit Cardiology, [facility] [address] [place] [phone] Ezio Soto MD [address] [place] [address] Scheduled Procedures Name Priority Associated Diagnoses Date/Ti [...] Cancer Screening 10/24/2025 Pap Smear 10/24/2025 10/24/2022, 0 01/2017, 08/16/2014, Additional history exists Lipid Panel [...] filedocumented as of this encounter Care Teams Molten Iron Pourer Relationship Specialty Start Date End Date Tereso November ARDEN Stuart [address] [place] [address] PCP - General Physician Aviation Project Manager 09/22/20 documented as of this encounter
--- OUTSIDE RECORDS SUMMARY | 2024-11-25 06:13 | External Medical Summary | Summary of Care ---
Author Name Unknown Organization [facility] Address [address] [facility] [place] [address] Phone [phone] Care Team Providers Care Community Placement Worker Name Role Phone Shani Rider PA-C Primary Care Provider [phone] Reason for Referral * Medication Prior Authorization - Closed Specialty Diagnoses / Procedures Referred By Denisa cabezas Referred To Contact Diagnoses Spasm of muscle Shani Rider PA-C [address] [place] [address] Phone: tel: fax: Referral ID Status Reason Start Date Expiration Date Visits Re quested Visits Authorized [id number] Closed [phone] Reason for Visit * Reason Comments eRx-Medication Refill Encounter Details Date Type Department Care Team (Late st Contact Info) Description 10/18/2024 Refill Family Practice [facility] [address] [place] [address] Nadia Gama MD 200 [facility] [place] [address] Spasm of muscle Allergies Active Allergy Reactions Criticality Noted Date Comments Egg-Derived Products Anaphylaxis High 08/12/2014 Able to eat eggs Flu Virus Vaccine Anaphylaxis High 10/24/2009 Hives, SOB, throat swelling Meloxicam 07/21/2023 documented as of this encounter (statuses as of 10/20/2024) Medications ZYRTEC 10 MG PO TABSIndications :Allergic [...] in the evening, Reported on 10/07/2024 Tiotropium [place] Monohydrate 18 MCG Inhalation Capsule (Spiriva) 1 [...] muscle spasm 5 Tablet 10/19/19 25 Active Carisoprodol 350 MG Oral Tablet (Soma)Indicatio ns:Spasm of muscle Take 1 tablet by mouth at bedtime as needed for muscle spasm 5 Tablet 08/17/20 24 025 Discontinued documented as of this encounter (statuses as of 10/20/2024) Active Problems Problem Noted Date Diagnosed Date [...] as of this encounter (statuses as of 10/20/2024) Resolved Problems Problem Noted Date Diagnosed Date [...] as of this encounter (statuses as of 10/20/2024) Immunizations Name Administration Dates Next Due COVID-19 [...] 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 on file Not on file documented as of this encounter Miscellaneous Notes * Telephone Encounter - Shani Rider PA-C - 10/19/2024 7:37 PM ESTSigned Prescriptions: Disp Refills Carisoprodol 350 MG Oral Tablet (Soma) 5 Tabl*0 Sig: Take 1 tablet by mouth at bedtime as needed for muscle spasm Authorizing Provider: SHANI RIDER * Telephone Encounter - Elizabeth Barillas [facility] - 10/19/2024 3:16 PM EST Pending Prescriptions: Disp Refills Carisoprodol 350 MG Oral Tablet [Pharmacy *5 Tabl*0 Sig: Take 1 tablet by mouth at bedtime as needed for muscle spasm Electronically signed by Elizabeth Barillas [facility] at 10/19/2024 3:16 PM EST * Telephone Encounter - Elizabeth Barillas RPh - 10/19/2024 3:15 PM EST I have reviewed the patients controlled substance dispensing history in the Prescription Drug Monitoring Program in compliance with the [facility] regulations before prescribing a controlled substance. PDMP checked on 10/19/2024. Pending Prescriptions: Disp Refills Carisoprodol 350 MG Oral Tablet (Soma) [P*5 Tabl*0 Sig: Take 1 tablet by mouth at bedtime as needed for muscle spasm Last Visit: 10/07/2024 (in office), 09/27/2020 (telemedicine) Next Visit: 04/12/2025 Date medication was last filled: 08/18/24 Date medication is due for refill: 08/22/24 Pharmacy: [id number] [address] [place] [address] [address]619- [place] Is this request for a controlled substance? Yes and Urine Drug Screen Not completed Toxicology results: No results found. However, due to the size of the patient record, not all encounters were searched.Please check Results Review for a complete set of results. Please approve if appropriate. Thank You Elizabeth Barillas, PharmD Clinical Pharmacist [facility] ([facility]) [phone] / [phone] 10/19/2024, 3:16 PM Electronically signed by Elizabeth Barillas [facility] at 10/19/2024 3:16 PM EST documented in this encounter Plan of Treatment Upcoming Encounters Date Type Department Care Team (Late st Contact Info) Description 04/04/2025 4:00 PM EDT Office Visit Cardiology, [facility] [address] [place] [address] Ezio Soto MD [address] [place] [address] 04/12/2025 5:20 PM EDT Office Visit [facility] [address] [facility] [address] Shani Rider PA-C [address] [place] [address] Scheduled Procedures Name Priority Associated Diagnoses Date/Ti [...] as of this encounter Visit Diagnoses Diagnosis Spasm of muscle documented in this encounter Care Teams Community Placement Worker Relationship Specialty Start Date End Date Tereso November Narciso, ARDEN [address] [place] [address] PCP - General Physician Quality Lab Technician 09/22/20 documented as of this encounter
--- OUTSIDE RECORDS SUMMARY | 2024-11-25 06:13 | External Medical Summary | Summary of Care ---
Author Name Unknown Organization [facility] Address [address] [facility] [place] [address] Phone [phone] Care Team Providers Care Molder Pipe Covering Name Role Phone LadanShani yost PAParul Primary Care Provider [phone] Reason for Visit * Reason Onset Date Comments Advice 10/28/2024 High BP chest pa ins Encounter Details Date Type Department Care Team (Late st Contact Info) Description 10/28/2024 Telephone Cardiology, [facility] [address] [place] [address] Ezio Soto MD [address] [place] [address] Advice (High BP chest pains ) Allergies Active Allergy Reactions Criticality Noted Date Comments Egg-Derived Products Anaphylaxis High 08/12/2014 Able to eat eggs Flu Virus Vaccine Anaphylaxis High 10/24/2009 Hives, SOB, throat swelling Meloxicam 07/21/2023 documented as of this encounter (statuses as of 10/28/2024) Medications ZYRTEC 10 MG PO TABSIndications: Allergic [...] in the evening, Reported on 10/07/2024 Tiotropium [place] Monohydrate 18 MCG Inhalation Capsule (Spiriva) 1 Capsule. 3 Active hydrOXYzine HCl 10 MG Oral Tablet (Atarax) TAKE ONE TABLET BY MOUTH FOUR TIMES DAILY NEEDED 30 Tablet 5 4 Active Montelukast Sodium 10 MG Oral Tablet [...] Release (Protonix)Indica tions:Gastroesop hageal reflux disease with esophagitis,Emiile bia ulcer TAKE 1 TABLET BY MOUTH EVERY MORNING 90 Tablet 2 5 Active Carisoprodol 350 MG Oral Tablet (Soma)Indication s:Spasm of muscle Take 1 tablet by mouth at bedtime as needed for muscle spasm 5 Tablet 5 Active documented as of this encounter (statuses as of 10/28/2024) Active Problems Problem Noted Date Diagnosed Date [...] as of this encounter (statuses as of 10/28/2024) Resolved Problems Problem Noted Date Diagnosed Date Resolved Date RUQ abdominal pain 01/14/2020 Inflammation of sacroiliac joint 06/25/2019 08/21/2022 Asthma, cough variant 09/09/20112016 Asthma (cough variant) - severe persistent 04/10/2010 09/09/2011 Urticaria 10/13/2006 08/22/2017 Asthma, cough variant 08/12/20052009 ADVANCE DIRECTIVE INFORMATION 02/24/2005 06/22/2008 Overview (02/24/2005): No, Advance Directive brochure offered , patient declined. 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 Ordered so it can be placed by cardiology as patient would like to come here to have it put on. Transferred to scheduling. * Telephone Encounter - Nadja Alfaro OSA - 10/28/2024 2:48 PM EST Person calling: Demetrice Relationship to patient: self Phone/Fax to return call: [phone] Reason for call(brief): ret call Pharmacy: Provider Name:Dr Soto Detailed message to office:pt returning call * Telephone Encounter - Ele Ansari LPN - 10/28/2024 2:07 PM EST Called pt, no answer, LMOM * Telephone Encounter - Ezio Soto MD - 10/28/2024 2:03 PM EST Zio patch ordered 1 year ago by PCP. Go ahead and place * Telephone Encounter - Santy Baer LPN - 10/28/2024 9:49 AM EST Called patient for more detail. She was awoken with chest pain and checked BP per below. This subsided after 1/2 hour. Patient currently felt fine. She had not taken morning medications at time of call. She will take them after hanging up. She has some discomfort in and around her left shoulder blade. Patient was in ED 10/04/24. Denied any another current symptoms. Patient aware to stay hydrated, take medications as prescribed and if symptoms return, worsen or she notices other symptoms to go to ED. Patient asking if a Zio can be done prior to upcoming appointment on 12/09/24. Please advise. * Telephone Encounter - Payton Garcia OSA - 10/28/2024 8:40 AM EST Person calling: Demetrice Relationship to patient: pt Phone/Fax to return call: [phone] Reason for call(brief): symptoms Pharmacy: Provider Name:Charles Detailed message to office: pt called she woke up with some chest pains her BP at 830 am was 156/79 Please advise Thank you DOUGLAS Hill documented in this encounter Plan of Treatment Upcoming Encounters Date Type Department Care Team (Late st Contact Info) Description 11/01/2024 9:15 AM EST Cardiac Studies Cardiac Studies, [facility] 132 [facility] [place] [address] 12/09/2024 2:00 PM EDT Office Visit [facility] [address] [place] [address] Lala Millan CRNP [address] [place] [address] 04/04/2025 4:00 PM EDT Office Visit Cardiology, [facility] [address] [place] [address] Ezio Soto MD [address] [place] [address] 04/12/2025 5:20 PM EDT Office Visit Family Practice [facility] 200 [facility] [place] [address] Shani Rider PA-C 200 [facility] [place] [address] Scheduled Orders Name Type Priority Associated Diagnoses Orde r Schedule EXTERNAL EKG 8 TO 15 DAYS Holter Routine Paroxysmal atrial fibrillation (HCC) Expected: 10/29/2024 (Approximate), Expires: 10/28/2025 Scheduled Procedures Name Priority Associated Diagnoses Date/Ti [...] as of this encounter Visit Diagnoses Diagnosis Paroxysmal atrial fibrillation (HCC)- Primary Atrial fibrillation documented in this encounter Care Teams Molder Pipe Covering Relationship Specialty Start Date End Date Ladannovember ARDEN Stuart [address] [place] [address] PCP - General Physician Chamfering Machine Operator 09/22/20 documented as of this encounter
--- OUTSIDE RECORDS SUMMARY | 2024-11-25 06:13 | External Medical Summary | Summary of Care ---
Author Name Unknown Organization [facility] Address [address] [place] [facility] [place] [facility] [place] [place] [address] Phone [phone] Care Team Providers Care Patient Service Rep Name Role Phone Shani Rider PA-C Primary Care Provider [phone] Reason for Visit * Reason Comments eRx-Medication Refill Encounter Details Date Type Department Care Team (Late st Contact Info) Description 11/12/2024 Refill Family Practice [facility] 200 [facility] [place] [address] Shani Rider PA-C 200 [facility] [place] [address] Allergies Active Allergy Reactions Criticality Noted Date Comments Egg-Derived Products Anaphylaxis High 08/12/2014 Able to eat eggs Flu Virus Vaccine Anaphylaxis High 10/24/2009 Hives, SOB, throat swelling Meloxicam 07/21/2023 documented as of this encounter (statuses as of 11/15/2024) Medications ZYRTEC 10 MG PO TABSIndications :Allergic [...] in the evening, Reported on 11/12/2024 Tiotropium [place] Monohydrate 18 MCG Inhalation Capsule (Spiriva) 1 [...] muscle spasm 5 Tablet 10/19/19 25 Active Azithromycin 250 MG Oral Tablet (Zithromax) Take 2 tabs by mouth on the first day, then 1 tab daily on days two through five 6 Tablet 11/13/19 25 025 Active predniSONE 20 MG Oral Tablet (Deltasone) Take 3 tabs for 3 days, 2 tabs for 3 days, 1 tab for 3 days, 1/2 tab for 3 days 20 Tablet 11/13/19 25 Active hydrOXYzine HCl 10 MG Oral Tablet (Atarax) TAKE ONE TABLET BY MOUTH FOUR TIMES DAILY NEEDED 30 Tablet 11/16/19 25 Active hydrOXYzine HCl 10 MG Oral Tablet (Atarax) TAKE ONE TABLET BY MOUTH FOUR TIMES DAILY NEEDED 30 Tablet 5 09/19/19 24 025 Discontinued documented as of this encounter (statuses as of 11/15/2024) Active Problems Problem Noted Date Diagnosed Date [...] as of this encounter (statuses as of 11/15/2024) Resolved Problems Problem Noted Date Diagnosed Date [...] as of this encounter (statuses as of 11/15/2024) Immunizations Name Administration Dates Next Due COVID-19 [...] 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 on file Not on file documented as of this encounter Miscellaneous Notes * Telephone Encounter - Shani Rider PA-C - 11/15/2024 2:03 PM EDTSigned Prescriptions: Disp Refills hydrOXYzine HCl 10 MG Oral Tablet (Atarax) 30 Tab*0 Sig: TAKE ONE TABLET BY MOUTH FOUR TIMES DAILY NEEDED Authorizing Provider: SHANI RIDER * Telephone Encounter - Mone Conn RPh - 11/15/2024 8:34 AM EDTPending Prescriptions: Disp Refills hydrOXYzine HCl 10 MG Oral Tablet [Pharmac*30 Tab*0 Sig: TAKE ONE TABLET BY MOUTH FOUR TIMES DAILY NEEDED * Telephone Encounter - Mone Conn [facility] - 11/15/2024 8:33 AM EDT [facility] is currently not authorized to approve refills for the pended medication(s) per refill protocol. Please approve if appropriate. Pending Prescriptions: Disp Refills hydrOXYzine HCl 10 MG Oral Tablet (Atarax*30 Tab*0 Sig: TAKE ONE TABLET BY MOUTH FOUR TIMES DAILY NEEDED Last Visit: 10/07/2024 (in office), 09/27/2020 (telemedicine) Next Visit: 04/12/2025 If no future appointments scheduled, and last appointment is greater than a year ago, please schedule patient for a follow-up appointment Last date the medication was ordered: 09/19/23 Pharmacy: [id number] [address] [place] [address] [address]619- [place] Is this request for a controlled substance? No Urine Drug Screen:No results found. However, due to the size of the patient record, not all encounters were searched. Please check Results Review for a complete set of results. Patient Phone Numbers Labs: Lab Results Component Value Date/Time CREAT 0.70 12/16/2023 12:00 AM CREAT 0.6 08/28/2016 12:38 PM POTASSIUM 3.7 12/16/2023 12:00 AM POTASSIUM 3.9 08/28/2016 12:38 PM TSH 1.99 12/27/2020 10:34 AM TSH 0.754 06/25/2019 12:00 AM TSH 1.40 06/19/2010 09:38 AM LDL 104 (H) 01/07/2008 08:21 AM LDL 100 01/07/2008 08:21 AM LDLCALC 88 11/22/2022 12:00 AM ALT 23 03/20/2021 10:10 AM ALT 28 03/26/2017 12:00 AM ALT 34 08/28/2016 12:38 PM HGBA1C 5.9 (A) 11/22/2022 12:00 AM HGBA1C 5.5 06/27/2010 10:00 AM * Telephone Encounter - Interface, E-Rx Ss Inbound - 11/14/2024 5:34 PM EDT Pending Prescriptions: Disp Refills hydrOXYzine HCl 10 MG Oral Tablet [Pharmac*30 Tab*0 Sig: TAKE ONE TABLET BY MOUTH FOUR TIMES DAILY NEEDED documented in this encounter Plan of Treatment Upcoming Encounters Date Type Department Care Team (Late st Contact Info) Description 12/09/2024 2:00 PM EDT [facility] [address] [place] [address] Lala Millan CRNP 132 [place] [address] 04/12/2025 5:20 PM EDT Office Visit [facility] 200 [facility] [place] [address] Shani Rider PA-C 200 [facility] [place] [address] 05/18/2025 4:00 PM EDT [facility] [address] [place] [address] Ezio Soto MD [address] [place] [address] Scheduled Procedures Name Priority Associated Diagnoses Date/Ti [...] filedocumented as of this encounter Care Teams Patient Service Rep Relationship Specialty Start Date End Date Tereso Shani ARDEN Stuart [address] [place], [place] [address] PCP - General Physician [place] Program Coordinator 09/22/20 documented as of this encounter
--- OUTSIDE RECORDS SUMMARY | 2024-11-25 06:13 | External Medical Summary | Summary of Care ---
Author Name Unknown Organization [facility] Address [address] [facility] [place] [address] Phone [phone] Care Team Providers Care Title Search Manager Name Role Phone LadanShani yost PAParul Primary Care Provider Reason for Visit * Reason Onset Date Comments Advice 10/28/2024 High BP chest pa ins Encounter Details Date Type Department Care Team (Late st Contact Info) Description 10/28/2024 Telephone Cardiology, [facility] [address] [place] [address] Ezio Soto MD [address] [place] [address] Advice (High BP chest pains ) Allergies [...] in the evening, Reported on 10/07/2024 Tiotropium [place] Monohydrate 18 MCG Inhalation Capsule (Spiriva) 1 [...] 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 file Not on file documented as of this encounter Miscellaneous Notes * Addendum Note - Santy Baer LPN - 10/28/2024 3:04 PM ESTAddended by: ASNTY BAER on: 10/28/2024 03:04 PM Modules accepted: [...] to patient: self Phone/Fax to return call: [phone] Reason for call(brief): ret call Pharmacy: Provider [...] to patient: pt Phone/Fax to return call: [phone] Reason for call(brief): symptoms Pharmacy: Provider Name:Charles Detailed message to office: pt called she woke up with some chest pains her BP at 830 am was 156/79 Please advise Thank you DOUGLAS Hill documented in this encounter Plan of Treatment Upcoming Encounters Date Type Department Care Team (Late st Contact Info) Description 11/01/2024 9:15 AM EST Cardiac Studies Cardiac Studies, [facility] 132 [facility] [place] [address] 12/09/2024 2:00 PM EDT Office Visit [facility] [address] [place] [address] Lala Millan CRNP [address] [place] [address] 04/04/2025 4:00 PM EDT Office Visit Cardiology, [facility] [address] [place] [address] Ezio Soto MD [address] [place] [address] 04/12/2025 5:20 PM EDT Office Visit Family Practice [facility] 200 [facility] [place] [address] Shani Rider PA-C 200 [facility] [place] [address] Scheduled Orders Name Type Priority Associated Diagnoses [...] fibrillation documented in this encounter Care Teams Title Search Manager Relationship Specialty Start Date End Date Ladannovember ARDEN Stuart [address] [place] [address] PCP - General Physician Dietetic Technician Registered 09/22/20 documented as of this encounter
--- OUTSIDE RECORDS SUMMARY | 2024-11-25 06:13 | External Medical Summary | Summary of Care ---
Author Name Unknown Organization [facility] Address [address] [place] [facility] [place] [address] Phone [phone] Care Team Providers Care Hack Driver Name Role Phone Shani Rider PA-C Primary Care Provider [phone] Reason for Visit * Reason Comments eRx-Medication Refill Encounter Details Date Type Department Care Team (Late st Contact Info) Description 10/09/2024 Refill Family Practice [facility] 200 [facility] [place] [address] Shani Rider PA-C 200 [facility] [place] [address] Gastroesophageal reflux disease with esophagitis; Gastric ulcer Allergies Active Allergy Reactions Criticality Noted Date Comments Egg-Derived Products Anaphylaxis High 08/12/2014 Able to eat eggs Flu Virus Vaccine Anaphylaxis High 10/24/2009 Hives, SOB, throat swelling Meloxicam 07/21/2023 documented as of this encounter (statuses as of 10/11/2024) Medications ZYRTEC 10 MG PO TABSIndications :Allergic [...] in the evening, Reported on 10/07/2024 Tiotropium [place] Monohydrate 18 MCG Inhalation Capsule (Spiriva) 1 [...] MORNING. 90 Capsule 1 06/15/20 24 Active Carisoprodol 350 MG Oral Tablet (Soma)Indicatio [...] MORNING 90 Tablet 2 10/11/19 25 Active Pantoprazole Sodium 40 MG Oral Tablet Delayed Release (Protonix)Indic ations:Gastroes ophageal reflux disease with esophagitis,Gas tric ulcer TAKE ONE TABLET BY MOUTH EVERY MORNING. 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 on file Not on file documented as of this encounter Miscellaneous Notes * Telephone Encounter - Ayala Mcfarland [facility] - 10/11/2024 1:36 PM ESTSigned Prescriptions: Disp Refills Pantoprazole Sodium 40 MG Oral Tablet [place]*90 Tab*2 Sig: TAKE 1 TABLET BY MOUTH EVERY MORNING Authorizing Provider: SHANI RIDER User: AYALA MCFARLAND * Telephone Encounter - Interface, E-Rx Ss Inbound - 10/11/2024 1:26 PM EST Pending Prescriptions: Disp Refills Pantoprazole Sodium 40 MG Oral Tablet [place]*90 Tab*0 Sig: TAKE 1 TABLET BY MOUTH EVERY MORNING documented in this encounter Plan of Treatment Upcoming Encounters Date Type Department Care Team (Late st Contact Info) Description 04/04/2025 4:00 PM EDT Office Visit Cardiology, [facility] [address] [place] [address] Ezio Soto MD [address] [place] [address] 04/12/2025 5:20 PM EDT Office Visit Family Practice [facility] 200 [facility] [place] [address] Shani Rider PA-C 200 [facility] [place] [address] Scheduled Procedures Name Priority Associated Diagnoses Date/Ti [...] Additional history exists Lipid Panel 11/23/2027 11/22/2022, 0 10/2015, 01/07/2008, Additional history exists Colonoscopy 05/03/2031 05/03/2021, 10/2020, 01/30/2009 Colorectal Cancer Screening 05/03/2031 HPV (Gardasil) Vaccine Aged Out No lo nger eligible based on patient's age to complete this topic MENINGOCOCCAL (MENACTRA/MENVEO) Aged Out No longer eligible based on patient's age to complete this topic documented as of this encounter Medical Devices Not on filedocumented as of this encounter Visit Diagnoses Diagnosis Gastroesophageal reflux disease with esophagitis Gastric ulcer Gastric ulcer, unspecified as acute or chronic, without mention of hemorrhage, perforation, or obstruction documented in this encounter Care Teams Hack Driver Relationship Specialty Start Date End Date Tereso November ARDEN Stuart [facility] [place] [address] PCP - General Physician [place] Staff Member 09/22/20 documented as of this encounter
--- OUTSIDE RECORDS SUMMARY | 2024-11-25 06:13 | External Medical Summary | Summary of Care ---
Author Name Unknown Organization [facility] Address [address] [facility] [place] [address] Phone [phone] Care Team Providers Care Tube Bender Name Role Phone LadanShani yost PAParul Primary Care Provider [phone] Reason for Visit * Reason Onset Date Comments Advice 10/28/2024 High BP chest pa ins Encounter Details Date Type Department Care Team (Late st Contact Info) Description 10/28/2024 Telephone Cardiology, [facility] [address] [place] [address] Ezio Soto MD [address] [place] [address] Advice (High BP chest pains ) Allergies [...] in the evening, Reported on 10/07/2024 Tiotropium [place] Monohydrate 18 MCG Inhalation Capsule (Spiriva) 1 [...] 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 Not [...] to patient: self Phone/Fax to return call: [phone] Reason for call(brief): ret call Pharmacy: Provider [...] to patient: pt Phone/Fax to return call: [phone] Reason for call(brief): symptoms Pharmacy: Provider Name:Charles Detailed message to office: pt called she woke up with some chest pains her BP at 830 am was 156/79 Please advise Thank you DOUGLAS Hill documented in this encounter Plan of Treatment Upcoming Encounters Date Type Department Care Team (Late st Contact Info) Description 11/01/2024 9:15 AM EST Cardiac Studies Cardiac Studies, [facility] [address] [facility] [place] [address] 12/09/2024 2:00 PM EDT Office Visit [facility] [address] [place] [address] Lala Millan CRNP [address] [place] [address] 04/04/2025 4:00 PM EDT Office Visit Cardiology, [facility] [address] [place] [address] Ezio Soto MD [address] [place] [address] 04/12/2025 5:20 PM EDT Office Visit Family Practice [facility] [address] [facility] [place] [address] Shani Rider PA-C [address] [facility] [place] [address] Scheduled Orders Name Type Priority Associated Diagnoses [...] fibrillation documented in this encounter Care Teams Tube Bender Relationship Specialty Start Date End Date Ladannovember ARDEN Stuart [address] [place] [address] PCP - General Physician Geothermal Hvac Technician 09/22/20 documented as of this encounter
--- OUTSIDE RECORDS SUMMARY | 2024-11-25 06:13 | External Medical Summary | Summary of Care ---
Author Name Unknown Organization [facility] Address [address] [facility] [place] [address] Phone [phone] Care Team Providers Care Mailroom Clerk Name Role Phone LadanShani yost Narciso HER Primary Care Provider [phone] Reason for Visit * Reason Comments Acute Demetrice Duran is a 59 year old female who presents today evaluation of SOB,cough and wheezing, She is waking up during the night to use her nebulizer. Her symptoms started 2 weeks ago. She was seen by Dr Pal for symptoms. She is taking prednisone as prescribed. Encounter Details Date Type Department Care Team (Late st Contact Info) Description 11/22/2024 5:00 PM EDT [facility] [address] [facility] [place] [address] Christian Brown PA-C [address] [facility] [place] [id number] Moderate persistent asthma with acute exacerbation*; Bronchitis Allergies Active Allergy Reactions Criticality Noted Date Comments Egg-Derived Products Anaphylaxis High 08/12/2014 Able to eat eggs Flu Virus Vaccine Anaphylaxis High 10/24/2009 Hives, SOB, throat swelling Meloxicam 07/21/2023 documented as of this encounter (statuses as of 11/23/2024) Medications ZYRTEC 10 MG PO TABSIndications: Allergic [...] in the evening, Reported on 11/22/2024 Tiotropium [place] Monohydrate 18 MCG Inhalation Capsule (Spiriva) 1 [...] 25 Active Carisoprodol 350 MG Oral Tablet (Soma)Indication [...] DAILY NEEDED 30 Tablet 11/23/19 25 Active levoFLOXacin 500 MG Oral Tablet (Levaquin) Take 1 Tablet by mouth in the morning for 10 days. until gone.. 10 Tablet 11/23/19 25 025 Active Azithromycin 250 MG Oral Tablet (Zithromax) Take 2 tabs by mouth on the first day, then 1 tab daily on days two through five 6 Tablet 11/13/19 25 025 Discontin ued(End of Procedure ) documented as of this encounter (statuses as of 11/23/2024) Active Problems Problem Noted Date Diagnosed Date [...] as of this encounter (statuses as of 11/23/2024) Resolved Problems Problem Noted Date Diagnosed Date [...] as of this encounter (statuses as of 11/23/2024) Immunizations Name Administration Dates Next Due COVID-19 mRNA, LNP-s, No Pre serve, 2-Dose Series (Clutter) 01/17/2021,12/27/2020 COVID-19, LNP-s, No Preserve , Phill-sucrose, [...] 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 Not on file Not on file documented as of this encounter Last Filed Vital Signs Vital Sign Reading Time Taken Comments Blood Pressure 144/88 11/22/2024 4:46 PM EDT Pulse 72 11/22/2024 4:46 PM EDT Temperature 36.7 C (98 F) 11/22/2024 4:46 PM EDT Respiratory Rate 20 11/22/2024 4:46 PM EDT Oxygen Saturation 98% 11/22/2024 4:46 PM EDT Inhaled Oxygen Concentration - - Weight 135.5 kg (298 lb 12.8 oz) 11/22/2024 4:46 PM EDT Height 165.1 cm (5' 5") 11/22/2024 4:46 PM EDT Body Mass Index 49.72 11/22/2024 4:46 PM EDT documented in this encounter Progress Notes * Christian Brown PA-C - 11/22/2024 5:07 PM EDT Images from the original note were not included. History of Present Illness Demetrice Duran is a 59 year old female that presents for Acute (Demetrice Duran is a 59 year old female who presents today evaluation of SOB,cough and wheezing, She is waking up during the nightto use her nebulizer. Her symptoms started 2 weeks ago. She was seen by Dr Pal for symptoms. She is taking prednisone as prescribed. /) Demetrice is a 59-year-old female with history of asthma who presents today for an acute visit. She still is experiencing persistent cough which is mostly dry, it shortness of breath with exertion, and wheezing. She did complete course of azithromycin and is currently on a prednisone taper. She was evaluated by her tree planter last week as well who had recommended extending the 30 mg of prednisone a few extra days. Feels that the symptoms would just not resolve. She is having to use her nebulizerin the middle of the night. No documented fever, however has been experiencing chills. Her pulse oxhas remained stable. States that she often develops these infections this time of the year secondary to her allergies. States that she has felt an occasional fluttering sensation in her chest today. No significant chest tightness. No dizziness/lightheadedness. Heart rate is currently stable. She has been using her inhalers as prescribed. Also has tried some Robitussin for the cough which providedonly minimal relief. Physical Exam BP 144/88 | Pulse 72 | Temp 98 F (36.7 C) (Tympanic) | Resp 20 | Ht 5' 5" (1.651 m) | Wt 298 lb12.8 oz (135.5 kg) | LMP (LMP Unknown) | SpO2 98% | BMI 49.72 kg/m | BSA 2.49 m Physical Exam HENT: Right Ear: Tympanic membrane normal. Left Ear: Tympanic membrane normal. Nose: Congestion present. Mouth/Throat: Mouth: Mucous membranes are moist. Pharynx: Posterior oropharyngeal erythema present. Cardiovascular: Rate and Rhythm: Normal rate and regular rhythm. Pulses: Normal pulses. Heart sounds: Normal heart sounds. Pulmonary: Effort: Pulmonary effort is normal. Breath sounds: Rhonchi present. No wheezing. Comments: Slightly decreased breath sounds, rhonchi noted and lower filling adam. No active wheezing currently. I have reviewed most recent labs Assessment and Plan Moderate persistent asthma with acute exacerbation Continue inhalers as ordered. Given acute symptoms, would recommend initiation of Levaquin. Use as directed. Chest x-ray ordered. If symptoms worsen or do not improve, she knows to go to the ER. We will plan to follow up in 4 days to recheck. - XR CHEST 2 VIEWS - CBC WITH WBC DIFFERENTIAL; Future - COMPREHENSIVE METABOLIC PANEL; Future Bronchitis Levaquin as noted above. Continue prednisone taper. Chest x-ray. Follow up in 4 days, go to ED if symptoms worsen or do not improve. - XR CHEST 2 VIEWS - CBC WITH WBC DIFFERENTIAL; Future - COMPREHENSIVE METABOLIC PANEL; Future Wrap-Up Follow Up: Return in about 4 days (around 11/26/2024). Time: I spent a total of 10-19 minutes (exact time 19 mins) on the date of service in preparation, delivery, and documentation of the care provided to Demetrice Duran excluding any time spent in the performance of separately billed services. Cosigned by Amber Green DO at 11/22/2024 6:08 PM EDT documented in this encounter Nursing Notes * Zuly Lui LPN - 11/22/2024 4:46 PM EDT Chief Complaint Patient presents with Acute Demetrice Duran is a 59 year old female who presents today evaluation of SOB,cough and wheezing, She is waking up during the night to use her nebulizer. Her symptoms started 2 weeks ago. She was seen by Dr Pal for symptoms. She is taking prednisone as prescribed. documented in this encounter Plan of Treatment Upcoming Encounters Date Type Department Care Team (Late st Contact Info) Description 11/26/2024 4:40 PM EDT Office Visit [facility] [address] [place] [address] Christian Brown PA-C [address] [place] [address] 12/09/2024 2:00 PM EDT Office Visit Cardiology, [facility] [address] [place] [phone] Lala Millan CRNP [address] [place] [address] 04/12/2025 5:20 PM EDT Office Visit [facility] [address] Shani Rider PA-C [address] [facility] [place] [address] 05/18/2025 4:00 PM EDT Office Visit Cardiology, [facility] [address] [place] [phone] Ezio Soto MD [address] [place] [address] Scheduled Orders Name Type Priority Associated Diagnoses Orde r Schedule XR CHEST 2 VIEWS Medical Imaging Routine Moderate persistent asthma with acute exacerbation Bronchitis Ordered: 11/22/2024 CBC WITH WBC DIFFERENTIAL Lab Routine Moderate persistent asthma with acute exacerbation Bronchitis Expected: 11/22/2024 (Approximate), Expires: 11/22/2025 COMPREHENSIVE METABOLIC PANEL Lab Routine Moderate persistent asthma with acute exacerbation Bronchitis Expected: 11/22/2024 (Approximate), Expires: 11/22/2025 Scheduled Procedures Name Priority Associated Diagnoses Date/Ti [...] as of this encounter Visit Diagnoses Diagnosis Moderate persistent asthma with acute exacerbation- Primary Bronchitis Bronchitis, not specified as acute or chronic documented in this encounter Care Teams Mailroom Clerk Relationship Specialty Start Date End Date Tereso Shani ARDEN Stuart [address] [place] [address] PCP - General Physician [employer] 09/22/20 documented as of this encounter
--- OUTSIDE RECORDS SUMMARY | 2024-11-25 06:13 | External Medical Summary | Summary of Care ---
Author Name Unknown Organization [facility] Address [address] [facility] [place] [address] Phone [phone] Care Team Providers Care Pocket Cutter Name Role Phone LadanShani yost PAParul Primary Care Provider [phone] Reason for Visit * Reason Onset Date Comments Advice 10/28/2024 High BP chest pa ins Encounter Details Date Type Department Care Team (Late st Contact Info) Description 10/28/2024 Telephone Cardiology, [facility] [address] [place] [address] Ezio Soto MD [address] [place] [address] Advice (High BP chest pains ) Allergies Active Allergy Reactions Criticality Noted Date Comments Egg-Derived Products Anaphylaxis High 08/12/2014 Able to eat eggs Flu Virus Vaccine Anaphylaxis High 10/24/2009 Hives, SOB, throat swelling Meloxicam 07/21/2023 documented as of this encounter (statuses as of 10/29/2024) Medications ZYRTEC 10 MG PO TABSIndications: Allergic [...] in the evening, Reported on 10/07/2024 Tiotropium [place] Monohydrate 18 MCG Inhalation Capsule (Spiriva) 1 [...] as of this encounter (statuses as of 10/29/2024) Active Problems Problem Noted Date Diagnosed Date [...] as of this encounter (statuses as of 10/29/2024) Resolved Problems Problem Noted Date Diagnosed Date [...] as of this encounter (statuses as of 10/29/2024) Immunizations Name Administration Dates Next Due COVID-19 [...] 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 Pt states she thinks she looks "a little puffier than normal," but is not certain if she is experiencing any weight gain -- has not checked her weight. Pt denies chest pain, shortness of breath, dizziness, lightheadedness, palpitations, or other symptoms. Please advise. * Addendum Note - Santy Baer LPN [...] to patient: self Phone/Fax to return call: [phone] Reason for call(brief): ret call Pharmacy: Provider Name:Dr Soto Detailed message to office:pt returning call * Telephone Encounter - Ele Ansari LPN - 10/28/2024 2:07 PM EST Called pt, no answer, LMOM * Telephone Encounter - Ezio Soto MD - 10/28/2024 2:03 PM EST Zio patch ordered 1 year ago by PCP. Go ahead and place * Telephone Encounter - Santy Bare LPN - 10/28/2024 9:49 AM EST Called [...] to patient: pt Phone/Fax to return call: [phone] Reason for call(brief): symptoms Pharmacy: Provider Name:Charles Detailed message to office: pt called she woke up with some chest pains her BP at 830 am was 156/79 Please advise Thank you DOUGLAS Hill documented in this encounter Plan of Treatment Upcoming Encounters Date Type Department Care Team (Late st Contact Info) Description 11/01/2024 9:15 AM EST Cardiac Studies Cardiac Studies, [facility] [address] [facility] [place] [address] 12/09/2024 2:00 PM EDT Office Visit Cardiology, [facility] [address] [facility] [place] [address] Lala Millan CRNP [address] [place] [address] 04/04/2025 4:00 PM EDT Office Visit Cardiology, [facility] [address] [facility] [address] Ezio Soto MD [address] [place] [address] 04/12/2025 5:20 PM EDT Office Visit Family Practice [facility] [address] [facility], [place] [address] Shani Rider PA-C 200 [place] [address] Scheduled Orders Name Type Priority Associated Diagnoses [...] fibrillation documented in this encounter Care Teams Pocket Cutter Relationship Specialty Start Date End Date Tereso November ARDEN Stuart [address] [place] [address] PCP - General Physician [employer] Demonstration Agent 09/22/20 documented as of this encounter
--- OUTSIDE RECORDS SUMMARY | 2024-11-25 06:13 | External Medical Summary | Summary of Care ---
Author Name Unknown Organization [facility] Address [address] [facility] [address] Phone [phone] Care Team Providers Care Heel Sewer Name Role Phone Ladanritika Shani Stuart PA-C Primary Care Provider [phone] Reason for Visit * Reason Comments Acute Cold symptoms starte d 3 days ago, headache, cough, runny nose, sore throat, nasal congestion, ears feel clogged and itchy, eye drainage. Takes allergy medication and has been taking Nyquil and Tyl. Encounter Details Date Type Department Care Team (Late st Contact Info) Description 11/12/2024 11:20 AM EDT Office Visit Family [facility] Ramiro Anderson [address] [place] [address] Darryl Levine MD [address] [place] [address] Bronchitis*; Moderate persistent asthma with acute exacerbation Allergies Active Allergy Reactions Criticality Noted Date Comments Egg-Derived Products Anaphylaxis High 08/12/2014 Able to eat eggs Flu Virus Vaccine Anaphylaxis High 10/24/2009 Hives, SOB, throat swelling Meloxicam 07/21/2023 documented as of this encounter (statuses as of 11/12/2024) Medications ZYRTEC 10 MG PO TABSIndications: Allergic [...] in the evening, Reported on 11/12/2024 Tiotropium [place] Monohydrate 18 MCG Inhalation Capsule (Spiriva) 1 [...] for muscle spasm 5 Tablet 5 Active Azithromycin 250 MG Oral Tablet (Zithromax) Take 2 tabs by mouth on the first day, then 1 tab daily on days two through five 6 Tablet 5 11/18/19 25 Active predniSONE 20 MG Oral Tablet (Deltasone) Take 3 tabs for 3 days, 2 tabs for 3 days, 1 tab for 3 days, 1/2 tab for 3 days 20 Tablet 5 Active documented as of this encounter (statuses as of 11/12/2024) Active Problems Problem Noted Date Diagnosed Date [...] as of this encounter (statuses as of 11/12/2024) Resolved Problems Problem Noted Date Diagnosed Date [...] as of this encounter (statuses as of 11/12/2024) Immunizations Name Administration Dates Next Due COVID-19 [...] Date Smoking Tobacco: Never Smokeless Tobacco: Never Tobacco Cessation:Counseling Given: Not Answered Alcohol Use Standard Drinks/Week Comments Yes 0 (1 standard drink = 0.6 oz pur e alcohol) 3-4 beers per week PHQ-2 Answer Date Recorded PHQ Adult Total Score 0 10/07/2024 Hunger Vital Sign Answer Date Recorded Within the past 12 months, y ou worried that your food would run out before you got the money to buy more. Never true 09/20/19 Within the past 12 months, t he food you bought just didn't last and you didn't have money to get more. 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 Not on file Not on file documented as of this encounter Last Filed Vital Signs Vital Sign Reading Time Taken Comments Blood Pressure 154/88 11/12/2024 11:21 AM EDT Pulse 66 11/12/2024 11:21 AM EDT Temperature 36.8 C (98.2 F) 11/12/2024 1 1:21 AM EDT Respiratory Rate 18 11/12/2024 11:2 1 AM EDT Oxygen Saturation 96% 11/12/2024 11: 21 AM EDT Inhaled Oxygen Concentration - - Weight 133.4 kg (294 lb 3.2 oz) 025 11:21 AM EDT Height 165.1 cm (5' 5") 11/12/2024 11:2 1 AM EDT Body Mass Index 48.96 11/12/2024 11:21 AM EDT documented in this encounter Progress Notes * Darryl Levine MD - 11/12/2024 11:25 AM EDT Subjective Demetrice Duran is a 59 year old female. Chief Complaint Patient presents with Acute Cold symptoms started 3 days ago, headache, cough, runny nose, sore throat, nasal congestion, ears feel clogged and itchy, eye drainage. Takes allergy medication and has been taking Nyquil and Tyl. HPI: This is a 59 year old female who presents for an acute visit. History of Present Illness Demetrice Duran is a 59 year old female with asthma who presents with respiratory symptoms and concerns of asthma involvement. She began feeling unwell on Friday with rhinorrhea, headache, and a slight sore throat, which progressed to significant nasal congestion and cough. She also experienced chills but did not take her temperature. She is concerned that her asthma is being affected, as her cough has worsened and she feels more dyspneic, especially upon exertion. She notes hearing wheezing when she moves around. She used her albuterol rescue inhaler on Friday when symptoms began but has not used it since. She has been managing her symptoms with qqki-qlp-ziekqhv medications, taking acetaminophen during the day and NyQuil at night to aid sleep. Her current asthma management includes tiotropium, montelukast, and cetirizine. She has not used her nebulizer recently but acknowledges having one available. She tested negative for COVID-19. PMH: Current Outpatient Medications Medication Sig Dispense Refill ZYRTEC 10 MG PO TABS one tablet each evening 30 Tab 6 CALCIUM 600/VITAMIN D 600-400 MG-UNIT PO TABS Take by mouth. ONETOUCH ULTRASOFT LANCETS MISC Use up to four times a day as directed 1 Box 11 ZOLMitriptan (ZOMIG) 5 MG Tablet as directed 9 Tab 5 Levalbuterol HCl 1.25 MG/3ML Inhalation Nebulization Solution Inhale 3 mL via nebulizer every 4 hours as needed for Wheezing or Shortness of Breath. EPINEPHrine, anaphylaxis, (EPI-PEN) 0.3 MG/0.3ML SOAJ injection For a severe reaction: Place orangeend against the outer thigh, press firmly, hold in place for 10 seconds and go to the Emergency room. 2 Device 3 Breo Ellipta 200-25 MCG/INH Inhalation Aerosol Powder Breath Activated every morning. Aspirin 81 MG Oral Tablet Delayed Release Take 1 Tablet by mouth in the morning. Potassium Chloride Bernie ER 10 MEQ Oral Tablet Extended Release Take 1 Tablet by mouth in the morning. (Patient taking differently: Take 1 Tablet by mouth in the morning. Takes in the evening .) 90 Tablet 3 Tiotropium [place] Monohydrate 18 MCG Inhalation Capsule (Spiriva) 1 Capsule. hydrOXYzine HCl 10 MG Oral Tablet (Atarax) TAKE ONE TABLET BY MOUTH FOUR TIMES DAILY NEEDED 30 Tablet 5 Montelukast Sodium 10 MG Oral Tablet (Singulair) TAKE 1 TABLET BY MOUTH AT BEDTIME 90 Tablet 3 Losartan Potassium 50 MG Oral Tablet (Cozaar) Take 1 Tablet by mouth at bedtime. 90 Tablet 3 Albuterol Sulfate HFA 108 (90 Base) MCG/ACT Inhalation Aerosol Solution Inhale 2 Puffs by mouth every 6 hours as needed. Famotidine 20 MG Oral Tablet (Pepcid) Take 1 Tablet by mouth in the morning and 1 Tablet before bedtime. dilTIAZem HCl ER Coated Beads 240 MG Oral Capsule Extended Release 24 Hour (Cardizem CD) TAKE ONE CAPSULE BY MOUTH EVERY MORNING. 90 Capsule 1 LORazepam 0.5 MG Oral Tablet (Ativan) TAKE ONE TABLET THREE TIMES DAILY NEEDED ANXIETY 30 Tablet0 Metoprolol Succinate ER 50 MG Oral Tablet Extended Release 24 Hour (toPROL XL) Take 1 Tablet by mouth in the morning and 1 Tablet before bedtime. 180 Tablet 3 Pantoprazole Sodium 40 MG Oral Tablet Delayed Release (Protonix) TAKE 1 TABLET BY MOUTH EVERY MORNING 90 Tablet 2 Carisoprodol 350 MG Oral Tablet (Soma) Take 1 tablet by mouth at bedtime as needed for muscle spasm5 Tablet 0 Azithromycin 250 MG Oral Tablet (Zithromax) Take 2 tabs by mouth on the first day, then 1 tab dailyon days two through five 6 Tablet 0 predniSONE 20 MG Oral Tablet (Deltasone) Take 3 tabs for 3 days, 2 tabs for 3 days, 1 tab for 3 days, 1/2 tab for 3 days 20 Tablet 0 No current facility-administered medications for this visit. 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, complicating , childbirth, or the puerperium, unspecified as to episode of care(411.00) Diverticulitis of colon Obesity, morbid (more than 100 lbs over ideal weight or BMI > 40) (HCC) ADVERSE EFFECT OF INFLUENZA VACCINE Generalized osteoarthritis Asthma, moderate persistent DOUGLAS on CPAP MEDICATION USE AGREEMENT Prediabetes Paroxysmal atrial fibrillation (HCC) Past Medical History: Diagnosis Date Asthma, severity to be determined Asthma Generalized osteoarthritis GERD (gastroesophageal reflux disease) Migraine Migraines,unspecified DOUGLAS on CPAP 09/02/2013 6 cm water Screening for malignant neoplasm of cervix 04/02/07 WNL Past Surgical History: Procedure Laterality Date ANESTH, UPPER GI ENDOSCOPIC PROCS 06/27/2010 ANESTHESIA FOR UPPER GI ENDOSCOPIC PROCEDURES (ERCP OR UPPER GI) performed by JUANITA TOVAR at ENDOSCOPY [facility] [place] BIOPSY OF UTERUS LINING 11/16/2012 normal: proliferative endometrium Dr. Kamlesh VARELA COLONOSCOPY, DIAGNOSTIC (RECTUM) 01/30/2009 diverticulosis,repeat in COLONOSCOPY, DIAGNOSTIC (RECTUM) 05/03/2021 diverticulosis, repeat 10 yrs / COLONOSCOPY FLEXIBLE PROXIMAL DIAGNOSTIC performed by Lauren Samuel DO at ENDOSCOPY [facility] EGD, FLEXIBLE, DIAGNOSTIC 06/01/[address] [facility] [address] Perera gastritis and hiatus hernia EGD, W/ENDOSCOPIC US 06/27/2010 normal save gastritis EGD, W/ENDOSCOPIC US 06/20/2016 fatty liver, fundic gastric polyp EGD, W/ENDOSCOPIC US 02/02/2024 dilation CBD/fatty liver, pancreas/few benign fundic gland polyps/ESOPHAGOGASTRODUODENOSCOPY (EGD),FLEXIBLE, TRANSORAL, ENDOSCOPIC ULTRASOUND performed by Ritesh Mason MD at ENDOSCOPY [facility] ERCP 02/04/2020 sphincter dysfunction (spasm) / [facility] LAPAROSCOPY; CHOLECYSTECTOMY 12/30/2014 LIGATE/CUT OVIDUCT(S) MAMMOGRAM - 1 BREAST 03/24/2008 birad code 2 NEEDLE BIOPSY OF THYROID GLAND 03/2010 PAP SCREEN 03/01/2004 satisfactory for evaluation, dr flores PAP SCREEN 08/29/2005 WNL PAP SCREEN 06/14/2008 WNLSrinath Robin PAP SCREEN 11/06/2012 neg/ Dr. 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 Tobacco Use Smoking status: Never Smokeless tobacco: Never Vaping Use Vaping status: Never Used Substance and Sexual Activity Alcohol use: Yes Comment: 3-4 beers per week Drug use: No Sexual activity: Yes Partners: Male control/protection: Surgical Other Topics Concern Service No Blood Transfusions No Caffeine Concern Yes Occupational Exposure No Hobby Hazards No Sleep Concern No Stress Concern No Weight Concern Yes Special Diet No Back Care No Exercise No Bike Helmet Not Asked Seat Belt Yes Self-Exams Yes Social History Narrative Not on file Social Needs Financial Resource Strain: Not on file Food Insecurity: No Food Insecurity (09/20/2020) Hunger Vital Sign Worried About Running Out of Food in the Last Year: Never true Ran Out of Food in the Last Year: Never true Transportation Needs: Not on file Social Connections: Not on file Housing Stability: Not on file Family History Problem Relation Name Age of Onset Hypertension Father Good Heart Disorder Father Good Obesity Father Good Hypertension Mother Janice Musculo-skeletal Disorder Mother Janice osteopenia Other (Cancer Lung) Mother Janice 76 Heart Disorder Mother Janice Lung Disorder Mother Janice Arthritis Mother Janice Cancer Mother Janice Thyroid Disorder Grandmother (Maternal) Damari Cancer Grandmother (Paternal) Damari colon Cancer Uncle (Unspecified) colon Mental Disorder Sister Mirella mental retardation Blood Disorder Sister Mirella Diabetes Sister Mirella Stroke Sister Mirella Obesity Sister Mirella Blood Disorder Sister clotting disorder No Past Hx Brother Nemesio Hypertension Brother Nemesio Obesity Brother Nemesio Hypertension Brother Asthma Daughter 1 Asthma Daughter Asthma Son 2 Asthma Son Review of patient's allergies indicates: Allergen Reactions Egg-Derived Products Anaphylaxis Able to eat eggs Flu Virus Vaccine Anaphylaxis Hives, SOB, throat swelling Mobic [Meloxicam] Review of Systems All other systems reviewed and are negative. Objective BP 154/88 | Pulse 66 | Temp 98.2 F (36.8 C) (Temporal Artery) | Resp 18 | Ht 5' 5" (1.651 m) | Wt 294 lb 3.2 oz (133.4 kg) | LMP (LMP Unknown) | SpO2 96% | BMI 48.96 kg/m | BSA 2.47 m Physical Exam Vitals and nursing note reviewed. Constitutional: General: She is not in acute distress. Appearance: Normal appearance. She is not ill-appearing. Cardiovascular: Rate and Rhythm: Normal rate and regular rhythm. Heart sounds: Normal heart sounds. No murmur heard. No friction rub. No gallop. Pulmonary: Effort: Pulmonary effort is normal. No tachypnea, bradypnea, accessory muscle usage, prolonged expiration, respiratory distress or retractions. Breath sounds: No stridor, decreased air movement or transmitted upper airway sounds. Wheezing and rhonchi present. No rales. Abdominal: General: Bowel sounds are normal. There is no distension. Palpations: Abdomen is soft. There is no mass. Tenderness: There is no abdominal tenderness. There is no guarding or rebound. Neurological: Mental Status: She is alert. ASSESSMENT/PLAN: ICD-10-CM 1. Bronchitis J40 2. Moderate persistent asthma with acute exacerbation J45.41 Plan Azithromycin 250 MG Oral Tablet (Zithromax) predniSONE 20 MG Oral Tablet (Deltasone) Return To Work Or School Assessment & Plan Bronchitis with known asthma Symptoms and lung exam suggest viral bronchitis with potential asthma exacerbation risk. Azithromycin prescribed for possible bacterial involvement. Steroid burst initiated to prevent asthma exacerbation. Advised to seek hospital care if symptoms worsen. - Prescribe azithromycin (Z-Ozzy). - Initiate steroid burst. - Advise nebulizer use as needed. - Instruct to seek hospital care if symptoms worsen. -Work excuse provided Follow Up: Return if symptoms worsen or fail to improve. Darryl Levine MD All, some, or none of the text in this note may have been generated using an ambient documentation service, depending on the visit type or situation. If the ambient documentation service was used, I discussed the use of a device to record and summarize our discussion today. All persons present during the encounter consented to its use. documented in this encounter Nursing Notes * Beba Monroe LPN - 11/12/2024 11:22 AM EDT Chief Complaint Patient presents with Acute Cold symptoms started 3 days ago, headache, cough, runny nose, sore throat, nasal congestion, ears feel clogged and itchy, eye drainage. Takes allergy medication and has been taking Nyquil and Tyl. documented in this encounter Plan of Treatment Upcoming Encounters Date Type Department Care Team (Late st Contact Info) Description 12/09/2024 2:00 PM EDT Office Visit Cardiology, [facility] [address] [address] Lala Millan CRNP [address] [place] [address] 04/12/2025 5:20 PM EDT Office Visit Family Practice [facility] [address] [facility] [place], [place] [address] Shani Rider PA-C [address] [facility] [place] [address] 05/18/2025 4:00 PM EDT Office Visit Cardiology, [facility] [address] [place] [address] Ezio Soto MD [address] [place] [address] Scheduled Procedures Name Priority Associated Diagnoses Date/Ti [...] or Tdap) 11/09/2020 11/09/2010 Mammogram 06/20/2023 06/20/2022, 040 03/2021, 11/04/2019, Additional history exists COVID-19 Vaccine [...] as of this encounter Visit Diagnoses Diagnosis Bronchitis- Primary Bronchitis, not specified as acute or chronic Moderate persistent asthma with acute exacerbation documented in this encounter Care Teams Heel Sewer Relationship Specialty Start Date End Date Tereso November Narciso, ARDEN [address] [place] [address] PCP - General Physician Resident Services Coordinator 09/22/20 documented as of this encounter
--- OUTSIDE RECORDS SUMMARY | 2024-11-25 06:13 | External Medical Summary | Summary of Care ---
Author Name Unknown Organization [facility] Address [address] [facility] [place] [address] Phone [phone] Care Team Providers Care Painting Department Supervisor Name Role Phone LadanShani yost PAParul Primary Care Provider [phone] Reason for Visit * Reason Onset Date Comments Advice 10/28/2024 High BP chest pa ins Encounter Details Date Type Department Care Team (Late st Contact Info) Description 10/28/2024 Telephone Cardiology, [facility] [address] [place] [address] Ezio Soto MD [address] [place] [address] Advice (High BP chest pains ) Allergies [...] in the evening, Reported on 10/07/2024 Tiotropium [place] Monohydrate 18 MCG Inhalation Capsule (Spiriva) 1 [...] 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 on file Not [...] to patient: self Phone/Fax to return call: [phone] Reason for call(brief): ret call Pharmacy: Provider [...] to patient: pt Phone/Fax to return call: [phone] Reason for call(brief): symptoms Pharmacy: Provider Name:Charles Detailed message to office: pt called she woke up with some chest pains her BP at 830 am was 156/79 Please advise Thank you DOUGLAS Hill documented in this encounter Plan of Treatment Upcoming Encounters Date Type Department Care Team (Late st Contact Info) Description 11/01/2024 9:15 AM EST Cardiac Studies Cardiac Studies, [facility] [address] [facility] [place] [address] 12/09/2024 2:00 PM EDT Office Visit [facility] [address] [place] [address] Lala Millan CRNP [address] [place] [address] 04/04/2025 4:00 PM EDT Office Visit Cardiology, [facility] [address] [place] [address] Ezio Soto MD [address] [place] [address] 04/12/2025 5:20 PM EDT Office Visit Family Practice [facility] [address] [facility] [place] [address] Shani Rider PA-C [address] [facility] [place] [address] Scheduled Orders Name Type Priority Associated Diagnoses [...] fibrillation documented in this encounter Care Teams Painting Department Supervisor Relationship Specialty Start Date End Date Ladannovember ARDEN Stuart [address] [place] [address] PCP - General Physician Senior Internal Auditor 09/22/20 documented as of this encounter
--- OUTSIDE RECORDS SUMMARY | 2024-11-25 06:13 | External Medical Summary | Summary of Care ---
Author Name Unknown Organization [facility] Address [address] [facility] [place] [address] Phone [phone] Care Team Providers Care Admissions Clinician Name Role Phone LadanShani yost PAParul Primary Care Provider [phone] Reason for Visit * Reason Onset Date Comments Advice 10/28/2024 High BP chest pa ins Encounter Details Date Type Department Care Team (Late st Contact Info) Description 10/28/2024 Telephone Cardiology, [facility] [address] [place] [address] Ezio Soto MD [address] [place] [address] Advice (High BP chest pains ) Allergies [...] in the evening, Reported on 10/07/2024 Tiotropium [place] Monohydrate 18 MCG Inhalation Capsule (Spiriva) 1 [...] 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 on 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 Not [...] to patient: self Phone/Fax to return call: [phone] Reason for call(brief): ret call Pharmacy: Provider [...] to patient: pt Phone/Fax to return call: [phone] Reason for call(brief): symptoms Pharmacy: Provider Name:Charles Detailed message to office: pt called she woke up with some chest pains her BP at 830 am was 156/79 Please advise Thank you DOUGLAS Hill documented in this encounter Plan of Treatment Upcoming Encounters Date Type Department Care Team (Late st Contact Info) Description 11/01/2024 9:15 AM EST Cardiac Studies Cardiac Studies, [facility] [address] [facility] [place] [address] 12/09/2024 2:00 PM EDT Office Visit Cardiology, [facility] [address] [facility] [address] Lala Millan CRNP [address] [place] [address] 04/04/2025 4:00 PM EDT Office Visit Cardiology, [facility] [address] [facility] [place] [address] Ezio Soto MD [address] [place] [address] 04/12/2025 5:20 PM EDT Office Visit Family Practice [facility] [address] [facility], [place] [address] Shani Rider PA-C 200 [place] [address] Scheduled Orders Name Type Priority Associated Diagnoses [...] fibrillation documented in this encounter Care Teams Admissions Clinician Relationship Specialty Start Date End Date Tereso November ARDEN Stuart [address] [place] [address] PCP - General Physician Cotton Feeder 09/22/20 documented as of this encounter
--- OUTSIDE RECORDS SUMMARY | 2024-11-25 06:14 | External Medical Summary | Summary of Care ---
Author Name Unknown Organization [facility] Address [address] [facility] [place] [address] Phone [phone] Care Team Providers Care Parts Inspector Name Role Phone Tereso Shani Stuart PA-C Primary Care Provider [phone] Reason for Visit * Reason Onset Date Comments Advice 10/05/2024 Charles Encounter Details Date Type Department Care Team (Late st Contact Info) Description 10/05/2024 Telephone Cardiology, [facility] [address] [place] [address] He Soto MD [address] [place] [address] Advice (Charles) Allergies Active Allergy Reactions Criticality Noted Date Comments Egg-Derived Products Anaphylaxis High 08/12/2014 Able to eat eggs Flu Virus Vaccine Anaphylaxis High 10/24/2009 Hives, SOB, throat swelling Meloxicam 07/21/2023 documented as of this encounter (statuses as of 10/05/2024) Medications ZYRTEC 10 MG PO TABSIndications: Allergic [...] Oral Daily(AM),Takes in the evening, Reported on 08/17/2024 Tiotropium [place] Monohydrate 18 MCG Inhalation Capsule (Spiriva) 1 [...] morning and 1 Tablet before bedtime. Active buPROPion HCl ER (SR) 150 MG Oral Tablet Extended Release 12 Hour (Wellbutrin SR) Take 1 tab by mouth once a day for 1 week then take 1 tab twice a day (morning & late afternoon) 60 Tablet 3 03/10/20 24 Active dilTIAZem HCl ER Coated Beads 240 [...] bedtime. 180 Tablet 3 10/05/19 25 Active Metoprolol Succinate ER 25 MG Oral Tablet Extended Release 24 Hour (toPROL XL)Indications:H TN, goal below 140/90,Paroxysma l atrial fibrillation (HCC) TAKE ONE TABLET BY MOUTH IN THE MORNING AND AT BEDTIME 180 Tablet 3 02/11/20 24 025 Discontin ued(Refil l) documented as of this encounter (statuses as of 10/05/2024) Active Problems Problem Noted Date Diagnosed Date [...] as of this encounter (statuses as of 10/05/2024) Resolved Problems Problem Noted Date Diagnosed Date [...] as of this encounter (statuses as of 10/05/2024) Immunizations Name Administration Dates Next Due COVID-19 [...] 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 She will report BP Thur/Fri this week. Updated medication pended. * Telephone Encounter - He Soto MD - 10/05/2024 12:55 PM EST Reviewed records from ER. No atrial fibrillation present blood pressure is elevated. Agree with increasing metoprolol succinate to 50 mg twice per day continue other medications. If blood pressure remains persistently elevated will increase losartan dosing. Echocardiogram per report 10/31/2023 Normal LV systolic function and no valvular disease Appointment * Telephone Encounter - Laxmi Servin LPN - 10/05/2024 11:29 AM EST Pt called back. Was feeling whooshing sound in ears, took BP: 188/106 HR 79 Denies headache, denies bloody noses, denies palpitations Denies chest pain today. Only symptom is the whooshing sound in ears. Reviewed med list - taking all as prescribed. Has not used albuterol in a long time. Does not always use breo ellipta daily. Advised pt to await return call, but if symptoms worsen or become emergent, seek treatment at nearest emergency department. Pt agreed. * Telephone Encounter - Ele Ansari LPN - 10/05/2024 10:17 AM EST Called pt, she was in the ED yesterday. Been waking up in the morning with chest pain lasting only a couple mins. Yesterday was more sob and having some palpitations. States she had a whooshing soundin her ear, checked bp it was 212/118, went to the er it was 195/105. Did EKG was in NS. They gave her an additional dose of metoprolol. 50mg, told her to increase to 50mg BID.States she is feeling better today. Sob is better today, denies palpitations today. Denies chest pain. She is not on any anticoagulation for the a-fib, the ER was surprised she wasn't on anything. * Telephone Encounter - Pepper Morales OSA - 10/05/2024 9:38 AM EST Person calling: Demetrice Relationship to patient: pt Phone/Fax to return call: [phone] Reason for call(brief): symptoms Pharmacy: Provider Name:Charles Detailed message to office:pt was seen in ED yesterday for high blood pressure 195/105 pt in afib. Pt states she has been waking up for the last ten days with chest pain. Please advise documented in this encounter Plan of Treatment Upcoming Encounters Date Type Department Care Team (Late st Contact Info) Description 10/07/2024 5:40 PM EST Office Visit Family Practice [facility] [address] [facility] [place] [address] Shani Rider PA-C [address] [facility] [place] [address] 04/04/2025 4:00 PM EDT Office Visit Cardiology, [facility] [address] [place] [address] He Soto MD [address] [place] [address] Scheduled Procedures Name Priority Associated Diagnoses Date/Ti [...] Additional history exists Depression Screening 08/21/2023 08/21/2022 COVID-19 Vaccine ( season) 2024 09/13/2021, 01/17/2021, 12/27/2020 Influenza Vaccine (FLU shot) (#1) 2024 06/15/2009, 07/02/2007 Cervical Cancer Screening 10/24/2025 Pap Smear 10/24/2025 [...] as of this encounter Visit Diagnoses Diagnosis HTN, goal below 140/90 Unspecified essential hypertension Paroxysmal atrial fibrillation (HCC) Atrial fibrillation documented in this encounter Care Teams Parts Inspector Relationship Specialty Start Date End Date Shani Rider PA-C [address] [place] [address] PCP - General Physician Correctional Food Service Supervisor 09/22/20 documented as of this encounter
--- OUTSIDE RECORDS SUMMARY | 2024-11-25 06:14 | External Medical Summary | Summary of Care ---
Author Name Unknown Organization [facility] Address [address] [facility] [address] Phone [phone] Care Team Providers Care Family Helper Name Role Phone Tereso Shani Stuart PA-C Primary Care Provider [phone] Reason for Visit * Reason Onset Date Comments Advice 10/05/2024 Charles Encounter Details Date Type Department Care Team (Late st Contact Info) Description 10/05/2024 Telephone Cardiology, [facility] [address] [place] [address] He Soto MD [address] [place] [address] Advice (Charles) Allergies Active Allergy Reactions Criticality Noted Date Comments Egg-Derived Products Anaphylaxis High 08/12/2014 Able to eat eggs Flu Virus Vaccine Anaphylaxis High 10/24/2009 Hives, SOB, throat swelling Meloxicam 07/21/2023 documented as of this encounter (statuses as of 10/06/2024) Medications ZYRTEC 10 MG PO TABSIndications: Allergic [...] in the evening, Reported on 08/17/2024 Tiotropium [place] Monohydrate 18 MCG Inhalation Capsule (Spiriva) 1 [...] as of this encounter (statuses as of 10/06/2024) Active Problems Problem Noted Date Diagnosed Date [...] as of this encounter (statuses as of 10/06/2024) Resolved Problems Problem Noted Date Diagnosed Date [...] as of this encounter (statuses as of 10/06/2024) Immunizations Name Administration Dates Next Due COVID-19 [...] 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 on 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 Not [...] to patient: pt Phone/Fax to return call: [phone] Reason for call(brief): symptoms Pharmacy: Provider Name:Charles [...] 5:40 PM EST Office Visit Family Practice [facility] [address] [facility] [place] [address] Shani Rider PA-C [address] [facility] [place] [address] 04/04/2025 4:00 PM EDT Office Visit Cardiology, [facility] [address] [place] [address] He Soto MD [address] [place] [address] Scheduled Procedures Name Priority Associated Diagnoses Date/Ti [...] fibrillation documented in this encounter Care Teams Family Helper Relationship Specialty Start Date End Date Shani Rider PA-C [address] [place] [address] PCP - General Physician Regional Guide 09/22/20 documented as of this encounter
--- OUTSIDE RECORDS SUMMARY | 2024-11-25 06:14 | External Medical Summary | Summary of Care ---
Author Name Unknown Organization [facility] Address [address] [facility] [address] Phone [phone] Care Team Providers Care Wwe Wrestler Name Role Phone Tereso Shani Stuart PA-C Primary Care Provider [phone] Reason for Visit * Reason Onset Date Comments Advice 10/05/2024 Charles Encounter Details Date Type Department Care Team (Late st Contact Info) Description 10/05/2024 Telephone Cardiology, [facility] [address] [place] [address] He Soto MD [address] [place] [address] Advice (Charles) Allergies Active Allergy Reactions Criticality [...] in the evening, Reported on 08/17/2024 Tiotropium [place] Monohydrate 18 MCG Inhalation Capsule (Spiriva) 1 [...] 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 [place] [address] Shani Rider PA-C [address] [facility] [place] [address] 04/04/2025 4:00 PM EDT Office Visit Cardiology, [facility] [address] [place] [address] He Soto MD [address] [place] [address] Scheduled Procedures Name Priority Associated Diagnoses Date/Ti [...] fibrillation documented in this encounter Care Teams Wwe Wrestler Relationship Specialty Start Date End Date Shani Rider PA-C [address] [place] [address] PCP - General Physician Meter Reader Inspector 09/22/20 documented as of this encounter
--- NOTE | 2024-11-25 07:15 | Pulmonary Consultation ---
Date of Consultation November 25, 2024 Assessment & Plan (1) Asthma exacerbation: Asthma persistence: persistent Asthma severity: moderate Qualified Code(s): J45.41 - Moderate persistent asthma with (acute) exacerbation (2) SOB (shortness of breath): (3) Morbid obesity with BMI of 40.0-44.9, adult: (4) Restrictive lung disease: (5) Obesity: (6) DOUGLAS (obstructive sleep apnea): Plan CTA chest 11/24/2024 personally reviewed: Mosaicism appreciated diffusely bilaterally Linear atelectasis of the inferior lobe of the lingula as well as bilateral lower lobe Evidence of expiratory dynamic airway collapse Cardiomegaly No significant mediastinal lymphadenopathy PFT 11/07/2022 personally reviewed: Mild to moderate restrictive lung dysfunction, no obstructive lung dysfunction, insignificant bronchodilator response (Decreased FVC by 70 mL, decrease in FEV1 by 170 mL, decrease in TLC 91--> 71%, increased DLCO 52--> 95%, increase in weight by 20 pounds compared to 10/2020) FVC 2.57 L 78%, FEV1 2.12 L 82%, FEV1/FVC 83%, RV 56%, TLC 71%, ERV 8%, DLCO 95% -- Acute exacerbation of severe persistent asthma Respiratory BioFire negative for everything on 11/24/2024 Procalcitonin negative On Breo 200 and Spiriva at home along with as needed albuterol and nebulizers She is also on montelukast For chronic bronchitis continue with Mucinex as well as flutter valve on an as- needed basis Absolute eosinophil count 400 on 11/24/2024 6MWT 11/25/2022: Patient walked 910 feet, she was able to maintain a saturation 94% on room air -- Restrictive lung disease TLC 71%, FVC 78%, DLCO 95% Likely from underlying BMI Incentive spirometry and weight loss will be beneficial -- Allergies rhinitis with postnasal drip On Singulair as well as Zyrtec. Advised to change Zyrtec to some other antihistamine -- DOUGLAS Patient is compliant with CPAP, advised the patient to use CPAP machine at least 4-5 hours every night Importance of cleaning as well as changing the tubing and the mask on a regular basis explained -- Obesity Advised to lose with diet and exercise Plan: While hospitalized would prefer the patient to be on nebulized bronchodilators Continue with montelukast Given the elevated eosinophil count, I do think she will be a candidate for biologic. Will try to look into this as an outpatient Complete the course of azithromycin Please note the above document was generated using voice recognition software. It may contain grammatical, syntax or spelling errors.Any formal questions or concerns about the content, text or information contained within the body of this dictation should be directly addressed to the provider for clarification. History of Present Illness Attending Physician: Marysol Barreto MD History of Present Illness 59-year-old female was admitted to the hospital for shortness of breath Past medical history: DOUGLAS noncompliant with CPAP, hypertension, dyslipidemia, obesity Patient was last seen by me in the clinic on 08/04/2023 At the time of examination patient was not in any respiratory distress She did use her CPAP overnight She was saturating 93-94% on room air Approximately 7-10 days ago she came down with upper respite tract infection with runny nose and fever She was diagnosed with bronchitis and given steroids and antibiotics. She finished her steroids and antibiotics but did not find any significant benefit so she was started on another course of antibiotics and the prednisone dose was prolonged She was still complaining of chest congestion and difficulty bringing up the phlegm with exertional shortness of breath. She got IV steroids since coming to the ER. She says she is feeling much better since she came to the hospital Denies any chest pain. Shortness of breath is improved. No headache, no blurry vision No night sweats, no unintentional weight loss No dysuria, no diarrhea. Has been using her CPAP regularly. Denies any abdominal bloating, no dry eyes, no dry mouth. Gets refreshed sleep Social history: Lifetime non-smoker. 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 No exposure to any chemicals or fumes [place] Pets: Has cats at home. She is allergic to cats Allergies: Seasonal and allergies to cats Asthma: No family history of asthma Lung cancer: History of lung cancer in mother who was a smoker Allergies Allergy/AdvReac Type Severity Reaction Status Date / Time Egg Derived Allergy Severe Anaphylaxis Verified 11/24/24 17:06 Influenza Virus Vaccines Allergy Severe anaphylaxis Verified 11/24/24 17:06 meloxicam Allergy Severe HEAD TO Verified 11/24/24 17:06 TOE HIVES Home Medications Medication Instructions Recorded Confirmed Type cetirizine 10 mg tablet 10 mg PO DAILY PRN Allergy Symptoms 06/19/19 11/24/24 History lorazepam 0.5 mg tablet 0.5 mg PO HS PRN Sleep 08/13/19 11/24/24 History diltiazem HCl 240 mg capsule,24 240 mg PO QAM #90 caps 05/08/21 11/24/24 Rx hr,extended release pantoprazole 40 mg tablet,delayed 40 mg PO QAM #30 tabs 09/13/21 11/24/24 Rx release montelukast 10 mg tablet 10 mg PO HS #90 tabs 12/12/22 11/24/24 Rx levalbuterol HCl 1.25 mg/3 mL 1.25 mg inhalation Q4H PRN 02/03/23 11/24/24 History solution for nebulization Shortness Of Breath Or Wheezing potassium chloride 10 mEq 10 meq PO QPM 02/03/23 11/24/24 History tablet,extended release losartan 25 mg tablet 50 mg PO HS 05/19/23 11/24/24 History fluticasone furoate 200 1 ea inhalation QAM #60 ea 08/04/23 11/24/24 Rx mcg-vilanterol 25 mcg/dose inhalation powder (Breo Ellipta) tiotropium bromide 18 mcg capsule 1 cap inhalation QPM #60 08/04/23 11/24/24 Rx with inhalation device (Spiriva inhalations with HandiHaler) hydroxyzine HCl 10 mg tablet 10 mg PO QID PRN Itching 11/11/23 11/24/24 History metoprolol succinate 25 mg 50 mg PO BID 11/11/23 11/24/24 History tablet,extended release 24 hr albuterol sulfate 90 mcg/actuation 2 puff inhalation Q6H PRN 11/16/24 11/24/24 Rx aerosol inhaler Shortness Of Breath Or Wheezing #8.5 grams Patient History Medical History ASCUS with positive high risk HPV cervical Pneumonia due to 2019-nCoV Hx of vaccine allergy Left knee DJD Degenerative disc disease Right sided abdominal pain Hypertension Osteoarthritis Gestational diabetes Surgical History History of left breast biopsy benign History of dilatation and curettage x2 History of arthroscopy of left knee History of wisdom tooth extraction History of tonsillectomy Status post biopsy of thyroid gland x2 on benign thyroid nodule History of cardiac cath 2010 @ [facility], no stents Hx of colonoscopy Hx of cholecystectomy H/O laparoscopy S/P tubal ligation History of esophagogastroduodenoscopy (EGD) S/P endometrial ablation Family History Brother Family history of diabetes mellitus Sister Family history of diabetes mellitus Family history of reaction to anesthesia heart rate dropped during procedure Uncle FHx: colon cancer Prostate cancer Mother FHx: lung cancer Grandmother (Paternal) FHx: colon cancer Colorectal cancer Grandfather (Maternal) Colorectal cancer Denies family history of Ovarian cancer Breast cancer Social History Smoking Status: Never smoker Second Hand Exposure: Yes (parents smoked); Do You Dip or Chew Tobacco: No; Hx Alcohol Use: Yes Alcohol type: other Hx Substance Use: No Preferred Language: Bulgarian Communication Ability: Effective Visual Impairment: No Limitations Online Editor Required: No Beliefs That Will Affect Care: None Current Living Situation: Family Current Living Situation Comment: Lives with and 2 kids Other Information That Helps Us Care for You: No Feels Safe at Home: Yes Safety Concerns: Feels Safe At This Time Assistive Devices: Contacts and CPAP Review of Systems 2 Review of Systems: All systems reviewed & are unremarkable except as noted in HPI & below Physical Exam 2 Physical Exam: Constitutional: No acute distress HEENT: EOMI, PERRLA Respiratory system: Good air entry bilaterally, no wheeze, no rhonchi, no crackles CVS: S1-S2 positive, no murmurs or gallops Abdomen: Soft, nontender, nondistended, positive bowel sounds x4 Extremities: +2 pulses bilaterally radialis/ dorsalis pedis, no cyanosis, no edema Neuro: Awake alert oriented x3 Psych: Normal mood and affect G/U: No Haq Skin: no rashes, warm and dry Lymphatic: no cervical or axillary lymphadenopathy Results & Data Results & Data Vital Signs (Past 12 Hours) Vital Signs Temp Pulse Pulse Resp BP Pulse Ox Pulse Ox 11/25/24 06:59 78 16 96 11/25/24 03:45 36.5 C 70 16 144/82 H 95 11/25/24 01:00 71 18 95 11/24/24 23:00 105 H 11/24/24 23:00 11/24/24 22:45 36.8 C 92 H 20 167/92 H 93 11/24/24 22:03 97 H 26 H 152/86 H 92 11/24/24 20:22 92 11/24/24 20:17 85 20 149/87 H 93 11/24/24 19:18 78 20 172/100 H 93 O2 Del Method O2 Del Method 11/25/24 06:59 Room Air 11/25/24 03:45 CPAP 11/25/24 01:00 Room Air 11/24/24 23:00 11/24/24 23:00 Room Air 11/24/24 22:45 Room Air 11/24/24 22:03 Room Air 11/24/24 20:22 Room Air 11/24/24 20:17 Room Air 11/24/24 19:18 Room Air Laboratory Results 11/24/24 14:55 11/24/24 14:55 PG Care Time/CCT Total # of Minutes Spent Total Time Spent with Patient: Total time spent is greater than 50% in coordination of care (as documented) at patient's floor/unit and/or counseling patient: Coding Level of Care Code 16714 INT INP/OBS CARE MIN Diagnoses Asthma exacerbation J45.41 Asthma persistence: persistent Asthma severity: moderate SOB (shortness of breath) R06.02 Morbid obesity with BMI of 40.0-44.9, adult E66.01; Z68.41 Restrictive lung disease J98.4 Obesity E66.9 DOUGLAS (obstructive sleep apnea) G47.33
[2024-11-25] MEDS ORDERED: methylPREDNISolone 125 MG/2 ML VIAL IV SCH (09:00)
[2024-11-25] MEDS: dilTIAZem HCL 240 MG CAPCR PO SCH (09:37)
[2024-11-25] MEDS: MAGNESIUM OXIDE 400 MG TAB PO SCH (09:38)
[2024-11-25] MEDS: methylPREDNISolone 40 MG in SYRINGE 0 ML IV SCH (09:38)
[2024-11-25] MEDS: PANTOprazole 40 MG TAB PO SCH (09:38)
--- OUTSIDE RECORDS SUMMARY | 2024-11-25 09:43 | External Medical Summary | Summary of Care ---
Author Name Unknown Organization [facility] Address [address] [facility] [place] [address] Phone [phone] Care Team Providers Care Animal Shelter Worker Name Role Phone Tereso Shani Stuart PA-C Primary Care Provider [phone] Reason for Visit * Reason Onset Date Comments Medication Refill 11/22/2024 Encounter Details Date Type Department Care Team (Late st Contact Info) Description 11/22/2024 [facility] [address] [facility] [place] [address] Vicenta Carroll DO [address] [facility] [place] [address] Anxiety Allergies Active Allergy Reactions Criticality Noted Date [...] in the evening, Reported on 11/22/2024 Tiotropium [place] Monohydrate 18 MCG Inhalation Capsule (Spiriva) 1 [...] MORNING. 90 Capsule 1 06/15/20 24 Active Metoprolol Succinate ER 50 MG Oral [...] gone.. 10 Tablet 11/23/19 25 025 Active LORazepam 0.5 MG Oral Tablet (Ativan)Indicati ons:Anxiety Take 1 Tablet by mouth every 8 hours as needed for Anxiety. 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 Authorizing Provider: SHANI RIDER * Telephone Encounter - Elizabeth Awad RPh - 11/23/2024 6:45 PM EDTPending Prescriptions: Disp Refills LORazepam 0.5 MG Oral Tablet (Ativan) 30 Tab*0 * Telephone Encounter - Elizabeth Awad RPh - 11/23/2024 6:44 PM EDT I have reviewed the patients controlled substance dispensing history in the Prescription Drug Monitoring Program in compliance with the [facility] regulations before prescribing a controlled substance. PDMP checked on 11/23/2024. Pending Prescriptions: Disp Refills LORazepam 0.5 MG Oral Tablet (Ativan) 30 Tab*0 Last Visit: 10/07/2024 (in office), 09/27/2020 (telemedicine) Next Visit: 04/12/2025 Date medication was last filled: 10/09/2024 Date medication is due for refill: 10/19/2024 Pharmacy: [id number] [address] [place] [address] #[phone] Is this request for a controlled substance? Yes and Urine Drug Screen Not completed Toxicology results: No results found. However, due to the size of the patient record, not all encounters were searched.Please check Results Review for a complete set of results. Please approve if appropriate. Thank you, Elizabeth Awad [facility] Clinical Pharmacist [facility] ([facility]) 11/23/24 6:44 PM [phone] documented in this encounter Plan of Treatment Upcoming Encounters Date Type Department Care Team (Late st Contact Info) Description 11/26/2024 4:40 PM EDT Office Visit [facility] Ramiro Anderson [address] [place] [address] Christian Brown PA-C [address] [place] [address] 12/09/2024 2:00 PM EDT Office Visit Cardiology, [facility] [address] [place] [phone] Lala Millan CRNP [address] [place] [address] 04/12/2025 5:20 PM EDT [facility] [address] [facility] [place] [place] [address] Shani Rider PA-C [address] [facility] [place] [address] 05/18/2025 4:00 PM EDT Office Visit Cardiology, [facility] [address] [place] [phone] Ezio Soto MD [address] [place] [address] Scheduled Procedures Name Priority Associated Diagnoses Date/Ti [...] as of this encounter Visit Diagnoses Diagnosis Anxiety Anxiety state, unspecified documented in this encounter Care Teams Animal Shelter Worker Relationship Specialty Start Date End Date Tereso November ARDEN Stuart [address] [place] [address] PCP - General Physician Multi Line Claims Adjuster 09/22/20 documented as of this encounter
--- NOTE | 2024-11-25 10:08 | Hospitalist Progress Note ---
Date of Service November 25, 2024 Assessment & Plan (1) Asthma exacerbation: (2) Failure of outpatient treatment: Plan Ms. Duran is a 59 year old female with moderate persistent asthma, DOUGLAS on CPAP, prediabetes, GERD, PAF, bicuspid aortic valve w/ ascending aortic enlargement, and other history admitted for concerns of acute asthma exacerbation. Patient with symptoms ongoing since 11/12 and continued dry cough, wheezing, and sob despite steroids. #Acute asthma exacerbation #Restrictive lung disease #Severe persistent asthma CT PE negative follows Dr Hawkins s/p methylprednisone, neb order 2g mag on admission Continue q6 duonebs continue home inhalers started azithro 500mg x 3 days - will cont. flutter valve and mucinex iso chronic bronchitis Consult Pulm for any further optimization - started budesonide, perforomist nebs, appreciate their input #BLE Edema s/p IV lasix 1 on admission suspect iso steroid retention, no signs of HF otherwise to be suspected #palpitations #Paroxysmal atrial fibrillation [id number] score of 2 (female, HTN)- No current AC , reported "bleeding from every orifice" Continue Metoprolol 50mg XL BID Continue Diltazem 240mg daily Monitor on Tele and review for questionable overlap #Hypertension Continue losartan 50mg #DOUGLAS CPAP #seasonal allergies resume home regimen admit med tele DVT lovenox Admission and Anticipated Discharge Date Admission Date: November 24, 2024 Subjective Pt seen in follow up of asthma exacerbation Follows w/ pulm as outpt., Dr. Hawkins - consulted now while inpt Pt currently sitting up in bed in NAD. Reports feeling much better today, breathing easier. No chest pain, no fevers, chills, no abd. pain, n/v Review of Systems Review of Systems: All systems reviewed & are unremarkable except as noted in Subjective Physical Exam Physical Exam: GENERAL: obese F in NAD HEENT: NC, AT. MMM. EOMI, clear conjunctiva NECK: Supple HEART: Normal rate and regular rhythm, normal S1/S1, no m/r/g LUNGS: decreased breath sounds, + cough with deep inspiration, no wheezing ABDOMEN: Soft, nontender, nondistended BACK: No CVAT, no obvious deformity. EXTREMITIES: moves extremities, minimal LE edema NEUROLOGICAL: Awake, alert, answers appropriately, speech fluent, moving extremities Skin: Warm and dry Results & Data Results & Data Vital Signs (Past 12 Hours) Vital Signs Temp Pulse Pulse Resp BP Pulse Ox O2 Del Method 11/25/24 08:23 36.5 C 70 20 160/94 H 92 Room Air 11/25/24 07:29 79 11/25/24 06:59 78 16 96 Room Air 11/25/24 03:45 36.5 C 70 16 144/82 H 95 CPAP 11/25/24 01:00 71 18 95 Room Air 11/24/24 23:00 105 H 11/24/24 23:00 Room Air 11/24/24 22:45 36.8 C 92 H 20 167/92 H 93 Room Air Laboratory Results 11/24/24 11/24/24 11/24/24 Range/Units 16:18 14:55 14:44 WBC 13.89 H (4.8-10.8) K/ul RBC 4.98 (4.20-5.40) M/uL Hgb 14.2 (12.0-16.0) g/dl Hct 42.8 (37.0-47.0) % MCV 85.9 (80.0-100.0) fL MCH 28.5 (25.0-34.0) pg MCHC 33.2 (32.0-36.0) g/dL RDW Std Deviation 43.6 (36.4-46.3) fL RDW Coeff of Cody 14.3 (11.5-14.5) % Plt Count 291 (130-400) K/uL MPV 10.0 (9.4-12.4) fL Immature Gran % (Auto) 0.8 % Neut % (Auto) 61.4 % Lymph % (Auto) 28.3 % [place] % (Auto) 6.3 % Eos % (Auto) 2.9 % Baso % (Auto) 0.3 % Neut # (Auto) 8.53 H (1.40-6.50) K/uL Lymph # (Auto) 3.93 H (1.20-3.40) K/uL [place] # (Auto) 0.88 H (0.11-0.59) K/uL Eos # (Auto) 0.40 (0.00-0.50) K/uL Baso # (Auto) 0.04 (0.00-0.20) K/uL Immature Gran # (Auto) 0.11 (0.01-0.20) K/uL PT 10.1 (9.0-12.0) Seconds INR 0.9 (0.9-1.1) APTT 26 (21-31) Seconds PTT Ratio 1.0 Sodium 141 (136-145) mmol/L Potassium 3.8 (3.5-5.1) mmol/L Chloride 105 (98-107) mmol/L Carbon Dioxide 29 (21-32) mmol/L Anion Gap 7 (3-11) BUN 19 (6-23) mg/dl Creatinine 0.81 (0.6-1.2) mg/dl Est Cr Clr Drug Dosing 103.9 ml/min eGFR 83.57 BUN/Creatinine Ratio 23.5 H (10-20) Glucose 118 H (70-99(Fasting)) mg/dl Calcium 9.1 (8.6-10.3) mg/dl Magnesium 1.9 (1.7-2.4) mg/dl Total Bilirubin 1.1 H (0.2-1.0) mg/dl AST 13 (13-39) U/L ALT 20 (7-52) U/L Alkaline Phosphatase 82 (34-104) U/L Troponin I High Sens 4.0 (0-14) pg/ml Total Protein 6.8 (6.0-8.3) gm/dl Albumin 4.1 (3.4-5.0) gm/dl Globulin 2.7 (2.5-4.0) gm/dl Albumin/Globulin Ratio 1.5 (0.9-2) Procalcitonin < 0.02 (0-0.5) ng/ml Adenovirus (PCR) Not Detected (NotDetected) B. pertussis DNA (PCR) Not Detected (NotDetected) B.parapertussis DNA PCR Not Detected (NotDetected) C. pneumoniae DNA (PCR) Not Detected (NotDetected) Coronavirus OC43 (PCR) Not Detected (NotDetected) Coronavirus HKU1 (PCR) Not Detected (NotDetected) Coronavirus 229E (PCR) Not Detected (NotDetected) SARS-CoV-2 (PCR) Not Detected (NotDetected) Coronavirus NL63 (PCR) Not Detected (NotDetected) Human Metapneumovir PCR Not Detected (NotDetected) Influenza Type A (PCR) Not Detected (NotDetected) Influenza Type B (PCR) Not Detected (NotDetected) M. pneumoniae (PCR) Not Detected (NotDetected) Parainfluenza 1 (PCR) Not Detected (NotDetected) Parainfluenza 2 (PCR) Not Detected (NotDetected) Parainfluenza 3 (PCR) Not Detected (NotDetected) Parainfluenza 4 (PCR) Not Detected (NotDetected) RSV (PCR) Not Detected (NotDetected) Entero/Rhino (PCR) Not Detected (NotDetected) Medications Administered Current Inpatient Medications Acetaminophen (Acetaminophen 325 Mg Tab) 650 mg PO Q4H PRN PRN Reason: Pain or Fever Stop: 12/24/24 20:19 Last Admin: 11/24/24 21:25 Dose: 650 mg Albuterol (Albut/Ipratrop 3mg/0.5mg Neb 3 Ml Vial) 3 ml NEB Q6R [facility]; Protocol Stop: 12/24/24 20:19 Last Admin: 11/25/24 06:59 Dose: 3 ml Albuterol (Albuterol Hfa 8 Gm Inhaler) 2 puffs INH Q6H PRN PRN Reason: Shortness Of Breath Or Wheezing Stop: 12/24/24 20:19 Azithromycin (Azithromycin 250 Mg Tab) 500 mg PO QAM [facility] Stop: 11/26/24 09:01 Last Admin: 11/24/24 21:28 Dose: 500 mg Budesonide (Budesonide 0.5 Mg/2 Ml Vial (Pulmicort)) 0.5 mg NEB BIDR [facility] Stop: 12/25/24 18:59 Cetirizine HCl (Cetirizine Hcl 10 Mg Tablet) 10 mg PO DAILY [facility] Stop: 12/24/24 20:44 Last Admin: 11/25/24 09:37 Dose: 10 mg Diltiazem HCl (Diltiazem Hcl 240 Mg Capcr) 240 mg PO QAM [facility] Stop: 12/25/24 08:59 Last Admin: 11/25/24 09:37 Dose: 240 mg Enoxaparin Sodium (Enoxaparin Inj 40 Mg/0.4 Ml Syr) 40 mg SQ BID [facility] Stop: 12/24/24 20:59 Last Admin: 11/25/24 09:37 Dose: 40 mg Formoterol Fumarate (Formoterol 20 Mcg/2 Ml Vial) 20 mcg NEB BIDR [facility] Stop: 12/25/24 18:59 Guaifenesin (Guaifenesin 600 Mg Tabcr) 600 mg PO Q12 [facility] Stop: 12/24/24 20:59 Last Admin: 11/25/24 09:38 Dose: 600 mg Hydrocodone Bit/Homatropine Methylb (Hydrocodone/Homatropine Syrup 5mg/1.5mg 5ml Udp) 5 ml PO Q4H PRN PRN Reason: Cough Stop: 12/08/24 20:20 Methylprednisolone 40 mg/ (Syringe) 0.64 mls @ 1.5 mls/min IV DAILY [facility] Stop: 12/25/24 08:59 Last Admin: 11/25/24 09:38 Dose: 1.5 mls/min Levalbuterol HCl (Levalbuterol 1.25 Mg/3 Ml Neb) 1.25 mg INH Q4H PRN PRN Reason: Shortness Of Breath Or Wheezing Stop: 12/24/24 20:19 Lorazepam (Lorazepam 0.5 Mg Tab) 0.5 mg PO HS PRN PRN Reason: Sleep Stop: 12/24/24 20:19 Last Admin: 11/25/24 00:13 Dose: 0.5 mg Losartan Potassium (Losartan Potassium 50 Mg Tab) 50 mg PO HS [facility] Stop: 12/25/24 20:59 Magnesium Oxide (Magnesium Oxide 400 Mg Tab) 400 mg PO BID [facility] Stop: 11/27/24 08:59 Last Admin: 11/25/24 09:38 Dose: 400 mg Metoprolol Succinate (Metoprolol Succ 50mg Ext Rel Tab) 50 mg PO BID [facility] Stop: 12/24/24 20:59 Last Admin: 11/25/24 09:38 Dose: 50 mg Montelukast Sodium (Montelukast Sodium 10 Mg Tablet) 10 mg PO HS [facility] Stop: 12/24/24 20:59 Last Admin: 11/24/24 21:29 Dose: 10 mg Pantoprazole Sodium (Pantoprazole 40 Mg Tab) 40 mg PO QAM [facility] Stop: 12/25/24 08:59 Last Admin: 11/25/24 09:38 Dose: 40 mg Potassium Chloride (Potassium Chloride 10 Meq Tabcr) 10 meq PO QPM [facility] Stop: 12/24/24 20:59 Last Admin: 11/24/24 21:33 Dose: 10 meq Umeclidinium Yermo (Umeclidinium Yermo 62.5mcg/Blister 7 Puffs/Inhaler) 1 puffs INH QPM [facility]; Protocol Stop: 12/24/24 20:59 Last Admin: 11/24/24 21:27 Dose: 1 puffs (1) Asthma exacerbation Asthma persistence: persistent Asthma severity: moderate Qualified Code(s): J45.41 - Moderate persistent asthma with (acute) exacerbation
--- NOTE | 2024-11-25 12:12 | Electrocardiogram Report ---
Test Reason : Blood Pressure : */* mmHG Vent. Rate : 76 BPM Atrial Rate : 76 BPM P-R Int : 186 ms QRS Dur : 86 ms QT Int : 384 ms P-R-T Axes : 17 -23 14 degrees QTcB Int : 432 ms Normal sinus rhythm Minimal voltage criteria for LVH, may be normal variant ( R in aVL ) Possible Anterolateral infarct (cited on or before 04-Oct-2024) Abnormal ECG When compared with ECG of 04-Oct-2024 18:03, No significant change was found Confirmed by Barry Boss ([id number]) on 11/25/2024 12:12:16 PM Referred By: Janice Hawkins Confirmed By: Barry Boss
[2024-11-25] MEDS: BUDESONIDE 0.5 MG/2 ML VIAL (PULMICORT) NEB SCH (20:14)
[2024-11-25] MEDS: FORMOTEROL 20 MCG/2 ML VIAL NEB SCH (20:14)
[2024-11-25 20:16] VITALS: RESP 18
[2024-11-25] MEDS: LOSARTAN POTASSIUM 50 MG TAB PO SCH (20:25)
[2024-11-26 02:24] VITALS: TEMP 97.9
[2024-11-26 06:32] LABS: Hematocrit (blood only) 41.4 % (37.0-47.0); Hemoglobin 13.6 g/dl (12.0-16.0); Mean Corpuscular Hemoglobin 28.7 pg (25.0-34.0); Mean Corpuscular Hgb Conc 32.9 g/dL (32.0-36.0); Mean Corpuscular Volume 87.3 fL (80.0-100.0); Mean Platelet Volume 10.3 fL (9.4-12.4); Platelet Count 233 K/uL (130-400); RDW Coefficient of Variation 14.1 % (11.5-14.5); RDW Standard Deviation 44.5 fL (36.4-46.3); Red Blood Count 4.74 M/uL (4.20-5.40)
[2024-11-26 06:55] LABS: BUN Creatinine Ratio 29.7 (10-20); Calcium 8.6 mg/dl (8.6-10.3); Creatinine Clr Calc Pharmacy 131.8 ml/min; Magnesium 2.5 mg/dl (1.7-2.4); Phosphorus 3.9 mg/dl (2.5-4.9); Potassium 4.4 mmol/L (3.5-5.1)
--- NOTE | 2024-11-26 08:06 | Pulmonology Progress Note ---
Date of Service November 26, 2024 Assessment & Plan (1) Asthma exacerbation: Asthma persistence: persistent Asthma severity: moderate Qualified Code(s): J45.41 - Moderate persistent asthma with (acute) exacerbation (2) SOB (shortness of breath): (3) Morbid obesity with BMI of 40.0-44.9, adult: (4) Restrictive lung disease: (5) Obesity: (6) DOUGLAS (obstructive sleep apnea): Plan CTA chest 11/24/2024 personally reviewed: Mosaicism appreciated diffusely bilaterally Linear atelectasis of the inferior lobe of the lingula as well as bilateral lower lobe Evidence of expiratory dynamic airway collapse Cardiomegaly No significant mediastinal lymphadenopathy PFT 11/07/2022 personally reviewed: Mild to moderate restrictive lung dysfunction, no obstructive lung dysfunction, insignificant bronchodilator response (Decreased FVC by 70 mL, decrease in FEV1 by 170 mL, decrease in TLC 91--> 71%, increased DLCO 52--> 95%, increase in weight by 20 pounds compared to 10/2020) FVC 2.57 L 78%, FEV1 2.12 L 82%, FEV1/FVC 83%, RV 56%, TLC 71%, ERV 8%, DLCO 95% -- Acute exacerbation of severe persistent asthma Respiratory BioFire negative for everything on 11/24/2024 Procalcitonin negative On Breo 200 and Spiriva at home along with as needed albuterol and nebulizers She is also on montelukast For chronic bronchitis continue with Mucinex as well as flutter valve on an as- needed basis Absolute eosinophil count 400 on 11/24/2024 6MWT 11/25/2022: Patient walked 910 feet, she was able to maintain a saturation 94% on room air -- Restrictive lung disease TLC 71%, FVC 78%, DLCO 95% Likely from underlying BMI Incentive spirometry and weight loss will be beneficial -- Allergies rhinitis with postnasal drip On Singulair as well as Zyrtec. Advised to change Zyrtec to some other antihistamine -- DOUGLAS Patient is compliant with CPAP, advised the patient to use CPAP machine at least 4-5 hours every night Importance of cleaning as well as changing the tubing and the mask on a regular basis explained -- Obesity Advised to lose with diet and exercise Plan: While hospitalized would prefer the patient to be on nebulized bronchodilators Continue with montelukast Given the elevated eosinophil count as well as frequent exacerbation of her underlying asthma, I will start working on getting her Mary from outpatient Complete the course of azithromycin Start prednisone 40 mg for 3 days as of tomorrow followed by 20 mg for 4 days and then stop Patient's is a ryan, I do think she has trigger factors at home which might make her asthma worse. Advised her to continue with Zyrtec and singular at home and Flonase/Dymista on top of it Case was discussed with primary team Please note the above document was generated using voice recognition software. It may contain grammatical, syntax or spelling errors.Any formal questions or concerns about the content, text or information contained within the body of this dictation should be directly addressed to the provider for clarification. Admission and Anticipated Discharge Date Admission Date: November 24, 2024 Subjective Patient seen and examined at bedside. No acute distress, no adverse events overnight Feeling much better Did use CPAP overnight Denies any cough Shortness of breath is significantly improved denied any wheezing Fair appetite No nausea vomiting Review of Systems 2 Review of Systems: All systems reviewed & are unremarkable except as noted in Subjective Physical Exam 2 Physical Exam: Constitutional: No acute distress HEENT: EOMI, PERRLA Respiratory system: Good air entry bilaterally, no wheeze, no rhonchi, no crackles CVS: S1-S2 positive, no murmurs or gallops Abdomen: Soft, nontender, nondistended, positive bowel sounds x4 Extremities: +2 pulses bilaterally radialis/ dorsalis pedis, no cyanosis, minimal pitting edema bilateral lower extremity Neuro: Awake alert oriented x3 Psych: Normal mood and affect G/U: No Haq Skin: no rashes, warm and dry Lymphatic: no cervical or axillary lymphadenopathy Results & Data Results & Data Vital Signs (Past 12 Hours) Vital Signs Temp Pulse Pulse Resp BP Pulse Ox O2 Del Method 11/26/24 07:28 Room Air, CPAP 11/26/24 07:04 61 11/26/24 06:49 88 18 97 Room Air 11/26/24 02:24 36.6 C 67 18 114/65 94 CPAP 11/26/24 01:15 89 18 97 Room Air 11/25/24 22:32 36.7 C 94 H 18 135/85 94 Room Air 11/25/24 20:20 11/25/24 20:14 93 H 18 94 Room Air O2 Del Method 11/26/24 07:28 11/26/24 07:04 11/26/24 06:49 11/26/24 02:24 11/26/24 01:15 11/25/24 22:32 11/25/24 20:20 Room Air 11/25/24 20:14 Laboratory Results 11/26/24 06:08 11/26/24 06:08 PG Care Time/CCT Total # of Minutes Spent Total Time Spent with Patient: Total time spent is greater than 50% in coordination of care (as documented) at patient's floor/unit and/or counseling patient: Coding Level of Care Code 94713 SUB INP/OBS CARE 235MIN Diagnoses Asthma exacerbation J45.41 Asthma persistence: persistent Asthma severity: moderate SOB (shortness of breath) R06.02 Morbid obesity with BMI of 40.0-44.9, adult E66.01; Z68.41 Restrictive lung disease J98.4 Obesity E66.9 DOUGLAS (obstructive sleep apnea) G47.33
[2024-11-26 08:15] VITALS: BP 121/66; O2SAT 95
--- NOTE | 2024-11-26 09:55 | Discharge Summary ---
Date of Service November 26, 2024 Admission HPI Per Admitting Provider Ms. Roman is a 58 y/o female with moderate persistent asthma, DOUGLAS on CPAP, prediabetes, GERD, PAF, bicuspid aortic valve w/ ascending aortic enlargement who presented to ED for refractory asthma exacerbation Patient reports managing wheezing, sob, and cough since just before 11/12. She has completed a prolonged steroid taper and still did not improve, prompting initiation of levaquin on 11/22 for concern of underlying pneumonia. Patient states she presented to see Dr. Hawkins in clinic, who suggested she report to the ED for evaluation. She states that her symptoms are worse at night and she often wakes in the middle of the night to use a neb treatment. She is utilizing her nebs 4-6 times a day. She denies any productive cough. She endorses chills, but denies any subjective or confirmed fevers. She denies tobacco use. She reports that she has been experiencing palpitations for the last week, but is unsure if the "fluttering" is related to her cough first or the cough related to the fluttering. She notes she has a zio patch she completed but failed to mail in. She denies chest pain, but does note some swelling in her legs, which is not abnormal and often present after she completes steroids course. She has utilizing water pill previously for this issue. In the ED, vitals were notable for BP of 140s-170s HR of 80s and O2 sat of low 90s on room air . Imaging revealed Narrowed appearance of the tracheobronchial tree, but no PE EKG QTC 432 ED interventions: methyl pred 60mg IV x1, duoneb Patient to be admitted to med/tele. for further evaluation and management of refractory asthma exacerbation. Admission Exam Per Admitting Provider GENERAL APPEARANCE: AxOx4, generally well-appearing F, no acute distress. HEENT: NC, AT. MMM. EOMI, clear conjunctiva, oropharynx clear. NECK: Supple without lymphadenopathy. No stiffness or restricted ROM. HEART: Normal rate and regular rhythm, normal S1/S1, no m/r/g LUNGS: tight airway, diminished in all adam, no clear wheezing ABDOMEN: Soft, nontender, nondistended with good bowel sounds heard. BACK: No CVAT, no obvious deformity. EXTREMITIES: Without cyanosis, clubbing or edema. NEUROLOGICAL: Grossly nonfocal. Alert and oriented, moving all 4 extremities. CN not formally tested but appear grossly intact Skin: Warm and dry without any rash. Principal Diagnosis Asthma exacerbation Discharge Exam GENERAL: obese F in NAD HEENT: NC, AT. MMM. EOMI, clear conjunctiva NECK: Supple HEART: Normal rate and regular rhythm, normal S1/S1, no m/r/g LUNGS: decreased breath sounds, + cough with deep inspiration, no wheezing ABDOMEN: Soft, nontender, nondistended BACK: No CVAT, no obvious deformity. EXTREMITIES: moves extremities, minimal LE edema NEUROLOGICAL: Awake, alert, answers appropriately, speech fluent, moving extremities Skin: Warm and dry Discharge Data Allergies Allergy/AdvReac Type Severity Reaction Status Date / Time Egg Derived Allergy Severe Anaphylaxis Verified 11/24/24 17:06 Influenza Virus Vaccines Allergy Severe anaphylaxis Verified 11/24/24 17:06 meloxicam Allergy Severe HEAD TO Verified 11/24/24 17:06 TOE HIVES Consultations 11/24/24 16:17 ED Decision to Admit Stat 11/24/24 20:20 Consult Pulmonology Routine Ordered Studies 11/24/24 15:05 CT angio chest PE protocol Stat FINDINGS: Diagnostic quality: Adequate There is no evidence for pulmonary embolism. The heart is not enlarged. There is no pericardial effusion. There are no abnormally enlarged hilar or mediastinal lymph nodes. The central tracheobronchial tree is clear. There is inward bowing of the posterior membrane of the trachea and the mainstem bronchi, which narrows the lumen in the AP diameter. The lungs are clear. There is no pleural effusion. Limited visualized upper abdomen. No destructive osseous changes are seen. IMPRESSION: No evidence for pulmonary embolism. Narrowed appearance of the tracheobronchial tree, as above, which may be seen with excessive dynamic airway collapse. In this patient with reported history of respiratory symptoms, which has been attributed to asthma, consider tracheobronchomalacia. Mosaic attenuation of the lung parenchyma, which may be seen with small airway or small vessel disease. Hospital Course (1) Asthma exacerbation: (2) Failure of outpatient treatment: Plan Ms. Duran is a 59 year old female with moderate persistent asthma, DOUGLAS on CPAP, prediabetes, GERD, PAF, bicuspid aortic valve w/ ascending aortic enlargement, and other history admitted for concerns of acute asthma exacerbation. Patient with symptoms ongoing since 11/12 and continued dry cough, wheezing, and sob despite steroids. Acute asthma exacerbation Restrictive lung disease Severe persistent asthma CT PE negative follows Dr Hawkins - pulmonary medicine s/p methylprednisone, neb on admission order 2g mag on admission Continue q6 duonebs continue home inhalers started Azithro - will DC on 2 more says of abx flutter valve and mucinex iso chronic bronchitis Pulmonary medicine consulted for any further optimization - budesonide, perforomist nebs while inpt, discussed DC recommendations - will DC on prednisone taper and abx as above. Pt has follow up appointment scheduled w/ Dr. Hawkins on 11/29/2024. She may be a candidate for Fasenra. #BLE Edema s/p IV lasix 1 on admission suspect iso steroid retention, no signs of HF otherwise to be suspected #palpitations #Paroxysmal atrial fibrillation [id number] score of 2 (female, HTN)- No current AC , reported "bleeding from every orifice" Continue Metoprolol 50mg XL BID Continue Diltazem 240mg daily Monitor on Tele Hypertension Continue losartan 50mg DOUGLAS CPAP seasonal allergies resume home regimen Total Time Total Time Spent Total Time Spent (In Minutes): 40 Discharge Plan Discharge Items Patient Disposition: Home - Self-Care Reason For Visit: ASTHMA EXACERBATION Discharge Diagnosis: Asthma exacerbation Condition on Discharge: Fair Activity: Per Instructions section Non-emergency contact: Primary Care Provider, Specialist and Wildlife Control Operator Call non-emergency contact if: you have any medication questions and your symptoms worsen Follow-up/Referrals: Janice Hawkins MD, [facility] [Physician] - 11/29/24 1:40 pm Shani Rider PA-C [Primary Care Provider] - 12/02/24 1:00 pm (Date & Time 12/02/2024 1:00 PM Provider: Shani Rider PA-C [facility] ) Diet: Heart Healthy Addtl Attending Provider Instructions: Follow up with your primary care physician and manager spanish, Dr. Hawkins. Finish antibiotic course with azithromycin as prescribed. Take prednisone - 40 mg for next 3 days (starting tomorrow), then take 20 mg daily for 4 days. Pending Studies at Discharge: No Stand-Alone Forms: My [employer], Smoking Cessation Medications and DC Order Prescriptions: New azithromycin 250 mg tablet 250 mg PO DAILY Qty: 2 0RF prednisone 20 mg tablet 20 mg PO UD Qty: 10 0RF Rx Instructions: Take 2 tabs for 3 days, then take 1 tab for 4 days Continued diltiazem HCl 240 mg capsule,extended release 24 hr 240 mg PO QAM Qty: 90 1RF pantoprazole 40 mg tablet,delayed release (DR/EC) 40 mg PO QAM Qty: 30 5RF montelukast 10 mg tablet 10 mg PO HS Qty: 90 3RF albuterol sulfate 90 mcg/actuation HFA aerosol inhaler 2 puff INHALATION Q6H PRN (Reason: Shortness Of Breath Or Wheezing) Qty: 8.5 4RF losartan 25 mg tablet 50 mg PO HS fluticasone furoate-vilanterol [Breo Ellipta] 200-25 mcg/dose blister with device 1 ea inhalation QAM Qty: 60 8RF Spiriva with HandiHaler 18 mcg capsule, w/inhalation device 1 cap INHALATION QPM Qty: 60 8RF Rx Instructions: puncture 1 cap using device; one dose = 2 inhalations cetirizine 10 mg Tablet 10 mg PO DAILY PRN (Reason: Allergy Symptoms) lorazepam 0.5 mg Tablet 0.5 mg PO HS PRN (Reason: Sleep) levalbuterol HCl 1.25 mg/3 mL Solution For Nebulization 1.25 mg INHALATION Q4H PRN (Reason: Shortness Of Breath Or Wheezing) potassium chloride 10 mEq tablet extended release 10 meq PO QPM metoprolol succinate 25 mg tablet extended release 24 hr 50 mg PO BID hydroxyzine HCl 10 mg tablet 10 mg PO QID PRN (Reason: Itching) Discharge Orders: Discharge Order (Routine); Ordered 11/26/24 Ordered By: James Chadwick Admission Data Admit Date/Time: 11/24/24 16:54 Attending Provider: James Chadwick Admit Provider: Marysol Barreto Primary Care Provider: Shani Rider Other Providers: Marysol Barreto; Janice Hawkins Other Interventions: Discharge Summary Assessment (RN) Last Done: 11/26/24 10:12
[2024-11-26 13:04] VITALS: PULSE 77
== END 2024-11-26 14:16 | disposition home or self-care (01) ==
LOC: EDINP 14:20 → ED 14:20 → SUATTDRO 16:54 → 4W 20:20